=== PATIENT | female | born 2000 | race Caucasian/White ===

== ENCOUNTER 2023-04-16 12:19 | Outpatient (REF) | payer BC, SELFPAY ==
[2023-04-16 14:36] LABS: MANUAL DIFF FLAG NO
[2023-04-16 14:51] LABS: Basophils Percent Auto 0.4 % (0-2); Eosinophils Absolute Auto 0.1 X10*3/uL (0.0-0.4); Eosinophils Percent Auto 0.7 % (0-4); Hematocrit 42.9 % (37.0-47.0); Hemoglobin 14.5 g/dl (12.0-16.0); Imm Gran Abs Auto 0.03 X10*3/uL (0.00-0.03); Imm Gran Pct Auto 0.4 % (0.0-0.4); Lymphocytes Absolute Auto 1.9 X10*3/uL (1.2-4.9); Lymphocytes Percent Auto 25.8 % (20-40); Mean Corpuscular HGB Conc 33.8 g/dl (31.0-35.0); Mean Corpuscular Hemoglobin 29.7 pg (27.0-33.0); Mean Corpuscular Volume 87.7 fL (80.0-98.0); Mean Platelet Volume 9.6 fL (9.4-12.3); Monocytes Absolute Auto 0.6 X10*3/uL (0.1-1.2); Neutrophils Absolute Auto 4.8 x10*3/uL (2.0-8.3); Neutrophils Percent Auto 64.7 % (45-73); Platelet Count 345 X10*3/uL (160-400); Red Blood Count 4.89 X10*6/uL (4.20-5.50); Red Cell Distribution Width 11.8 % (11.0-16.0); White Blood Count 7.4 X10*3/uL (4.8-10.8)
[2023-04-16 15:30] LABS: Appearance Urine Clear; Color Urine Yellow; Glucose Urine UA Negative (Negative); Leukocyte Esterase Urine Negative (Negative); Nitrite Urine Negative (Negative); PH 7.5 (5.0-9.0); Specific Gravity - Urine 1.025 (1.005-1.025); Urine Blood Negative (Negative); Urine Ketones Negative (Negative); Urine Protein Negative (Neg-Trace)
[2023-04-16 15:34] LABS: Alanine Aminotransferase 20 U/L (0-31); Albumin Level 4.5 g/dL (3.5-5.0); Alkaline Phosphatase 106 U/L (39-117); Anion Gap 12 (12-20); Aspartate Amino Transferase 19 U/L (5-31); Bilirubin Total 0.6 mg/dL (0.0-1.0); Blood Urea Nitrogen 14 mg/dL (9-16); Carbon Dioxide 26 mmol/L (22-29); Chloride 106 mmol/L (96-108); Cholesterol 239 mg/dL; Estimated Glomerular Filt Rate > 60; Glucose Fasting 97 mg/dL (60-99); HDL Cholesterol 33 mg/dL; LDL Cholesterol Calculated 167 mg/dl; Potassium 3.9 mmol/L (3.3-5.1); Sodium 140 mmol/L (135-145); TSH reflex Free T4 0.56 uIU/mL (0.32-4.0); Triglycerides 198 mg/dL
== END 2023-04-16 12:20 | disposition home or self-care (01) ==
LOC: HO.WFDLDS 12:19
PROVIDERS: Visit Provider Nurse Practitioner Family
DX: Z00.00 Encounter for general adult medical examination without abnormal findings (principal)
CPT/HCPCS: 36415; 80053; 80061; 81003; 84443; 85025

== ENCOUNTER 2023-04-27 09:59 | Outpatient (AMB) | payer BC, OTHER, SELFPAY ==
--- NOTE | 2023-04-27 10:32 | A.OFFPC_ITS ---
Vital Signs 04/27/23 10:36 Height 5 ft 6 in Weight 219 lb BMI 35.3 BP 122/74 Blood Pressure Location Lt brachial Position Sitting Pulse 95 Pulse Source Pulse Oximeter Pulse Oximetry (%) 98 Intake Visit Reasons: anxiety, depression Intake Note: pt is here for anxiety and depression Pulper Operator Required: No Accompanied by: Self / Same As Patient Allergies Seasonal Allergies Allergy (Mild, Verified 04/27/23 10:54) Sneezing Medication List - Last Reconciled 04/27/23 by Raudel Tanner CNP duloxetine 120 mg (2 x 60 mg) PO DAILY 30 days lamotrigine 100 mg PO BID levonorgestrel (Mirena) intrauterine Tobacco use date assessed: 03/31/23 Dental Screening Dental Screen Date: 04/27/23 Did you have a dental visit in the last 12 months?: No Did you have a dental problem in the last 6 months where you did not have access to dental care?: No Was dental information given to patient?: Yes HPI HPI Comments History of Present Illness Details 22-year-old female presents for anxiety and depression follow-up. She is on duloxetine and lamotrigine. She notes she has been taking her medications as prescribed and with good effects. She states that her anxiety and depression symptoms are improving. She notes she is in contact with the community navigator to find a therapist. [facility] Medical History Anxiety Bipolar 1 disorder delivery delivered Depression Fatty tumor Ovarian cyst depression Surgical History History of placement of ear tubes [place] teeth removed Family History Maternal Grandmother Colon cancer Social History Housing: House Patient Tobacco Use Status: Former Tobacco user Tobacco use type: Cigarette Cigarettes Per Day: 0.5 e-Cigarette/Vaping Use: Currently Using (Occasional) service: No Cognitive needs: No Hearing needs: No Vision needs: Yes Questionnaire PHQ-9 Over the last 2 weeks, how often have you been bothered by any of the following problems? 1. Little interest or pleasure in doing things: several days 2. Feeling down, depressed, or hopeless: more than half the days 3. Trouble falling or staying asleep, or sleeping too much: nearly every day 4. Feeling tired or having little energy: nearly every day 5. Poor appetite or overeating: nearly every day 6. Feeling bad about yourself - or that you are a failure or have let yourself or your family down: more than half the days 7. Trouble concentrating on things, such as reading the newspaper or watching television: not at all 8. Moving or speaking so slowly that other people could have noticed. Or the opposite - being so fidgety or restless that you have been moving around a lot more than usual: not at all 9. Thoughts that you would be better off or of hurting yourself in some way: not at all Total score: 14 Depression Screening Interpretation: Positive Depression Screening Follow-up: Existing condition and In treatment 72485 - PHQ-9 Billing: Yes Source: Developed by Drs. Scott Silver, aMrily Delvalle, Marty Lamas and colleagues, with an educational rima from [employer]. Thrive Questionnaire Date Thrive assessed: 03/31/23 MELISSA-7 AMB Questionnaire MELISSA-7 Date MELISSA - 7 assessed: 04/27/23 Feeling nervous, anxious, or on edge: 1 = Several days Not being able to stop or control worryin = Several days Worrying too much about different things: 1 = Several days Trouble relaxin = Several days Being so restless that it is hard to sit still: 1 = Several days Becoming easily annoyed or irritable: 3 = Nearly every day Feeling afraid as if something awful might happen: 1 = Several days Total MELISSA-7 score (0-4 normal; 5-9 mild; 10-14 moderate; 15-21 severe): 9 Source: Developed by Drs. Scott Silver, Marty Mercedes and colleagues, with an educational rima from [employer]. MELISSA-7 Assessment Billing MELISSA-7 Assessment Tool: MELISSA-7 Assessment 08045 Review of Systems Const Details: Const Denies chills, Denies fatigue, Denies fever(s), Denies headache(s) and Denies weakness ENT Denies dizziness and Denies headache(s) Card Denies chest pain, Denies lightheadedness, Denies dyspnea and Denies other (Palpitations) Resp Denies cough, Denies dyspnea, Denies wheezing and Denies other ( shortness of breath) GI Denies abdominal pain, Denies melena, Denies hematochezia, Denies change in bowel habits, Denies dyspepsia and Denies nausea Denies hematuria and Denies dysuria Musc Denies abnormal gait, Denies myalgias, Denies arthralgias, Denies numbness and Denies tingling Skin/Breast Denies rash, Denies unusual bruising and Denies wounds Neuro Denies abnormal gait, Denies dizziness, Denies headache(s), Denies memory loss, Denies numbness, Denies Sensory deficit (Neuro), Denies tingling and Denies weakness Psych Reports anxiety and Denies depression, Denies memory loss Endo Denies fatigue Aller/Immun Denies wheezing Physical exam (Primary Care) Vital Signs: Last Vital Signs Pulse 95 04/27/23 10:36 BP 122/74 04/27/23 10:36 Pulse Ox 98 04/27/23 10:36 BMI result Body Mass Index 35.3 Tobacco/Smoking Status: Tobacco use Status Tobacco use date assessed 03/31/23 04/27/23 10:38 Patient Tobacco Use Status Former Tobacco user 04/27/23 10:38 Tobacco use type Cigarette 04/27/23 10:38 e-Cigarette/Vaping Use Currently Using (Occasional) 04/27/23 10:38 PHQ-9: PHQ-9 Score PHQ-9: Total score 14 04/27/23 10:58 Depression Screening Interpretation: Positive Depression Screening Follow-up: Existing condition and In treatment Thrive Assessment: Date of Thrive Assessment Date Thrive assessed 03/31/23 04/27/23 10:38 Const Other: General: no acute distress and well developed Nutritional Appearance: well nourished Orientation/consciousness: patient oriented x3 HENMT Head: Yes normocephalic and Yes atraumatic Eyes General: appearance normal, both eyes and all related structures Pupils: Equal, round and reactive pupils present EOM: EOMs intact bilaterally Resp Effort & Inspection: normal respiratory effort Auscultation: clear to auscultation bilaterally Cardio Rate: regular rate Rhythm: regular rhythm Heart sounds: S1 normal heart sound present, S2 normal heart sound present, no gallops, no murmurs and no rubs GI Palpation (GI): No Abdominal aortic bruit present, Soft to palpation, nontender, No hepatosplenomegaly present and No Rebound tenderness present Auscultation: normal bowel sounds General: Yes no CVA tenderness Back/Spine/Pelvis Back: no CVA tenderness Cervical Spine: cervical ROM normal and No Cervical spine tenderness Thoracic/Lumbar Spine: thoraco-lumbar ROM normal, No pain with thoraco-lumbar ROM, No thoracic spinal tenderness and No lumbar spinal tenderness Extrem General: Yes normal to inspection, No edema and No calf tenderness Skin General: warm and dry. Normal skin color. Normal skin turgor Lesions: no lesions Rashes: no rashes Trauma: no lacerations or abrasions Wounds: no wounds Nails: normal Neuro General: patient oriented x3, gait normal and no focal neuro deficit Cranial nerves: Yes Equal, round and reactive pupils present Cognition (Neuro): normal cognition Gait exam (Neuro): Normal gait present Sensory Exam: No Sensory deficit (Neuro) Psych Appearance: grossly normal Affect: normal affect Attitude: cooperative Thought process: Normal thought process present Assessment and Plan Assessment & Plan (1) Depression: Code(s): F32.A - Depression, unspecified Plan: PHQ-9 and MELISSA-7 scores revealed moderate depression and mild anxiety respectively Continue to take duloxetine and lamotrigine as prescribed Routine exercise encouraged Recent lab results reviewed with the patient Follow-up in 1 month for a complete physical exam Return sooner with worsening or new symptoms Verbalized understanding and agreed with treatment plan (2) Anxiety: Code(s): F41.9 - Anxiety disorder, unspecified Plan: As above (3) Hyperlipidemia: Code(s): E78.5 - Hyperlipidemia, unspecified Plan: Recent blood work reviewed with the patient Triglyceride, cholesterol, and LDL were elevated, HDL was low Advised to limit foods high in saturated fat and avoid foods high trans fat Routine exercise encouraged Will continue to monitor Coding Level of Care Code Est Pt Level 3 (24196) Diagnoses Depression F32.A Anxiety F41.9 Hyperlipidemia E78.5 Additional Codes MELISSA-7 Assessment Billing - MELISSA-7 Assessment Tool: MELISSA-7 Assessment 62564 ([id number]) Time Spent (min) 25
[2023-04-27 10:36] VITALS: BP 122/74; PULSE 95; O2SAT 98; BMI 35.3
== END 2023-04-27 11:12 | disposition home or self-care (01) ==
PROVIDERS: PCP Nurse Practitioner Family; Visit Provider Nurse Practitioner Family
DX: F32.A Depression, unspecified (principal); F41.9 Anxiety disorder, unspecified; E78.5 Hyperlipidemia, unspecified
CPT/HCPCS: 96127; 99213

== ENCOUNTER 2023-06-02 10:46 | Outpatient (AMB) | payer BC, OTHER, SELFPAY ==
[2023-06-02 10:54] VITALS: BP 124/70; PULSE 112; RESP 12; TEMP 36.5; O2SAT 99; BMI 35.0
--- NOTE | 2023-06-02 10:54 | MHC.PC.OV ---
Vital Signs 06/02/23 10:54 Height 5 ft 6 in Weight 217 lb BMI 35.0 BP 124/70 Blood Pressure Location Rt brachial Position Sitting Respiration 12 Pulse 112 H Pulse Source Pulse Oximeter Temp 97.7 F Temp Source Temporal Artery Scan Pulse Oximetry (%) 99 Oxygen Delivery Method Room Air Intake Visit Reasons: CPE Intake Note: Patient states that she has the Mirena IUD in and she seen that one of the symptoms while can start embedding in the uterus and she wants to know how often this should be checked and if she is at risk right now. Patient wants to know if provider will be able to do a pap smear. Patient is also interested in flu shot and Covid booster if available and states that the vaccinations don't have to be done today. Manager Of Exhibitions And Collections Required: No Accompanied by: Self / Same As Patient Allergies Seasonal Allergies Allergy (Mild, Verified 06/02/23 11:15) Sneezing Medication List - Last Reconciled 06/02/23 by Raudel Tanner CNP duloxetine 120 mg (2 x 60 mg) PO DAILY 30 days lamotrigine 100 mg PO BID levonorgestrel (Mirena) intrauterine Tobacco use date assessed: 03/31/23 Dental Screening Dental Screen Date: 06/02/23 Did you have a dental visit in the last 12 months?: No Did you have a dental problem in the last 6 months where you did not have access to dental care?: No Was dental information given to patient?: Yes HPI HPI Comments History of Present Illness Details 22-year-old female presents for complete physical exam. She has history of anxiety, depression, and hyperlipidemia. She is on duloxetine, lamotrigine, and Mirena IUD. She notes she takes her medications as prescribed with controlled symptoms. She is concerned about how often she should check her Mirena a IUD. She notes she read on the Internet that breast feeding may dislodge the IUD device and attach it to the uterine wall. She notes that her last pap smear text was in June 2021: normal . She has not established with an RESIDENT ENGINEER since she relocated from [place] to [facility]. [facility], [facility] Medical History Anxiety Bipolar 1 disorder delivery delivered Depression Fatty tumor Ovarian cyst depression Surgical History History of placement of ear tubes [place] teeth removed Family History Maternal Grandmother Colon cancer Social History Housing: House Patient Tobacco Use Status: Former Tobacco user Tobacco use type: Cigarette Cigarettes Per Day: 0.5 e-Cigarette/Vaping Use: Currently Using (Occasional) service: No Current occupational status: unemployed Cognitive needs: No Hearing needs: No Vision needs: Yes Questionnaire PHQ-9 Over the last 2 weeks, how often have you been bothered by any of the following problems? 1. Little interest or pleasure in doing things: several days 2. Feeling down, depressed, or hopeless: several days 3. Trouble falling or staying asleep, or sleeping too much: nearly every day 4. Feeling tired or having little energy: several days 5. Poor appetite or overeating: several days 6. Feeling bad about yourself - or that you are a failure or have let yourself or your family down: several days 7. Trouble concentrating on things, such as reading the newspaper or watching television: not at all 8. Moving or speaking so slowly that other people could have noticed. Or the opposite - being so fidgety or restless that you have been moving around a lot more than usual: not at all 9. Thoughts that you would be better off or of hurting yourself in some way: not at all Total score: 8 Depression Screening Interpretation: Positive Depression Screening Follow-up: Existing condition and In treatment Source: Developed by Drs. Scott Silver, Marily Delvalle, aMrty Lamas and colleagues, with an educational rima from [employer]. Thrive Questionnaire Date Thrive assessed: 03/31/23 AUDIT C Alcohol Use Questionnaire (AUDIT-C) 1. How often do you have a drink containing alcohol?: Monthly or less 2. How many drinks containing alcohol do you have on a typical day when you are drinking?: 1 or 2 3. How often do you have six or more drinks on one occasion?: Never Total Score: 1 MELISSA-7 AMB Questionnaire MELISSA-7 Date MELISSA - 7 assessed: 04/27/23 Feeling nervous, anxious, or on edge: 1 = Several days Not being able to stop or control worryin = Not at all Worrying too much about different things: 1 = Several days Trouble relaxin = Several days Being so restless that it is hard to sit still: 1 = Several days Becoming easily annoyed or irritable: 3 = Nearly every day Feeling afraid as if something awful might happen: 0 = Not at all Total MELISSA-7 score (0-4 normal; 5-9 mild; 10-14 moderate; 15-21 severe): 7 Source: Developed by Drs. Scott Silver, Marily Delvalle, Marty Lamas and colleagues, with an educational rima from [employer]. Review of Systems Const Details: Denies chills, Denies fatigue, Denies fever(s), Denies headache(s) and Denies weakness HEENT Denies change in vision, Denies dizziness, Denies headache(s), Denies hearing loss, Denies nasal congestion, Denies sinus pain, Denies sinus pressure and Denies sore throat Card Denies chest pain, Denies lightheadedness, Denies dyspnea and Denies other (palpitations) Resp Denies cough, Denies dyspnea and Denies wheezing GI Denies abdominal pain, Denies melena, Denies hematochezia, Denies change in bowel habits, Denies dyspepsia and Denies nausea Denies hematuria and Denies dysuria Musc Denies abnormal gait, Denies myalgias, Denies arthralgias, Denies numbness and Denies tingling Skin/Breast Denies rash, Denies unusual bruising and Denies wounds Neuro Denies abnormal gait, Denies dizziness, Denies headache(s), Denies memory loss, Denies numbness, Denies Sensory deficit (Neuro), Denies tingling and Denies weakness Psych Denies anxiety, Denies depression and Denies memory loss Endo Denies cold intolerance, Denies fatigue, Denies heat intolerance, Denies polydipsia and Denies polyuria Conrad/Lymph Denies easy bleeding and Denies easy bruising Aller/Immun Denies wheezing Physical exam (Primary Care) Vital Signs: Last Vital Signs Temp 97.7 F 06/02/23 10:54 Pulse 112 H 06/02/23 10:54 Resp 12 06/02/23 10:54 BP 124/70 06/02/23 10:54 Pulse Ox 99 06/02/23 10:54 Oxygen Delivery Method Room Air 06/02/23 10:54 BMI result Body Mass Index 35.0 Tobacco/Smoking Status: Tobacco use Status Tobacco use date assessed 03/31/23 06/02/23 11:03 Patient Tobacco Use Status Former Tobacco user 06/02/23 11:03 Tobacco use type Cigarette 06/02/23 11:03 e-Cigarette/Vaping Use Currently Using (Occasional) 06/02/23 11:03 PHQ-9: PHQ-9 Score PHQ-9: Total score 8 06/02/23 11:10 Depression Screening Interpretation: Positive Depression Screening Follow-up: Existing condition and In treatment Thrive Assessment: Date of Thrive Assessment Date Thrive assessed 03/31/23 06/02/23 11:03 Const Other: General: no acute distress, well developed, alert and awake Nutritional Appearance: well nourished Orientation/consciousness: patient oriented x3 HENMT Head: Yes normocephalic and Yes atraumatic Ears: hearing grossly normal bilaterally and TM's normal bilaterally General nose exam: Normal external nose present and Normal nares present Mouth: Normal oral and palatal mucosa present and moist mucous membranes Teeth and gingiva: dentition normal Throat: Yes oropharynx normal Eyes Pupils: Equal, round and reactive pupils present and Pupil accommodation reflex normal EOM: EOMs intact bilaterally Neck Neck: Yes normal visual inspection, Yes no lymphadenopathy and Yes trachea midline Thyroid: Thyroid normal Carotids: no bruits Lymphatic: no lymphadenopathy noted Chest Chest palpation & inspection: normal inspection of the chest Resp Effort & Inspection: normal respiratory effort Auscultation: clear to auscultation bilaterally Cardio Rate: regular rate Rhythm: regular rhythm Heart sounds: S1 normal heart sound present, S2 normal heart sound present, no gallops, no murmurs and no rubs Bruits: no abdominal aortic bruits and no carotid bruits GI Palpation (GI): No Abdominal aortic bruit present, Soft to palpation, nontender, No hepatosplenomegaly present and No Rebound tenderness present Auscultation: normal bowel sounds General: Yes no CVA tenderness Back/Spine/Pelvis Back: no CVA tenderness Cervical Spine: cervical ROM normal and No Cervical spine tenderness Thoracic/Lumbar Spine: thoraco-lumbar ROM normal, No pain with thoraco-lumbar ROM, No thoracic spinal tenderness and No lumbar spinal tenderness Skin General: warm and dry. Normal skin color. Normal skin turgor Lesions: no lesions Rashes: no rashes Trauma: no lacerations or abrasions Wounds: no wounds Nails: normal Neuro General: patient oriented x3, gait normal and CN's II-XI intact bilaterally Cranial nerves: Yes Equal, round and reactive pupils present Cognition (Neuro): normal cognition Gait exam (Neuro): Normal gait present Motor exam (neuro): 5/5 motor strength present throughout Sensory Exam: No Sensory deficit (Neuro) Deep tendon reflexes (DTR's): Right patellar reflex intensity grade: 2+ and Left patellar reflex intensity grade: 2+ Extrem General: Yes normal to inspection, No edema and No calf tenderness Psych Appearance: grossly normal Affect: normal affect Attitude: cooperative Thought process: Normal thought process present Assessment and Plan Assessment & Plan (1) Anxiety: Code(s): F41.9 - Anxiety disorder, unspecified Plan: PHQ-9 and MELISSA-7 scores revealed mild depression and anxiety respectively Continue to take duloxetine and lamotrigine as prescribed Routine exercise encouraged Follow-up in 3 months Return sooner with worsening or new symptoms Verbalized understanding and agreed with treatment plan. She is informed she may have the flu a and COVID vaccine from the pharmacy. (2) Depression: Code(s): F32.A - Depression, unspecified Plan: As above (3) IUD (intrauterine device) in place: Code(s): Z97.5 - Presence of (intrauterine) contraceptive device Plan: She is concerned about how often she should check her Mirena a IUD. She notes she read on the Internet that breast feeding may dislodge the IUD device and attach it to the uterine wall. She is advised to check her IUD device monthly at the end of her menstrual cycle. She can ensure correct placement by inserting a finger in her vagina to feel the strings of the IUD device from her cervix. Referred to [facility] [place] compliance director Follow-up with concerns or symptoms Verbalized understanding and agreed with treatment plan. (4) Pap smear for cervical cancer screening: Code(s): Z12.4 - Encounter for screening for malignant neoplasm of cervix Plan: She notes that her last pap smear text was in June 2021: normal. She has not established with an RESIDENT ENGINEER since she relocated from [place] to [facility]. [place] [facility] [place]. Coding Level of Care Code Est Pt Prev Care 18-39y(61817) Diagnoses Anxiety F41.9 Depression F32.A IUD (intrauterine device) in place Z97.5 Pap smear for cervical cancer screening Z12.4
== END 2023-06-02 11:30 | disposition home or self-care (01) ==
PROVIDERS: PCP Nurse Practitioner Family; Visit Provider Nurse Practitioner Family
DX: Z00.00 Encounter for general adult medical examination without abnormal findings (principal); F41.9 Anxiety disorder, unspecified; F32.A Depression, unspecified; Z97.5 Presence of (intrauterine) contraceptive device
CPT/HCPCS: 99395

== ENCOUNTER 2023-11-24 14:12 | Outpatient (AMB) | payer BC, OTHER, SELFPAY ==
[2023-11-24 14:28] VITALS: BP 128/80; PULSE 87; TEMP 36.6; O2SAT 98; BMI 38.2
--- NOTE | 2023-11-24 14:28 | AM.OFFWIN_ITS ---
Intake Vital Signs 11/24/23 14:28 Height 5 ft 6 in Weight 236 lb 8 oz BMI 38.2 BP 128/80 Blood Pressure Location Lt brachial Position Sitting Pulse 87 Pulse Source Pulse Oximeter Temp 97.8 F Temp Source Oral Pulse Oximetry (%) 98 Intake Visit Reasons: EST/uti (lobby) Intake Note: pt is here for c.o possible uti Patient Tobacco Use Status: Former Tobacco user Allergies Seasonal Allergies Allergy (Mild, Verified 11/24/23 14:30) Sneezing Do you need a note to return to daycare/school/sports/work: Yes HPI HPI Comments History of Present Illness Details 23 y/o female patient who presents to [facility] in clinic with c/o Urinary symptoms. Pt also reports Vaginal discharge with foul smell. Pt sexually active with 1 male partner - has IUD. Denies any h/o STIs. [facility] Medical History Anxiety Bipolar 1 disorder delivery delivered Depression Fatty tumor Ovarian cyst depression Surgical History History of placement of ear tubes [place] teeth removed Family History Maternal Grandmother Colon cancer Social History Housing: House Patient Tobacco Use Status: Former Tobacco user Tobacco use type: Cigarette Cigarettes Per Day: 0.5 e-Cigarette/Vaping Use: Currently Using (Occasional) service: No Current occupational status: unemployed Cognitive needs: No Hearing needs: No Vision needs: Yes Review of Systems Const All systems reviewed & are unremarkable except as noted in HPI and below Physical Exam Vital Signs: Last Vital Signs Temp 97.8 F 11/24/23 14:28 Pulse 87 11/24/23 14:28 BP 128/80 11/24/23 14:28 Pulse Ox 98 11/24/23 14:28 BMI result Body Mass Index 38.2 GI Palpation (GI): Soft to palpation Auscultation: normal bowel sounds General: Yes no CVA tenderness External Female Exam: normal external appearance Speculum Exam - Vagina: abnormal vaginal discharge white Speculum Exam - Cervix: normal appearance of the cervix, normal palpation and Cervical os open Bimanual exam- vagina & uterus: normal palpation OB/external & speculum: Cervical os open Back/Spine/Pelvis Back: no CVA tenderness Results AMB Urinalysis, Automated UA Leukoctes 0 Lynda/uL Last Edit by Jason Morrell CMA on 11/24/23 14:40 UA Nitrite Negative Last Edit by Jason Morrell CMA on 11/24/23 14:40 UA Urobilinogen 0.2 mg/dL Last Edit by Jason Morrell CMA on 11/24/23 14 :40 UA Protein 15 mg/dL Last Edit by Jason Morrell CMA on 11/24/23 14:40 UA pH 6.5 Last Edit by Jason Morrell CMA on 11/24/23 14:40 UA Blood 0 Gilbert/uL Last Edit by Jason Morrell CMA on 11/24/23 14:40 UA Specific [place] 1.020 Last Edit by Jason Morrell CMA on 11/24/23 14:40 UA Ketone Negative Last Edit by Jason Morrell CMA on 11/24/23 14:40 UA Bilirubin 0 mg/dL Last Edit by Jason Morrell CMA on 11/24/23 14:40 UA Glucose 0 mg/dL Last Edit by Jason Morrell CMA on 11/24/23 14:40 Results Reviewed Results Reviewed: Laboratory Last Values Urine pH (Auto) 6.5 11/24/23 14:34 Specific [place] (Auto) 1.020 11/24/23 14:34 Urine Protein (Auto) 15 mg/dL 11/24/23 14:34 Glucose (UA)(Auto) 0 mg/dL 11/24/23 14:34 Urine Ketones (Auto) Negative 11/24/23 14:34 Urine Blood (Auto) 0 Gilbert/uL 11/24/23 14:34 Urine Nitrite (Auto) Negative 11/24/23 14:34 Urine Bilirubin (Auto) 0 mg/dL 11/24/23 14:34 Urine Urobilinogen (Auto) 0.2 mg/dL 11/24/23 14:34 Leukocyte Esterase (Auto) 0 Lynda/uL 11/24/23 14:34 Assessment & Plan Assessment & Plan (1) Vaginitis and vulvovaginitis: Code(s): N76.0 - Acute vaginitis Plan: - Take medication as prescribed - Void after intercourse Orders: Orders AMB Urinalysis Automated Today Z13.9 - Encounter for screening, unspecified SureSwab BV CT/NG TMA Today N76.0 - Acute vaginitis Medications: New metronidazole 0.75%(37.5mg/5gram) 1 appful vaginal DAILY 3 days 70 grams 0RF N76.0 - Acute vaginitis Coding Level of Care Code Est Pt Level 3 (21260) Diagnoses Vaginitis and vulvovaginitis N76.0 Time Spent (min) 15
== END 2023-11-24 17:06 | disposition home or self-care (01) ==
PROVIDERS: PCP Nurse Practitioner Family; Visit Provider Nurse Practitioner Family
DX: N76.0 Acute vaginitis (principal)
CPT/HCPCS: 81003; 99213

== ENCOUNTER 2023-11-24 14:54 | Outpatient (REF) | payer BC, OTHER, SELFPAY ==
[2023-11-25 15:42] LABS: BV Int Neg Control Negative (Negative); BV Int Pos Control Positive (Positive)
== END 2023-11-24 14:55 | disposition home or self-care (01) ==
LOC: HO.LAB 14:54
PROVIDERS: Visit Provider Nurse Practitioner Family
DX: N76.0 Acute vaginitis (principal)
CPT/HCPCS: 87480; 87510; 87660

== ENCOUNTER 2023-12-30 11:51 | Outpatient (AMB) | payer BC, OTHER, SELFPAY ==
[2023-12-30 12:00] VITALS: BP 130/80; PULSE 114; TEMP 36.4; O2SAT 97; BMI 39.1
--- NOTE | 2023-12-30 12:00 | MHC.OFFWIV ---
Intake Vital Signs 12/30/23 12:00 Height 5 ft 6 in Weight 242 lb BMI 39.1 BP 130/80 Blood Pressure Location Lt brachial Position Sitting Pulse 114 H Pulse Source Pulse Oximeter Temp 97.5 F Temp Source Temporal Artery Scan Pulse Oximetry (%) 97 Oxygen Delivery Method Room Air Intake Visit Reasons: EP ongoing headache Intake Note: pt is here today for ongoing headache started 1 month ago Patient Tobacco Use Status: Former Tobacco user Allergies Seasonal Allergies Allergy (Mild, Verified 12/30/23 12:03) Sneezing Do you need a note to return to daycare/school/sports/work: Yes HPI HPI Comments History of Present Illness Details 23 y/o female patient who presents to walk in clinic with c/o Persistent headaches for 1 month. Reports that headaches are located on frontal region, associated with nausea, vomiting, light and sound sensitivity. Prior h/o JACKLYN but did not need CPAP. Pt admit to not getting enough sleep - she has a Toddler at home. She has been taking Acetaminophen with minimal relief. [facility] Medical History Anxiety Bipolar 1 disorder delivery delivered Depression Fatty tumor Ovarian cyst depression Surgical History History of placement of ear tubes [place] teeth removed Family History Maternal Grandmother Colon cancer Social History Housing: House Patient Tobacco Use Status: Former Tobacco user Tobacco use type: Cigarette Cigarettes Per Day: 0.5 e-Cigarette/Vaping Use: Currently Using (Occasional) service: No Current occupational status: unemployed Cognitive needs: No Hearing needs: No Vision needs: Yes Review of Systems Const All systems reviewed & are unremarkable except as noted in HPI and below Physical Exam Vital Signs: Last Vital Signs Temp 97.5 F 12/30/23 12:00 Pulse 114 H 12/30/23 12:00 BP 130/80 12/30/23 12:00 Pulse Ox 97 12/30/23 12:00 Oxygen Delivery Method Room Air 12/30/23 12:00 BMI result Body Mass Index 39.1 Const General: comfortable and no acute distress Nutritional Appearance: overweight Orientation/consciousness: patient oriented x3 HEENT Head: Yes normocephalic General nose exam: Normal nasal mucous membranes and turbinates present Face and sinus: Yes sinuses nontender Mouth: moist mucous membranes Neuro General: patient oriented x3, gait normal and moves all extremities Psych Speech and movement: Normal speech and movement present Assessment & Plan Assessment & Plan (1) Chronic tension headaches: Code(s): G44.229 - Chronic tension-type headache, not intractable Qualifiers: Intractability: not intractable Qualified Code(s): G44.229 - Chronic tension-type headache, not intractable Plan: - Keep a headache dairy - Monitor for Triggers - Get enough sleep - She mighr benefit having another Sleep study - Most likely headaches are triggered by JACKLYN - Acetaminophen Alter with Ibuprofen. Medications: New naproxen sodium 550 mg PO Q12H PRN 60 tabs 0RF pain G44.229 - Chronic tension-type headache, not intractable acetaminophen 1,000 mg (2 x 500 mg) PO Q6H PRN 30 caps 0RF pain (scale score 7-10) R51.9 - Headache, unspecified Coding Level of Care Code Est Pt Level 3 (39234) Diagnoses Chronic tension-type headache, not intractable G44.229 Intractability: not intractable Time Spent (min) 15
== END 2023-12-30 13:09 | disposition home or self-care (01) ==
PROVIDERS: PCP Nurse Practitioner Family; Visit Provider Nurse Practitioner Family
DX: G44.229 Chronic tension-type headache, not intractable (principal)
CPT/HCPCS: 99213

== ENCOUNTER 2024-01-03 16:11 | Outpatient (AMB) | payer BC, OTHER, SELFPAY ==
--- NOTE | 2024-01-03 16:16 | A.OFFPC_ITS ---
Vital Signs 01/03/24 16:19 Height 5 ft 6 in Weight 243 lb 2 oz BMI 39.2 BP 128/80 Blood Pressure Location Lt brachial Position Sitting Pulse 107 H Pulse Source Pulse Oximeter Pulse Oximetry (%) 97 Oxygen Delivery Method Room Air Intake Visit Reasons: Chronic migraines Intake Note: Patient is here to follow up on Chronic Migraines. OTC did not help with headaches. Batch Attendant Required: No Accounts Supervisor: Not Required per policy Accompanied by: Self / Same As Patient Allergies Seasonal Allergies Allergy (Mild, Verified 01/03/24 16:30) Sneezing Medication List - Last Reconciled 01/03/24 by Raudel Tanner CNP acetaminophen 1,000 mg (2 x 500 mg) PO Q6H PRN aripiprazole 5 mg PO DAILY duloxetine 120 mg (2 x 60 mg) PO DAILY 30 days lamotrigine 100 mg PO BID 90 days levonorgestrel (Mirena) intrauterine naproxen sodium 550 mg PO Q12H PRN Tobacco use date assessed: 01/03/24 Dental Screening Dental Screen Date: 01/03/24 Did you have a dental visit in the last 12 months?: No Did you have a dental problem in the last 6 months where you did not have access to dental care?: No Was dental information given to patient?: No HPI HPI Comments History of Present Illness Details 23-year-old female present with complain ts of intermittent headaches which has been ongoing for over a month. She states that the pain is localized to the right side of head and frontal region with associated nausea, vomiting, photophobia, and phonophobia. She reports interrupted sleep she she attributes to having a toddler at home. She states that she has missed work twice because of her current symtpoms. She notes history of JACKLYN in 2019 or 2020 but did not require a CPAP. She states that she snores loudly according to . She states that she was evaluated by an affirmative action specialist last month and was informed there were no abnormal findings No acute symptoms at this time She reports controlled mood symptoms. She states that she is followed by a psychiatrist once a month for management of her psychotropic medications and a therapist every two weeks [facility] Medical History Anxiety Bipolar 1 disorder delivery delivered Depression Fatty tumor Ovarian cyst depression Surgical History History of placement of ear tubes [place] teeth removed Family History (Updated 01/03/24 @ 16:24 by SHOSHANA Huber) Maternal Grandmother Colon cancer Other Substance use disorder Social History Housing: House Patient Tobacco Use Status: Former Tobacco user Tobacco use type: Cigarette Cigarettes Per Day: 0.5 e-Cigarette/Vaping Use: Currently Using (Occasional) Second Hand Smoke Exposure: Yes service: No Current occupational status: employed Cognitive needs: No Hearing needs: No Vision needs: Yes Questionnaire PHQ-9 Over the last 2 weeks, how often have you been bothered by any of the following problems? 1. Little interest or pleasure in doing things: several days 2. Feeling down, depressed, or hopeless: several days 3. Trouble falling or staying asleep, or sleeping too much: nearly every day 4. Feeling tired or having little energy: nearly every day 5. Poor appetite or overeating: nearly every day 6. Feeling bad about yourself - or that you are a failure or have let yourself or your family down: several days 7. Trouble concentrating on things, such as reading the newspaper or watching television: more than half the days 8. Moving or speaking so slowly that other people could have noticed. Or the opposite - being so fidgety or restless that you have been moving around a lot more than usual: not at all 9. Thoughts that you would be better off or of hurting yourself in some way: not at all Total score: 14 Depression Screening Interpretation: Positive Depression Screening Follow-up: Existing condition and In treatment Depression Screening Done: Yes Source: Developed by Drs. Scott Silver, Marily Delvalle, Marty Lamas and colleagues, with an educational rima from [employer]. Thrive Questionnaire Date Thrive assessed: 01/03/24 I am a: Patient What is your living situation today?: I have a steady place to live Within the past 12 months, did the food you bought not last and you didn't have the money to get more?: Never true Within the past 12 months, did you worry whether your food would run out before you got money to buy more?: Never true Do you have trouble paying for medicines?: No Do you have trouble getting transportation to medical appointments?: No Do you have trouble paying your heating and electricity bill?: No Do you have trouble taking care of your child, family member or friend?: No Do you have trouble with day-to-day activities such as bathing, preparing meals, shopping, managing finances, etc.?: No Are you currently unemployed and looking for a job?: No Are you interested in more education?: No Currently or been in a relationship where the following occur: no concerns reported THRIVE Score: 0 AUDIT C Alcohol Use Questionnaire (AUDIT-C) 1. How often do you have a drink containing alcohol?: Monthly or less 2. How many drinks containing alcohol do you have on a typical day when you are drinking?: 1 or 2 Total Score: 1 MELISSA-7 AMB Questionnaire MELISSA-7 Date MELISSA - 7 assessed: 01/03/24 Feeling nervous, anxious, or on edge: 3 = Nearly every day Not being able to stop or control worryin = Several days Worrying too much about different things: 1 = Several days Trouble relaxin = Several days Being so restless that it is hard to sit still: 1 = Several days Becoming easily annoyed or irritable: 3 = Nearly every day Feeling afraid as if something awful might happen: 3 = Nearly every day Total MELISSA-7 score (0-4 normal; 5-9 mild; 10-14 moderate; 15-21 severe): 13 Source: Developed by Drs. Scott Silver, Marily Delvalle, Marty Lamas and colleagues, with an educational rima from [employer]. Review of Systems Const Details: Const Denies chills, Denies fatigue, Denies fever(s), Denies headache(s) and Denies weakness ENT Reports as per HPI Card Denies chest pain, Denies lightheadedness, Denies dyspnea and Denies other (Palpitations) Resp Denies cough, Denies dyspnea, Denies wheezing and Denies other ( shortness of breath) GI Denies abdominal pain, Denies melena, Denies hematochezia, Denies change in bowel habits, Denies dyspepsia and Denies nausea Denies hematuria and Denies dysuria Musc Denies abnormal gait, Denies myalgias, Denies arthralgias, Denies numbness and Denies tingling Skin/Breast Denies rash, Denies unusual bruising and Denies wounds Neuro Denies abnormal gait, Denies dizziness, Denies headache(s), Denies memory loss, Denies numbness, Denies Sensory deficit (Neuro), Denies tingling and Denies weakness Psych Denies anxiety, Denies depression, Denies memory loss Endo Denies cold intolerance, Denies fatigue, Denies heat intolerance, Denies polydipsia and Denies polyuria Aller/Immun Denies wheezing Physical exam (Primary Care) BMI result Body Mass Index 39.2 Tobacco/Smoking Status: Tobacco use Status Tobacco use date assessed 03/31/23 06/02/23 11:03 Patient Tobacco Use Status Former Tobacco user 12/30/23 12:05 Tobacco use type Cigarette 06/02/23 11:03 e-Cigarette/Vaping Use Currently Using 06/02/23 11:03 Depression Screening Interpretation: Positive Depression Screening Follow-up: Existing condition and In treatment Thrive Assessment: Date of Thrive Assessment Date Thrive assessed 03/31/23 06/02/23 11:03 Currently or been in a relationship where the following occur: no concerns reported Const Other: General: no acute distress and well developed Nutritional Appearance: well nourished Orientation/consciousness: patient oriented x3 HENMT Head is normocephalic Bilateral ear canal and TM are normal Nasal turbinates and oropharynx are pink and moist Sinuses are nontender with palpation No auricular or cervical lymphadenopathy Eyes General: appearance normal, both eyes and all related structures Pupils: Equal, round and reactive pupils present EOM: EOMs intact bilaterally Resp Effort & Inspection: normal respiratory effort Auscultation: clear to auscultation bilaterally Cardio Rate: regular rate Rhythm: regular rhythm Heart sounds: S1 normal heart sound present, S2 normal heart sound present, no gallops, no murmurs and no rubs GI Palpation (GI): No Abdominal aortic bruit present, Soft to palpation, nontender, No hepatosplenomegaly present and No Rebound tenderness present Auscultation: normal bowel sounds General: Yes no CVA tenderness Back/Spine/Pelvis Back: no CVA tenderness Cervical Spine: cervical ROM normal and No Cervical spine tenderness Thoracic/Lumbar Spine: thoraco-lumbar ROM normal, No pain with thoraco-lumbar ROM, No thoracic spinal tenderness and No lumbar spinal tenderness Extrem General: Yes normal to inspection, No edema and No calf tenderness Skin General: warm and dry. Normal skin color. Normal skin turgor Neuro General: patient oriented x3, gait normal and no focal neuro deficit Cranial nerves: Yes Equal, round and reactive pupils present Cognition (Neuro): normal cognition Gait exam (Neuro): Normal gait present Sensory Exam: No Sensory deficit (Neuro) Psych Appearance: grossly normal Affect: normal affect Attitude: cooperative Thought process: Normal thought process present Assessment and Plan Assessment & Plan (1) Migraines: Code(s): G43.909 - Migraine, unspecified, not intractable, without status migrainosus Plan: Right-sided and frontal region headache for over a month, refractory to Tylenol and naproxen Likely migraines. May be related to JACKLYN or sleep deprivation Tylenol and naproxen discontinued Sumatriptan ordered. Take as prescribed Instructed on sleep hygiene Referred to sleep medicine for another sleep study Follow-up in 1 month or return sooner with worsening or new symptoms Verbalized understanding and agreed with treatment plan (2) JACKLYN (obstructive sleep apnea): Code(s): G47.33 - Obstructive sleep apnea (adult) (pediatric) Plan: Plan as above Orders: Referrals Sleep Medicine Referral G47.33 - Obstructive sleep apnea (adult) (pediatric) Medications: New sumatriptan succinate take 1 tab at onset of headache; if no relief may repeat 1 tab after at least 2 hrs; max = 4 tabs/24 hr PO 20 tabs 0RF Discontinued naproxen sodium Discontinued Reason: Doctor's Order 550 mg PO Q12H PRN 60 tabs 0RF pain G44.229 - Chronic tension-type headache, not intractable acetaminophen Discontinued Reason: Doctor's Order 1,000 mg (2 x 500 mg) PO Q6H PRN 30 caps 0RF pain (scale score 7-10) R51.9 - Headache, unspecified Coding Level of Care Code Est Pt Level 4 (76182) Diagnoses Migraines G43.909 JACKLYN (obstructive sleep apnea) G47.33
[2024-01-03 16:19] VITALS: BP 128/80; PULSE 107; O2SAT 97; BMI 39.2
== END 2024-01-03 16:48 | disposition home or self-care (01) ==
PROVIDERS: PCP Nurse Practitioner Family; Visit Provider Nurse Practitioner Family
DX: G43.909 Migraine, unspecified, not intractable, without status migrainosus (principal); G47.33 Obstructive sleep apnea (adult) (pediatric)
CPT/HCPCS: 99214

== ENCOUNTER 2024-01-11 14:26 | Outpatient (AMB) | payer BC, OTHER, SELFPAY ==
--- NOTE | 2024-01-11 14:29 | MHC.OFFVIS ---
Intake Vital Signs 01/11/24 14:30 Height 5 ft 6 in Weight 242 lb BMI 39.1 BP 118/78 Blood Pressure Location Rt brachial Position Sitting Pulse 102 H Pulse Source Pulse Oximeter Pulse Oximetry (%) 98 Oxygen Delivery Method Room Air Intake Visit Reasons: INP-JACKLYN - LVM w/address Intake Note: Patient presents for JACKLYN. patient had a sleep study done 3 years ago which results were mild not enough to treat.patient getting migraines x Allergies Seasonal Allergies Allergy (Mild, Verified 01/11/24 14:34) Sneezing Medication List - Last Reconciled 01/11/24 by Sheri Malave, LUCY aripiprazole 5 mg PO DAILY duloxetine 120 mg (2 x 60 mg) PO DAILY 30 days lamotrigine 100 mg PO BID 90 days levonorgestrel (Mirena) intrauterine sumatriptan succinate take 1 tab at onset of headache; if no relief may repeat 1 tab after at least 2 hrs; max = 4 tabs/24 hr PO HPI HPI Comments History of Present Illness Details Right-handed 23-yr-old female presents for new pt evaluation of sleep in setting of worsening headache. Pt was referred her today to evaluate her for sleep apnea, as she has been having increased headache frequency and severity in the past 1.5 months, which have caused her to miss multiple days of work. Pt reports she had a HST 3 yrs ago in [place]. Per pt, results showed mild JACKLYN, but was so mild she was not offered any treatment options. She does not recall why she had that initial sleep study. She was diagnosed w/ insomnia around age 18-19 yo. Since, pt endorses a weight a 30-40 lb weight gain. Pt endorses:? Musculoskeletal disorders or injury: had a fall a few yrs ago, shifted her hips, has scoliosis- dx'd post-menarche, so no tx. Mood d/o:Anxiety, Depression, depression, Bilpolar type I d/o- but this is being re-evaluated. ENT- large tonsils, in which food becomes stuck at times Sleep: Endorses: Difficulty initiating and maintaining sleep, nocturia, Snoring even in prone position, Excessive daytime sleepiness, Fatigue, Restlessness when trying to go to sleep w/ urge to stretch/flex her legs But denies Leg Cramps CV disease: h/o gestational HTN Clotting or hematology d/o: Pertinent denials include: Parasomnias, hallucinations, sleep paralysis, drop attacks, usual morning headaches. History of concussion/head injury, Respiratory d/o, Clotting or hematology d/o, Endocrine or metabolic d/o, History of seizure, syncope, or drop attacks, GI d/o, Constipation, Leg Cramps, Family history of migraine or other headache disorder Headache questionnaire:? Age/time of onset: elementary school Preceding causes: none Previous work-up: MRI: none, CT: none. Recent eye exam- normal. Typical headache characteristics: Prodrome symptoms: Ears begin to hurt, like a pressure. Occipital-cervicalgia stiffness/soreness. Aura: no preceding aura. Pain intensity: at worst 8/10 Location, quality, characteristics: Starts as a dull pain in right occipital and moves up into right parietal and into bilateral ears. Associated symptoms? Blurry vision, bilateral peripheral vision haziness, Photophobia, phonophonia, nausea, vomiting- at times, dizziness, activity intolerance, difficulty thinking, fatigue, throbbing like heartbeat in my head . Denies ringing. Postdrome: lingers Triggers: Denies Menstrual triggers: none- ammenorhea d/t IUD placement Positional trigger: denies Valsalva trigger: denies Exertional trigger: denies Sexual activity triggers: denies Time of day: Usually in the early afternoon Duration and Frequency: 3-4 or more hours, but can last into the next day, occurring mild 1-2 x's per week, severe 1-2x's per week. How does headache impact your life? sometimes has to miss work MIDAS disability scale: 22 Current acute medication use/interventions: Sumatriptan 25mg- helped but caused weird feeling, dizzy- this caused BUE tingling. Current preventative medication use: None, although is on duloxetine, aripiprazole, lamotrigine for mood d/o. 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 Family planning: Has an IUD. Has an 18 mo yr old dtr, plans to have more children in the future. [facility] Medical History (Updated 01/11/24 @ 16:31 by LUCY Rodriguez) delivery delivered Ovarian cyst Fatty tumor Depression Anxiety Bipolar 1 disorder depression Surgical History H/O section History of placement of ear tubes [place] teeth removed Family History Maternal Grandmother Colon cancer Other Substance use disorder Social History Housing: House Patient Tobacco Use Status: Former Tobacco user Tobacco use type: Cigarette Cigarettes Per Day: 0.5 e-Cigarette/Vaping Use: Currently Using (Occasional) Second Hand Smoke Exposure: Yes service: No Current occupational status: employed Cognitive needs: No Hearing needs: No Vision needs: Yes Questionnaire [place] Sleepiness Scale Questions Sitting and reading: moderate chance of dozing Watching TV: moderate chance of dozing Sitting inactive in a theater, movie etc.: moderate chance of dozing As a passenger in a car for an hour without break: high chance of dozing Lying down in the afternoon when circumstances permit: moderate chance of dozing Sitting and talking to someone: would never doze Sitting quietly after lunch without alcohol: moderate chance of dozing In a car, while stopped for a few minutes in the traffic: would never doze ESS < 10: normal, ESS > 12: pathologic: 13 Physical Exam Vital Signs: Last Vital Signs Pulse 102 H 01/11/24 14:30 BP 118/78 01/11/24 14:30 Pulse Ox 98 01/11/24 14:30 Oxygen Delivery Method Room Air 01/11/24 14:30 BMI result Body Mass Index 39.1 Const Orientation/consciousness: patient oriented x3 HEENT Other: Mallampati stage III Tonsils at least moderate enlargement Head: Yes normocephalic Resp Effort & Inspection: normal respiratory effort and able to speak in complete sentences Neuro Other: Photophobia General: patient oriented x3 Cranial nerves: Yes CN's II-XII intact bilaterally Cognition (Neuro): normal cognition Gait exam (Neuro): Normal gait present Motor exam (neuro): 5/5 motor strength present throughout Deep tendon reflexes (DTR's): Right triceps reflex intensity grade: 2+, Left triceps reflex intensity grade: 2+, Rt Biceps (C5, C6): 2+, Left biceps reflex intensity grade: 2+, Right brachioradialis reflex intensity grade: 2+, Left brachioradialis reflex intensity grade: 2+, Right patellar reflex intensity grade: 3+ and Left patellar reflex intensity grade: 3+ Coordination: [id number] test normal Pupils: Normal pupillary reactivity/response: bilateral Psych Appearance: grossly normal Mental Status: mental status grossly normal Speech and movement: Normal speech and movement present Affect: normal affect Attitude: cooperative Thought process: Normal thought process present Assessment & Plan Assessment & Plan (1) Migraines: Code(s): G43.909 - Migraine, unspecified, not intractable, without status migrainosus (2) JACKLYN (obstructive sleep apnea): Code(s): G47.33 - Obstructive sleep apnea (adult) (pediatric) (3) Snoring: Code(s): R06.83 - Snoring (4) Excessive daytime sleepiness: Code(s): G47.19 - Other hypersomnia (5) Sleep difficulties: Code(s): G47.9 - Sleep disorder, unspecified Plan Pt advised to undergo: HST to assess for sleep apnea ENT consult For overall headache management: Optimize good self-care, including but not limited to maintaining a healthy diet, adequate fluid intake, adequate sleep, and engaging in regular physical activity. For headache triggers: Track headaches, especially after any treatment regimen changes. Migraine [employer] is one of many headache tracking apps. Light sensitivity tips: Patient may try blue light filtering glasses, green glasses, green light therapy. For acute headache treatment: Discussed importance of taking acute medications at the first sign of headache, however stressed importance of avoiding acute medication overuse (especially with combined headache medications). Trial of naratriptan 2.5 mg q.4 hours p.r.n.. Max 2 tabs per day Potential adverse effects of triptans, including but not limited to nausea, fatigue, chest tightness/tingling (usually passes within a few minutes), medication overuse headaches. Previous acute migraine medication trials: Sumatriptan 25 mg: Not tolerated, cause paresthesias. Acute migraine medication contraindications: None at this time For headache prevention medication: Preventative medications should be taken routinely as prescribed for best effect, it may take several weeks for full effect to take effect. Start Riboflavin 400mg qam Continue Magnesium with goal of 400-500mg qhs Previous migraine prevention medication trials: None specifically for migraine. Migraine prevention medication contraindications: Would need to be cautious with antidepressant use, due to history of bipolar type 1. Future considerations: Topiramate, Qulipta-both of which may promote weight loss Pt seen in collaboration w/ Dr Eva Sanchez. Pt to follow-up in 2 months or sooner prn. Orders: Orders RT home sleep study Today G47.19 - Other hypersomnia, G47.33 - Obstructive sleep apnea (adult) (pediatric), G47.9 - Sleep disorder, unspecified, R06.83 - Snoring Referrals Ear/Nose/Throat Referral G47.33 - Obstructive sleep apnea (adult) (pediatric), J35.1 - Hypertrophy of tonsils, R06.83 - Snoring Medications: New naratriptan take 1/2 - 1 tab at onset of headache; if no relief may repeat 1 tab after at least 4 hrs; max = 2 tabs/24 hrs orally PRN; 30 days 12 tabs 6RF migraine headache riboflavin (vitamin B2) 400 mg PO DAILY 30 days 30 tabs 6RF Discontinued sumatriptan succinate Discontinued Reason: Doctor's Order take 1 tab at onset of headache; if no relief may repeat 1 tab after at least 2 hrs; max = 4 tabs/24 hr PO 20 tabs 0RF Coding Level of Care Code New Pt Level 4 (09570) Diagnoses Migraines G43.909 JACKLYN (obstructive sleep apnea) G47.33 Snoring R06.83 Excessive daytime sleepiness G47.19 Sleep difficulties G47.9
[2024-01-11 14:30] VITALS: BP 118/78; PULSE 102; O2SAT 98; BMI 39.1
== END 2024-01-11 15:52 | disposition home or self-care (01) ==
PROVIDERS: PCP Nurse Practitioner Family; Visit Provider Nurse Practitioner Family
DX: G43.909 Migraine, unspecified, not intractable, without status migrainosus (principal); G47.33 Obstructive sleep apnea (adult) (pediatric); R06.83 Snoring; G47.19 Other hypersomnia; G47.9 Sleep disorder, unspecified
CPT/HCPCS: 99204

== ENCOUNTER → 2024-01-11 14:26 | Outpatient (BNVA) | payer BC, OTHER, SELFPAY | PROVIDERS: PCP Nurse Practitioner Family; Visit Provider Nurse Practitioner Family ==

== ENCOUNTER 2024-01-19 09:12 | Outpatient (REF) | payer BC, OTHER, SELFPAY ==
[2024-01-19 11:09] LABS: Alanine Aminotransferase 28 U/L (0-31); Albumin Level 4.4 g/dL (3.5-5.0); Alkaline Phosphatase 88 U/L (39-117); Anion Gap 12 (12-20); Aspartate Amino Transferase 20 U/L (5-31); Bilirubin Total 0.4 mg/dL (0.0-1.0); Blood Urea Nitrogen 13 mg/dL (9-16); Calcium 9.7 mg/dL (8.4-10.2); Carbon Dioxide 28 mmol/L (22-29); Chloride 102 mmol/L (96-108); Estimated Glomerular Filt Rate > 60; Glucose Fasting 102 mg/dL (60-99); Potassium 3.8 mmol/L (3.3-5.1); Sodium 138 mmol/L (135-145)
[2024-01-19 11:27] LABS: TSH reflex Free T4 0.59 uIU/mL (0.32-4.0); Vitamin D 25-OH Total 36.7 ng/mL (>30)
[2024-01-19 11:39] LABS: Folate 11.6 ng/mL (> or = 4.0); Vitamin B12 298 pg/mL (200-900)
== END 2024-01-19 09:13 | disposition home or self-care (01) ==
LOC: HO.HMGCLDS 09:12
PROVIDERS: PCP Nurse Practitioner Family; Visit Provider Nurse Practitioner Family
DX: L65.9 Nonscarring hair loss, unspecified (principal); R53.83 Other fatigue
CPT/HCPCS: 36415; 80053; 82306; 82607; 82746; 84443

== ENCOUNTER 2024-01-25 11:43 | Outpatient (AMB) | payer BC, OTHER, SELFPAY ==
--- NOTE | 2024-01-25 11:50 | MHC.PC.OV ---
Vital Signs 01/25/24 11:52 Height 5 ft 6 in Weight 245 lb 8 oz BMI 39.6 BP 130/74 Blood Pressure Location Rt brachial Position Sitting Respiration 16 Pulse 106 H Pulse Source Pulse Oximeter Pulse Oximetry (%) 97 Oxygen Delivery Method Room Air Intake Visit Reasons: F/u labs Intake Note: Follow up lab results, fatigue, hair loss Drug Abuse Program Coordinator Required: No Allergies Seasonal Allergies Allergy (Mild, Verified 01/25/24 12:25) Sneezing Medication List - Last Reconciled 01/25/24 by Raudel Tanner CNP aripiprazole 5 mg PO DAILY duloxetine 120 mg (2 x 60 mg) PO DAILY 30 days lamotrigine 100 mg PO BID 90 days levonorgestrel (Mirena) intrauterine naratriptan take 1/2 - 1 tab at onset of headache; if no relief may repeat 1 tab after at least 4 hrs; max = 2 tabs/24 hrs orally PRN; 30 days riboflavin (vitamin B2) 400 mg PO DAILY 30 days Tobacco use date assessed: 01/03/24 Dental Screening Dental Screen Date: 01/03/24 HPI HPI Comments History of Present Illness Details 23-year-old female presents for migraines, and recent lab results follow-up She had blood work done for he a loss, fatigue, and sleepiness. She was referred by her psychiatrist to determine or rule out organic cause of her symptoms She notes that her migraine symptoms are currently controlled with current treatment regimen. She is on nortriptyline and riboflavin. She is [place] [facility] and have sleep study scheduled for next month She reports continued fatigue, hair loss, and sleepiness Recent fasting glucose is elevated, 102, CMP is otherwise unremarkable. Vitamin B12, folate, vitamin-D, and TSH levels are normal [facility] Medical History (Updated 01/25/24 @ 12:39 by Raudel Tanner CNP) delivery delivered Ovarian cyst Fatty tumor Depression Anxiety Bipolar 1 disorder depression Surgical History H/O section History of placement of ear tubes [place] teeth removed Family History Maternal Grandmother Colon cancer Other Substance use disorder Social History Housing: House Patient Tobacco Use Status: Former Tobacco user Tobacco use type: Cigarette Cigarettes Per Day: 0.5 e-Cigarette/Vaping Use: Currently Using (Occasional) Second Hand Smoke Exposure: Yes service: No Current occupational status: employed Cognitive needs: No Hearing needs: No Vision needs: Yes Questionnaire Thrive Questionnaire Date Thrive assessed: 01/03/24 AUDIT C Alcohol Use Questionnaire (AUDIT-C) 1. How often do you have a drink containing alcohol?: Monthly or less 2. How many drinks containing alcohol do you have on a typical day when you are drinking?: 1 or 2 3. How often do you have six or more drinks on one occasion?: Never Total Score: 1 MELISSA-7 AMB Questionnaire MELISSA-7 Date MELISSA - 7 assessed: 01/03/24 Source: Developed by Drs. Scott Silver, Marily Delvalle, Marty Lamas and colleagues, with an educational rima from [employer]. Review of Systems Const Details: Const Denies chills, Reports fatigue, Denies fever(s), Denies headache(s) and Denies weakness ENT Denies dizziness and Denies headache(s) Card Denies chest pain, Denies lightheadedness, Denies dyspnea and Denies other (Palpitations) Resp Denies cough, Denies dyspnea, Denies wheezing and Denies other ( shortness of breath) GI Denies abdominal pain, Denies melena, Denies hematochezia, Denies change in bowel habits, Denies dyspepsia and Denies nausea Denies hematuria and Denies dysuria Musc Denies abnormal gait, Denies myalgias, Denies arthralgias, Denies numbness and Denies tingling Skin/Breast Denies rash, Denies unusual bruising and Denies wounds Neuro Denies abnormal gait, Denies dizziness, Denies headache(s), Denies memory loss, Denies numbness, Denies Sensory deficit (Neuro), Denies tingling and Denies weakness Psych Denies anxiety, Denies depression, Denies memory loss Endo Denies cold intolerance, Reports fatigue, Denies heat intolerance, Denies polydipsia and Denies polyuria Aller/Immun Denies wheezing Physical exam (Primary Care) Vital Signs: Last Vital Signs Pulse 106 H 01/25/24 11:52 Resp 16 01/25/24 11:52 BP 130/74 01/25/24 11:52 Pulse Ox 97 01/25/24 11:52 Oxygen Delivery Method Room Air 01/25/24 11:52 BMI result Body Mass Index 39.6 Tobacco/Smoking Status: Tobacco use Status Tobacco use date assessed 01/03/24 01/25/24 11:50 Patient Tobacco Use Status Former Tobacco user 01/25/24 11:50 Tobacco use type Cigarette 01/25/24 11:50 e-Cigarette/Vaping Use Currently Using (Occasional) 01/25/24 11:50 Thrive Assessment: Date of Thrive Assessment Date Thrive assessed 01/03/24 01/25/24 11:50 Const Other: General: no acute distress and well developed Nutritional Appearance: well nourished Orientation/consciousness: patient oriented x3 HENMT Head: Yes normocephalic and Yes atraumatic Eyes General: appearance normal, both eyes and all related structures Pupils: Equal, round and reactive pupils present EOM: EOMs intact bilaterally Resp Effort & Inspection: normal respiratory effort Auscultation: clear to auscultation bilaterally Cardio Rate: regular rate Rhythm: regular rhythm Heart sounds: S1 normal heart sound present, S2 normal heart sound present, no gallops, no murmurs and no rubs GI Palpation (GI): No Abdominal aortic bruit present, Soft to palpation, nontender, No hepatosplenomegaly present and No Rebound tenderness present Auscultation: normal bowel sounds General: Yes no CVA tenderness Back/Spine/Pelvis Back: no CVA tenderness Cervical Spine: cervical ROM normal and No Cervical spine tenderness Thoracic/Lumbar Spine: thoraco-lumbar ROM normal, No pain with thoraco-lumbar ROM, No thoracic spinal tenderness and No lumbar spinal tenderness Extrem General: Yes normal to inspection, No edema and No calf tenderness Skin General: warm and dry. Normal skin color. Normal skin turgor Neuro General: patient oriented x3, gait normal and no focal neuro deficit Cranial nerves: Yes Equal, round and reactive pupils present Cognition (Neuro): normal cognition Gait exam (Neuro): Normal gait present Sensory Exam: No Sensory deficit (Neuro) Psych Appearance: grossly normal Affect: normal affect Attitude: cooperative Thought process: Normal thought process present Assessment and Plan Assessment & Plan (1) Migraines: Code(s): G43.909 - Migraine, unspecified, not intractable, without status migrainosus Plan: Controlled Continue to take naratriptan and riboflavin as prescribed Follow-up with Neurology as planned Return with symptoms or concerns Verbalized understanding and agreed with treatment plan (2) Hair loss: Code(s): L65.9 - Nonscarring hair loss, unspecified Plan: Reports ongoing he follows, fatigue, and sleepiness. She was referred by her psychiatrist to determine rule out cause of her symptoms Recent Vitamin B12, folate, vitamin-D, and TSH levels are unremarkable Fasting glucose is slightly elevated, 102 Will check CBCd and magnesium, and recheck fasting glucose Advised to get fasting blood work done at her earliest convenience. Will review results and make changes as needed Follow-up with psychiatrist as planned Encouraged to schedule a next physical for later this year Return with worsening or new symptoms Verbalized understanding and agreed with treatment plan (3) Fatigue: Code(s): R53.83 - Other fatigue Plan: As above (4) Sleepiness: Code(s): R40.0 - Somnolence Plan: As above (5) Elevated fasting glucose: Code(s): R73.01 - Impaired fasting glucose Plan: As above Orders: Orders Complete Blood Count Auto Diff Today L65.9 - Nonscarring hair loss, unspecified, R40.0 - Somnolence, R53.83 - Other fatigue Magnesium Today L65.9 - Nonscarring hair loss, unspecified, R40.0 - Somnolence, R53.83 - Other fatigue Glucose Fasting Today R73.01 - Impaired fasting glucose Coding Level of Care Code Est Pt Level 4 (41129) Complex EM visit Add On G2211 Diagnoses Migraines G43.909 Hair loss L65.9 Fatigue R53.83 Sleepiness R40.0 Elevated fasting glucose R73.01
[2024-01-25 11:52] VITALS: BP 130/74; PULSE 106; RESP 16; O2SAT 97; BMI 39.6
== END 2024-01-25 12:35 | disposition home or self-care (01) ==
PROVIDERS: PCP Nurse Practitioner Family; Visit Provider Nurse Practitioner Family
DX: G43.909 Migraine, unspecified, not intractable, without status migrainosus (principal); L65.9 Nonscarring hair loss, unspecified; R53.83 Other fatigue; R40.0 Somnolence; R73.01 Impaired fasting glucose
CPT/HCPCS: 99214; G2211

== ENCOUNTER 2024-01-25 12:37 | Outpatient (REF) | payer BC, OTHER, SELFPAY ==
[2024-01-25 14:19] LABS: MANUAL DIFF FLAG NO
[2024-01-25 14:23] LABS: Basophils Percent Auto 0.3 % (0-2); Eosinophils Absolute Auto 0.1 X10*3/uL (0.0-0.4); Hematocrit 41.3 % (37.0-47.0); Hemoglobin 14.1 g/dl (12.0-16.0); Imm Gran Abs Auto 0.04 X10*3/uL (0.00-0.03); Imm Gran Pct Auto 0.4 % (0.0-0.4); Lymphocytes Absolute Auto 2.6 X10*3/uL (1.2-4.9); Lymphocytes Percent Auto 28.8 % (20-40); Mean Corpuscular HGB Conc 34.1 g/dl (31.0-35.0); Mean Corpuscular Hemoglobin 29.9 pg (27.0-33.0); Mean Corpuscular Volume 87.7 fL (80.0-98.0); Mean Platelet Volume 9.5 fL (9.4-12.3); Monocytes Absolute Auto 0.5 X10*3/uL (0.1-1.2); Monocytes Percent Auto 5.2 % (2-11); Neutrophils Absolute Auto 5.8 x10*3/uL (2.0-8.3); Neutrophils Percent Auto 64.3 % (45-73); Platelet Count 330 X10*3/uL (160-400); Red Blood Count 4.71 X10*6/uL (4.20-5.50); Red Cell Distribution Width 11.9 % (11.0-16.0)
== END 2024-01-25 12:38 | disposition home or self-care (01) ==
LOC: HO.WFDLDS 12:37
PROVIDERS: Visit Provider Nurse Practitioner Family
DX: L65.9 Nonscarring hair loss, unspecified (principal); R53.83 Other fatigue; R40.0 Somnolence
CPT/HCPCS: 36415; 83735; 85025

== ENCOUNTER 2024-01-27 09:56 | Outpatient (REF) | payer BC, OTHER, SELFPAY ==
[2024-01-27 13:44] LABS: Glucose Fasting 102 mg/dL (60-99)
== END 2024-01-27 09:57 | disposition home or self-care (01) ==
LOC: HO.HMGCLDS 09:56
PROVIDERS: PCP Nurse Practitioner Family; Visit Provider Nurse Practitioner Family
DX: R73.01 Impaired fasting glucose (principal)
CPT/HCPCS: 36415; 82947

== ENCOUNTER 2024-01-31 13:34 | Outpatient (REF) | payer BC, OTHER, SELFPAY ==
[2024-01-31 17:06] LABS: Estimated Average Glucose 111 mg/dL; Hemoglobin A1c % 5.5 % (<6.0)
== END 2024-01-31 13:35 | disposition home or self-care (01) ==
LOC: HO.HMGCLDS 13:34
PROVIDERS: PCP Nurse Practitioner Family; Visit Provider Nurse Practitioner Family
DX: R73.01 Impaired fasting glucose (principal)
CPT/HCPCS: 36415; 83036

== ENCOUNTER 2024-02-20 17:12 | Emergency (ER) | payer BC, OTHER, SELFPAY ==
--- NOTE | 2024-02-20 17:17 | ECG_ITS ---
Test Reason : CHEST PAIN Blood Pressure : / mmHG Vent. Rate : 111 BPM Atrial Rate : 111 BPM P-R Int : 138 ms QRS Dur : 084 ms QT Int : 342 ms P-R-T Axes : 039 065 006 degrees QTc Int : 465 ms Sinus tachycardia Cannot rule out Anterior infarct , age undetermined Abnormal ECG No previous ECGs available Referred By: Faraz Yepez Electronically Signed By:Max Sanchez
[2024-02-20 17:44] LABS: MANUAL DIFF FLAG NO
[2024-02-20 17:46] LABS: Basophils Percent Auto 0.4 % (0-2); Eosinophils Absolute Auto 0.1 X10*3/uL (0.0-0.4); Eosinophils Percent Auto 0.9 % (0-4); Hematocrit 40.9 % (37.0-47.0); Hemoglobin 14.1 g/dl (12.0-16.0); Imm Gran Abs Auto 0.02 X10*3/uL (0.00-0.03); Imm Gran Pct Auto 0.2 % (0.0-0.4); Lymphocytes Absolute Auto 2.6 X10*3/uL (1.2-4.9); Lymphocytes Percent Auto 25.3 % (20-40); Mean Corpuscular HGB Conc 34.5 g/dl (31.0-35.0); Mean Corpuscular Hemoglobin 29.7 pg (27.0-33.0); Mean Corpuscular Volume 86.1 fL (80.0-98.0); Monocytes Absolute Auto 0.7 X10*3/uL (0.1-1.2); Monocytes Percent Auto 6.6 % (2-11); Neutrophils Absolute Auto 6.9 x10*3/uL (2.0-8.3); Neutrophils Percent Auto 66.6 % (45-73); Platelet Count 312 X10*3/uL (160-400); Red Blood Count 4.75 X10*6/uL (4.20-5.50); White Blood Count 10.3 X10*3/uL (4.8-10.8)
[2024-02-20 17:49] VITALS: BP 132/87; PULSE 117; RESP 20; TEMP 36.8; O2SAT 97; BMI 39.4
--- NOTE | 2024-02-20 17:51 | ED.GENADULT ---
HPI - General Adult General Stated complaint: Chest pain, pain when breathing, L arm pain Related Data Home Medications ?Medication ?Instructions ?Recorded ?Confirmed levonorgestrel 21 mcg/24 hours (8 intrauterine 03/31/23 01/25/24 yrs) 52 mg intrauterine device (Mirena) aripiprazole 5 mg tablet 5 mg PO DAILY 11/24/23 01/25/24 Previous Rx's ?Medication ?Instructions ?Recorded lamotrigine 100 mg tablet 100 mg PO BID 90 days #180 tabs 09/30/23 duloxetine 60 mg capsule,delayed 120 mg (2 x 60 mg) PO DAILY 30 11/26/23 release days #60 caps naratriptan 2.5 mg tablet See Rx Instructions PO .COMPLEX 01/11/24 PRN migraine headache 30 days #12 tabs riboflavin (vitamin B2) 400 mg 400 mg PO DAILY 30 days #30 tabs 01/11/24 tablet Allergies Allergy/AdvReac Type Severity Reaction Status Date / Time Seasonal Allergies Allergy Mild Sneezing Verified 01/25/24 12:25 [facility] Past Medical History Medical History (Updated 01/25/24 @ 12:39 by Raudel Tanner CNP) delivery delivered Ovarian cyst Fatty tumor Depression Anxiety Bipolar 1 disorder depression Surgical History H/O section History of placement of ear tubes [place] teeth removed Family History Family History Maternal Grandmother Colon cancer Other Substance use disorder Social History Social History Housing: House Patient Tobacco Use Status: Former Tobacco user Tobacco use type: Cigarette Cigarettes Per Day: 0.5 e-Cigarette/Vaping Use: Currently Using (Occasional) Second Hand Smoke Exposure: Yes service: No Current occupational status: employed Cognitive needs: No Hearing needs: No Vision needs: Yes Course Course Course Narrative: HOLLY- 23-year-old female presents for evaluation of chest pain that radiates to the left arm. Symptoms started at 2:00 a.m. she reports pain with deep breathing. Plan for labs, EKG Medical Decision Making Lab Data 02/20/24 17:37 02/20/24 17:37 Labs: Lab Results 02/20/24 Range/Units 17:37 WBC 10.3 (4.8-10.8) X10*3/uL RBC 4.75 (4.20-5.50) X10*6/uL Hgb 14.1 (12.0-16.0) g/dl Hct 40.9 (37.0-47.0) % MCV 86.1 (80.0-98.0) fL MCH 29.7 (27.0-33.0) pg MCHC 34.5 (31.0-35.0) g/dl RDW 12.0 (11.0-16.0) % Plt Count 312 (160-400) X10*3/uL MPV 9.0 L (9.4-12.3) fL Immature Gran % (Auto) 0.2 (0.0-0.4) % Neut % (Auto) 66.6 (45-73) % Lymph % (Auto) 25.3 (20-40) % [place] % (Auto) 6.6 (2-11) % Eos % (Auto) 0.9 (0-4) % Baso % (Auto) 0.4 (0-2) % Lymph # (Auto) 2.6 (1.2-4.9) X10*3/uL [place] # (Auto) 0.7 (0.1-1.2) X10*3/uL Eos # (Auto) 0.1 (0.0-0.4) X10*3/uL Baso # (Auto) 0.0 (0.0-0.2) X10*3/uL Abs Immat Gran (auto) 0.02 (0.00-0.03) X10*3/uL Absolute Neuts (auto) 6.9 (2.0-8.3) x10*3/uL Absolute Nucleated RBC 0.000 (0.0-0.012) X10*3/uL Nucleated RBC % (auto) 0.0 (0.0-0.2) /100WBC Discharge Plan Discharge Prescriptions: No Action lamotrigine 100 mg tablet 100 mg PO BID 90 Days Qty: 180 1RF duloxetine 60 mg capsule,delayed release(DR/EC) 120 mg PO DAILY 30 Days Qty: 60 0RF Mirena 21 mcg/24 hours (8 yrs) 52 mg intrauterine device intrauterine aripiprazole 5 mg tablet 5 mg PO DAILY naratriptan 2.5 mg tablet See Rx Instructions PO .COMPLEX PRN (Reason: migraine headache) 30 Days Qty: 12 6RF Rx Instructions: take 1/2 - 1 tab at onset of headache; if no relief may repeat 1 tab after at least 4 hrs; max = 2 tabs/24 hrs orally PRN; riboflavin (vitamin B2) 400 mg tablet 400 mg PO DAILY 30 Days Qty: 30 6RF Print Language: [place] Islander
[2024-02-20 17:53] LABS: INTERNATIONAL NORM RATIO 0.9 (0.9-1.1); Prothrombin Time 11.5 SEC (11.1-13.3)
[2024-02-20 18:06] LABS: Alanine Aminotransferase 27 U/L (0-31); Albumin Level 4.5 g/dL (3.5-5.0); Alkaline Phosphatase 89 U/L (39-117); Anion Gap 15 (12-20); Aspartate Amino Transferase 20 U/L (5-31); Bilirubin Total 0.3 mg/dL (0.0-1.0); Blood Urea Nitrogen 13 mg/dL (9-16); Calcium 10.1 mg/dL (8.4-10.2); Carbon Dioxide 26 mmol/L (22-29); Chloride 104 mmol/L (96-108); Creatinine Clr Calc Pharmacy 142.6; Estimated Glomerular Filt Rate > 60; Glucose Random 128 mg/dL (60-115); Lipase 22 U/L (8-78); Potassium 3.6 mmol/L (3.3-5.1); Sodium 141 mmol/L (135-145)
[2024-02-20 18:29] LABS: Troponin-I High Sensitivity < 2.7 ng/L (<3.5-17.0)
--- NOTE | 2024-02-20 19:35 | PC.NURSE ---
Pt no answer when called for reassessment.
== END 2024-02-20 19:36 | disposition left against medical advice (07) ==
PROVIDERS: Physician Assistant; Emergency Provider Emergency Medicine
DX: R07.9 Chest pain, unspecified (principal); M79.602 Pain in left arm; F17.210 Nicotine dependence, cigarettes, uncomplicated; Z53.21 Procedure and treatment not carried out due to patient leaving prior to being seen by health care provider
CPT/HCPCS: 36415; 80053; 83690; 84484; 85025; 85610; 93005; 99283

== ENCOUNTER → 2024-02-20 17:17 | Outpatient (BNV) | payer BC, OTHER, SELFPAY | PROVIDERS: Emergency Provider Emergency Medicine; Visit Provider Internal Medicine Cardiovascular Disease | DX: R07.9 Chest pain, unspecified (principal) | CPT/HCPCS: 93010 ==

== ENCOUNTER 2024-02-22 13:07 | Emergency (ER) | payer BC, OTHER, SELFPAY ==
--- NOTE | 2024-02-22 | ECG_ITS ---
Test Reason : chest pain Blood Pressure : / mmHG Vent. Rate : 114 BPM Atrial Rate : 114 BPM P-R Int : 138 ms QRS Dur : 082 ms QT Int : 346 ms P-R-T Axes : 048 074 009 degrees QTc Int : 476 ms Sinus tachycardia Otherwise normal ECG When compared with ECG of 20-FEB-2024 17:24, No significant change was found Referred By: Generic ED Physician Electronically Signed By:KAWDWO CEDEÑO
--- NOTE | ~2024-02-22 | XR_ITS ---
EXAMINATION: XR CHEST CLINICAL INFORMATION: Chest pain COMPARISON: None available. TECHNIQUE: 2 views of the chest were obtained. FINDINGS: No significant abnormality is noted involving the heart, lungs, mediastinum, bony thorax or soft tissues. XR/XR chest 2V IMPRESSION: Unremarkable examination.
[2024-02-22 13:20] VITALS: BP 119/77; PULSE 112; RESP 18; TEMP 36.3; O2SAT 97; BMI 40.1
--- NOTE | 2024-02-22 13:21 | ED_ITS ---
HPI - General Adult General Chief complaint: Chest Pain Stated complaint: chest pain Source: patient Mode of arrival: ambulatory Limitations: no limitations History of Present Illness ED Provider: Megan Acosta PA-C HPI narrative: Patient is a 23 year old assigned female at with a history of bipolar disorder, depression, anxiety, HLD, and migraines presenting to the emergency department today with chest pain. Patient states that she was seen here on 02/20/2024 for an abnormal EKG and chest pain but left because the wait was too long. Patient states that she continues to have left sided chest pain that is worse with deep breathing. Patient is not a smoker and is not on OCP. Patient denies any dizziness, lightheadedness, abdominal pain, nausea, vomiting, fever, chills, blurry vision, double vision, loss of vision, back pain, night sweats, pain with urination, increased urinary frequency, increased urinary urgency, blood in her urine or stool, syncope or a near syncopal episode, recent trauma or falls, bowel incontinence, bladder incontinence, bowel retention, bladder retention, or any other complaints at this time. Onset (ago): day(s) (2) Location: chest Severity: mild Severity scale (1-10): 4 Relieving factors: none Exacerbating factors: none Associated symptoms: chest pain Treatments prior to arrival: none Related Data Home Medications ?Medication ?Instructions ?Recorded ?Confirmed levonorgestrel 21 mcg/24 hours (8 intrauterine 03/31/23 01/25/24 yrs) 52 mg intrauterine device (Mirena) aripiprazole 5 mg tablet 5 mg PO DAILY 11/24/23 01/25/24 Previous Rx's ?Medication ?Instructions ?Recorded lamotrigine 100 mg tablet 100 mg PO BID 90 days #180 tabs 09/30/23 duloxetine 60 mg capsule,delayed 120 mg (2 x 60 mg) PO DAILY 30 11/26/23 release days #60 caps naratriptan 2.5 mg tablet See Rx Instructions PO .COMPLEX 01/11/24 PRN migraine headache 30 days #12 tabs riboflavin (vitamin B2) 400 mg 400 mg PO DAILY 30 days #30 tabs 01/11/24 tablet Allergies Allergy/AdvReac Type Severity Reaction Status Date / Time Seasonal Allergies Allergy Mild Sneezing Verified 02/22/24 13:21 Review of Systems 2 Constitutional: Constitutional: Reports no additional constitutional complaints, Denies chills, Denies fever(s) and Denies night sweats Eyes: Eyes: Reports no additional eye complaints, Denies blurry vision, Denies change in vision, Denies diplopia, Denies eye discharge, Denies loss of vision and Denies eye pain ENT: Denies dizziness Cardiovascular: Cardiovascular: Reports no additional cardiovascular complaints, Reports chest pain, Denies lightheadedness, Denies Loss of Consciousness and Denies dyspnea Respiratory: Respiratory: Reports no additional respiratory complaints and Denies dyspnea Gastrointestinal: Gastrointestinal: Reports no additional gastrointestinal complaints, Denies abdominal pain, Denies melena, Denies hematochezia, Denies change in bowel habits and Denies change in stool character Genitourinary: Genitourinary: Denies hematuria, Denies urinary frequency, Denies dysuria, Denies urinary incontinence, Denies urinary hesitancy and Denies urinary urgency Musculoskeletal: Musculoskeletal: Reports no additional musculoskeletal complaints, Denies numbness and Denies tingling Neurologic: Denies dizziness, Denies loss of vision, Denies numbness and Denies tingling Psychiatric: Psychiatric: Reports no additional psychiatric complaints Endocrine: Endocrine: Reports no additional endocrine complaints Hematologic/Lymphatic: Hematologic/Lymphatic: Reports no additional hematologic/lymphatic complaints Allergic/Immunologic: Allergic/Immunologic: Reports no additional allergic/immunologic complaints PMFSH Past Medical History Attestation statement: The following information was validated with the patient. Source: old records reviewed and nursing notes reviewed Medical History delivery delivered Ovarian cyst Fatty tumor Depression Anxiety Bipolar 1 disorder depression Surgical History H/O section History of placement of ear tubes [place] teeth removed Family History Family History Maternal Grandmother Colon cancer Other Substance use disorder Social History Social History Housing: House Patient Tobacco Use Status: Former Tobacco user Tobacco use type: Cigarette Cigarettes Per Day: 0.5 e-Cigarette/Vaping Use: Currently Using (Occasional) Second Hand Smoke Exposure: Yes Advance Directives: No Do you have a plan to hurt others: No Plan service: No Current occupational status: employed Cognitive needs: No Hearing needs: No Vision needs: Yes Physical Exam ED Vital Signs: Vital Signs - 24 hr 02/22/24 13:20 Temperature 97.4 F Pulse Rate 112 H Respiratory Rate 18 Blood Pressure 119/77 Pulse Oximetry 97 Oxygen Delivery Method Room Air BMI result Body Mass Index 40.1 Const General: cooperative, no acute distress, alert and awake Nutritional Appearance: well nourished Orientation/consciousness: patient oriented x3 Limitations: no limitations HENMT Head: Yes normal to inspection and Yes atraumatic Ears: hearing grossly normal bilaterally and external ears normal General nose exam: Normal external nose present, no nasal discharge noted and no epistaxis Face and sinus: Yes normal facial exam, No abrasion and No laceration Mouth: Normal oral and palatal mucosa present, no drooling and no muffled voice Eyes General: appearance normal, both eyes and all related structures Periorbital: periorbital findings normal Eyelids: Yes eyelids normal Conjunctivae: conjunctivae normal Pupils: Equal, round and reactive pupils present EOM: EOMs intact bilaterally Neck Neck: Yes normal visual inspection, Yes full ROM and Yes no lymphadenopathy Chest Chest palpation & inspection: normal inspection of the chest Resp Effort & Inspection: normal respiratory effort and able to speak in complete sentences GI Inspection: Yes normal to inspection Neuro General: patient oriented x3 and moves all extremities Cranial nerves: Yes Equal, round and reactive pupils present Cognition (Neuro): normal cognition Motor exam (neuro): 5/5 motor strength present throughout Sensory Exam: Normal double simultaneous stimulation for sensation Coordination: [id number] test normal Extrem General: Yes normal to inspection, Yes full ROM and Yes capillary refill normal Psych Appearance: grossly normal Mental Status: mental status grossly normal Affect: normal affect Attitude: cooperative Thought process: Normal thought process present Thought content: Normal thought content present Insight: Good insight present (Psych) Course Course Course Narrative: RME performed by Megan Acosta PA-C. Patient is a 23 year old assigned female at presenting to the emergency department with chest pain. Patient states she has been having this pain for a few days and was sent here on 02/20/2024 for an abnormal ECG, then left due to the wait. Patient states that she attempted to go to her PCP but was told to come to the ER. Detailed physical exam and review of systems are deferred to the coffin maker. EKG, labs, imaging, and swabs ordered. Patient placed back in the waiting room pending room availability and results. Medical Decision Making Medical Decision Making [facility] Narrative: Patient is a 23 year old assigned female at with a history of bipolar disorder, depression, anxiety, HLD, and migraines presenting to the emergency department today with chest pain. Patient's limited physical exam performed in triage was unremarkable. Patient's blood work was unremarkable. Patient's EKG showed sinus tachycardia but was otherwise unremarkable. Patient left the department without completing treatment. Patient left the department before myself or any of the other emergency department clinicians could explain to or review with the patient; physical exam findings, test results, need or lack there of for additional testing, need or lack there of for a procedure to be performed, need or lack there of for hospital admission / transfer, need or lack there of for prescription medication, treatment options, or a treatment plan. Differential Diagnosis Differential Diagnoses: The differential diagnosis associated with the presentation includes Chest pain Arrythmia NSTEMI STEMI Costochondritis Admission/Observation Consideration of admission/observation: Escalation of care including admission/observation considered Patient would have been admitted to the hospital had she completed her work up and it had any findings where hospital admission was appropriate, her clinical presentation warranted hospital admission, had myself or any other emergency department mgr had the ability to discuss need or lack there of for hospital admission, and the patient hadn't left the department without completing treatment. Lab Data [facility] Lab Attestation statement: I reviewed the patient's lab results. My interpretation of these studies and their corresponding values is that they are grossly normal. 02/22/24 14:18 02/22/24 14:18 Labs: Lab Results 02/22/24 Range/Units 14:18 WBC 9.9 (4.8-10.8) X10*3/uL RBC 4.68 (4.20-5.50) X10*6/uL Hgb 14.0 (12.0-16.0) g/dl Hct 41.0 (37.0-47.0) % MCV 87.6 (80.0-98.0) fL MCH 29.9 (27.0-33.0) pg MCHC 34.1 (31.0-35.0) g/dl RDW 12.2 (11.0-16.0) % Plt Count 331 (160-400) X10*3/uL MPV 9.0 L (9.4-12.3) fL Immature Gran % (Auto) 0.2 (0.0-0.4) % Neut % (Auto) 64.3 (45-73) % Lymph % (Auto) 26.5 (20-40) % Gilmer % (Auto) 7.2 (2-11) % Eos % (Auto) 1.4 (0-4) % Baso % (Auto) 0.4 (0-2) % Lymph # (Auto) 2.6 (1.2-4.9) X10*3/uL Gilmer # (Auto) 0.7 (0.1-1.2) X10*3/uL Eos # (Auto) 0.1 (0.0-0.4) X10*3/uL Baso # (Auto) 0.0 (0.0-0.2) X10*3/uL Abs Immat Gran (auto) 0.02 (0.00-0.03) X10*3/uL Absolute Neuts (auto) 6.4 (2.0-8.3) x10*3/uL Absolute Nucleated RBC 0.000 (0.0-0.012) X10*3/uL Nucleated RBC % (auto) 0.0 (0.0-0.2) /100WBC Sodium 142 (135-145) mmol/L Potassium 4.1 (3.3-5.1) mmol/L Chloride 105 (96-108) mmol/L Carbon Dioxide 29 (22-29) mmol/L Anion Gap 12 (12-20) BUN 14 (9-16) mg/dL Creatinine 0.67 (0.5-1.4) mg/dL Estim Creat Clear Calc 163.3 Estimated GFR > 60 Random Glucose 101 (60-115) mg/dL Calcium 9.7 (8.4-10.2) mg/dL Magnesium 1.8 (1.6-2.6) mg/dL Total Bilirubin 0.3 (0.0-1.0) mg/dL AST 21 (5-31) U/L ALT 25 (0-31) U/L Alkaline Phosphatase 87 (39-117) U/L Troponin I High Sens < 2.7 (<3.5-17.0) ng/L Total Protein 7.7 (6.5-8.0) g/dL Albumin 4.3 (3.5-5.0) g/dL Influenza Type A (PCR) NEGATIVE (Negative) Influenza Type B (PCR) NEGATIVE (Negative) RSV RNA Qual (PCR) NEGATIVE (Negative) SARS-CoV-2 RNA (RT-PCR) NEGATIVE (Negative) Independent Interpretation I performed an independent interpretation of an: EKG and Plain X-Ray Interpretation: My interpretation is in agreement with the radiologist's impression of this imaging study. - EXAMINATION: XR CHEST CLINICAL INFORMATION: Chest pain COMPARISON: None available. TECHNIQUE: 2 views of the chest were obtained. FINDINGS: No significant abnormality is noted involving the heart, lungs, mediastinum, bony thorax or soft tissues. XR/XR chest 2V IMPRESSION: Unremarkable examination. Dictated By: Bucky Rucker MD Signed By: Electronically signed by Bucky Rucker MD 02/22/24 1448 - Vent. Rate: 114 BPM Atrial Rate: 114 BPM P-R Int: 138 ms QRS Dur: 082 ms QT Int: 346 ms P-R-T Axes: 048 074 009 degrees QTc Int: 476 ms Sinus tachycardia Otherwise normal ECG When compared with ECG of 20-FEB-2024 17:24, No significant change was found Electronically Signed By:OLEG CEDEÑO Dictated By: Oleg Cedeño MD Signed By: Electronically signed by Oleg Cedeño MD 02/22/24 1406 Radiology Impression Discussion of test interpretation with radiology: I have reviewed the radiologist's reading. Discharge Plan Discharge Clinical Impression: Chest pain Patient Disposition: Left W/O Completing Treatment Prescriptions: No Action lamotrigine 100 mg tablet 100 mg PO BID 90 Days Qty: 180 1RF duloxetine 60 mg capsule,delayed release(DR/EC) 120 mg PO DAILY 30 Days Qty: 60 0RF Mirena 21 mcg/24 hours (8 yrs) 52 mg intrauterine device intrauterine aripiprazole 5 mg tablet 5 mg PO DAILY naratriptan 2.5 mg tablet See Rx Instructions PO .COMPLEX PRN (Reason: migraine headache) 30 Days Qty: 12 6RF Rx Instructions: take 1/2 - 1 tab at onset of headache; if no relief may repeat 1 tab after at least 4 hrs; max = 2 tabs/24 hrs orally PRN; riboflavin (vitamin B2) 400 mg tablet 400 mg PO DAILY 30 Days Qty: 30 6RF Discharge Date/Time: 02/22/24 19:17
[2024-02-22 14:22] LABS: MANUAL DIFF FLAG NO
[2024-02-22 14:23] LABS: Basophils Percent Auto 0.4 % (0-2); Eosinophils Absolute Auto 0.1 X10*3/uL (0.0-0.4); Eosinophils Percent Auto 1.4 % (0-4); Imm Gran Abs Auto 0.02 X10*3/uL (0.00-0.03); Imm Gran Pct Auto 0.2 % (0.0-0.4); Lymphocytes Absolute Auto 2.6 X10*3/uL (1.2-4.9); Lymphocytes Percent Auto 26.5 % (20-40); Mean Corpuscular HGB Conc 34.1 g/dl (31.0-35.0); Mean Corpuscular Hemoglobin 29.9 pg (27.0-33.0); Mean Corpuscular Volume 87.6 fL (80.0-98.0); Monocytes Absolute Auto 0.7 X10*3/uL (0.1-1.2); Monocytes Percent Auto 7.2 % (2-11); Neutrophils Absolute Auto 6.4 x10*3/uL (2.0-8.3); Neutrophils Percent Auto 64.3 % (45-73); Platelet Count 331 X10*3/uL (160-400); Red Blood Count 4.68 X10*6/uL (4.20-5.50); Red Cell Distribution Width 12.2 % (11.0-16.0); White Blood Count 9.9 X10*3/uL (4.8-10.8)
[2024-02-22 14:36] LABS: Alanine Aminotransferase 25 U/L (0-31); Albumin Level 4.3 g/dL (3.5-5.0); Alkaline Phosphatase 87 U/L (39-117); Anion Gap 12 (12-20); Aspartate Amino Transferase 21 U/L (5-31); Bilirubin Total 0.3 mg/dL (0.0-1.0); Blood Urea Nitrogen 14 mg/dL (9-16); Calcium 9.7 mg/dL (8.4-10.2); Carbon Dioxide 29 mmol/L (22-29); Chloride 105 mmol/L (96-108); Creatinine Clr Calc Pharmacy 163.3; Estimated Glomerular Filt Rate > 60; Glucose Random 101 mg/dL (60-115); Magnesium 1.8 mg/dL (1.6-2.6); Potassium 4.1 mmol/L (3.3-5.1); Sodium 142 mmol/L (135-145); Total Protein 7.7 g/dL (6.5-8.0)
[2024-02-22 14:43] LABS: Troponin-I High Sensitivity < 2.7 ng/L (<3.5-17.0)
[2024-02-22 15:02] LABS: Influenza A PCR NEGATIVE (Negative); Influenza B PCR NEGATIVE (Negative); Resp Syncy Virus RNA Qual PCR NEGATIVE (Negative); SARS COV2 PCR INHOUSE NEGATIVE (Negative)
== END 2024-02-22 19:17 | disposition left against medical advice (07) ==
PROVIDERS: Physician Assistant Medical; Emergency Provider Emergency Medicine; PCP Nurse Practitioner Family
DX: R07.9 Chest pain, unspecified (principal); R94.31 Abnormal electrocardiogram [ECG] [EKG]; E78.5 Hyperlipidemia, unspecified; Z03.818 Encounter for observation for suspected exposure to other biological agents ruled out
CPT/HCPCS: 0241U; 71046; 80053; 83735; 84484; 85025; 93005; 99283

== ENCOUNTER → 2024-02-22 13:11 | Outpatient (BNV) | payer BC, OTHER, SELFPAY | PROVIDERS: PCP Nurse Practitioner Family; Visit Provider Internal Medicine | DX: R00.0 Tachycardia, unspecified (principal) | CPT/HCPCS: 93010 ==

== ENCOUNTER → 2024-02-23 11:32 | Outpatient (REF) | payer BC, OTHER, SELFPAY | LOC: HO.SL 11:32 | PROVIDERS: PCP Nurse Practitioner Family; Visit Provider Nurse Practitioner Family | DX: G47.33 Obstructive sleep apnea (adult) (pediatric) (principal); G47.19 Other hypersomnia; R06.83 Snoring | CPT/HCPCS: 95806 ==

== ENCOUNTER → 2024-02-23 13:10 | Outpatient (BNV) | payer BC, OTHER, SELFPAY | PROVIDERS: PCP Nurse Practitioner Family; Visit Provider Psychiatry & Neurology Neurology | DX: G47.10 Hypersomnia, unspecified (principal) | CPT/HCPCS: 95806 ==

== ENCOUNTER 2024-05-08 17:18 | Outpatient (AMB) | payer BC, OTHER, SELFPAY ==
--- NOTE | 2024-05-08 17:20 | A.OFFPC_ITS ---
Vital Signs 05/08/24 17:25 Height 5 ft 6 in Weight 249 lb BMI 40.2 BP 118/74 Blood Pressure Location Rt brachial Position Sitting Respiration 16 Pulse 100 Pulse Source Pulse Oximeter Temp 97.7 F Temp Source Oral Pulse Oximetry (%) 97 Oxygen Delivery Method Room Air Intake Visit Reasons: Discuss meds to dry milk supply up Intake Note: patient here to discuss meds to dry breast milk supply. Mine Engineering Manager Required: No Is last menstrual period known: No (on IUD) Post menopausal: No Patient : No Allergies Seasonal Allergies Allergy (Mild, Verified 05/08/24 17:54) Sneezing Medication List - Last Reconciled 05/08/24 by Raudel Tanner CNP aripiprazole 5 mg PO DAILY duloxetine 120 mg (2 x 60 mg) PO DAILY 30 days lamotrigine 100 mg PO BID 90 days levonorgestrel (Mirena) intrauterine naratriptan take 1/2 - 1 tab at onset of headache; if no relief may repeat 1 tab after at least 4 hrs; max = 2 tabs/24 hrs orally PRN; 30 days Tobacco use date assessed: 05/08/24 Dental Screening Dental Screen Date: 05/08/24 Did you have a dental visit in the last 12 months?: No Did you have a dental problem in the last 6 months where you did not have access to dental care?: No Was dental information given to patient?: No HPI HPI Comments History of Present Illness Details 23-year-old female presents with request for medication to dry up breast milk. Her daughter will be 2 years old at the beginning of May and still breast-feeding. She wants to stop breast-feeding. She also notes that her psychiatrics wants to prescribe Vyxanse but not until she stops breast-feeding. She also reports a rash, on her her chest, between her breast that is very itchy especially in the summer. The rash has been present on/off for the past 4 years She has an appointment with her bilingual loan processor later this week. [facility] Medical History delivery delivered Ovarian cyst Fatty tumor Depression Anxiety Bipolar 1 disorder depression Surgical History H/O section History of placement of ear tubes [place] teeth removed Family History Maternal Grandmother Colon cancer Other Substance use disorder Social History Housing: House Patient Tobacco Use Status: Former Tobacco user Tobacco use type: Cigarette Cigarettes Per Day: 0.5 e-Cigarette/Vaping Use: Currently Using (Occasional) Second Hand Smoke Exposure: Yes Patient : No service: No Current occupational status: employed Cognitive needs: No Hearing needs: No Vision needs: Yes Questionnaire Thrive Questionnaire Date Thrive assessed: 01/03/24 MELISSA-7 AMB Questionnaire MELISSA-7 Date MELISSA - 7 assessed: 01/03/24 Source: Developed by Drs. Scott Silver, Marily Delvalle, Marty Lamas and colleagues, with an educational rima from [employer]. Review of Systems Const Details: Const Denies chills, Denies fatigue, Denies fever(s), Denies headache(s) and Denies weakness ENT Denies dizziness and Denies headache(s) Card Denies chest pain, Denies lightheadedness, Denies dyspnea and Denies other (Palpitations) Resp Denies cough, Denies dyspnea, Denies wheezing and Denies other ( shortness of b reath) GI Denies abdominal pain, Denies melena, Denies hematochezia, Denies change in bowel habits, Denies dyspepsia and Denies nausea Denies hematuria and Denies dysuria Musc Denies abnormal gait, Denies myalgias, Denies arthralgias, Denies numbness and Denies tingling Skin/Breast Report rash, Denies unusual bruising and Denies wounds Neuro Denies abnormal gait, Denies dizziness, Denies headache(s), Denies memory loss, Denies numbness, Denies Sensory deficit (Neuro), Denies tingling and Denies weakness Psych Denies anxiety, Denies depression, Denies memory loss Endo Denies cold intolerance, Denies fatigue, Denies heat intolerance, Denies polydipsia and Denies polyuria Aller/Immun Denies wheezing Physical exam (Primary Care) Vital Signs: Last Vital Signs Temp 97.7 F 05/08/24 17:25 Pulse 100 05/08/24 17:25 Resp 16 05/08/24 17:25 BP 118/74 05/08/24 17:25 Pulse Ox 97 05/08/24 17:25 Oxygen Delivery Method Room Air 05/08/24 17:25 BMI result Body Mass Index 40.2 Tobacco/Smoking Status: Tobacco use Status Tobacco use date assessed 05/08/24 05/08/24 17:28 Patient Tobacco Use Status Former Tobacco user 05/08/24 17:22 Tobacco use type Cigarette 05/08/24 17:22 e-Cigarette/Vaping Use Currently Using (Occasional) 05/08/24 17:22 Thrive Assessment: Date of Thrive Assessment Date Thrive assessed 01/03/24 05/08/24 17:22 Const Other: General: no acute distress and well developed Nutritional Appearance: well nourished Orientation/consciousness: patient oriented x3 HENMT Head: Yes normocephalic and Yes atraumatic Eyes General: appearance normal, both eyes and all related structures Pupils: Equal, round and reactive pupils present EOM: EOMs intact bilaterally Resp Effort & Inspection: normal respiratory effort Auscultation: clear to auscultation bilaterally Cardio Rate: regular rate Rhythm: regular rhythm Heart sounds: S1 normal heart sound present, S2 normal heart sound present, no gallops, no murmurs and no rubs GI Palpation (GI): No Abdominal aortic bruit present, Soft to palpation, nontender, No hepatosplenomegaly present and No Rebound tenderness present Auscultation: normal bowel sounds General: Yes no CVA tenderness Back/Spine/Pelvis Back: no CVA tenderness Cervical Spine: cervical ROM normal and No Cervical spine tenderness Thoracic/Lumbar Spine: thoraco-lumbar ROM normal, No pain with thoraco-lumbar ROM, No thoracic spinal tenderness and No lumbar spinal tenderness Extrem General: Yes normal to inspection, No edema and No calf tenderness Skin General: warm and dry. Normal skin color. Normal skin turgor Lesions: no lesions Rashes: Discolored patches of the skin to the chest/between the breasts, consistent with tinea versicolor Trauma: no lacerations or abrasions Wounds: no wounds Nails: normal Neuro General: patient oriented x3, gait normal and no focal neuro deficit Cranial nerves: Yes Equal, round and reactive pupils present Cognition (Neuro): normal cognition Gait exam (Neuro): Normal gait present Sensory Exam: No Sensory deficit (Neuro) Psych Appearance: grossly normal Affect: normal affect Attitude: cooperative Thought process: Normal thought process present Assessment and Plan Assessment & Plan (1) Mother currently breast-feeding: Code(s): Z39.1 - Encounter for care and examination of lactating mother Plan: Patient requests medication to stop breast-feeding at almost 24 months. Also, her psychiatrist would not start Vyvanse until she stops Advised to consult her legal paraprofessional She has an appointment with her legal paraprofessional this week and not she will follow-up Advised to follow-up in a month for an extended physical exam Verbalized understanding and agreed with the plan (2) Tinea versicolor: Code(s): B36.0 - Pityriasis versicolor Plan: Itchy rash to the chest/between the breast for the past 4 years Discolored patches of the skin to the chest/between the breasts, consistent with tinea versicolor Terbinafine ordered. Advised to use as prescribed. Instructed on the risks, benefits, and potential adverse reactions of the medication Informed that she may notice improvement in about 2 weeks Follow-up with worsening or new signs and symptoms Verbalized understanding and agreed with the treatment plan Medications: New terbinafine HCl 1% 1 appl topical BID 30 grams 0RF Coding Level of Care Code Est Pt Level 3 (68930) Complex EM visit Add On G2211 Diagnoses Mother currently breast-feeding Z39.1 Tinea versicolor B36.0
[2024-05-08 17:25] VITALS: BP 118/74; PULSE 100; RESP 16; TEMP 36.5; O2SAT 97; BMI 40.2
== END 2024-05-08 18:14 | disposition home or self-care (01) ==
PROVIDERS: PCP Nurse Practitioner Family; Visit Provider Nurse Practitioner Family
DX: B36.0 Pityriasis versicolor (principal)
CPT/HCPCS: 99213

== ENCOUNTER 2024-05-10 13:50 | Outpatient (AMB) | payer BC, OTHER, SELFPAY ==
[2024-05-10 14:01] VITALS: BP 118/70; BMI 40.0
--- NOTE | 2024-05-10 14:01 | A.OFFVIS_ITS ---
Vital Signs 05/10/24 14:01 Height 5 ft 6 in Weight 248 lb BMI 40.0 BP 118/70 Intake Visit Reasons: New patient control / Iud check Armhole Sewer Services: Armhole Sewer Present Information Interpreted: clinical only Aquacultural Worker Supervisor: Aquacultural Worker Supervisor Present Allergies Seasonal Allergies Allergy (Mild, Verified 05/10/24 14:02) Sneezing Medication List - Last Reconciled 05/10/24 by Joleen Cedillo CNM aripiprazole 5 mg PO DAILY duloxetine 120 mg (2 x 60 mg) PO DAILY 30 days lamotrigine 100 mg PO BID 90 days levonorgestrel (Mirena) intrauterine naratriptan take 1/2 - 1 tab at onset of headache; if no relief may repeat 1 tab after at least 4 hrs; max = 2 tabs/24 hrs orally PRN; 30 days terbinafine HCl 1% 1 appl topical BID Is last menstrual period known: No (IUD) HPI HPI New patient control / Iud check: Details: Patient is here is a new patient because she is wanting to get her IUD checked she moved here about a year ago and has not had any industrial service technician concerns she has a Holly na IUD which was her 2nd 1 this was placed after the of her daughter 2 years ago in [place] she also had a IUD a Mirena for 6 years before that she and her doctor thought there was a concern about PCOS so they had it taken out and about 4 months later she was she said that there were some cysts seen on her ovaries and she had some insulin resistance so that was the concern she does not really have facial hair or acne however she had the Mirena placed initially when she was 14 years old both for contraception and also because of heavy periods so she loves Mirena it has served that is purpose. She wants to be sure it is in the right spot and is doing its job. She did notice a little bit of discomfort both randomly and also when she had sex recently in the last couple of weeks so that is another reason to get it checked out. She had a with her daughter she was hung up at 4 cm for 8 hours and then they discovered she had a nuchal cord so it was just as well she was delivered by . She did have gestational hypertension but she says she did not have gestational diabetes. [facility] Medical History delivery delivered Ovarian cyst Fatty tumor Depression Anxiety Bipolar 1 disorder depression Surgical History H/O section History of placement of ear tubes [place] teeth removed Family History Maternal Grandmother Colon cancer Other Substance use disorder Social History Housing: House Patient Tobacco Use Status: Former Tobacco user Tobacco use type: Cigarette Cigarettes Per Day: 0.5 e-Cigarette/Vaping Use: Currently Using Second Hand Smoke Exposure: Yes service: No Current occupational status: employed Cognitive needs: No Hearing needs: No Vision needs: Yes Female Reproductive History Menstrual Age of Menarche: 12 Duration of menses: 3-5 days control method: progestin IUCD Total pregnancies: 2 Full term: 1 Date of last pap smear: 07/29/21 (negative per patient) History of abnormal pap smear: No Physical Exam Vital Signs: Last Vital Signs BP 118/70 05/10/24 14:01 BMI result Body Mass Index 40.0 Other: Speculum exam done normal appearing clearish mucus cervix probed with Q-tip but no Mirena string Brought into view cervix nulliparous pink smooth mobile nontender Uterus small mobile nontender Adnexa nontender not enlarged fair tone with Kegel. Results AMB Test Urine AMB Test Urine Negative Last Edit by Federico Cordova CMA on 05/10/24 14:44 Results Reviewed Results Reviewed: Laboratory Last Values [facility]st Clinic Negative 05/10/24 14:43 Assessment & Plan Assessment & Plan (1) IUD check up: Code(s): Z30.431 - Encounter for routine checking of intrauterine contraceptive device Category: Medical (2) Mother currently breast-feeding: Code(s): Z39.1 - Encounter for care and examination of lactating mother Category: Medical Plan IUD and make sure it is in the right place we will get a pelvic ultrasound and she and I can have a tele visit afterwards to make sure it is in the right spot if it is not and has become dislodged or is low down in her cervical canal then we would want to replace it. She says she is due for her Pap smear in the fall so we will schedule that visit. She said she recently got checked for bacterial vaginosis at the [place] office and she treated that with Metrogel and did notice a difference afterwards so has no need of any STI testing so none done today. Discussed her concern about weaning she has been nursing her daughter for 2 years and only nurses at night but wants very much to wean at this stage but feels she brought it on herself but wants to avoid any problems with mastitis. Suggested weaning very slowly to avoid problems with mastitis but also suggested checking with consultants as her pediatric practice in [place] as well as possibly any of the hospitals [facility], also she is on [facility] and there was a program evaluation consultant available through them so that is an option as well also suggested ida rico. Also reviewed what is available for obstetric care in this area at the above 3 hospitals and that given that she has a history of gestational hypertension, and a previous , she would definitely want to start care where she would want to deliver. Orders: Orders AMB HCG Urine Test Today Z32.02 - Encounter for test, result negative US pelvic and transvaginal Today Z30.431 - Encounter for routine checking of intrauterine contraceptive device, Z39.1 - Encounter for care and examination of lactating mother Coding Level of Care Code New Pt Level 3 (85087) Diagnoses IUD check up Z30.431 Mother currently breast-feeding Z39.1
== END 2024-05-10 15:22 | disposition home or self-care (01) ==
LOC: HO.HWSM 13:50
PROVIDERS: PCP Nurse Practitioner Family; Visit Provider Advanced Practice Midwife
DX: Z30.431 Encounter for routine checking of intrauterine contraceptive device (principal); Z32.02 Encounter for pregnancy test, result negative
CPT/HCPCS: 99203

== ENCOUNTER → 2024-05-10 13:50 | Outpatient (BNVA) | payer BC, OTHER, SELFPAY | PROVIDERS: PCP Nurse Practitioner Family; Visit Provider Advanced Practice Midwife | DX: Z30.431 Encounter for routine checking of intrauterine contraceptive device (principal) | CPT/HCPCS: 81025 ==

== ENCOUNTER 2024-05-11 14:12 | Outpatient (REF) | payer BC, OTHER, SELFPAY ==
--- NOTE | ~2024-05-11 | US_ITS ---
EXAMINATION: US PELVIS CLINICAL INFORMATION: IUD check up encounter for care and examination of lactating, bilateral lower quadrant pain COMPARISON: None available. TECHNIQUE: Ultrasound of the pelvis is performed using both transabdominal and transvaginal transducers along with Doppler. Transvaginal imaging is performed due to inadequate visualization transabdominally. FINDINGS: The uterus is anteverted, retroflexed and measures 8.6 x 3.5 x 3.9 cm. IUD low lying in position, partially into the cervix. Prompt gynecologic consultation recommended to determine further management. Complex nabothian cysts. Right ovary measures 2.3 x 1.5 x 1.3 cm, volume 2.4 mL and is grossly unremarkable, although visualization is limited due to bowel gas. Left ovary measures 2.7 x 1.8 x 1.7 cm, volume 4.3 mL and is grossly unremarkable although only seen on transabdominal ultrasound images. No significant free fluid. US/US pelvic and transvaginal IMPRESSION: 1. IUD low lying in position, partially into the cervix. Prompt gynecologic consultation recommended to determine further management. 2. Complex nabothian cysts. 3. Ovaries grossly unremarkable, although visualization limited due to bowel gas. This study was presented to me on May 30, 2024 for interpretation. PSA staff will provide results to referring provider at this time. Electronically signed by: Geri Bahena MD 05/30/2024 01:56 PM EDT
== END 2024-05-11 14:13 | disposition home or self-care (01) ==
LOC: HO.US 14:12
PROVIDERS: PCP Nurse Practitioner Family; Visit Provider Advanced Practice Midwife
DX: T83.32XA Displacement of intrauterine contraceptive device, initial encounter (principal); N88.8 Other specified noninflammatory disorders of cervix uteri; Z39.1 Encounter for care and examination of lactating mother; Z30.431 Encounter for routine checking of intrauterine contraceptive device; R10.31 Right lower quadrant pain; R10.32 Left lower quadrant pain
CPT/HCPCS: 76830; 76856

== ENCOUNTER 2024-05-24 09:41 | Outpatient (AMB) | payer BC, OTHER, SELFPAY ==
--- NOTE | 2024-05-24 09:41 | A.OFFVIS_ITS ---
Intake Visit Reasons: TV ultrasound follow up/do not move pls Allergies Seasonal Allergies Allergy (Mild, Verified 05/24/24 09:41) Sneezing Medication List - Last Reconciled 05/24/24 by Joleen Cedillo CNM aripiprazole 5 mg PO DAILY duloxetine 120 mg (2 x 60 mg) PO DAILY 30 days lamotrigine 100 mg PO BID 90 days levonorgestrel (Mirena) intrauterine naratriptan take 1/2 - 1 tab at onset of headache; if no relief may repeat 1 tab after at least 4 hrs; max = 2 tabs/24 hrs orally PRN; 30 days terbinafine HCl 1% 1 appl topical BID Is last menstrual period known: No (IUD) HPI HPI TV ultrasound follow up/do not move pls: Details: This is a tele visit to review patient's ultrasound which was ordered to check on the IUDs site. The ultrasound was done on 05/11/2024 but it has not been officially read by Radiology at I called ultrasound to obtain a wet reading and the technologist was able to look at the films and give me some in put on the ultrasound.. [facility] Medical History delivery delivered Ovarian cyst Fatty tumor Depression Anxiety Bipolar 1 disorder depression Surgical History H/O section History of placement of ear tubes [place] teeth removed Family History Maternal Grandmother Colon cancer Other Substance use disorder Social History Housing: House Patient Tobacco Use Status: Former Tobacco user Tobacco use type: Cigarette Cigarettes Per Day: 0.5 e-Cigarette/Vaping Use: Currently Using (Occasional) Second Hand Smoke Exposure: Yes service: No Current occupational status: employed Cognitive needs: No Hearing needs: No Vision needs: Yes Female Reproductive History Menstrual Age of Menarche: 12 Duration of menses: 3-5 days control method: progestin IUCD Total pregnancies: 2 Full term: 1 Date of last pap smear: 07/29/21 (negative) Telehealth Telehealth Telehealth Platform: Telephone Location of provider rendering services: practice address Location of patient: address on file Patient Identification confirmed using: Name, : Yes Telehealth method: voice only Patient verbally consented to treatment: Yes Patient verbally consented to billing insurance company: Yes Patient informed of any privacy concerns related to visit: Yes Minutes spent on Phone/Video with Pt.: 15 (12 cr/15 speaking w pt/8 charting=35) Results Reviewed Results Reviewed: Ultrasound of 05/11/2024 has not yet been officially read by Radiology. Since tele visit is today and there was need to disclose results to the patient I called for a wet reading the unofficial reading is that the Mirena IUDs low lying in the uterus 3.3 cm from the fundus. We will await full official reading however this enough to at least make a plan and informed the patient. Assessment & Plan Assessment & Plan (1) Mother currently breast-feeding: Code(s): Z39.1 - Encounter for care and examination of lactating mother Category: Medical (2) IUD check up: Code(s): Z30.431 - Encounter for routine checking of intrauterine contraceptive device Category: Medical (3) Malpositioned intrauterine device (IUD): Comment: Telephone reading of ultrasound done 05/11/2024 shows Mirena IUD to be 3.3 cm below fundus, awaiting official reading... Code(s): T83.32XA - Displacement of intrauterine contraceptive device, initial encounter Category: Medical Plan I reviewed the unofficial reading of the ultrasound shows that the Mirena IUD is low lying in is 3.3 cm from the fundus. It would still be working for her because of is property of releasing levonorgestrel however it really should be replaced additionally she has had some discomfort with so does need to be placed. May very well need an instrument retrieve is as the strings have re- treated in to the os and were not reachable by me the visit when I saw her therefore her visit should be with machine accountant up with the main office. Discussed replacement of the IUD at the same time she and her are considering having another child perhaps next year but that is still enough time to warrant replacing the Mirena IUD and she does like the IUD as opposed other methods she is very clear she does not want.. I instructed the patient to call the office if she does not hear either later today or tomorrow about the next appointment additionally she will monitor reschedule her annual visit with me as she has other plans for that appointment date. Additionally I discussed how she is doing with meaning her 2-year-old and she says it is not going well and I suggested that she check out what consultants might be available either through her health and wellness director practice which is an [place] it up with [facility] and also she has an appointment with daniela coming up and so she will check would their market research consultant as well. I informed her that usually it is able to be retrieved using an instrument that is not available down in his office. If it is not able to be retrieved she and the doctor will make plan as to retrieve and replace. She is concerned that if she decides to have a child next year in about a year that which she have any difficulty given that the IUDs for a longer period of time that should not prove to be difficulty insurance pedraza or otherwise it is more of an issue when so mebody has 1 put in, takes it out a month later for a reason, and then wants it replaced again a month later. Coding Level of Care Code Tele Est Pt Level 3 (91132) Diagnoses Mother currently breast-feeding Z39.1 IUD check up Z30.431 Malpositioned intrauterine device (IUD) T83.32XA
== END 2024-05-24 10:15 | disposition home or self-care (01) ==
LOC: HO.HWSM 09:41
PROVIDERS: PCP Nurse Practitioner Family; Visit Provider Advanced Practice Midwife
DX: T83.32XA Displacement of intrauterine contraceptive device, initial encounter (principal); Z39.1 Encounter for care and examination of lactating mother; Z30.431 Encounter for routine checking of intrauterine contraceptive device
CPT/HCPCS: 99442

== ENCOUNTER → 2024-05-24 09:41 | Outpatient (BNVA) | payer BC, OTHER, SELFPAY | PROVIDERS: PCP Nurse Practitioner Family; Visit Provider Advanced Practice Midwife ==

== ENCOUNTER 2024-05-25 09:17 | Outpatient (REF) | payer BC, OTHER, SELFPAY ==
[2024-05-26 12:31] LABS: CT PCR NOT DETECTED (Not Detect.); NG PCR NOT DETECTED (Not Detect.)
== END 2024-05-25 09:18 | disposition home or self-care (01) ==
LOC: HO.LNP 09:17
PROVIDERS: PCP Nurse Practitioner Family; Visit Provider Obstetrics & Gynecology
DX: Z30.433 Encounter for removal and reinsertion of intrauterine contraceptive device (principal); T83.32XA Displacement of intrauterine contraceptive device, initial encounter; Z32.02 Encounter for pregnancy test, result negative
CPT/HCPCS: 58300; 58301; 81025; 87491; 87591; J7298

== ENCOUNTER 2024-05-25 09:17 | Outpatient (AMB) | payer BC, OTHER, SELFPAY ==
--- NOTE | 2024-05-25 09:21 | A.OFFVIS_ITS ---
Vital Signs 05/25/24 09:25 Height 5 ft 6 in Weight 246 lb 14.684 oz BMI 39.8 BP 118/72 Intake Visit Reasons: Mirena Replacement/Strings Missing/Per Joleen Plant Safety Leader Required: No Information Interpreted: non-clinical & clinical Labor And Delivery Nurse: Labor And Delivery Nurse Present (Latoya ANNA) Accompanied by: Self / Same As Patient Allergies Seasonal Allergies Allergy (Mild, Verified 05/25/24 09:43) Sneezing Is last menstrual period known: No (mirena) HPI Comments Details: The patient is presenting referred from Yamilex Cedillo CNM regarding missing IUD string on pelvic exam. Pelvic ultrasound ordered, not read yet but unofficial reading showed a low-lying IUD in the lower uterine segment. The patient is interested in IUD removal and Mirena IUD insertion [facility] Medical History delivery delivered Ovarian cyst Fatty tumor Depression Anxiety Bipolar 1 disorder depression Surgical History H/O section History of placement of ear tubes [place] teeth removed Family History Maternal Grandmother Colon cancer Other Substance use disorder Social History Housing: House Patient Tobacco Use Status: Former Tobacco user Tobacco use type: Cigarette Cigarettes Per Day: 0.5 e-Cigarette/Vaping Use: Currently Using (Occasional) Second Hand Smoke Exposure: Yes service: No Current occupational status: employed Cognitive needs: No Hearing needs: No Vision needs: Yes Female Reproductive History Menstrual Age of Menarche: 12 Review of Systems Const All systems reviewed & are unremarkable except as noted in HPI and below Physical Exam Vital Signs: Last Vital Signs BP 118/72 05/25/24 09:25 BMI result Body Mass Index 39.8 General: Yes no CVA tenderness External Female Exam: normal external appearance and normal appearance of the urethra Speculum Exam - Vagina: normal appearance of the vagina, normal palpation, no lesions and no masses Speculum Exam - Cervix: normal appearance of the cervix, normal palpation, no lesions, no masses, nontender and Other cervical findings present (No IUD string seen) Bimanual exam- vagina & uterus: normal bimanual exam, normal palpation, uterine size normal, normal palpation, uterine shape normal, No Cervical tenderness present and non-tender Bimanual Exam- Adnexa, other: normal adnexae Back/Spine/Pelvis Back: no CVA tenderness Office Procedures IUD Insert/Removal Details Details: The patient is presenting for IUD removal and IUD reinsertion. no h/o intercourse last month. Urine test was done in the office and was negative; All the contraindications were excluded. The following possible complications were discussed with the patient: Intrauterine , Ectopic , Sepsis, Pelvic Infection, Irregular Bleeding and Amenorrhea, Perforation, Expulsion, Ovarian Cysts, Breast Cancer. The following adverse effects were discussed with the patient: alteration of menstrual bleeding pattern, including: unscheduled uterine bleeding decreased uterine bleeding increased scheduled uterine bleeding female genital tract bleeding ,amenorrhea , genital discharge , vulvovaginitis , breast pain , benign ovarian cyst and associated complications , dysmenorrhea , Gastrointestinal disorders abdominal/pelvic pain, headache/migraine , back pain , acne , depression Alternative options were discussed with the patient including but not limited: control pills, patch, NuvaRing, Depo-medroxyprogesterone acetate, Nexplanon, copper IUD, sterilization, vasectomy, others The procedure was explained in detail to patient , at the end patient signed the informed consent obtained. Alternative options were discussed with the patient The patient signed the consent and agreed with the plan; all questions answered. Urine test was done in the office and was negative Preop dx: Requesting IUD removal and Reinsertion Op: IUD removal and Mirena insertion Post op dx: same EBL= 10 cc Procedure: The patient was put in the dorsal lithotomy position a speculum was inserted in the vagina the IUD thread identified. Using a Alessandra clamp the thread was grasped and the IUD pulled out with no complications. A no touch technique was used throughout the procedure. A speculum was placed into vagina and cervix was cleaned with betadine). A tenaculum was placed. A plastic sound was advanced through the external and internal os until it reached the fundus of the uterus, the depth was 8 cm. The sound was then withdrawn. The IUD was loaded in a sterile manner and advanced into position. The string was visualized and cut to 3 cm. Tenaculum site hemostatic. All instruments removed from vagina. Patient tolerated the procedure well. NO complications were noted. Patient was instructed to call for fever over 100.4, significant pain unrelieved by Motrin, IUD expulsion, heavy bleeding, or abnormal discharge. In addition, the following clinical considerations were discussed with the patient to call for removal: A stroke or heart attack ,Very severe or migraine headaches ,Unexplained fever ,Yellowing of the skin or whites of the eyes, as these may be signs of serious liver problems , or suspected , Pelvic pain or pain during sex ,HIV positive seroconversion in herself or her partner , Possible exposure to sexually transmitted infections Unusual vaginal discharge or genital sores , severe vaginal bleeding or bleeding that lasts a long time, or if she misses a menstrual period, Inability to feel Mirena's threads Counseled the patient that the IUD does not protect against STI's, recommended use of condoms for the first 7 days post insertion and explained to the patient that condoms are recommended for patients at risk for sexually transmitted infections. Follow up appointment made for 4 weeks following insertion. Date of removal in no more than five years for DUB treatment and 8 years for contraception from today?s date was d/w patient. This note was generated with a voice recognition program. Some errors may have been overlooked during the review of this note. Sometimes these errors may affect the content or meaning of a given sentence. 32689-EGW Insertion 93657-OIP Removal Procedure code (CPT) selection complete Office Meds Mirena 21 mcg/24 hr (up to 8 years) 52 mg intrauterine device Performing Provider: Wilber Garza MD Performing Location: [facility] [place] [facility] Documented (not given) by: Wilber Garza MD on 05/25/24 09:53 Dose Route Admin Location Dispensed Lot Number Expiration Date [facility] Dean Of Instruction 1 device intrauterine ea Results AMB Test Urine AMB Test Urine Negative Last Edit by Latoya Puckett CMA on 09:29 Results Reviewed Results Reviewed: Laboratory Last Values Tst Clinic Negative 05/25/24 09:29 Assessment & Plan Assessment & Plan (1) Malpositioned intrauterine device (IUD): Code(s): T83.32XA - Displacement of intrauterine contraceptive device, initial encounter Category: Medical Plan: Discussed with the patient the position of the IUD, recommended IUD removal and reinsertion. All questions answered, the patient verbalized understanding and agreed with the plan (2) Remove/insert IUD: Code(s): Z30.433 - Encounter for removal and reinsertion of intrauterine contraceptive device Category: Medical Plan: GC/CT done, urine test done in the office was negative. IUD removed and Mirena IUD inserted done, see procedure note Orders: Orders AMB HCG Urine Test Today Z32.02 - Encounter for test, resu lt negative AMB IUD Insertion/Removal - Practice Supplied Today T83.32XA - Displacement of intrauterine contraceptive device, initial encounter, Z30.433 - Encounter for removal and reinsertion of intrauterine contraceptive device Medications: New Mirena (levonorgestrel) 1 device intrauterine ONCE 1 ea 0RF IUD removal and insertion NS T83.32XA - Displacement of intrauterine contraceptive device, initial encounter, Z30.433 - Encounter for removal and reinsertion of intra uterine contraceptive device Coding Level of Care Code Procedure Only Diagnoses Malpositioned intrauterine device (IUD) T83.32XA Remove/insert IUD Z30.433 CPT Codes Details - CPT: 08638-PIA Insertion ([id number]) Details - CPT: 21315-KDN Removal ([id number])
[2024-05-25 09:25] VITALS: BP 118/72; BMI 39.8
== END 2024-05-25 09:53 | disposition home or self-care (01) ==
PROVIDERS: PCP Nurse Practitioner Family; Visit Provider Obstetrics & Gynecology
DX: Z30.433 Encounter for removal and reinsertion of intrauterine contraceptive device (principal); T83.32XA Displacement of intrauterine contraceptive device, initial encounter; Z32.02 Encounter for pregnancy test, result negative
CPT/HCPCS: 58300; 58301

== ENCOUNTER 2024-07-18 08:24 | Outpatient (AMB) | payer BC, OTHER, SELFPAY ==
[2024-07-18 08:27] VITALS: BP 138/92; BMI 39.2
--- NOTE | 2024-07-18 08:27 | MHC.OFFVIS ---
Vital Signs 07/18/24 08:27 Height 5 ft 6 in Weight 243 lb BMI 39.2 BP 138/92 H Blood Pressure Location Rt brachial Position Sitting Intake Visit Reasons: Follow up JACKLYN Intake Note: Patient presents for follow up. Allergies Seasonal Allergies Allergy (Mild, Verified 07/18/24 11:23) Sneezing Medication List - Last Reconciled 07/18/24 by LUCY Rodriguez aripiprazole 5 mg PO DAILY duloxetine 120 mg (2 x 60 mg) PO DAILY 30 days lamotrigine 100 mg PO BID 90 days naratriptan take 1/2 - 1 tab at onset of headache; if no relief may repeat 1 tab after at least 4 hrs; max = 2 tabs/24 hrs orally PRN; 30 days terbinafine HCl 1% 1 appl topical BID topiramate 25 - 50 mg (1 - 2 x 25 mg) PO BEDTIME 30 days HPI Comments Details: Right-handed 23-yr-old female presents for f/u of migraine and sleep. Pt reached out in April, with worsening migraine attacks. She stopped working as she was missing more days than not. At that time, pt was advised to start Topiramate 25-50mg qhs. Pt states that since starting the topiramate- taking 50mg, she has not had a migraine. She has had 1-2 mild headaches responsive to Tylenol. Naratriptan is effective, but has not needed to take it since she started the Topiramate. The topirmaate is causing some tingling in lips and feet- but she does not want to stop it for this. She has also had a 6lb wt loss, which she is happy with. She is prone to bloody noses. Continues to have sleep issues. Her HST showed AHI 3/hr w/ O2 barbara 85%. She has not heard from ENT office yet. Initial HPI from 01/11/24: Pt was referred her today to evaluate her for sleep apnea, as she has been having increased headache frequency and severity in the past 1.5 months, which have caused her to miss multiple days of work. Pt reports she had a HST 3 yrs ago in [place]. Per pt, results showed mild JACKLYN, but was so mild she was not offered any treatment options. She does not recall why she had that initial sleep study. She was diagnosed w/ insomnia around age 18-19 yo. Since, pt endorses a weight a 30-40 lb weight gain. Pt endorses:? Musculoskeletal disorders or injury: had a fall a few yrs ago, shifted her hips, has scoliosis- dx'd post-menarche, so no tx. Mood d/o:Anxiety, Depression, depression, Bilpolar type I d/o- but this is being re-evaluated. ENT- large tonsils, in which food becomes stuck at times Sleep: Endorses: Difficulty initiating and maintaining sleep, nocturia, Snoring even in prone position, Excessive daytime sleepiness, Fatigue, Restlessness when trying to go to sleep w/ urge to stretch/flex her legs But denies Leg Cramps CV disease: h/o gestational HTN Clotting or hematology d/o: Pertinent denials include: Parasomnias, hallucinations, sleep paralysis, drop attacks, usual morning headaches. History of concussion/head injury, Respiratory d/o, Clotting or hematology d/o, Endocrine or metabolic d/o, History of seizure, syncope, or drop attacks, GI d/o, Constipation, Leg Cramps, Family history of migraine or other headache disorder Headache questionnaire:? Age/time of onset: elementary school Preceding causes: none Previous work-up: MRI: none, CT: none. Recent eye exam- normal. Typical headache characteristics: Prodrome symptoms: Ears begin to hurt, like a pressure. Occipital-cervicalgia stiffness/soreness. Aura: no preceding aura. Pain intensity: at worst 8/10 Location, quality, characteristics: Starts as a dull pain in right occipital and moves up into right parietal and into bilateral ears. Associated symptoms? Blurry vision, bilateral peripheral vision haziness, Photophobia, phonophonia, nausea, vomiting- at times, dizziness, activity intolerance, difficulty thinking, fatigue, throbbing like heartbeat in my head . Denies ringing. Postdrome: lingers Triggers: Denies Menstrual triggers: none- ammenorhea d/t IUD placement Positional trigger: denies Valsalva trigger: denies Exertional trigger: denies Sexual activity triggers: denies Time of day: Usually in the early afternoon Duration and Frequency: 3-4 or more hours, but can last into the next day, occurring mild 1-2 x's per week, severe 1-2x's per week. How does headache impact your life? sometimes has to miss work MIDAS disability scale: 22 Current acute medication use/interventions: Sumatriptan 25mg- helped but caused weird feeling, dizzy- this caused BUE tingling. Current preventative medication use: None, although is on duloxetine, aripiprazole, lamotrigine for mood d/o. 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 Family planning: Has an IUD. Has an 18 mo yr old dtr, plans to have more children in the future. [facility] Medical History delivery delivered Ovarian cyst Fatty tumor Depression Anxiety Bipolar 1 disorder depression Surgical History H/O section History of placement of ear tubes [place] teeth removed Family History Maternal Grandmother Colon cancer Other Substance use disorder Social History Housing: House Patient Tobacco Use Status: Former Tobacco user Tobacco use type: Cigarette Cigarettes Per Day: 0.5 e-Cigarette/Vaping Use: Currently Using (Occasional) Second Hand Smoke Exposure: Yes service: No Current occupational status: employed Cognitive needs: No Hearing needs: No Vision needs: Yes Female Reproductive History Menstrual Age of Menarche: 12 Physical Exam Vital Signs: Last Vital Signs BP 138/92 H 07/18/24 08:27 BMI result Body Mass Index 39.2 Const Orientation/consciousness: patient oriented x3 HEENT Other: Mallampati stage III Tonsils at least moderate enlargement Head: Yes normocephalic Resp Effort & Inspection: normal respiratory effort and able to speak in complete sentences Neuro Other: Photophobia General: patient oriented x3 Cranial nerves: Yes CN's II-XII intact bilaterally Cognition (Neuro): normal cognition Gait exam (Neuro): Normal gait present Motor exam (neuro): 5/5 motor strength present throughout Deep tendon reflexes (DTR's): Right triceps reflex intensity grade: 2+, Left triceps reflex intensity grade: 2+, Rt Biceps (C5, C6): 2+, Left biceps reflex intensity grade: 2+, Right brachioradialis reflex intensity grade: 2+, Left brachioradialis reflex intensity grade: 2+, Right patellar reflex intensity grade: 3+ and Left patellar reflex intensity grade: 3+ Coordination: [id number] test normal Pupils: Normal pupillary reactivity/response: bilateral Psych Appearance: grossly normal Mental Status: mental status grossly normal Speech and movement: Normal speech and movement present Affect: normal affect Attitude: cooperative Thought process: Normal thought process present Results AMB Test Urine AMB Test Urine Negative Last Edit by Latoya Puckett CMA on 07/18/24 11:40 Assessment & Plan Assessment & Plan (1) Migraines: Code(s): G43.909 - Migraine, unspecified, not intractable, without status migrainosus Category: Medical (2) Snoring: Code(s): R06.83 - Snoring Category: Medical (3) Excessive daytime sleepiness: Code(s): G47.19 - Other hypersomnia Category: Medical (4) Sleep difficulties: Code(s): G47.9 - Sleep disorder, unspecified Category: Medical (5) Nocturnal hypoxemia: Code(s): G47.34 - Idiopathic sleep related nonobstructive alveolar hypoventilation Category: Medical (6) JACKLYN (obstructive sleep apnea): Code(s): G47.33 - Obstructive sleep apnea (adult) (pediatric) Category: Medical Plan Pt advised to undergo in-lab PSG sleep study to furtehr assess for sleep apnea and extent of nocturnal hypoxemia. Will f/u on referal for ENT consult For overall headache management: Optimize good self-care, including but not limited to maintaining a healthy diet, adequate fluid intake, adequate sleep, and engaging in regular physical activity. For headache triggers: Track headaches, especially after any treatment regimen changes. Migraine [employer] is one of many headache tracking apps. Light sensitivity tips: Patient may try blue light filtering glasses, green glasses, green light therapy. For acute headache treatment: Continue naratriptan 2.5 mg q.4 hours p.r.n.. Max 2 tabs per day Tylenol 650-1000mg q 4-6 hrs prn. Previous acute migraine medication trials: Sumatriptan 25 mg: Not tolerated, cause paresthesias. Acute migraine medication contraindications: None at this time For headache prevention medication: Pt has stopped Riboflavin 400mg qam and Magnesium with goal of 400-500mg qhs. Continue Topiramate 50mg qhs. Previous migraine prevention medication trials: None specifically for migraine. Migraine prevention medication contraindications: Would need to be cautious with antidepressant use d/t history of bipolar type 1. Future considerations: Qulipta-both of which may promote weight loss Will follow-up upon review of above and patient to follow-up in clinic in 6 months or sooner prn. Orders: Orders RT PSG in-lab sleep study 07/18/24 G47.19 - Other hypersomnia, G47.34 - Idiopathic sleep related nonobstructive alveolar hypoventilation, G47.9 - Sleep disorder, unspecified, R06.83 - Snoring Medications: New topiramate 50 mg PO BEDTIME 30 tabs 6RF 30 days Refilled naratriptan take 1/2 - 1 tab at onset of headache; if no relief may repeat 1 tab after at least 4 hrs; max = 2 tabs/24 hrs orally PRN; 12 tabs 6RF migraine headache 30 days Discontinued topiramate Discontinued Reason: Doctor's Order 25 - 50 mg (1 - 2 x 25 mg) PO BEDTIME 30 days 60 tabs 3RF Coding Level of Care Code Est Pt Level 4 (10035) Diagnoses Migraines G43.909 Snoring R06.83 Excessive daytime sleepiness G47.19 Sleep difficulties G47.9 Nocturnal hypoxemia G47.34 JACKLYN (obstructive sleep apnea) G47.33
== END 2024-07-18 09:16 | disposition home or self-care (01) ==
PROVIDERS: PCP Nurse Practitioner Family; Visit Provider Nurse Practitioner Family
DX: G43.909 Migraine, unspecified, not intractable, without status migrainosus (principal); R06.83 Snoring; G47.19 Other hypersomnia; G47.9 Sleep disorder, unspecified; G47.34 Idiopathic sleep related nonobstructive alveolar hypoventilation; G47.33 Obstructive sleep apnea (adult) (pediatric)
CPT/HCPCS: 99214

== ENCOUNTER → 2024-07-18 08:24 | Outpatient (BNVA) | payer BC, OTHER, SELFPAY | PROVIDERS: PCP Nurse Practitioner Family; Visit Provider Nurse Practitioner Family | DX: Z30.431 Encounter for routine checking of intrauterine contraceptive device (principal); G43.909 Migraine, unspecified, not intractable, without status migrainosus; R06.83 Snoring; G47.19 Other hypersomnia; G47.34 Idiopathic sleep related nonobstructive alveolar hypoventilation; G47.33 Obstructive sleep apnea (adult) (pediatric); Z79.899 Other long term (current) drug therapy | CPT/HCPCS: 81025 ==

== ENCOUNTER 2024-07-18 11:11 | Outpatient (AMB) | payer BC, OTHER, SELFPAY ==
[2024-07-18 11:22] VITALS: BMI 39.1
--- NOTE | 2024-07-18 11:22 | A.OFFVIS_ITS ---
Vital Signs 07/18/24 11:22 Height 5 ft 6 in Weight 242 lb 8.136 oz BMI 39.1 Intake Visit Reasons: IUD check Poker Room Manager Required: No Information Interpreted: non-clinical & clinical Network Diagnostic Support Specialist: Network Diagnostic Support Specialist Present (Latoya ANNA) Accompanied by: Self / Same As Patient Allergies Seasonal Allergies Allergy (Mild, Verified 07/18/24 11:23) Sneezing HPI Comments Details: The patient is presenting for IUD check after 1 st period following IUD insertion. The patient has no complaints periods are normal, not painful, and flow is normal. [facility] Medical History delivery delivered Ovarian cyst Fatty tumor Depression Anxiety Bipolar 1 disorder depression Surgical History H/O section History of placement of ear tubes [place] teeth removed Family History Maternal Grandmother Colon cancer Other Substance use disorder Social History Housing: House Patient Tobacco Use Status: Former Tobacco user Tobacco use type: Cigarette Cigarettes Per Day: 0.5 e-Cigarette/Vaping Use: Currently Using (Occasional) Second Hand Smoke Exposure: Yes service: No Current occupational status: employed Cognitive needs: No Hearing needs: No Vision needs: Yes Female Reproductive History Menstrual Age of Menarche: 12 control method: progestin IUCD Review of Systems Const All systems reviewed & are unremarkable except as noted in HPI and below Physical Exam Vital Signs: BMI result Body Mass Index 39.1 General: Yes no CVA tenderness External Female Exam: normal external appearance and normal appearance of the urethra Speculum Exam - Vagina: normal appearance of the vagina, normal palpation, no lesions and no masses Speculum Exam - Cervix: normal appearance of the cervix, normal palpation, no lesions, no masses, nontender and Other cervical findings present (IUD string seen in place) Bimanual exam- vagina & uterus: normal bimanual exam, normal palpation, uterine size normal, normal palpation, uterine shape normal, No Cervical tenderness present and non-tender Bimanual Exam- Adnexa, other: normal adnexae Back/Spine/Pelvis Back: no CVA tenderness Assessment & Plan Assessment & Plan (1) IUD check up: Code(s): Z30.431 - Encounter for routine checking of intrauterine contraceptive device Category: Medical Plan: UPT done in the office was negative. Discussed with the patient the finding on physical exam, IUD string in place, the patient was reassured. Instructions given to patient to call in case of temperature above 100.4, severe cramping/pelvic pain, abnormal discharge or abnormal uterine bleeding or if she misses her menstrual cycle. Otherwise follow-up at her annual exam appointment. All questions answered, the patient verbalized understanding. Coding Level of Care Code Est Pt Level 3 (16389) Diagnoses IUD check up Z30.431
== END 2024-07-18 11:38 | disposition home or self-care (01) ==
PROVIDERS: PCP Nurse Practitioner Family; Visit Provider Obstetrics & Gynecology
DX: Z30.431 Encounter for routine checking of intrauterine contraceptive device (principal); Z32.02 Encounter for pregnancy test, result negative
CPT/HCPCS: 99213

== ENCOUNTER 2024-07-28 10:12 | Outpatient (AMB) | payer BC, OTHER, SELFPAY ==
--- NOTE | 2024-07-28 10:16 | MHC.PC.OV ---
Vital Signs 07/28/24 10:22 Height 5 ft 6 in Weight 240 lb 4 oz BMI 38.8 BP 114/80 Blood Pressure Location Rt brachial Position Sitting Respiration 16 Pulse 119 H Pulse Source Pulse Oximeter Temp 98.1 F Temp Source Oral Pulse Oximetry (%) 97 Oxygen Delivery Method Room Air Intake Visit Reasons: pe Intake Note: patient here for CPE Air Conditioning Unit Tester Required: No Is last menstrual period known: No (has IUD) Post menopausal: No Patient : No Allergies Seasonal Allergies Allergy (Mild, Verified 07/28/24 10:40) Sneezing Medication List - Last Reconciled 07/28/24 by Raudel Tanner CNP aripiprazole 5 mg PO DAILY duloxetine 120 mg (2 x 60 mg) PO DAILY 30 days lamotrigine 100 mg PO BID 90 days levonorgestrel (Mirena) intrauterine naratriptan take 1/2 - 1 tab at onset of headache; if no relief may repeat 1 tab after at least 4 hrs; max = 2 tabs/24 hrs orally PRN; 30 days terbinafine HCl 1% 1 appl topical BID topiramate 50 mg PO BEDTIME 30 days Tobacco use date assessed: 07/28/24 Dental Screening Dental Screen Date: 07/28/24 Did you have a dental visit in the last 12 months?: No Did you have a dental problem in the last 6 months where you did not have access to dental care?: No Was dental information given to patient?: Patient declined HPI HPI Comments History of Present Illness Details 22-year-old female presents for an extended physical exam She has past medical history significant for migraines, anxiety, depression, depression, and bipolar disorder 1 disorder She admits to taking her medications as prescribed without adverse reactions She reports controlled mood and has been sleeping well. She is followed by a psychiatrist at [facility] once monthly and a therapist monthly, via telemedicine. She gets health coverage through her mom and would lose coverage for her psychiatrist and therapist once she turns 24 beginning 09/2024. She will need a new psychiatrist and therapist with her personal [employer] insurance She admits to making healthy lifestyle change, including diet and exercise. She is excited to have lost 10 lb since the end of april She reports right ear pain for the past 1 week Former smoker. Vapes 2-3 times weekly. Drinks 1-2 glass of wine monthly. No recreational drugs Last eye exam was with [facility] in December 2023. She will sign a release for her PCP to obtain records Last Pap smear test was in 2020 in [place]: normal. She has an appointment with [facility] linux systems analyst for a pap smear test later this month Last tetanus vaccine was in 2021 She has not been vaccinated for the flu this season and requests the vaccine She is not up-to-date on her COVID vaccine and does not intend to get the booster She is followed by [facility] neurology who will do a sleep study and refer her to ENT She is sexually active, in a monogamous relationship, and has no concerns for STDs [facility] Medical History delivery delivered Ovarian cyst Fatty tumor Depression Anxiety Bipolar 1 disorder depression Surgical History H/O section History of placement of ear tubes [place] teeth removed Family History Maternal Grandmother Colon cancer Other Substance use disorder Social History Housing: House Patient Tobacco Use Status: Former Tobacco user Tobacco use type: Cigarette Cigarettes Per Day: 0.5 e-Cigarette/Vaping Use: Currently Using (Occasional) Second Hand Smoke Exposure: Yes service: No Current occupational status: employed Cognitive needs: No Hearing needs: No Vision needs: Yes Female Reproductive History Menstrual Age of Menarche: 12 Questionnaire PHQ-9 Over the last 2 weeks, how often have you been bothered by any of the following problems? 1. Little interest or pleasure in doing things: several days 2. Feeling down, depressed, or hopeless: several days 3. Trouble falling or staying asleep, or sleeping too much: more than half the days 4. Feeling tired or having little energy: several days 5. Poor appetite or overeating: several days 6. Feeling bad about yourself - or that you are a failure or have let yourself or your family down: several days 7. Trouble concentrating on things, such as reading the newspaper or watching television: not at all 8. Moving or speaking so slowly that other people could have noticed. Or the opposite - being so fidgety or restless that you have been moving around a lot more than usual: not at all 9. Thoughts that you would be better off or of hurting yourself in some way: not at all Total score: 7 Depression Screening Interpretation: Positive Depression Screening Follow-up: Existing condition and In treatment Depression Screening Done: Yes 05317 - PHQ-9 Billing: Yes Source: Developed by Drs. Scott Silver, Marily Delvalle, Marty Lamas and colleagues, with an educational rima from [employer]. Thrive Questionnaire Date Thrive assessed: 07/28/24 I am a: Patient What is your living situation today?: I have a steady place to live Within the past 12 months, did the food you bought not last and you didn't have the money to get more?: Never true Within the past 12 months, did you worry whether your food would run out before you got money to buy more?: Never true Do you have trouble paying for medicines?: No Do you have trouble getting transportation to medical appointments?: No Do you have trouble paying your heating and electricity bill?: No Do you have trouble taking care of your child, family member or friend?: No Do you have trouble with day-to-day activities such as bathing, preparing meals, shopping, managing finances, etc.?: No Are you currently unemployed and looking for a job?: Yes Are you interested in more education?: No Please select the resources that you would like help with: None Currently or been in a relationship where the following occur: No concerns reported THRIVE Score: 0 AUDIT C Alcohol Use Questionnaire (AUDIT-C) 1. How often do you have a drink containing alcohol?: Monthly or less 2. How many drinks containing alcohol do you have on a typical day when you are drinking?: 1 or 2 3. How often do you have six or more drinks on one occasion?: Never Total Score: 1 Score Reviewed/Action Taken: Yes MELISSA-7 AMB Questionnaire MELISSA-7 Date MELISSA - 7 assessed: 07/28/24 Feeling nervous, anxious, or on edge: 1 = Several days Not being able to stop or control worryin = Several days Worrying too much about different things: 1 = Several days Trouble relaxin = Several days Being so restless that it is hard to sit still: 0 = Not at all Becoming easily annoyed or irritable: 1 = Several days Feeling afraid as if something awful might happen: 0 = Not at all Total MELISSA-7 score (0-4 normal; 5-9 mild; 10-14 moderate; 15-21 severe): 5 Source: Developed by Drs. Scott Silver, Marily Delvalle, Marty Lamas and colleagues, with an educational rima from [employer]. MELISSA-7 Assessment Billing MELISSA-7 Assessment Tool: MELISSA-7 Assessment 39655 Review of Systems Const Details: Denies chills, Denies fatigue, Denies fever(s), Denies headache(s) and Denies weakness HEENT Denies change in vision, Denies dizziness, Denies headache(s), Denies hearing loss, Denies nasal congestion, Denies sinus pain, Denies sinus pressure and Denies sore throat Card Denies chest pain, Denies lightheadedness, Denies dyspnea and Denies other (palpitations) Resp Denies cough, Denies dyspnea and Denies wheezing GI Denies abdominal pain, Denies melena, Denies hematochezia, Denies change in bowel habits, Denies dyspepsia and Denies nausea Denies hematuria and Denies dysuria Musc Denies abnormal gait, Denies myalgias, Denies arthralgias, Denies numbness and Denies tingling Skin/Breast Denies rash, Denies unusual bruising and Denies wounds Neuro Denies abnormal gait, Denies dizziness, Denies headache(s), Denies memory loss, Denies numbness, Denies Sensory deficit (Neuro), Denies tingling and Denies weakness Psych Denies anxiety, Denies depression and Denies memory loss Endo Denies cold intolerance, Denies fatigue, Denies heat intolerance, Denies polydipsia and Denies polyuria Conrad/Lymph Denies easy bleeding and Denies easy bruising Aller/Immun Denies wheezing Physical exam (Primary Care) Vital Signs: Last Vital Signs Temp 98.1 F 07/28/24 10:22 Pulse 119 H 07/28/24 10:22 Resp 16 07/28/24 10:22 BP 114/80 07/28/24 10:22 Pulse Ox 97 07/28/24 10:22 Oxygen Delivery Method Room Air 07/28/24 10:22 BMI result Body Mass Index 38.8 Tobacco/Smoking Status: Tobacco use Status Tobacco use date assessed 07/28/24 07/28/24 10:24 Patient Tobacco Use Status Former Tobacco user 07/28/24 10:17 Tobacco use type Cigarette 07/28/24 10:17 e-Cigarette/Vaping Use Currently Using (Occasional) 07/28/24 10:17 PHQ-9: PHQ-9 Score PHQ-9: Total score 7 07/28/24 11:12 Depression Screening Interpretation: Positive Depression Screening Follow-up: Existing condition and In treatment Thrive Assessment: Date of Thrive Assessment Date Thrive assessed 07/28/24 07/28/24 10:17 Currently or been in a relationship where the following occur: No concerns reported Const Other: General: no acute distress, well developed, alert and awake Nutritional Appearance: well nourished Orientation/consciousness: patient oriented x3 HENMT Head: Yes normocephalic and Yes atraumatic Ears: hearing grossly normal bilaterally and left TM's normal. Right TM with slight erythema, no bulging or effusion General nose exam: Normal external nose present and Normal nares present Mouth: Normal oral and palatal mucosa present and moist mucous membranes Teeth and gingiva: dentition normal Throat: Yes oropharynx normal Eyes Pupils: Equal, round and reactive pupils present and Pupil accommodation reflex normal EOM: EOMs intact bilaterally Neck Neck: Yes normal visual inspection, Yes no lymphadenopathy and Yes trachea midline Thyroid: Thyroid normal Carotids: no bruits Lymphatic: no lymphadenopathy noted Chest Chest palpation & inspection: normal inspection of the chest Resp Effort & Inspection: normal respiratory effort Auscultation: clear to auscultation bilaterally Cardio Rate: regular rate Rhythm: regular rhythm Heart sounds: S1 normal heart sound present, S2 normal heart sound present, no gallops, no murmurs and no rubs Bruits: no abdominal aortic bruits and no carotid bruits GI Palpation (GI): No Abdominal aortic bruit present, Soft to palpation, nontender, No hepatosplenomegaly present and No Rebound tenderness present Auscultation: normal bowel sounds General: Yes no CVA tenderness Back/Spine/Pelvis Back: no CVA tenderness Cervical Spine: cervical ROM normal and No Cervical spine tenderness Thoracic/Lumbar Spine: thoraco-lumbar ROM normal, No pain with thoraco-lumbar ROM, No thoracic spinal tenderness and No lumbar spinal tenderness Skin General: warm and dry. Normal skin color. Normal skin turgor Lesions: no lesions Rashes: no rashes Trauma: no lacerations or abrasions Wounds: no wounds Nails: normal Neuro General: patient oriented x3, gait normal and CN's II-XI intact bilaterally Cranial nerves: Yes Equal, round and reactive pupils present Cognition (Neuro): normal cognition Gait exam (Neuro): Normal gait present Motor exam (neuro): 5/5 motor strength present throughout Sensory Exam: No Sensory deficit (Neuro) Deep tendon reflexes (DTR's): Right patellar reflex intensity grade: 2+ and Left patellar reflex intensity grade: 2+ Extrem General: Yes normal to inspection, No edema and No calf tenderness Psych Appearance: grossly normal Affect: normal affect Attitude: cooperative Thought process: Normal thought process present Office Procedures Flu Questionnaire Does the patient have a severe egg allergy?: No Does the patient have severe life threatening allergies?: No Does the patient have a fever or illness today?: No Has the patient ever had Guillain-Champion Syndrome?: No Has the patient ever had any past reaction to a flu shot?: No Immunizations Fluarix Triv [id number] (PF) 45 mcg (15 mcg x 3)/0.5 mL IM syringe Performing Provider: Raudel Tanner CNP Performing Location: [facility] Administered by: Joleen Kumar RN on 07/28/24 11:12 Dose Route Admin Location Dispensed Lot Number Expiration Date LAC Radiator Fitter 0.5 mL IM Left Deltoid 0.5 mL [id number] 03/26/25 [id number] [employer] VIS Given Date VIS Provided VIS Publication Date 07/28/24 Single Vaccine 21 Eligibility Eligibility Date Funding Source Not [place] Eligible 07/28/24 Private Coding Level of Care Code Est Pt Level 4 (05139) Est Pt Prev Care 18-39y(11815) Diagnoses Normal physical examination, routine Z00.00 Anxiety F41.9 Bipolar 1 disorder F31.9 Engages in vaping Z72.89 Flu vaccine need Z23 Right ear pain H92.01 Obesity (BMI 30-39.9) E66.9 Additional Codes MELISSA-7 Assessment Billing - MELISAS-7 Assessment Tool: MELISSA-7 Assessment 32068 ([id number]) Assessment & Plan Assessment & Plan (1) Normal physical examination, routine: Code(s): Z00.00 - Encounter for general adult medical examination without abnormal findings Category: Medical Plan: No significant physical limitations noted Continue current treatment regimen Healthy diet and routine exercise encouraged Follow-up in 3 months for bipolar 1 disorder and anxiety or sooner with symptoms or concerns Verbalized understanding and agreed with the treatment plan (2) Anxiety: Code(s): F41.9 - Anxiety disorder, unspecified Category: Medical Plan: Mood is controlled. She has been sleeping well PHQ-9 and MELISSA-7 scores revealed mild depression and anxiety Continue current treatment regimen Her health coverage will discontinue in 2 months and she will need to find a new therapist and psychiatrist. She met with our CHW who will refer her to a therapist and psychiatrist Routine exercise encouraged Follow-up in 3 months or sooner with worsening or new symptoms Verbalized understanding and agreed with the treatment plan (3) Bipolar 1 disorder: Code(s): F31.9 - Bipolar disorder, unspecified Category: Medical Plan: Plan as above (4) Engages in vaping: Code(s): Z72.89 - Other problems related to lifestyle Category: Medical Plan: She vapes 2-3 times a week Instructed on the health risks and complications of vaping and encouraged to stop. She a follow-up with the PCP as needed. She verbalized understanding and agreed with treatment plan (5) Flu vaccine need: Code(s): Z23 - Encounter for immunization Category: Medical Plan: She has not been vaccinated for flu season Flu vaccine administered today by our nurse (6) Right ear pain: Code(s): H92.01 - Otalgia, right ear Category: Medical Plan: She has had right ear pain for the past 1 week Right TM with slight erythema, no bulging or effusion Z-Nic ordered. Advised to take as prescribed. Instructed on the risks, benefits, and potential adverse reactions of the medications May take Tylenol or ibuprofen as needed Follow-up with worsening or new symptoms Verbalized understanding and agreed with the plan (7) Obesity (BMI 30-39.9): Code(s): E66.9 - Obesity, unspecified Category: Medical Plan: She currently weighs 240 lb, BMI is 38.8. She he has been exercising and eating healthy and has lost 10 lb in the past 2 months Healthy diet and routine exercise encouraged Follow-up as needed Verbalized understanding and agreed with the plan Orders: Orders Influenza [id number] Immunization Today Z23 - Encounter for immunization Medications: New azithromycin (Zithromax TRI-NIC) 500 mg PO DAILY 6 tabs 0RF 6 days
[2024-07-28 10:22] VITALS: BP 114/80; PULSE 119; RESP 16; TEMP 36.7; O2SAT 97; BMI 38.8
== END 2024-07-28 11:39 | disposition home or self-care (01) ==
LOC: HO.HMCFM 10:12
PROVIDERS: PCP Nurse Practitioner Family; Visit Provider Nurse Practitioner Family
DX: Z00.00 Encounter for general adult medical examination without abnormal findings (principal); F41.9 Anxiety disorder, unspecified; F31.9 Bipolar disorder, unspecified; E66.9 Obesity, unspecified; Z68.38 Body mass index [BMI] 38.0-38.9, adult; Z72.89 Other problems related to lifestyle; H92.01 Otalgia, right ear

== ENCOUNTER → 2024-07-28 10:12 | Outpatient (BNVA) | payer BC, OTHER, SELFPAY | PROVIDERS: PCP Nurse Practitioner Family; Visit Provider Nurse Practitioner Family | DX: Z00.01 Encounter for general adult medical examination with abnormal findings (principal); H92.01 Otalgia, right ear; F41.9 Anxiety disorder, unspecified; F31.9 Bipolar disorder, unspecified; E66.9 Obesity, unspecified; Z68.38 Body mass index [BMI] 38.0-38.9, adult; Z72.89 Other problems related to lifestyle; Z23 Encounter for immunization | CPT/HCPCS: 90471; 90656; 96127 ==

== ENCOUNTER 2024-09-07 10:24 | Outpatient (AMB) | payer BC, OTHER, SELFPAY ==
--- OUTSIDE RECORDS SUMMARY | 2024-09-07 10:27 | XMS_ITS | Continuity of Care Document ---
Author Organization [facility] Address [address] [place] [address] Phone Care Team Providers Care Scientific Writer Name Role Phone Jg Jackson OD Unavailable Unavailab le Allergies, Adverse Reactions, Alerts Substance Reaction Status Criticality No Known Allergies Active No Inform ation Medications Medication Instructions Dosage Effective Dates (start - stop) Status Comments BUCCAL - Active CYMBALTA (unknown strength) take 1 capsule by oral route 2 times every day Not Available - Active LAMOTRIGINE (unknown strength) take 2 tablet by oral route 2 times every day Not Available - Active Procedures Procedure Date REFRACTION EYE EXAM, NEW PATIENT Advance Directives Directive Yes / No Effective Date File Name No Information Encounters Encounter Description Practice Location Reason(s) For Visit Diagnoses Date Provider Providers Copied on Encounter [facility], [address] [place] [address], [id number], [place] tel: [phone] [facility] No Information Renetta carrillo [address] [place], [place], [id number] , [place]. tel: [phone] Referring Provider: Jg Rebolledo [address] [place], [address]. tel:[phone] [facility], [address] [place], [address], [place] tel: [phone] [facility] New Patient (chief complaint) Myopia BilateralEncounter for exam of eye w/o abnormal finding 3 Renetta carrillo [address], [id number] , . tel: [phone] Referring Provider: Jg Rebolledo [address], [address]. tel:[phone] Family History Family Member Type Diagnosis Age At Onset Maternal grandmother Problem Diabetes mellitus Problem No family history of Macular degeneration Problem No family history of Glaucom a Problem No family history of Catarac ts Payers Payer name Insurance type Covered alliance party ID Authoriza tion(s) No Information Social History Type Description Quantity Date Captured Comments Sex Female Smoking Status No Information Chief Complaint And Reason For Visit No Information Reason For Referral Reason For Referral No Information History Of Present Illness Encounter Date Complaint History Of Prese nt Illness New Patient The 22 year old patient presents for evaluation of New Patient. Pt states that her last eye exam was October 2020. Pt states that Va is blurry in the distance even with her glasses on OU. Pt states that she see's glare from lights at nighttime OU. Pt states that she has occasional itching, feels like it is due to her eyelashes OU. Pt denies seeing flashes and floaters OU. Pt denies using gtts at this time OU. Functional Status Date Functional Assessmen t No Information Instructions Date Instruction Additional Infor jaleesa 1 yr CE Related to Myopi a Bilateral Impression/Plan Related to Myopi a Bilateral Impression/Plan Related to Encou nter for exam of eye w/o abnormal finding Assessments Type Assessment Date No Information Patient Care Teams Name Effective Dates (start - stop) Status Members No Information
[2024-09-07 10:36] VITALS: BP 100/60; BMI 38.9
--- NOTE | 2024-09-07 10:36 | A.OFFVIS_ITS ---
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 Present Information Interpreted: clinical only Allergies Seasonal Allergies Allergy (Mild, Verified 09/07/24 10:36) Sneezing Medication List - Last Reconciled 09/07/24 by Joleen Cedillo CNM aripiprazole 5 mg PO DAILY duloxetine 120 mg (2 x 60 mg) PO DAILY 30 days lamotrigine 100 mg PO BID 90 days levonorgestrel (Mirena) intrauterine naratriptan take 1/2 - 1 tab at onset of headache; if no relief may repeat 1 tab after at least 4 hrs; max = 2 tabs/24 hrs orally PRN; 30 days terbinafine HCl 1% 1 appl topical BID topiramate 50 mg PO BEDTIME 30 days Is last menstrual period known: No (IUD) HPI HPI annual: Details: 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 She is still working on weaning her BV and she is thinking about maybe next year but is undecided and she starts a new job on Wednesday. [facility] Medical History delivery delivered Ovarian cyst Fatty tumor Depression Anxiety Bipolar 1 disorder depression Surgical History H/O section History of placement of ear tubes [place] teeth removed Family History Maternal Grandmother Colon cancer Other Substance use disorder Social History Housing: House Patient Tobacco Use Status: Former Tobacco user Tobacco use type: Cigarette Cigarettes Per Day: 0.5 e-Cigarette/Vaping Use: Currently Using (Occasional) Second Hand Smoke Exposure: Yes service: No Current occupational status: employed Cognitive needs: No Hearing needs: No Vision needs: Yes Female Reproductive History Menstrual Age of Menarche: 12 Duration of menses: <3 days control method: progesterone injection Total pregnancies: 1 Full term: 1 Date of last pap smear: 07/29/21 (neg. per pt.) Physical Exam Vital Signs: Last Vital Signs BP 100/60 09/07/24 10:36 BMI result Body Mass Index 38.9 Const Other: Breasts are soft in excellent condition no sign of mastitis or any masses or swelling Pelvic exam is within normal limits normal clear slightly pinkish whitish discharge cervix nulliparous pink smooth clear with Mirena string easily visible. Cervix long close thick mobile nontender uterus midposition mobile nontender good tone with Kegel General: healthy appearing, comfortable, no acute distress, well developed and alert Nutritional Appearance: average body habitus Orientation/consciousness: patient oriented x3 Limitations: no limitations HEENT Head: Yes normocephalic Neck Neck: Yes normal visual inspection Chest Chest palpation & inspection: normal inspection of the chest Breast/axilla inspection: normal inspection of the breasts and normal inspection of the axillae Breast/axilla palpation: normal palpation of the breasts and normal palpation of the axillae Resp Effort & Inspection: normal respiratory effort GI Inspection: Yes normal to inspection, No Abdominal wall edema and No distended Palpation (GI): Soft to palpation and nontender General: Yes bladder normal to palpation External Female Exam: normal external appearance and normal appearance of the urethra Speculum Exam - Vagina: normal appearance of the vagina, normal palpation and normal vaginal discharge Speculum Exam - Cervix: normal appearance of the cervix, normal palpation and nontender Bimanual exam- vagina & uterus: normal bimanual exam, normal palpation, uterine size normal, bladder normal to palpation, consistency normal, normal palpation, uterine mobility normal, uterine shape normal, No Cervical tenderness present, non-tender and no cervical motion tenderness Bimanual Exam- Adnexa, other: normal adnexae, no masses, normal and No adnexal tenderness Neuro General: patient oriented x3 Assessment & Plan Assessment & Plan (1) IUD (intrauterine device) in place: Code(s): Z97.5 - Presence of (intrauterine) contraceptive device Category: Medical (2) Pap smear for cervical cancer screening: Code(s): Z12.4 - Encounter for screening for malignant neoplasm of cervix Category: Medical (3) Mother currently breast-feeding: Code(s): Z39.1 - Encounter for care and examination of lactating mother Category: Medical (4) IUD check up: Code(s): Z30.431 - Encounter for routine checking of intrauterine contraceptive device Category: Medical (5) Well woman exam with routine gynecological exam: Code(s): Z01.419 - Encounter for gynecological examination (general) (routine) without abnormal findings Category: Medical (6) Family planning counseling: Code(s): Z30.09 - Encounter for other general counseling and advice on contraception Category: Medical Plan -----Discussed in this visit the following: healthy balanced diet, regular and consistent exercise, getting recommended health screens, doing the best she can for her particular health concerns, kegel exercises, pap smear screening and followup recommendations, mammography screening and SBE, normal changes in cycles in her life stage--- . Challenges with weaning and all she has been doing she is really working on that. She is ready to wean daughter but her daughter still likes to nurse at bedtime. She recently had a success in that she brought her to pre school and her daughter really liked it so she thinks that is going to go well. She is thinking about having a baby next year. And is wondering about timing conception and everything she is also going to be going on a cruise without her 2-year-old but with her in February does not want to have her period Then. Discussed that that is very difficult to predict in that now she has the Mirena and she may not even be getting periods. Discussed the variable nature of return to fertility once she does elect to remove the Mirena. She acknowledges that so much can change between now and what her ideal schedule would be that it is very difficult to plan ahead anyway. I recommend starting a multivitamin with folic acid if she is not already on it before conception.. Additionally she is on various psych meds and she is going to review with the providers about those things before she remove the Mirena tries to conceive. Orders: Orders CT NG by PCR Today N89.8 - Other specified noninflammatory disorders of vagina Bacterial Vaginosis Panel Today N89.8 - Other specified noninflammatory disorders of vagina Pap Smear Today Z01.419 - Encounter for gynecological examination (general) (routine) without abnormal findings Coding Level of Care Code Est Pt Prev Care [id number]) Diagnoses IUD (intrauterine device) in place Z97.5 Pap smear for cervical cancer screening Z12.4 Mother currently breast-feeding Z39.1 IUD check up Z30.431 Well woman exam with routine gynecological exam Z01.419 Family planning counseling Z30.09
== END 2024-09-07 11:29 | disposition home or self-care (01) ==
PROVIDERS: PCP Nurse Practitioner Family; Visit Provider Advanced Practice Midwife
DX: Z01.419 Encounter for gynecological examination (general) (routine) without abnormal findings (principal); Z30.09 Encounter for other general counseling and advice on contraception
CPT/HCPCS: 99395; 99459

== ENCOUNTER 2024-09-07 10:24 | Outpatient (REF) | payer BC, OTHER, SELFPAY ==
--- OUTSIDE RECORDS SUMMARY | 2024-09-07 11:50 | XMS_ITS | Continuity of Care Document ---
Author Organization [facility] Address [address] [place] [address] Phone Care Team Providers Care Income Tax Advisor Name Role Phone Jg Jackson OD Unavailable [...] Diagnoses Date Provider Providers Copied on Encounter [facility], [address] [place] [address], [address], [place] tel: [phone] [facility] No Information Renetta carrillo [address] [place], [place], [id number] , [place]. tel: [phone] Referring Provider: Jg Rebolledo [address] [place], [address]. tel:[phone] [facility], [address] [place], [address], [place] tel: [phone] [facility] New Patient (chief complaint) Myopia BilateralEncounter for exam of eye w/o abnormal finding 3 Renetta carrillo [address], [id number] , . tel: [phone] Referring Provider: Jg Rebolledo [address], [address]. tel:[phone] Family History Family Member Type Diagnosis Age At Onset Maternal grandmother Problem Diabetes mellitus Problem No family history of Macular degeneration Problem No family history of Glaucom a Problem No family history of Catarac ts Payers Payer name Insurance type Covered green party ID Authoriza tion(s) No Information Social [...]
== END 2024-09-07 10:25 | disposition home or self-care (01) ==
LOC: HO.LAB 10:24
PROVIDERS: PCP Nurse Practitioner Family; Visit Provider Advanced Practice Midwife
DX: Z13.89 Encounter for screening for other disorder (principal)

== ENCOUNTER 2024-09-07 11:40 | Outpatient (REF) | payer BC, OTHER, SELFPAY ==
[2024-09-08 11:38] LABS: HPV 16,18/45 See PAP report
[2024-09-08 15:07] LABS: CT PCR NOT DETECTED (Not Detect.); NG PCR NOT DETECTED (Not Detect.)
[2024-09-08 16:12] LABS: Bacterial Vaginosis PCR NEGATIVE (Negative); Candida Group PCR NOT DETECTED (Not Detect); Candida glab krusei PCR DETECTED (Not Detect); Trichomonas vaginalis PCR NOT DETECTED (Not Detect)
== END 2024-09-07 11:41 | disposition home or self-care (01) ==
LOC: HO.LNP 11:40
PROVIDERS: Visit Provider Advanced Practice Midwife
DX: Z01.419 Encounter for gynecological examination (general) (routine) without abnormal findings (principal); N89.8 Other specified noninflammatory disorders of vagina; Z11.51 Encounter for screening for human papillomavirus (HPV)
CPT/HCPCS: 0352U; 87491; 87591; 87624; 88175

== ENCOUNTER 2024-09-29 08:24 | Outpatient (AMB) | payer BC, OTHER, SELFPAY ==
--- NOTE | 2024-09-29 08:27 | A.OFFPC_ITS ---
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 Required: No Is last menstrual period known: No (patient has IUD) Post menopausal: No Patient : No Allergies Seasonal Allergies Allergy (Mild, Verified 09/29/24 08:44) Sneezing Medication List - Last Reconciled 09/29/24 by Raudel Tanner CNP aripiprazole 5 mg PO DAILY duloxetine 120 mg (2 x 60 mg) PO DAILY 30 days lamotrigine 100 mg PO BID 90 days levonorgestrel (Mirena) intrauterine naratriptan take 1/2 - 1 tab at onset of headache; if no relief may repeat 1 tab after at least 4 hrs; max = 2 tabs/24 hrs orally PRN; 30 days topiramate 50 mg PO BEDTIME 30 days Tobacco use date assessed: 09/29/24 Dental Screening Dental Screen Date: 09/29/24 Did you have a dental visit in the last 12 months?: No Did you have a dental problem in the last 6 months where you did not have access to dental care?: No Was dental information given to patient?: No HPI HPI Comments History of Present Illness Details 24-year-old female presents for bipolar 1 disorder and anxiety follow- up. She admits to taking her medications as prescribed without adverse reactions. She is mentally exhausted due to working full-time and taking care for her 2- year old babe. Her grandfather who lives out of state is terminally ill and currently in hospice. She experiences anxiety on and off. She lost her [employer] [facility] [employer] health plan and consequently lost her previous therapist and psychiatrist. She has a new insurance, [employer], and is trying to schedule an appointment with [facility] to establish with a new therapist and psychiatrist. She does not exercise. She reports urinary frequency, urgency, dysuria, an intermittent right flank pain for the past 1 month. Denies flank pain at this time. No discharge with urination. No fever, chills, body aches, fatigue, weakness. [facility] Medical History delivery delivered Ovarian cyst Fatty tumor Depression Anxiety Bipolar 1 disorder depression Surgical History H/O section History of placement of ear tubes [place] teeth removed Family History Maternal Grandmother Colon cancer Other Substance use disorder Social History Housing: House Patient Tobacco Use Status: Former Tobacco user Tobacco use type: Cigarette Cigarettes Per Day: 0.5 e-Cigarette/Vaping Use: Currently Using (Occasional) Second Hand Smoke Exposure: Yes service: No Current occupational status: employed Cognitive needs: No Hearing needs: No Vision needs: Yes Female Reproductive History Menstrual Age of Menarche: 12 Questionnaire PHQ-9 Over the last 2 weeks, how often have you been bothered by any of the following problems? 1. Little interest or pleasure in doing things: several days 2. Feeling down, depressed, or hopeless: several days 3. Trouble falling or staying asleep, or sleeping too much: more than half the days 4. Feeling tired or having little energy: more than half the days 5. Poor appetite or overeating: more than half the days 6. Feeling bad about yourself - or that you are a failure or have let yourself or your family down: several days 7. Trouble concentrating on things, such as reading the newspaper or watching television: several days 8. Moving or speaking so slowly that other people could have noticed. Or the opposite - being so fidgety or restless that you have been moving around a lot more than usual: not at all 9. Thoughts that you would be better off or of hurting yourself in some way: not at all Total score: 10 Depression Screening Interpretation: Positive Depression Screening Follow-up: Existing condition and In treatment Depression Screening Done: Yes 23316 - PHQ-9 Billing: Yes Source: Developed by Drs. Scott Silver, Marily Delvalle, Marty Lamas and colleagues, with an educational rima from [employer]. Thrive Questionnaire Date Thrive assessed: 09/29/24 I am a: Patient What is your living situation today?: I have a steady place to live Within the past 12 months, did the food you bought not last and you didn't have the money to get more?: Never true Within the past 12 months, did you worry whether your food would run out before you got money to buy more?: Never true Do you have trouble paying for medicines?: No Do you have trouble getting transportation to medical appointments?: No Do you have trouble paying your heating and electricity bill?: No Do you have trouble taking care of your child, family member or friend?: No Do you have trouble with day-to-day activities such as bathing, preparing meals, shopping, managing finances, etc.?: No Are you currently unemployed and looking for a job?: No Are you interested in more education?: No Please select the resources that you would like help with: None Currently or been in a relationship where the following occur: No concerns reported THRIVE Score: 0 AUDIT C Alcohol Use Questionnaire (AUDIT-C) 1. How often do you have a drink containing alcohol?: Monthly or less 2. How many drinks containing alcohol do you have on a typical day when you are drinking?: 1 or 2 3. How often do you have six or more drinks on one occasion?: Less than monthly Total Score: 2 Score Reviewed/Action Taken: Yes MELISSA-7 AMB Questionnaire MELISSA-7 Date MELISSA - 7 assessed: 09/29/24 Feeling nervous, anxious, or on edge: 2 = More than half the days Not being able to stop or control worryin = Several days Worrying too much about different things: 2 = More than half the days Trouble relaxin = Several days Being so restless that it is hard to sit still: 1 = Several days Becoming easily annoyed or irritable: 2 = More than half the days Feeling afraid as if something awful might happen: 1 = Several days Total MELISSA-7 score (0-4 normal; 5-9 mild; 10-14 moderate; 15-21 severe): 10 Source: Developed by Drs. Scott Silver, Marily Delvalle, Marty Lamas and colleagues, with an educational rima from [employer]. MELISSA-7 Assessment Billing MELISSA-7 Assessment Tool: MELISSA-7 Assessment 47860 Review of Systems Const Details: Const Denies chills, Denies fatigue, Denies fever(s), Denies headache(s) and Denies weakness ENT Denies dizziness and Denies headache(s) Card Denies chest pain, Denies lightheadedness, Denies dyspnea and Denies other (Palpitations) Resp Denies cough, Denies dyspnea, Denies wheezing and Denies other ( shortness of breath) GI Denies abdominal pain, Denies melena, Denies hematochezia, Denies change in bowel habits, Denies dyspepsia and Denies nausea Reports as per HPI Musc Denies abnormal gait, Denies myalgias, Denies arthralgias, Denies numbness and Denies tingling Skin/Breast Denies rash, Denies unusual bruising and Denies wounds Neuro Denies abnormal gait, Denies dizziness, Denies headache(s), Denies memory loss, Denies numbness, Denies Sensory deficit (Neuro), Denies tingling and Denies weakness Psych Denies anxiety, Denies depression, Denies memory loss Endo Denies cold intolerance, Denies fatigue, Denies heat intolerance, Denies polydipsia and Denies polyuria Aller/Immun Denies wheezing Physical exam (Primary Care) Vital Signs: Last Vital Signs Temp 98.3 F 09/29/24 08:37 Pulse 108 H 09/29/24 08:37 Resp 16 09/29/24 08:37 BP 130/82 09/29/24 08:37 Pulse Ox 96 09/29/24 08:37 Oxygen Delivery Method Room Air 09/29/24 08:37 BMI result Body Mass Index 39.1 Tobacco/Smoking Status: Tobacco use Status Tobacco use date assessed 09/29/24 09/29/24 08:35 Patient Tobacco Use Status Former Tobacco user 09/29/24 08:31 Tobacco use type Cigarette 09/29/24 08:31 e-Cigarette/Vaping Use Currently Using (Occasional) 09/29/24 08:31 PHQ-9: PHQ-9 Score PHQ-9: Total score 10 09/29/24 08:31 Depression Screening Interpretation: Positive Depression Screening Follow-up: Existing condition and In treatment Thrive Assessment: Date of Thrive Assessment Date Thrive assessed 01/03/25 01/03/25 08:31 Currently or been in a relationship where the following occur: No concerns reported Const Other: General: no acute distress and well developed Nutritional Appearance: well nourished Orientation/consciousness: patient oriented x3 HENMT Head: Yes normocephalic and Yes atraumatic Eyes General: appearance normal, both eyes and all related structures Pupils: Equal, round and reactive pupils present EOM: EOMs intact bilaterally Resp Effort & Inspection: normal respiratory effort Auscultation: clear to auscultation bilaterally Cardio Rate: regular rate Rhythm: regular rhythm Heart sounds: S1 normal heart sound present, S2 normal heart sound present, no gallops, no murmurs and no rubs GI Palpation (GI): No Abdominal aortic bruit present, Soft to palpation, nontender, No hepatosplenomegaly present and No Rebound tenderness present Auscultation: normal bowel sounds General: Yes no CVA tenderness Back/Spine/Pelvis Back: no CVA tenderness Cervical Spine: cervical ROM normal and No Cervical spine tenderness Thoracic/Lumbar Spine: thoraco-lumbar ROM normal, No pain with thoraco-lumbar ROM, No thoracic spinal tenderness and No lumbar spinal tenderness Extrem General: Yes normal to inspection, No edema and No calf tenderness Skin General: warm and dry. Normal skin color. Normal skin turgor Neuro General: patient oriented x3, gait normal and no focal neuro deficit Cranial nerves: Yes Equal, round and reactive pupils present Cognition (Neuro): normal cognition Gait exam (Neuro): Normal gait present Sensory Exam: No Sensory deficit (Neuro) Psych Appearance: grossly normal Affect: normal affect Attitude: cooperative Thought process: Normal thought process present Coding Level of Care Code Est Pt Level 4 (52712) Complex EM visit Add On G2211 Diagnoses Bipolar 1 disorder F31.9 Anxiety F41.9 Lower urinary tract symptoms (LUTS) R39.9 Additional Codes MELISSA-7 Assessment Billing - MELISSA-7 Assessment Tool: MELISSA-7 Assessment 83837 ([id number]) PHQ-9 - 68723 - PHQ-9 Billing: Yes ([id number]) Assessment & Plan Assessment & Plan (1) Bipolar 1 disorder: Code(s): F31.9 - Bipolar disorder, unspecified Category: Medical Plan: She has been experiencing intermittent anxiety. MELISSA-7 and PHQ-9 score revealed moderate anxiety and depression. She experiences sadness for her grandfather who is terminally ill. She lost her old health plan and consequently lost for former psychiatrist and therapist. She has a new health plan and plans to establish with a new psychiatrist and therapist. Advised to continue current treatment regimen. Routine exercise encouraged. Establish with new therapist and psychiatrist as planned. Medications refilled as requested. Follow-up in 3 months or return sooner with worsening or new symptoms. Verbalized understanding and agreed with treatment plan. (2) Anxiety: Code(s): F41.9 - Anxiety disorder, unspecified Category: Medical Plan: Plan as above. (3) Lower urinary tract symptoms (LUTS): Code(s): R39.9 - Unspecified symptoms and signs involving the genitourinary system Category: Medical Plan: She has been experiencing urinary frequency, urgency, dysuria, an intermittent right flank pain for the past 1 month. Denies other symptoms. No CVA tenderness. Urinalysis and culture/sensitivity ordered. Will review results and make changes as needed. Verbalized understanding and agreed with treatment plan. Orders: Orders UA CC w/rflx Micro + Cult Today R39.9 - Unspecified symptoms and signs in volving the genitourinary system Medications: Changed From aripiprazole 5 mg PO DAILY To aripiprazole 5 mg PO DAILY 30 days 30 tabs 3RF Refilled duloxetine 120 mg (2 x 60 mg) PO DAILY 30 days 60 caps 3RF
[2024-09-29 08:37] VITALS: BP 130/82; PULSE 108; RESP 16; TEMP 36.8; O2SAT 96; BMI 39.1
== END 2024-09-29 09:09 | disposition home or self-care (01) ==
PROVIDERS: PCP Nurse Practitioner Family; Visit Provider Nurse Practitioner Family
DX: F31.9 Bipolar disorder, unspecified (principal); F41.9 Anxiety disorder, unspecified; R39.9 Unspecified symptoms and signs involving the genitourinary system

== ENCOUNTER → 2024-09-29 08:24 | Outpatient (BNVA) | payer BC, OTHER, SELFPAY | PROVIDERS: PCP Nurse Practitioner Family; Visit Provider Nurse Practitioner Family ==

== ENCOUNTER 2024-09-29 09:01 | Outpatient (REF) | payer OTHER, SELFPAY ==
[2024-09-29 14:09] LABS: Appearance Urine Clear; Color Urine Yellow; Glucose Urine UA Negative (Negative); Leukocyte Esterase Urine Negative (Negative); Nitrite Urine Negative (Negative); PH 6.5 (5.0-9.0); Urine Blood Negative (Negative); Urine Ketones Negative (Negative); Urine Protein Negative (Neg-Trace)
== END 2024-09-29 09:02 | disposition home or self-care (01) ==
LOC: HO.WFDLDS 09:01
PROVIDERS: Visit Provider Nurse Practitioner Family
DX: R39.9 Unspecified symptoms and signs involving the genitourinary system (principal); F31.9 Bipolar disorder, unspecified; F41.9 Anxiety disorder, unspecified
CPT/HCPCS: 81003; 96127

== ENCOUNTER 2025-01-17 07:53 | Outpatient (AMB) | payer OTHER, SELFPAY ==
--- OUTSIDE RECORDS SUMMARY | 2025-01-17 07:57 | XMS_ITS | Patient Health Record ---
Author Organization [employer] [facility] Address [address] [address] Care Team Providers Care Wire Coater Name Role Phone Maritza Dale Unavailable [phone] Reason For Referral No Information Encounters Encounter Location Date Provider Diagnosis [facility] [employer] [address] [address] 2024 Maritza Dale Plan Of Treatment No Information Insurance Providers Payer Name Payer Address Payer Phone Subscriber Number Group Number Insured Name Patient Relationship to Insured Coverage Start Date Coverage End Date /[employer] [address] [place] [id number] BRANDYN CHENEY Self - patient is the insured
--- OUTSIDE RECORDS SUMMARY | 2025-01-17 07:57 | XMS_ITS | Continuity of Care Document ---
Author Organization [facility] Address [address] [place] [address] Phone Care Team Providers Care Multilith Operator Name Role Phone Unavailable Unavailable Unavailable Allergies, Adverse Reactions, Alerts Substance Reaction Status [...] Diagnoses Date Provider Providers Copied on Encounter [facility], [address] [place] [address], tel: [phone] [facility] No Information No Information [facility], [address] [place] [address], tel: [phone] [facility] New Patient (chief complaint) Myopia BilateralEncounter for exam of eye w/o abnormal finding 3 No Information Family History Family Member Type Diagnosis Age At Onset Maternal grandmother Problem Diabetes mellitus Problem No family history of Macular degeneration Problem No family history of Glaucom a Problem No family history of Catarac ts Payers Payer name Insurance type Covered democrat ID Authoriza tion(s) No Information Social History [...]
--- OUTSIDE RECORDS SUMMARY | 2025-01-17 07:57 | XMS_ITS ---
Author Organization [facility] [employer] [facility] Address [address] [address] Care Team Providers Care Medication Coordinator Name Role Phone Maritza Dale Unavailable [phone] REASON FOR VISIT ? MISSING IUD Encounters Encounter Location Date Provider Diagnosis [facility] [address] [address] 2024 Maritza Dale Plan Of Treatment No Information Progress Notes * SHRAVANBRANDYN GRAVESDOB: 9 (24 yo F)Acc No.[id number] Progress Note Patient:?BRANDYN CHENEY Appointment Provider:?Maritza gardiner M.D. :2000???Age:24 Y???Sex:Female D ate:2024 Address:[address] [place], [place] [id number] Subjective: * Chief Complaints: * ???1. ? MISSING IUD. * Medical History:? Objective: * Vitals:? Assessment: Plan: * Treatment: * Images: Billing Information: * Visit Code:? * Procedure Codes:? * Electronic signature of Nicci Dale MD on 01/17/2025 at 07:57 AM EDT Sign off status: Pending * Appointment Provider:?Maritza Dale M.D. Date:?2024 Generated for Jada ramey/Chris/Rosiesmitting on:?01/17/2025 07:57 AM EDT
[2025-01-17 08:08] VITALS: BP 120/74; PULSE 96; O2SAT 97; BMI 38.4
--- NOTE | 2025-01-17 08:08 | A.OFFVIS_ITS ---
Vital Signs 01/17/25 08:08 Height 5 ft 6 in Weight 238 lb BMI 38.4 BP 120/74 Blood Pressure Location Lt brachial Pulse 96 Pulse Source Pulse Oximeter Pulse Oximetry (%) 97 Oxygen Delivery Method Room Air Intake Visit Reasons: Follow up Intake Note: Patient presents follow up for Migraine and JACKLYN Eval. Pt requested to up dose on Topiramate. Emergency Physician Required: No Accompanied by: Self / Same As Patient Allergies Seasonal Allergies Allergy (Mild, Verified 01/17/25 08:08) Sneezing Medication List - Last Reconciled 01/17/25 by LUCY Rodriguez aripiprazole 5 mg PO DAILY 30 days duloxetine 120 mg (2 x 60 mg) PO DAILY 30 days ibuprofen 600 mg PO Q6H PRN 30 days lamotrigine 100 mg PO BID 90 days levonorgestrel (Mirena) intrauterine naratriptan take 1/2 - 1 tab at onset of headache; if no relief may repeat 1 tab after at least 4 hrs; max = 2 tabs/24 hrs orally PRN; 30 days topiramate 100 mg (2 x 50 mg) PO BEDTIME 30 days HPI Comments Details: Right-handed 24-yr-old female presents for f/u of migraine and sleep. She has been noticing a slight uptick in her migarine frequency- not as severe as before. Now 2-3 attacks per month- which are milder. Most were milder, one was more intense, and lasted a few days. Tolerating topiramate well- has had some weight loss, and notes some mild not bothersome hand tingling. Using the naratriptan as needed. 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 Her initial ENT consult was rescheduled by the office. She has not had edvin f/u in-lab sleep study yet due to starting a new job. She continues to have snoring, daytime tiredness. 07/18/24 HPI: Pt reached out in April, with worsening migraine attacks. She stopped working as she was missing more days than not. At that time, pt was advised to start Topiramate 25-50mg qhs. Pt states that since starting the topiramate- taking 50mg, she has not had a migraine. She has had 1-2 mild headaches responsive to Tylenol. Naratriptan is effective, but has not needed to take it since she started the Topiramate. The topirmaate is causing some tingling in lips and feet- but she does not want to stop it for this. She has also had a 6lb wt loss, which she is happy with. She is prone to bloody noses. Continues to have sleep issues. Her HST showed AHI 3/hr w/ O2 barbara 85%. She has not heard from ENT office yet. Initial HPI from 01/11/24: Pt was referred her today to evaluate her for sleep apnea, as she has been having increased headache frequency and severity in the past 1.5 months, which have caused her to miss multiple days of work. Pt reports she had a HST 3 yrs ago in [place]. Per pt, results showed mild JACKLYN, but was so mild she was not offered any treatment options. She does not recall why she had that initial sleep study. She was diagnosed w/ insomnia around age 18-19 yo. Since, pt endorses a weight a 30-40 lb weight gain. Pt endorses:? Musculoskeletal disorders or injury: had a fall a few yrs ago, shifted her hips, has scoliosis- dx'd post-menarche, so no tx. Mood d/o:Anxiety, Depression, depression, Bilpolar type I d/o- but this is being re-evaluated. ENT- large tonsils, in which food becomes stuck at times Sleep: Endorses: Difficulty initiating and maintaining sleep, nocturia, Snoring even in prone position, Excessive daytime sleepiness, Fatigue, Restlessness when trying to go to sleep w/ urge to stretch/flex her legs But denies Leg Cramps CV disease: h/o gestational HTN Clotting or hematology d/o: Pertinent denials include: Parasomnias, hallucinations, sleep paralysis, drop attacks, usual morning headaches. History of concussion/head injury, Respiratory d/o, Clotting or hematology d/o, Endocrine or metabolic d/o, History of seizure, syncope, or drop attacks, GI d/o, Constipation, Leg Cramps, Family history of migraine or other headache disorder Headache questionnaire:? Age/time of onset: elementary school Preceding causes: none Previous work-up: MRI: none, CT: none. Recent eye exam- normal. Typical headache characteristics: Prodrome symptoms: Ears begin to hurt, like a pressure. Occipital-cervicalgia stiffness/soreness. Aura: no preceding aura. Pain intensity: at worst 8/10 Location, quality, characteristics: Starts as a dull pain in right occipital and moves up into right parietal and into bilateral ears. Associated symptoms? Blurry vision, bilateral peripheral vision arteaga ziness/squiggly lines, Photophobia, phonophonia, nausea, vomiting- at times, dizziness, activity intolerance, difficulty thinking, fatigue, throbbing like heartbeat in my head . Denies ringing. Postdrome: lingers Triggers: Denies Menstrual triggers: none- ammenorhea d/t IUD placement Positional trigger: denies Valsalva trigger: denies Exertional trigger: denies Sexual activity triggers: denies Time of day: Usually in the early afternoon Duration and Frequency: 3-4 or more hours, but can last into the next day, occurring mild 1-2 x's per week, severe 1-2x's per week. How does headache impact your life? sometimes has to miss work MIDAS disability scale: 22 Current acute medication use/interventions: Sumatriptan 25mg- helped but caused weird feeling, dizzy- this caused BUE tingling. Current preventative medication use: None, although is on duloxetine, aripiprazole, lamotrigine for mood d/o. 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 Family planning: Has an IUD. Has an 18 mo yr old dtr, plans to have more children in the future. [facility] Medical History delivery delivered Ovarian cyst Fatty tumor Depression Anxiety Bipolar 1 disorder depression Surgical History H/O section History of placement of ear tubes [place] teeth removed Family History Maternal Grandmother Colon cancer Other Substance use disorder Social History Housing: House Patient Tobacco Use Status: Former Tobacco user Tobacco use type: Cigarette Cigarettes Per Day: 0.5 e-Cigarette/Vaping Use: Currently Using (Occasional) Second Hand Smoke Exposure: Yes service: No Current occupational status: employed Cognitive needs: No Hearing needs: No Vision needs: Yes Female Reproductive History Menstrual Age of Menarche: 12 Physical Exam Vital Signs: Last Vital Signs Pulse 96 01/17/25 08:08 BP 120/74 01/17/25 08:08 Pulse Ox 97 01/17/25 08:08 Oxygen Delivery Method Room Air 01/17/25 08:08 BMI result Body Mass Index 38.4 Const Orientation/consciousness: patient oriented x3 HEENT Other: Mallampati stage III Tonsils at least moderate enlargement Head: Yes normocephalic Resp Effort & Inspection: normal respiratory effort and able to speak in complete sentences Neuro Other: Photophobia General: patient oriented x3 Cranial nerves: Yes CN's II-XII intact bilaterally Cognition (Neuro): normal cognition Gait exam (Neuro): Normal gait present Motor exam (neuro): 5/5 motor strength present throughout Psych Appearance: grossly normal Mental Status: mental status grossly normal Speech and movement: Normal speech and movement present Affect: normal affect Attitude: cooperative Thought process: Normal thought process present Assessment & Plan Assessment & Plan (1) Migraine with aura: Code(s): G43.109 - Migraine with aura, not intractable, without status migrainosus Category: Medical (2) Snoring: Code(s): R06.83 - Snoring Category: Medical (3) Excessive daytime sleepiness: Code(s): G47.19 - Other hypersomnia Category: Medical (4) Sleep difficulties: Code(s): G47.9 - Sleep disorder, unspecified Category: Medical (5) Nocturnal hypoxemia: Code(s): G47.34 - Idiopathic sleep related nonobstructive alveolar hypoventilation Category: Medical (6) JACKLYN (obstructive sleep apnea): Code(s): G47.33 - Obstructive sleep apnea (adult) (pediatric) Category: Medical Plan For sleep: Pt again advised to undergo in-lab PSG sleep study to furtehr assess for sleep apnea and extent of nocturnal hypoxemia. Pt to call and reschedule ENT consult For overall headache management: Optimize good self-care, including but not limited to maintaining a healthy diet, adequate fluid intake, adequate sleep, and engaging in regular physical activity. For headache triggers: Track headaches, especially after any treatment regimen changes. Migraine [employer] is one of many headache tracking apps. Light sensitivity tips: Patient may try blue light filtering glasses, green glasses, green light therapy. For acute headache treatment: Continue naratriptan 2.5 mg q.4 hours p.r.n. Max 2 tabs per day May adjunct w/ Ibuprofen 600mg every 6 hours as needed. Previous acute migraine medication trials: Sumatriptan 25 mg: Not tolerated, cause paresthesias. Acute migraine medication contraindications: None at this time For headache prevention medication: Pt has stopped Riboflavin 400mg qam and Magnesium with goal of 400-500mg qhs. Increase Topiramate from 50mg qhs to 75-100mg qhs. Monitor tingling. Previous migraine prevention medication trials: None specifically for migraine. Migraine prevention medication contraindications: Would need to be cautious with antidepressant use d/t history of bipolar type 1. Future considerations: Qulipta-both of which may promote weight loss Will follow-up upon review of above and patient to follow-up in clinic in 6 months or sooner prn. Orders: Orders RT PSG in-lab sleep study Today G47.19 - Other hypersomnia, G47.34 - Idiopathic sleep related nonobstructive alveolar hypoventilation, G47.9 - Sleep disorder, unspecified, R06.83 - Snoring Medications: New ibuprofen take w/ naratriptan 600 mg PO Q6H 30 days PRN 30 tabs 6RF migraine headache Changed From topiramate 50 mg PO BEDTIME 30 days 30 tabs 6RF To topiramate 100 mg (2 x 50 mg) PO BEDTIME 30 days 60 tabs 6RF Refilled naratriptan take 1/2 - 1 tab at onset of headache; if no relief may repeat 1 tab after at least 4 hrs; max = 2 tabs/24 hrs orally PRN; 30 days 12 tabs 6RF migraine headache Coding Level of Care Code Est Pt Level 4 (34229) Diagnoses Migraine with aura G43.109 Snoring R06.83 Excessive daytime sleepiness G47.19 Sleep difficulties G47.9 Nocturnal hypoxemia G47.34 JACKLYN (obstructive sleep apnea) G47.33
== END 2025-01-17 08:46 | disposition home or self-care (01) ==
LOC: HO.HSMS 07:54
PROVIDERS: PCP Nurse Practitioner Family; Visit Provider Nurse Practitioner Family
DX: G43.109 Migraine with aura, not intractable, without status migrainosus (principal); R06.83 Snoring; G47.19 Other hypersomnia; G47.9 Sleep disorder, unspecified; G47.34 Idiopathic sleep related nonobstructive alveolar hypoventilation; G47.33 Obstructive sleep apnea (adult) (pediatric)
CPT/HCPCS: 99214

== ENCOUNTER → 2025-01-17 07:53 | Outpatient (BNVA) | payer OTHER, SELFPAY | PROVIDERS: PCP Nurse Practitioner Family; Visit Provider Nurse Practitioner Family | DX: G43.109 Migraine with aura, not intractable, without status migrainosus (principal); R06.83 Snoring; G47.34 Idiopathic sleep related nonobstructive alveolar hypoventilation; G47.33 Obstructive sleep apnea (adult) (pediatric); G47.19 Other hypersomnia | CPT/HCPCS: 99212 ==

== ENCOUNTER 2025-06-15 09:16 | Outpatient (AMB) | payer OTHER, SELFPAY ==
--- NOTE | 2025-06-15 09:34 | A.OFFPC_ITS ---
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 Is last menstrual period known: Yes Last menstrual period: 05/23/25 Post menopausal: No Patient : No Allergies Seasonal Allergies Allergy (Mild, Verified 06/15/25 10:10) Sneezing Medication List - Last Reconciled 06/15/25 by Raudel Tanner CNP aripiprazole 5 mg PO DAILY 30 days duloxetine 120 mg (2 x 60 mg) PO DAILY 30 days ibuprofen 600 mg PO Q6H PRN 30 days lamotrigine 100 mg PO BID 90 days levonorgestrel (Mirena) intrauterine naratriptan take 1/2 - 1 tab at onset of headache; if no relief may repeat 1 tab after at least 4 hrs; max = 2 tabs/24 hrs orally PRN; 30 days topiramate 100 mg (2 x 50 mg) PO BEDTIME 30 days Tobacco use date assessed: 06/15/25 Dental Screening Dental Screen Date: 06/15/25 Did you have a dental visit in the last 12 months?: No Did you have a dental problem in the last 6 months where you did not have access to dental care?: No Was dental information given to patient?: No HPI HPI Comments History of Present Illness Details 24-year-old female, accompanied by her 3 -year-old daughter, presents for an ED follow-up visit. She was evaluated at [facility] ED on 05/28/2025 for 1 month history of left-sided flank pain with associated nausea without vomiting/dysuria and a reported foul- smelling urine. CT revealed 4 mm proximal left ureter stone and mild hydronephrosis. Lab work revealed normal renal function, normal WBC, urinalysis without evidence of infection. Urine test negative. Advised to follow-up with urology. She notes that she passed a stone on 06/05/25 and has been has had significant relief since passing the stone. She has been experiencing intermittent, mild discomfort to her left flank. She will bring the stone to her urology appointment. She has an appointment scheduled with [facility] this afternoon; she e request a referral to them. She admits to taking her medications as prescribed without adverse reactions. She notes that she is currently being followed by a therapist weekly/biweekly. Her mood is generally controlled. However, she experiences intermittent passive SI. She currently denies SI/HI. [facility] Medical History delivery delivered Ovarian cyst Fatty tumor Depression Anxiety Bipolar 1 disorder depression Surgical History H/O section History of placement of ear tubes [place] teeth removed Family History Maternal Grandmother Colon cancer Other Substance use disorder Social History Housing: House Patient Tobacco Use Status: Former Tobacco user Tobacco use type: Cigarette Cigarettes Per Day: 0.5 e-Cigarette/Vaping Use: Currently Using (Occasional) Second Hand Smoke Exposure: Yes service: No Current occupational status: employed Cognitive needs: No Hearing needs: No Vision needs: Yes Female Reproductive History Menstrual Age of Menarche: 12 Date of last menstrual period: 05/23/25 Questionnaire Thrive Questionnaire Date Thrive assessed: 09/29/24 I am a: Patient What is your living situation today?: I have a steady place to live Within the past 12 months, did the food you bought not last and you didn't have the money to get more?: Never true Within the past 12 months, did you worry whether your food would run out before you got money to buy more?: Never true Do you have trouble paying for medicines?: No Do you have trouble getting transportation to medical appointments?: No Do you have trouble paying your heating and electricity bill?: No Do you have trouble taking care of your child, family member or friend?: No Do you have trouble with day-to-day activities such as bathing, preparing meals, shopping, managing finances, etc.?: No Are you currently unemployed and looking for a job?: No Are you interested in more education?: No Please select the resources that you would like help with: None Currently or been in a relationship where the following occur: No concerns reported THRIVE Score: 0 MELISSA-7 AMB Questionnaire MELISSA-7 Date MELISSA - 7 assessed: 09/29/24 Source: Developed by Drs. Scott Silver, Marily Delvalle, Marty Lamas and colleagues, with an educational rima from [employer]. Review of Systems Const Details: Const Denies chills, Denies fatigue, Denies fever(s), Denies headache(s) and Denies weakness ENT Denies dizziness and Denies headache(s) Card Denies chest pain, Denies lightheadedness, Denies dyspnea and Denies other (Palpitations) Resp Denies cough, Denies dyspnea, Denies wheezing and Denies other ( shortness of breath) GI Denies abdominal pain, Denies melena, Denies hematochezia, Denies change in bowel habits, Denies dyspepsia and Denies nausea Reports mild left flank discomfort Musc Denies abnormal gait, Denies myalgias, Denies arthralgias, Denies numbness and Denies tingling Skin/Breast Denies rash, Denies unusual bruising and Denies wounds Neuro Denies abnormal gait, Denies dizziness, Denies headache(s), Denies memory loss, Denies numbness, Denies Sensory deficit (Neuro), Denies tingling and Denies weakness Psych Denies anxiety, Denies depression, Denies memory loss Endo Denies cold intolerance, Denies fatigue, Denies heat intolerance, Denies polydipsia and Denies polyuria Aller/Immun Denies wheezing Physical exam (Primary Care) Vital Signs: Last Vital Signs Temp 98.3 F 06/15/25 09:42 Pulse 97 06/15/25 09:42 Resp 16 06/15/25 09:42 BP 122/79 06/15/25 09:42 Pulse Ox 97 06/15/25 09:42 Oxygen Delivery Method Room Air 06/15/25 09:42 BMI result Body Mass Index 37.3 Tobacco/Smoking Status: Tobacco use Status Tobacco use date assessed 06/15/25 06/15/25 09:46 Patient Tobacco Use Status Former Tobacco user 06/15/25 09:38 Tobacco use type Cigarette 06/15/25 09:38 e-Cigarette/Vaping Use Currently Using (Occasional) 06/15/25 09:38 Thrive Assessment: Date of Thrive Assessment Date Thrive assessed 09/29/24 06/15/25 09:38 Currently or been in a relationship where the following occur: No concerns reported Const Other: General: no acute distress and well developed Nutritional Appearance: well nourished Orientation/consciousness: patient oriented x3 HENMT Head: Yes normocephalic and Yes atraumatic Eyes General: appearance normal, both eyes and all related structures Pupils: Equal, round and reactive pupils present EOM: EOMs intact bilaterally Resp Effort & Inspection: normal respiratory effort Auscultation: clear to auscultation bilaterally Cardio Rate: regular rate Rhythm: regular rhythm Heart sounds: S1 normal heart sound present, S2 normal heart sound present, no gallops, no murmurs and no rubs GI Palpation (GI): No Abdominal aortic bruit present, Soft to palpation, nontender, No hepatosplenomegaly present and No Rebound tenderness present Auscultation: normal bowel sounds General: Yes no CVA tenderness Back/Spine/Pelvis Back: no CVA tenderness Cervical Spine: cervical ROM normal and No Cervical spine tenderness Thoracic/Lumbar Spine: thoraco-lumbar ROM normal, No pain with thoraco-lumbar ROM, No thoracic spinal tenderness and No lumbar spinal tenderness Extrem General: Yes normal to inspection, No edema and No calf tenderness Skin General: warm and dry. Normal skin color. Normal skin turgor Neuro General: patient oriented x3, gait normal and no focal neuro deficit Cranial nerves: Yes Equal, round and reactive pupils present Cognition (Neuro): normal cognition Gait exam (Neuro): Normal gait present Sensory Exam: No Sensory deficit (Neuro) Psych Appearance: grossly normal Affect: normal affect Attitude: cooperative Thought process: Normal thought process present Coding Level of Care Code Est Pt Level 4 (47211) Diagnoses Left flank pain R10.9 Bipolar 1 disorder F31.9 Anxiety F41.9 Assessment & Plan Assessment & Plan (1) Left flank pain: Code(s): R10.9 - Unspecified abdominal pain Category: Medical Plan: No CVA tenderness. Follow-up with urology as planned. Return for an extended physical exam in 2 months or sooner with symptoms or concerns. Verbalized understanding and agreed with the plan. (2) Bipolar 1 disorder: Code(s): F31.9 - Bipolar disorder, unspecified Category: Medical Plan: She admits to taking her medications as prescribed without adverse reactions. She notes that she is currently being followed by a therapist weekly/biweekly. Her mood is generally controlled. However, she experiences intermittent passive SI. She currently denies SI/HI. Continue current treatment regimen. Encouraged to schedule follow-up appointment for her mood. Return sooner with symptoms or concerns. Verbalized understanding and agreed with the plan. (3) Anxiety: Code(s): F41.9 - Anxiety disorder, unspecified Category: Medical Plan: Plan as above. Orders: Referrals Urology Referral R10.9 - Unspecified abdominal pain
[2025-06-15 09:42] VITALS: BP 122/79; PULSE 97; RESP 16; TEMP 36.8; O2SAT 97; BMI 37.3
== END 2025-06-15 10:26 | disposition home or self-care (01) ==
LOC: HO.HMCFM 09:17
PROVIDERS: PCP Nurse Practitioner Family; Visit Provider Nurse Practitioner Family
DX: R10.9 Unspecified abdominal pain (principal); F31.9 Bipolar disorder, unspecified; F41.9 Anxiety disorder, unspecified

== ENCOUNTER → 2025-06-15 09:16 | Outpatient (BNVA) | payer OTHER, SELFPAY | PROVIDERS: PCP Nurse Practitioner Family; Visit Provider Nurse Practitioner Family | DX: F41.9 Anxiety disorder, unspecified (principal); R10.9 Unspecified abdominal pain; F31.9 Bipolar disorder, unspecified | CPT/HCPCS: 99212 ==

== ENCOUNTER → 2025-07-23 15:27 | Outpatient (AMB) | payer OTHER, SELFPAY ==
--- OUTSIDE RECORDS SUMMARY | 2024-09-28 06:20 | XMS_ITS ---
Author Organization [facility] Address [address] [address] Care Team Providers Care Senior Data Modeler Name Role Phone Maritza Dale Unavailable [phone] REASON FOR VISIT ? MISSING IUD Encounters Encounter Location Date Provider Diagnosis [facility] [address] [address] 2024 Maritza Dale Plan Of Treatment No Information Progress Notes * BRANDYN CHENEYDOB: [birth year] (24 yo F)Acc No.[id number]:2024 Progress Note Patient: BRANDYN BAILEY Appointment Provider: Elizabet Dale M.D. :2000 A ge:24 Y S ex:Female Date:2024 Address:[address] [place], [place] [id number] Subjective: * Chief Complaints: * 1 . ? MISSING IUD. * Medical History: Objective: * Vitals: Assessment: Plan: * Treatment: * Images: Billing Information: * Visit Code: * Procedure Codes: * Electronic signature of Nicci Dale MD on 07/23/2025 at 06:38 PM EDT Sign off status: Pending * Appointment Provider: Elizabet Dale M.D. Date: 0 2024 Generated for Jada ramey/Chris/Yue on: 06:38 PM EDT
[2025-07-23 15:38] VITALS: BP 120/76; PULSE 99; O2SAT 98; BMI 37.3
--- NOTE | 2025-07-23 15:38 | A.OFFVIS_ITS ---
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 Required: No Accompanied by: Self / Same As Patient Allergies Seasonal Allergies Allergy (Mild, Verified 07/23/25 15:39) Sneezing Medication List - Last Reconciled 07/23/25 by LUCY Rodriguez aripiprazole 5 mg PO DAILY 30 days duloxetine 120 mg (2 x 60 mg) PO DAILY 30 days ibuprofen 600 mg PO Q6H PRN 30 days lamotrigine 100 mg PO BID 90 days levonorgestrel (Mirena) intrauterine naratriptan take 1/2 - 1 tab at onset of headache; if no relief may repeat 1 tab after at least 4 hrs; max = 2 tabs/24 hrs orally PRN; 30 days topiramate 100 mg (2 x 50 mg) PO BEDTIME 30 days HPI Comments Details: Right-handed 24-yr-old female presents for f/u of migraine and sleep. Patient reports she has been officially diagnosed with bipolar disorder, but she is not sure which subtype. She states she is currently experiencing a hypomaniac phase. She has had a recurrence of kidney stones- once since the last visit here. She is f/b [facility], Obdulio Caceres. She has been having increased migraine attacks. She has been having an on again and off again migraine x's the last 3 weeks. The longest each migraine lasts is 2 days. Overall, she is having 14-16 migraine days per month. Sometimes, she wakes up with a very dull headache at a severity of 1-2/10, and as the day progresses, the migraine becomes more severe. She states urology does not think that she has to stop/change her topiramate. She tried Naratriptan, but it is not effective. Typically waits until headache is at a 3-4/10 intensity. She has not had the in-lab sleep study yet, as her started to work night shifts. No current plans for in the near future. control: Mirena. 01/17/2025, [facility] [place]: She has been noticing a slight uptick in her migraine frequency- not as severe as before. Now 2-3 attacks per month- which are milder. Most were milder, one was more intense, and lasted a few days. Tolerating topiramate well- has had some weight loss, and notes some mild not bothersome hand tingling. Using the naratriptan as needed. 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 Her initial ENT consult was rescheduled by the office. She has not had edvin f/u in-lab sleep study yet due to starting a new job. She continues to have snoring, daytime tiredness. 07/18/24 HPI: Pt reached out in April, with worsening migraine attacks. She stopped working as she was missing more days than not. At that time, pt was advised to start Topiramate 25-50mg qhs. Pt states that since starting the topiramate- taking 50mg, she has not had a migraine. She has had 1-2 mild headaches responsive to Tylenol. Naratriptan is effective, but has not needed to take it since she started the To piramate. The topirmaate is causing some tingling in lips and feet- but she does not want to stop it for this. She has also had a 6lb wt loss, which she is happy with. She is prone to bloody noses. Continues to have sleep issues. Her HST showed AHI 3/hr w/ O2 barbara 85%. She has not heard from ENT office yet. Initial HPI from 01/11/24: Pt was referred her today to evaluate her for sleep apnea, as she has been having increased headache frequency and severity in the past 1.5 months, which have caused her to miss multiple days of work. Pt reports she had a HST 3 yrs ago in [place]. Per pt, results showed mild JACKLYN, but was so mild she was not offered any treatment options. She does not recall why she had that initial sleep study. She was diagnosed w/ insomnia around age 18-19 yo. Since, pt endorses a weight a 30-40 lb weight gain. Pt endorses:? Musculoskeletal disorders or injury: had a fall a few yrs ago, shifted her hips, has scoliosis- dx'd post-menarche, so no tx. Mood d/o:Anxiety, Depression, depression, Bilpolar type I d/o- but this is being re-evaluated. ENT- large tonsils, in which food becomes stuck at times Sleep: Endorses: Difficulty initiating and maintaining sleep, nocturia, Snoring even in prone position, Excessive daytime sleepiness, Fatigue, Restlessness when trying to go to sleep w/ urge to stretch/flex her legs But denies Leg Cramps CV disease: h/o gestational HTN Clotting or hematology d/o: Pertinent denials include: Parasomnias, hallucinations, sleep paralysis, drop attacks, usual morning headaches. History of concussion/head injury, Respiratory d/o, Clotting or hematology d/o, Endocrine or metabolic d/o, History of seizure, syncope, or drop attacks, GI d/o, Constipation, Leg Cramps, Family history of migraine or other headache disorder Headache questionnaire:? Age/time of onset: elementary school Preceding causes: none Previous work-up: MRI: none, CT: none. Recent eye exam- normal. Typical headache characteristics: Prodrome symptoms: Ears begin to hurt, like a pressure. Occipital-cervicalgia stiffness/soreness. Aura: no preceding aura. Pain intensity: at worst 8/10 Location, quality, characteristics: Starts as a dull pain in right occipital and moves up into right parietal and into bilateral ears. Associated symptoms? Blurry vision, bilateral peripheral vision haziness/squiggly lines, Photophobia, phonophonia, nausea, vomiting- at times, dizziness, activity intolerance, difficulty thinking, fatigue, throbbing like heartbeat in my head . Denies ringing. Postdrome: lingers Triggers: Denies Menstrual triggers: none- ammenorhea d/t IUD placement Positional trigger: denies Valsalva trigger: denies Exertional trigger: denies Sexual activity triggers: denies Time of day: Usually in the early afternoon Duration and Frequency: 3-4 or more hours, but can last into the next day, occurring mild 1-2 x's per week, severe 1-2x's per week. How does headache impact your life? sometimes has to miss work MIDAS disability scale: 22 Current acute medication use/interventions: Sumatriptan 25mg- helped but caused weird feeling, dizzy- this caused BUE tingling. Current preventative medication use: None, although is on duloxetine, aripiprazole, lamotrigine for mood d/o. 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 Family planning: Has an IUD. Has an 18 mo yr old dtr, plans to have more children in the future. [facility] Medical History delivery delivered Ovarian cyst Fatty tumor Depression Anxiety Bipolar 1 disorder depression Surgical History H/O section History of placement of ear tubes [place] teeth removed Family History Maternal Grandmother Colon cancer Other Substance use disorder Social History Housing: House Patient Tobacco Use Status: Former Tobacco user Tobacco use type: Cigarette Cigarettes Per Day: 0.5 e-Cigarette/Vaping Use: Currently Using (Occasional) Second Hand Smoke Exposure: Yes service: No Current occupational status: employed Cognitive needs: No Hearing needs: No Vision needs: Yes Female Reproductive History Menstrual Age of Menarche: 12 Physical Exam Vital Signs: Last Vital Signs Pulse 99 07/23/25 15:38 BP 120/76 07/23/25 15:38 Pulse Ox 98 07/23/25 15:38 Oxygen Delivery Method Room Air 07/23/25 15:38 BMI result Body Mass Index 37.3 Const General: tired appearing Orientation/consciousness: patient oriented x3 HEENT Other: Mallampati stage III Tonsils at least moderate enlargement Head: Yes normocephalic Resp Effort & Inspection: normal respiratory effort and able to speak in complete sentences Neuro Other: Photophobia General: patient oriented x3 Cranial nerves: Yes CN's II-XII intact bilaterally Cognition (Neuro): normal cognition Gait exam (Neuro): Normal gait present Motor exam (neuro): 5/5 motor strength present throughout Psych Appearance: grossly normal Mental Status: mental status grossly normal Speech and movement: Normal speech and movement present Affect: normal affect Attitude: cooperative Thought process: Normal thought process present Assessment & Plan Assessment & Plan (1) Migraine with aura: Code(s): G43.109 - Migraine with aura, not intractable, without status migrainosus Category: Medical Qualifiers: Status migrainosus presence: without status migrainosus Intractability: not intractable Qualified Code(s): G43.109 - Migraine with aura, not intractable, without status migrainosus (2) Snoring: Code(s): R06.83 - Snoring Category: Medical (3) Excessive daytime sleepiness: Code(s): G47.19 - Other hypersomnia Category: Medical (4) Sleep difficulties: Code(s): G47.9 - Sleep disorder, unspecified Category: Medical (5) Nocturnal hypoxemia: Code(s): G47.34 - Idiopathic sleep related nonobstructive alveolar hypoventilation Category: Medical (6) JACKLYN (obstructive sleep apnea): Code(s): G47.33 - Obstructive sleep apnea (adult) (pediatric) Category: Medical Plan For sleep: Pt again advised to undergo in-lab PSG sleep study to furtehr assess for sleep apnea and extent of nocturnal hypoxemia. ENT consult when able For overall headache management: Optimize good self-care, including but not limited to maintaining a healthy diet, adequate fluid intake, adequate sleep, and engaging in regular physical activity. For headache triggers: * Track headaches, especially after any treatment regimen changes. * Migraine Buddidatango is one of many headache tracking apps. Light sensitivity tips: * Patient may try blue light filtering glasses, green glasses, green light therapy. Patient may benefit from having workplace accommodations: Information shared with patient to consider which accommodations might benefit her best, and once reviewed, patient will follow-up with us. For acute headache treatment: Continue naratriptan 2.5 mg q.4 hours p.r.n. for now. Max 2 tabs per day Trial Ubrogepant (Ubrelvy) 100mg tab: * Take Ubrogepant 1/2 - 1 tab (50-100mg) at onset of headache. * You may repeat the dose in 2 hours. Max of 2 tabs (200mg) per 24 hours. * You may take Ubrogepant with OTC Tylenol 650mg q 4 hours, Ibuprofen (liquid gel) 600mg q 6 hours, or Naproxen (liquid gel) 440mg q 12 hrs as needed. * Do not take Ubrogepant with or within 5 days of taking Butalbital (Fioricet or Fiorinal). * Possible adverse effects of Ubrogepant include, but are not limited to, fatigue, nausea, dry mouth, constipation. * This medication likely will require an insurance prior authorization before you will be able to receive this from your pharmacy. ? * We will initiate the prior authorization process per your specific health insurance's requirements. ? * However, please note, that your health insurance belongs to you, and you may also need to communicate with your insurance company in order for the prior authorization request to be processed. ?it is possible that you will also need to speak to your insurance regarding requesting the prior authorization May adjunct w/ Ibuprofen 600mg every 6 hours as needed. Previous acute migraine medication trials: Sumatriptan 25 mg: Not tolerated, cause paresthesias. Naratriptan: Not well tolerated and not very effective. Acute migraine medication contraindications: None at this time For headache prevention medication: Continue Topiramate 100 mg daily at bedtime. Not increase further due to recent kidney stone Start Aimovig 140mg/ml autoinjector, 1ml (140mg) subcutaneous injection once a month. * Potential adverse effects of Aimovig include but are not limited to injection site reactions, cramps, constipation, increase in blood pressure. Previous migraine prevention medication trials: Labetolol- caused significant hypersomnia. Migraine prevention medication contraindications: Would need to be cautious with antidepressant use d/t history of bipolar type 1. Future considerations: Qulipta-both of which may promote weight loss Will follow-up upon review of above and patient to follow-up in clinic in 6 months or sooner prn. Orders: Orders RT PSG in-lab sleep study 07/23/25 G47.19 - Other hypersomnia, G47.33 - Obstructive sleep apnea (adult) (pediatric), G47.34 - Idiopathic sleep related nonobstructive alveolar hypoventilation, G47.9 - Sleep disorder, unspecified, R06.83 - Snoring Medications: New erenumab-aooe (Aimovig Autoinjector) 140 mg subcut ONCE 1 mL 6RF 30 days ubrogepant (Ubrelvy) take at onset of migraine, may repeat in 2hrs (may take w/ Ibuprofen) 50 - 100 mg (0.5 - 1 x 100 mg) PO ONCE PRN 16 tabs 3RF migraine headache 30 days Coding Level of Care Code Est Pt Level 4 (42057) Diagnoses Migraine with aura and without status migrainosus, not intractable G43.109 Status migrainosus presence: without status migrainosus Intractability: not intractable Snoring R06.83 Excessive daytime sleepiness G47.19 Sleep difficulties G47.9 Nocturnal hypoxemia G47.34 JACKLYN (obstructive sleep apnea) G47.33
--- OUTSIDE RECORDS SUMMARY | 2025-07-23 18:38 | XMS_ITS | Encounter Summary ---
Author Organization [facility] Address [address] [place] [address] Care Team Providers Care Efficiency Miner Blasting Name Role Phone Raudel Tanner INSTANT POWDER SUPERVISOR Primary Care Provider [phone] Encounter Details Date Type Department Care Team (Late st Contact Info) Description 06/18/[address] [facility] - Main Lab [address] [place] [phone] Obdulio Caceres MD [address] [place] [phone] Calculus of kidney Social History Tobacco Use Types Packs/Day Years Used Date Smoking Tobacco: Never Assessed Comments Unknown Sex and Gender Information Value Date Recorded Sex Assigned at Not on file Legal Sex Female 4:24 PM EST Gender Identity Not on file Sexual Orientation Not on file documented as of this encounter Plan of Treatment Not on file documented as of this encounter Procedures Procedure Name Priority Date/Time Associated Diagnosis Comments STONE ANALYSIS Routine 06/18/2025 12:00 AM EDT Calculus of kidney documented in this encounter Results * Stone analysis (06/18/2025 12:00 AM EDT) Component(s) See below 06/21/2025 2:41 PM EDT [facility] Comment: 97% Calcium oxalate monohydrate (Whewellite) 3% Uric acid anhydrous Stone Weight 0.0148 g 06/21/2025 2:41 PM EDT [facility] Comment: This test was developed and its performance characteristics determined by [facility] in a manner consistent with CLIA requirements. This test has not been cleared or approved by the U.S. Food and Drug Administration. Test performed at [facility], [address], [place] [address] Alice Hernandez MD, PhD - Brass Chaser Calculus 06/18/2025 06/18/2025 12: 10 PM EDT us Obdulio Caceres MD LAB BODY FLUIDS AND STOOLS ORDER FLORINDA Final Result [facility] [address] [place], [place] [id number] documented in this encounter Visit Diagnoses Diagnosis Calculus of kidney documented in this encounter Care Teams Efficiency Miner Blasting Relationship Specialty Start Date End Date Raudel Tanner FNP [address] [place] [phone] PCP - General Family Medicine 09/21/24 documented as of this encounter
--- OUTSIDE RECORDS SUMMARY | 2025-07-23 18:38 | XMS_ITS | Patient Health Record ---
Author Organization [facility] Address [address] [address] Care Team Providers Care Flower Machine Operator Name Role Phone Maritza Dale Unavailable [phone] Reason For Referral No Information Encounters Encounter Location Date Provider Diagnosis [facility] [address] [address] 2024 Maritza Dale Plan Of Treatment No Information Insurance Providers Payer Name Payer Address Payer Phone Subscriber Number Group Number Insured Name Patient Relationship to Insured Coverage Start Date Coverage End Date /[employer] [id number] [place] [id number] BRANDYN CHENEY Self - patient is the insured
--- OUTSIDE RECORDS SUMMARY | 2025-07-23 18:38 | XMS_ITS | Clinical Summary ---
Author Organization [facility] [address] [facility] Address [address] [place] [address] Phone Care Team Providers Care Recruitment Advertising Manager Name Role Phone Raudel Tanner SERVICE REPRESENTATIVE Primary Care Provider [phone] Encounters Date Type Department Care Team Description 06/18/2025 Lab Requisition [facility] - Main Lab [address] [facility] [place] [address] Obdulio Caceres MD Calculus of kidney from Last 3 Months Social History Tobacco Use Types Packs/Day Years Used Date Smoking Tobacco: Never Assessed Comments Unknown Sex and Gender Information Value Date Recorded Sex Assigned at Not on file Legal Sex Female 4:24 PM EST Gender Identity Not on file Sexual Orientation Not on file Plan of Treatment Health Maintenance Due Date Last Done Comments HPV Vaccines (1 - 3-dose series) 2013 DTaP,Tdap,and Td Vaccines (1 - Tdap) 2017 Hepatitis B Vaccines (1 of 3 - 19+ 3-dose series) 2017 Cervical Cancer Screening: P ap Smear 2019 HIV Screening 09/21/2024 Hepatitis C Screening 09/21/2024 Social Influencers of Health Screening 09/21/2024 Depression Screening 09/27/2024 COVID-19 Vaccine ( - 2023-2 5 season) 2025 Influenza Vaccine (#1) 2025 RSV Immunization Adult Patie nts (1 - 1-dose 75+ series) 2073 HIB Vaccines Aged Out No longer eligi ble based on patient's age to complete this topic Hepatitis A Vaccines Aged Out No long er eligible based on patient's age to complete this topic IPV Vaccines Aged Out No longer eligi ble based on patient's age to complete this topic MMR Vaccines Aged Out No longer eligi ble based on patient's age to complete this topic Meningococcal ACWY Vaccine Aged Out N o longer eligible based on patient's age to complete this topic Meningococcal B Vaccine Aged Out No l onger eligible based on patient's age to complete this topic Pneumococcal Vaccine: Pediat rics (0 to 5 Years) and At-Risk Patients (6 to 49 Years) Aged Out No longer eligible b ased on patient's age to complete this topic RSV Immunization Patients Un schuyler 20 months Aged Out No longer eligible b ased on patient's age to complete this topic Varicella Vaccines Aged Out No longer eligible based on patient's age to complete this topic Procedures Procedure Name Priority Date/Time Associated Diagnosis Comments STONE ANALYSIS Routine 06/18/2025 12:00 AM EDT Calculus of kidney from Last 3 Months Results * Stone analysis (06/18/2025 12:00 AM EDT) Component(s) See below 06/21/2025 2:41 PM EDT [facility] Comment: 97% Calcium oxalate monohydrate (Whewellite) 3% Uric acid anhydrous Stone Weight 0.0148 g 06/21/2025 2:41 PM EDT [facility] Comment: This test was developed and its performance characteristics determined by [facility] in a manner consistent with CLIA requirements. This test has not been cleared or approved by the U.S. Food and Drug Administration. Test performed at [facility], [address], [place], [place] [id number] Alice Hernandez MD, PhD - Film Archivist Calculus 06/18/2025 06/18/2025 12: 10 PM EDT us Obdulio Caceres MD LAB BODY FLUIDS AND STOOLS ORDER FLORINDA Final Result [facility] [address] [place] [address] from Last 3 Months Insurance [facility] Care Teams Recruitment Advertising Manager Relationship Specialty Start Date End Date Raudel Tanner FNP [address] [place] [address] PCP - General Family Medicine 09/21/24
== END ==
LOC: HO.HSMS 15:28
PROVIDERS: PCP Nurse Practitioner Family; Visit Provider Nurse Practitioner Family
DX: G43.109 Migraine with aura, not intractable, without status migrainosus (principal); R06.83 Snoring; G47.19 Other hypersomnia; G47.9 Sleep disorder, unspecified; G47.34 Idiopathic sleep related nonobstructive alveolar hypoventilation; G47.33 Obstructive sleep apnea (adult) (pediatric)
CPT/HCPCS: 99214

== ENCOUNTER → 2025-07-23 15:27 | Outpatient (BNVA) | payer OTHER, SELFPAY | PROVIDERS: PCP Nurse Practitioner Family; Visit Provider Nurse Practitioner Family | DX: G43.109 Migraine with aura, not intractable, without status migrainosus (principal); G47.34 Idiopathic sleep related nonobstructive alveolar hypoventilation; G47.9 Sleep disorder, unspecified; G47.19 Other hypersomnia; R06.83 Snoring; Z87.891 Personal history of nicotine dependence | CPT/HCPCS: 99212 ==

== ENCOUNTER → 2025-08-25 15:03 | Outpatient (BNV) | payer OTHER, SELFPAY | PROVIDERS: PCP Nurse Practitioner Family; Visit Provider Radiology Diagnostic Radiology | DX: H53.9 Unspecified visual disturbance (principal) | CPT/HCPCS: 70553 ==

== ENCOUNTER 2025-08-25 15:08 | Outpatient (REF) | payer OTHER, SELFPAY ==
--- OUTSIDE RECORDS SUMMARY | 2024-09-28 05:20 | XMS_ITS ---
Author Organization [facility] [employer] [facility] Address [address] [address] Care Team Providers Care Assistant Corporation Counsel Name Role Phone Maritza Dale Unavailable [phone] REASON FOR VISIT ? MISSING IUD Encounters Encounter Location Date Provider Diagnosis [facility] [employer] [address] [address] 2024 Maritza Dale Plan Of Treatment No Information Progress Notes * BRANDYN CHENEYDOB: [birth year] (24 yo F)Acc No.[id number]:[id number] Progress Note Patient: BRANDYN BAILEY Appointment Provider: Elizabet Dale M.D. :2000 A ge:24 Y S ex:Female Date:2024 Address:[address] [place], [place] [id number] Subjective: * Chief Complaints: * 1 . ? MISSING IUD. * Medical History: Objective: * Vitals: Assessment: Plan: * Treatment: * Images: Billing Information: * Visit Code: * Procedure Codes: * Electronic signature of Nicci Dale MD on 08/25/2025 at 03:15 PM EST Sign off status: Pending * Appointment Provider: Elizabet Dale M.D. Date: 0 2024 Generated for Jada ramey/Chris/Isabelaitting on: 10/25/2024 03:15 PM EST
--- OUTSIDE RECORDS SUMMARY | 2025-08-21 10:22 | XMS_ITS | Encounter Summary ---
Author Organization [facility] Address [address] [place] [address] Care Team Providers Care Fisheries Specialist Name Role Phone Dm Lakhani MD Primary Care Provider [phone] Reason for Visit * Reason Comments Headache Encounter Details Date Type Department Care Team (Late st Contact Info) Description 08/21/2025 10:22 AM EST - 08/21/2025 2:16 PM EST [facility] [address] [place] [address] Acute nonintractable headache, unspecified headache type (Primary Dx) Discharge Disposition: Home or Self Care Social History Tobacco Use Types Packs/Day Years Used Date Smoking Tobacco: Never Assessed Interpersonal Safety Answer Date Record ed Physical Abuse Unrecognized value 08/22/2025 Verbal Abuse Unrecognized value 08/22/2025 Comments Unknown Sex and Gender Information Value Date Recorded Sex Assigned at Not on file Legal Sex Female 4:24 PM EST Gender Identity Not on file Sexual Orientation Not on file documented as of this encounter Last Filed Vital Signs Vital Sign Reading Time Taken Comments Blood Pressure 111/72 08/21/2025 12:12 PM EST Pulse 88 08/21/2025 12:12 PM EST Temperature 36.6 C (97.9 F) 08/21/2025 12:12 PM EST Respiratory Rate 18 08/21/2025 12:12 PM EST Oxygen Saturation 100% 08/21/2025 12:12 PM EST Inhaled Oxygen Concentration - - Weight 102 kg (225 lb) 08/21/2025 10:08 AM EST Height 167.6 cm (5' 6 ) 08/21/2025 10:08 AM EST Body Mass Index 36.32 08/21/2025 10:08 AM EST documented in this encounter Functional Status * Calculated C-SSRS Risk Score (Lifetime/Recent) Answer Date of Assessment Author No Risk Indicated 08/21/2025 10:08 AM Pretty Hicks RN * [place] Suicide Severity Rating Scale (Screener/Recent Self-Report) Question Answer Date of Assessment Author 1. Wish to be (Past 1 Month) No 025 10:08 AM Pretty Hicks RN 2. Non-Specific Active Suici en Thoughts (Past 1 Month) No 08/21/2025 10:08 AM Hair Hicks RN 6. Suicidal Behavior (Lifetime) No 10:08 AM Pretty Hicks RN documented as of this encounter Discharge Instructions * Discharge Instructions* ANAYELI Looney - 08/21/2025 1:30 PM EST Follow-up with your neurologist as planned. Go to your MRI appointment on Wednesday. Today the CTA of your head and neck looked okay. * Attachments The following attachments cannot be sent through Care Everywhere. * Headache (Belarusian) documented in this encounter Medications at Time of Discharge ARIPiprazole (ABILIFY) 10 mg tablet Take 1 tablet (10 mg total) by mouth 1 (one) time each day. 08/08/2025 DULoxetine (CYMBALTA) [address] capsule Take 2 capsules (120 mg total) by mouth 1 (one) time each day. 08/12/2025 Emgality Pen 120 mg/mL injection pen Inject 1 mL (120 mg total) under the skin 1 (one) time. 08/02/2025 lamoTRIgine (LaMICtal) 200 mg tablet Take 1 tablet (200 mg total) by mouth 1 (one) time each day. 08/08/2025 lamoTRIgine (LaMICtal) 25 mg tablet Take 2 tablets (50 mg total) by mouth 1 (one) time each day in the morning. 60 each 08/22/2025 5 naproxen (EC-Naprosyn) 500 mg EC tablet Take 1 tablet (500 mg total) by mouth 1 (one) time each day with breakfast for 20 days. Do not crush, chew, or split. Take Naproxen while waiting for [employer] approval 20 tablet 08/22/2025 5 topiramate (TOPAMAX) 25 mg tablet Take 2 tablets (50 mg total) by mouth at bedtime for 2 days, THEN 1 tablet (25 mg total) at bedtime for 5 days. at bedtime. 9 each 08/22/2025 5 ubrogepant (UBRELVY) 100 mg tabletIndications :Migraine with aura and without status migrainosus, not intractable Take 1 tablet (100 mg total) by mouth 1 (one) time each day if needed for migraine (max 6 tab a month). 6 tablet 08/22/2025 butalbital-acetam inophen-caffeine (FIORICET, ESGIC) 50-325-40 mg per tablet Take 1 tablet by mouth every 6 (six) hours if needed for headaches for up to 30 doses. Max Daily Amount: 4 tablets 20 tablet 08/15/2025 5 topiramate (TOPAMAX) 50 mg tablet Take 2 tablets (100 mg total) by mouth at bedtime. at bedtime 08/08/2025 5 documented as of this encounter Discharge Disposition Disposition Code Departure Means Destination Comment s Home or Self Care documented in this encounter Progress Notes * Pretty Dixon RN - 08/21/2025 10:10 AM EST Pt comes in with c/o migrane R sided x this am. Pt says she had a migrane on Wednesday and it lasted about 4 days. Since then she has been extremely dizzy, nauseous,forgetful, double vision. Denies SOB, CP, LOC. Pt has outpatient MRI/CT scan scheduled for next week. * Randy Cedillo MD - 08/21/2025 10:06 AM EST Emergency Medicine Note Patient Name: Kymberly London Initial Evaluation: 08/21/2025 : 2000 Patient's PCP: Dm Lakhani MD Emergency Physician: ANAYELI Vyas History of Present Illness Chief Complaint: Chief Complaint Patient presents with Headache HPI: 24-year-old female presents today with complaints of headache. Patient states that headache isright-sided and behind her right eye. Patient does have a history of chronic migraines and they areusually on the right, states that headache today was more sudden onset with associated upper body weakness. Patient is also complaining of intermittent dizziness for 1 week, states that she has been stumbling feeling as if she is drunk. Patient states that she has also had intermittent double vision for 1 week. Patient was seen here last week and states that she was given a migraine cocktail, wassleepy afterwards and went home but her symptoms never fully resolved. Patient states that when shewas seen here last week she was having some paresthesias to the right side of her face as well as some right sided neck pain and paresthesia in her right shoulder area. Patient does have a neurologist that she sees regularly for chronic migraines and states that her neurologist was aware of what happened and they ordered an outpatient MRI for this Wednesday and a CT scan for next week. Patient states due to the worsening of symptoms today she decided to return here to the ER. Patient denies any fever, neck stiffness, recent infection or trauma or cancer history. ROS: I have performed a ROS with the pertinent positives and negatives documented in the history ofpresent illness. Previous History Medical History[1] Surgical History[2] Social History[3] Family History[4] has no known allergies. Medications Ordered Prior to Encounter[5] Physical Exam ED Triage Vitals [08/21/25 1008] Temp Heart Rate Resp BP 36.4 ??C (97.5 ??F) 101 16 112/72 SpO2 Temp Source Heart Rate Source Patient Position 100 % Oral Right;Radial Sitting BP Location FiO2 (%) Left arm -- General: awake, calm, cooperative, No apparent distress Skin: warm, dry, No diaphoresis Eyes: PERRLA, EOMI ENT: mucosa moist, throat is clear Neck: soft/supple, full range of motion Respiratory: clear to auscultation Cardiovascular: regular rate and rhythm Gastrointestinal: soft nontender, normal active bowel sounds, no hepatomegaly Musculoskeletal: no calf tenderness, no pedal edema Neurological: alert and oriented X3, no focal deficit, DTR intact, cranial nerves III through XII intact, strength 5/5 bilateral hands and feet, no dysmetria with [id number]-[id number] bilaterally Psychiatric: stable mood and affect Results Labs Reviewed MAGNESIUM - Abnormal Result Value Magnesium 1.5 (*) COMPREHENSIVE METABOLIC PANEL - Normal Sodium 138 Potassium 3.8 Chloride 104 CO2 27 Anion Gap 7 Glucose 73 BUN 13 Creatinine 0.69 eGFR 123 BUN/Creatinine Ratio 18.8 Calcium 8.6 AST (SGOT) 26 ALT (SGPT) 26 Alkaline Phosphatase 89 Total Protein 7.1 Albumin 4.0 Total Bilirubin 0.3 POC , URINE DIAGNOSTIC - Normal HCG, Ur POC Negative CBC AND DIFFERENTIAL Narrative: The following orders were created for panel order CBC and differential. Procedure Abnormality Status --------- ------ CBC auto differential[[id number]] Final result Please view results for these tests on the individual orders. CBC WITH AUTO DIFFERENTIAL WBC 9.9 RBC 4.30 Hemoglobin 13.0 Hematocrit 37.5 MCV 87.4 MCH 30.3 MCHC 34.7 RDW 12.2 Platelets 311 MPV 9.2 NRBC 0.0 NRBC Absolute 0.00 Neutrophils Relative 65.1 Lymphocytes Relative 25.3 Monocytes Relative 8.0 Eosinophils Relative 1.0 Basophils Relative 0.3 Immature Granulocytes Relative 0.3 Neutrophils Absolute 6.47 Lymphocytes Absolute 2.51 Monocytes Absolute 0.79 Eosinophils Absolute 0.10 Basophils Absolute 0.03 Immature Granulocytes Absolute 0.03 HCG, QUANTITATIVE hCG Quant <3 Narrative: Quantitative HCG Reference Ranges Time after Conception MIU/ML 0.2-1 Week 5-50 1-2 Weeks 50-500 2-3 Weeks 100-5,000 3-4 Weeks 500-10,000 4-5 Weeks 1,000-50,000 5-6 Weeks 10,000-100,000 6-8 Weeks 15,000-200,000 2-3 Months 10,000-100,000 2nd Trimester 1,000-94,000 3rd Trimester 2,500-90,000 Non- Females 1-3 Abnormal Labs Reviewed MAGNESIUM - Abnormal; Notable for the following components: Result Value Magnesium 1.5 (*) All other components within normal limits CT Angio Head/Neck wo and/or w Contrast Final Result 1. No acute intracranial findings. 2. Normal CT angiogram of the neck and [place]. -------- FINAL REPORT -------- Dictated By: Anson Mcmahan Dictated Date: 08/21/2025 12:55 ET Assigned Physician: Anson Mcmahan Reviewed and Electronically Signed By: Anson Mcmahan Signed Date: 08/21/2025 13:02 ET Workstation ID: [id number] Transcribed By: Self Edit Transcribed Date: 08/21/2025 12:55 ET I have discussed the incidental/abnormal imaging and/or lab abnormalities with the patient and haveinstructed them the need for further evaluation and workup with their primary care doctor. I have provided the patient with a paper copy of the abnormality. The laboratory results, imaging results and other diagnostic exam results were reviewed in the EMR. Medical Decision Making Differential includes migraine with aura,demylinating disease (MS), Trigeminal neuropathy/neuralgia, IIH, cavernous sinus mass lesion, cavernous sinus mass, SAH The patient presents today with right sided headache which she did have last week but worsening in intensity this morning. Reportedly she has also had double vision, dizziness, neck pain ongoing for 1 week. Given the fact her symptoms have been ongoing for more than 1 week a stroke protocol was notordered, however she still needs the imaging. Given the dizziness and the diplopia I will rule out for posterior stroke but a demyelinating disease such as MS is higher on the differential with the symptoms. Patient's imaging without acute findings, she requested that we send a copy of the imaging to her neurologist which I had the salesperson neckties print and send to [facility] on [address]. Medications sodium chloride 0.9 % flush 10 mL (10 mL intravenous Given 08/21/25 1231) iopamidoL (ISOVUE-370) 370 mg iodine /mL (76 %) injection 90 mL (90 mL intravenous Given 08/21/25 1231) sodium chloride 0.9 % bolus 1,000 mL (0 mL intravenous Stopped 08/21/25 1403) methylPREDNISolone sodium succ (SOLU-Medrol) injection 125 mg (125 mg intravenous Given 08/21/25 1251) Clinical Impressions as of 08/21/25 190 Acute nonintractable headache, unspecified headache type Procedures Procedures Diagnosis 1. Acute nonintractable headache, unspecified headache type Disposition Discharge ED Prescriptions None Physician Attestation I was sent this note by ANAYELI Robertson. On review of the chart the patient had concerning symptoms of diplopia, headache and weakness. I called and spoke with patient Kymberly London, at 859pm on 08.21.25. Pt states she is still having symptoms. I advised pt to return to the ED immediately for a reevaluation as she may require additional testing and/or imaging including MRI tonight. All questions and concerns were answered. Pt verbalized understanding and plans to return to the ED this evening. ANAYELI Looney 08/21/25 1136 ANAYELI Looney 08/21/25 190 [1] Past Medical History: Diagnosis Date Acute migraine Bipolar 1 disorder ([facility] V24, [facility] V28) Depression [2] History reviewed. No pertinent surgical history. [3] [4] No family history on file. [5] No current facility-administered medications on file prior to encounter. Current Outpatient Medications on File Prior to Encounter Medication Sig Dispense Refill irkqehjfwj-kmslmllkxpbdw-divgkqgf (FIORICET, ESGIC) 50-325-40 mg per tablet Take 1 tablet by mouth every 6 (six) hours if needed for headaches for up to 30 doses. Max Daily Amount: 4 tablets 20 tablet 0 [DISCONTINUED] aeoduxgpzq-kntyzdthknxzj-rqegezpl (FIORICET, ESGIC) 50-325-40 mg per tablet Take 1 tablet by mouth every 6 (six) hours if needed for headaches for up to 30 doses. Max Daily Amount: 4 tablets 20 tablet 0 [DISCONTINUED] gxocjgwqby-rwdycjwoxxfsd-jjcfkbbw (FIORICET, ESGIC) 50-325-40 mg per tablet Take 1 tablet by mouth every 6 (six) hours if needed for headaches for up to 30 doses. Max Daily Amount: 4 tablets 20 tablet 0 Randy Cedillo MD 08/21/252200 documented in this encounter Plan of Treatment Not on file documented as of this encounter Procedures Procedure Name Priority Date/Time Associated Diagnosis Comments ECG ANNOTATED 08/22/2025 CT ANGIO HEAD/NECK WO AND/OR W CONTRAST STAT 08/21/2025 12:35 PM EST CBC WITH AUTO DIFFERENTIAL STAT 08/21/2025 11:14 AM EST CBC AND DIFFERENTIAL STAT 08/21/2025 11:14 AM EST HCG, QUANTITATIVE STAT Add-on 08/21/2025 11: 14 AM EST MAGNESIUM STAT 08/21/2025 11:14 AM EST COMPREHENSIVE METABOLIC PANEL STAT 08/21/2025 11:14 AM EST ECG 12-LEAD STAT 08/21/2025 11:04 AM EST POC , URINE DIAGNOSTIC STAT 08/21/2025 10:55 AM EST documented in this encounter Results * ECG-Annotated (08/22/2025) us Provider Onbase ECG ORDERABLES Final Result * CT Angio Head/Neck wo and/or w Contrast (08/21/2025 12:35 PM EST) Anatomical Region Laterality Modality Head and Neck Computed Tomogra phy 08/21/2025 12:5 5 PM EST Impressions 08/21/2025 1:02 PM EST 1. No acute intracranial findings. 2. Normal CT angiogram of the neck and [place]. -------- FINAL REPORT -------- Dictated By: Anson Mcmahan Dictated Date: 08/21/2025 12:55 ET Assigned Physician: Anson Mcmahan Reviewed and Electronically Signed By: Anson Mcmahan Signed Date: 08/21/2025 13:02 ET Workstation ID: [id number] Transcribed By: Self Edit Transcribed Date: 08/21/2025 12:55 ET Narrative 08/21/2025 1:02 PM EST PROCEDURE: CT angiogram of the neck and [place] and delayed postcontrast CT of the brain. HISTORY: dizziness double vision/neck pain (ongoing x 1 week so stroke protocol not ordered). COMPARISON: None. TECHNIQUE: CT angiogram of the neck and [place] with multiplanar reformats. 3-D reconstructions were performed on an independent workstation. Delayed postcontrast images of the brain were also obtained. IV contrast dose: 90 mL ISOVUE-370. Dose length product: 3435 mGy-cm. FINDINGS: BRAIN: No hemorrhage, edema, mass, or extra-axial fluid collection. No CT evidence of an acute large vessel infarct. Ventricles and sulci are age commensurate. CTA: Bovine aortic arch configuration. The common and internal carotid arteries are widely patent. The left subclavian artery is partially obscured by streak artifact. There is no visible subclavian stenosis. Codominant vertebral arteries. No vertebral stenosis, dissection, or occlusion. The basilar artery and siderographer are widely patent. Bilateral posterior communicating arteries, larger on the left than the right. The anterior and middle cerebral arteries are widely patent. No aneurysm. No findings to suggest a vascular malformation. The dural venous sinuses are patent ORBITS: Normal. SINUSES/MASTOIDS: Frontal sinuses are not pneumatized. Small mucous retention cyst in the inferior left maxillary antrum. CALVARIUM: Normal. OTHER: The skull base soft tissues are normal. Procedure Note Anson Mcmahan MD - 08/21/2025 PROCEDURE: CT angiogram of the neck and [place] and delayedpostcontrast CT of the brain. HISTORY: dizziness double vision/neck pain (ongoing x 1 week so stroke protocol notordered). COMPARISON: None. TECHNIQUE: CT angiogram of the neck and [place] with multiplanarreformats. 3-D reconstructions were performed on an independentworkstation. Delayed postcontrast images of the brain were also obtained. IV contrast dose: 90 mL ISOVUE-370. Dose length product: 3435 mGy-cm. FINDINGS: BRAIN: No hemorrhage, edema, mass, or extra-axial fluid collection. No CTevidence of an acute large vessel infarct. Ventricles and sulci are agecommensurate. CTA: Bovine aortic arch configuration. The common and internal carotidarteries are widely patent. The left subclavian artery is partiallyobscured by streak artifact. There is no visible subclavian stenosis.Codominant vertebral arteries. No vertebral stenosis, dissection, orocclusion. The basilar artery and siderographer are widely patent. Bilateral posteriorcommunicating arteries, larger on the left than the right. The anteriorand middle cerebral arteries are widely patent. No aneurysm. No findings to suggest a vascular malformation. The dural venous sinuses are patent ORBITS: Normal. SINUSES/MASTOIDS: Frontal sinuses are not pneumatized. Small mucousretention cyst in the inferior left maxillary antrum. CALVARIUM: Normal. OTHER: The skull base soft tissues are normal. IMPRESSION: 1. No acute intracranial findings. 2. Normal CT angiogram of the neck and [place]. -------- FINAL REPORT -------- Dictated By: Anson Mcmahan Dictated Date: 08/21/2025 12:55 ET Assigned Physician: Anson Mcmahan Reviewed and Electronically Signed By: Anson Mcmahan Signed Date: 08/21/2025 13:02 ET Workstation ID: [id number] Transcribed By: Self Edit Transcribed Date: 08/21/2025 12:55 ET Brit [facility] IM CT PROCEDURES Final Result * HCG, quantitative (08/21/2025 11:14 AM EST) hCG Quant <3 mIU/mL 08/21/2025 12:43 PM EST [facility] Blood Venous blood specimen / Unknown Venipuncture / Unknown 08/21/2025 11:14 AM EST 08/21/2025 11:37 AM EST [facility] - 08/21/2025 12:43 PM EST Quantitative HCG Reference Ranges Time after Conception MIU/ML 0.2-1 Week 5-50 1-2 Weeks 50-500 2-3 Weeks 100-5,000 3-4 Weeks 500-10,000 4-5 Weeks 1,000-50,000 5-6 Weeks 10,000-100,000 6-8 Weeks 15,000-200,000 2-3 Months 10,000-100,000 2nd Trimester 1,000-94,000 3rd Trimester 2,500-90,000 Non- Females 1-3 Brit [facility] BLOOD ORDERABLES Fin al Result [facility] [address] [place] [address], * CBC auto differential (08/21/2025 11:14 AM EST) WBC 9.9 4.8 - 10.8 K/mcL LAB HEMETOLOGY METHOD 08/21/2025 11:44 AM [facility] RBC 4.30 3.80 - 4.80 M/[facility] HEMETOLOGY METHOD 08/21/2025 11:44 AM [facility] Hemoglobin 13.0 11.5 - 16.0 g/dL LAB HEMETOLOGY METHOD 08/21/2025 11:44 AM [facility] Hematocrit 37.5 35.0 - 47.0 % LAB HEMETOLOGY METHOD 08/21/2025 11:44 AM [facility] MCV 87.4 79.0 - 98.0 FL LAB HEMETOLOGY METHOD 08/21/2025 11:44 AM [facility] MCH 30.3 27.0 - 32.0 pcg LAB HEMETOLOGY METHOD 08/21/2025 11:44 AM [facility] MCHC 34.7 32.0 - 37.0 g/dL LAB HEMETOLOGY METHOD 08/21/2025 11:44 AM [facility] RDW 12.2 11.0 - 15.0 % LAB HEMETOLOGY METHOD 08/21/2025 11:44 AM [facility] Platelets 311 130 - 400 K/mcL LAB HEMETOLOGY METHOD 08/21/2025 11:44 AM [facility] MPV 9.2 7.0 - 11.0 FL LAB HEMETOLOGY METHOD 08/21/2025 11:44 AM [facility] NRBC 0.0 <1.0 % LAB HEMETOLOGY METHOD 08/21/2025 11:44 AM [facility] NRBC Absolute 0.00 <0.10 K/mcL LAB HEMETOLOGY METHOD 08/21/2025 11:44 AM [facility] Neutrophils Relative 65.1 % LAB HEMETOLOGY METHOD 08/21/2025 11:44 AM [facility] Lymphocytes Relative 25.3 % LAB HEMETOLOGY METHOD 08/21/2025 11:44 AM [facility] Monocytes Relative 8.0 % LAB HEMETOLOGY METHOD 08/21/2025 11:44 AM [facility] Eosinophils Relative 1.0 % LAB HEMETOLOGY METHOD 08/21/2025 11:44 AM [facility] Basophils Relative 0.3 % LAB HEMETOLOGY METHOD 08/21/2025 11:44 AM [facility] Immature Granulocytes Relative 0.3 % LAB HEMETOLOGY METHOD 08/21/2025 11:44 AM [facility] Neutrophils Absolute 6.47 1.50 - 7.00 K/mcL LAB HEMETOLOGY METHOD 08/21/2025 11:44 AM [facility] Lymphocytes Absolute 2.51 1.00 - 5.00 K/mcL LAB HEMETOLOGY METHOD 08/21/2025 11:44 AM EST [facility] Monocytes Absolute 0.79 0.20 - 1.00 K/[facility] HEMETOLOGY METHOD 08/21/2025 11:44 AM EST [facility] Eosinophils Absolute 0.10 0.00 - 0.50 K/[facility] HEMETOLOGY METHOD 08/21/2025 11:44 AM EST [facility] Basophils Absolute 0.03 0.00 - 0.20 K/[facility] HEMETOLOGY METHOD 08/21/2025 11:44 AM EST [facility] Immature Granulocytes Absolute 0.03 0.00 - 0.03 K/[facility] HEMETOLOGY METHOD 08/21/2025 11:44 AM EST [facility] Blood Venous blood specimen / Unknown Venipuncture / Unknown 08/21/2025 11:14 AM EST 08/21/2025 11:37 AM EST us Brit [facility] LAB BLOOD ORDERABLES Fin al Result Performing Organization Address City/[facility]/ZIP Co de Phone Number [facility] [address] [place] [address], * (ABNORMAL) Magnesium (08/21/2025 11:14 AM EST) Magnesium 1.5(L) 1.9 - 2.6 mg/dL 08/21/2025 12:08 PM EST [facility] Blood Venous blood specimen / Unknown Venipuncture / Unknown 08/21/2025 11:14 AM EST 08/21/2025 11:37 AM EST us Brit [facility] BLOOD ORDERABLES Fin al Result [facility] [address] [place] [address], [place] [phone] * Comprehensive metabolic panel (08/21/2025 11:14 AM EST) Sodium 138 133 - 145 mmol/L 08/21/2025 12:08 PM [facility] Potassium 3.8 3.5 - 5.5 mmol/L 08/21/2025 12:08 PM [facility] Chloride 104 96 - 110 mmol/L 08/21/2025 12:08 PM [facility] CO2 27 21 - 32 mmol/L 08/21/2025 12:08 PM [facility] Anion Gap 7 3 - 11 08/21/2025 12:08 PM [facility] Glucose 73 70 - 100 mg/dL 08/21/2025 12:08 PM [facility] BUN 13 5 - 25 mg/dL 08/21/2025 12:08 PM [facility] Creatinine 0.69 0.50 - 1.10 mg/dL 08/21/2025 12:08 PM [facility] eGFR 123 >=60 mL/min/1. 73m2 08/21/2025 12:08 PM [facility] Comment:Calculation based on the Chronic Kidney Disease Epidemiology Collaboration (CKD-EPI) equation refit without adjustment for race. BUN/Creatinine Ratio 18.8 08/21/2025 12:08 PM [facility] Calcium 8.6 8.5 - 10.5 mg/dL 08/21/2025 12:08 PM [facility] AST (SGOT) 26 10 - 42 unit/L 08/21/2025 12:08 PM [facility] ALT (SGPT) 26 10 - 60 unit/L 08/21/2025 12:08 PM [facility] Alkaline Phosphatase 89 42 - 121 unit/L 08/21/2025 12:08 PM EST [facility] Total Protein 7.1 6.0 - 8.0 g/dL 08/21/2025 12:08 PM EST [facility] Albumin 4.0 3.2 - 5.0 g/dL 08/21/2025 12:08 PM [facility] Total Bilirubin 0.3 0.0 - 1.4 mg/dL 08/21/2025 12:08 PM [facility] Blood Venous blood specimen / Unknown Venipuncture / Unknown 08/21/2025 11:14 AM EST 08/21/2025 11:37 AM EST Brit [facility] BLOOD ORDERABLES Fin al Result Performing Organization Address [facility] Co de Phone Number [facility] [address] [place] [address], * ECG 12 lead (08/21/2025 11:04 AM EST) Ventricular Rate ECG 87 BPM GEMUSE Atrial Rate 87 BPM GEMUSE P-R Interval 146 ms GEMUSE QRS Duration 88 ms GEMUSE Q-T Interval 378 ms GEMUSE QTc 454 ms GEMUSE P Wave [place] 42 degrees GEMUSE R [place] 58 degrees GEMUSE T [place] 21 degrees GEMUSE ECG Interpretation Normal sinus rhythm Normal ECG No previous ECGs available Confirmed by Stephanie CORTES JOHN ([id number]) on 08/21/2025 5:21:24 PM GEMUSE 08/21/2025 11:0 4 AM EST 08/21/2025 5:21 PM EST Brit GUADALUPE ECG ORDERABLES Final Re sult Performing Organization Address City/[facility]/ZIP Co de Phone Number GEMUSE * POC , urine manually resulted (08/21/2025 10:55 AM EST) HCG, Ur POC Negative Negative Urine Urine specimen obtained by clean catch procedure / Unknown 08/21/2025 10:55 AM EST Brit GUADALUPE POINT OF CARE TEST ENTER /EDIT ORDERABLES Final Result documented in this encounter Visit Diagnoses Diagnosis Acute nonintractable headache, unspecified headache type- Primary documented in this encounter Administered Medications Inactive Administered Medications - up to 3 most recent administrations Medication Order MAR Action Action Date Dose Rate Site iopamidoL (ISOVUE-370) 370 mg iodine /mL (76 %) injection 90 mL 90 mL, intravenous, Once in imaging, Starting on e 08/21/25 at 1228, For 1 dose Given 08/21/2025 12:31 PM EST 90 mL methylPREDNISolone sodium succ (SOLU-Medrol) injection 125 mg 125 mg, intravenous, Once, On e 08/21/25 at 1248, For 1 dose, Reconstitute each 125 mg vial with 2 mL sterile water for injection to a concentration of 62.5 mg/mL. Given 08/21/2025 12:51 PM EST 125 mg sodium chloride 0.9 % bolus 1,000 mL 1,000 mL, intravenous, at 2,000 mL/hr, Administer over 30 Minutes, Once, On 08/21/25 at 1248, For 1 dose New Bag 08/21/2025 12:51 PM EST 1,000 mL 2000 mL/hr sodium chloride 0.9 % flush 10 mL 10 mL, intravenous, Once, On e 08/21/25 at 1229, For 1 dose Given 08/21/2025 12:31 PM EST 10 mL documented in this encounter Active and Recently Administered Medications Times are shown in EST. Scheduled Medication Order 08/19/2025 08/20/2025 08/21/2025 iopamidoL (ISOVUE-370) 370 mg iodine /mL (76 %) injection 90 mL (COMPLETED) 90 mL, intravenous, Once in imaging, Starting on e 08/21/25 at 1228, For 1 dose 1231 (Given - Provid er: Pamela Juares) methylPREDNISolone sodium succ (SOLU-Medrol) injection 125 mg (COMPLETED) 125 mg, intravenous, Once, On e 08/21/25 at 1248, For 1 dose, Reconstitute each 125 mg vial with 2 mL sterile water for injection to a concentration of 62.5 mg/mL. 1251 (Given - Provid er: Lillie Powell RN) sodium chloride 0.9 % bolus 1,000 mL (COMPLETED) 1,000 mL, intravenous, at 2,000 mL/hr, Administer over 30 Minutes, Once, On Wed08/21/25 at 1248, For 1 dose 1251 (New Bag - Prov ider: Lillie Powell RN)1403 (Stopped - Provider: Lillie Powell RN) sodium chloride 0.9 % flush 10 mL (COMPLETED) 10 mL, intravenous, Once, On Wed08/21/25 at 1229, For 1 dose 1231 (Given - Provid er: Pamela Juares) documented in this encounter Orders Medications Ordered That Luther ht Not Have Been Administered Count Last Ordered Date First Ordered Date ketorolac (TORADOL) injection 15 mg 1 08/21 IV Count Last Ordered Date First Orde red Date INSERT PERIPHERAL IV 2 08/21/2025 documented in this encounter Care Teams Fisheries Specialist Relationship Specialty Start Date End Date Dm Lakhani MD [address] [place] [address] PCP - General Family Medicine 08/15/25 documented as of this encounter
--- OUTSIDE RECORDS SUMMARY | 2025-08-22 01:50 | XMS_ITS | Encounter Summary ---
Author Organization [facility] Address [address] [place] [address] Care Team Providers Care Railroad Dispatcher Name Role Phone Dm Lakhani MD Primary Care Provider Reason for Visit * Reason Comments Headache * Auth/Cert (Routine) Specialty Diagnoses / Procedures Referred By Contac t Referred To Contact Diagnoses Migraines Nonintractable headache, unspecified chronicity pattern, unspecified headache type Procedures . Leland Sahu MD [address] [place] [address] Phone: tel: fax: [facility] [address] [place] [phone] Phone: tel: Referral ID Status Reason Start Date Expiration Date Visits Re quested Visits Authorized [id number] 1 1 Encounter Details Date Type Department Care Team (Latest Contact Info) Description 08/22/2025 1:50 AM EST - 08/22/2025 5:07 PM [facility] Hospital Encounter [facility] [address] [place] [phone] Leland Sahu MD [address] [place] [address] Edmundo Dugan MD [address] [place] [address] Nonintractable headache, unspecified chronicity pattern, unspecified headache type (Primary Dx); Migraine with aura and without status migrainosus, not intractable Discharge Disposition: Home or Self Care Social History Tobacco Use Types Packs/Day Years Used Date Smoking Tobacco: Unknown Tobacco Cessation:Counseling Given: Not Answered Interpersonal Safety Answer Date Record ed Physical [...] Sign Reading Time Taken Comments Blood Pressure 105/54 08/22/2025 7:28 AM EST Pulse 71 08/22/2025 7:28 AM EST Temperature 36.2 C (97.2 F) 08/22/2025 7:28 AM EST Respiratory Rate 14 08/22/2025 7:28 AM EST Oxygen Saturation 93% 08/22/2025 7:28 AM EST Inhaled Oxygen Concentration - - Weight 102 kg (225 lb) 08/22/2025 3:21 AM EST Height 167.6 cm (5' 5.98 ) 08/22/2025 3:21 AM ES T Body Mass Index 36.33 08/22/2025 3:21 AM EST documented in this encounter Functional Status * Calculated C-SSRS Risk Score (Lifetime/Recent) Answer Date of Assessment Author No Risk Indicated 08/21/2025 9:46 PM EST Cydney Phillips RN * [place] Suicide Severity Rating Scale (Screener/Recent Self-Report) Question Answer Date of Assessment Author 1. Wish to be (Past 1 Month) No 9:46 PM EST Cydney Phillips RN 2. Non-Specific Active Suici en Thoughts (Past 1 Month) No 08/21/2025 9:46 PM EST Cydney Phillips RN 6. Suicidal Behavior (Lifetime) No 9:46 PM EST Cydney Phillips RN documented as of this encounter Discharge Summaries * Edmundo Dugan MD - 08/22/2025 4:16 PM EST Images from the original note were not included. ALPHA DISCHARGE SUMMARY Patient Information Kymberly London : 2000 [24 y.o.] Admitting Provider Leland Sahu MD Discharge Provider ANAYELI Garcia, Edmundo Dugan MD Primary Care Physician Dm Lakhani MD Admission Date 08/22/2025 Discharge Date 08/22/2025 Discharge Destination: Home Code Status at Discharge: Full Code - Default Hospital Course Summary Migraine with aura 24 year-old female with past medical history significant for bipolar disorder, depression, anxiety,migraines following with [facility] (Sheri Malave) who returned to the ED for recurrence of right-sided headaches, diplopia, blurred vision, right-sided head and neck numbness/tingling, right upper extremity numbness and tingling. She reported having 3 times migraine attack a month. Denied any fever, night sweats, chills. On presentation and during observation, her vital signs remained stable. Initial CBC was negative. CT head without contrast, CT head/neck angio was negative for acute finding. Patient received Toradol, Compazine. Her symptoms subsided. She was evaluated by neurologist who recommended tapering off topiramate due to concern for cognitive and paresthesia side effects, adding lamotrigine 50 mg in the morning and continuing lamotrigine 200 mg at night, as needed Ubrelvy, continuing with Emgality injections. Patient to follow-up with neurologist in 2 to 4 weeks. Hypomagnesemia Magnesium was low and replaced. Leukocytosis At discharge, her white count was 12.1 from 9.9. Suspecting reactionary. Patient did not have any signs of infection including fever, night sweats, chills, cough, difficulty breathing, burning with urination or increased urinary frequency. Bipolar disorder Depression Anxiety On Aripiprazole, Duloxetine, Lamotrigine Obesity Bmi 36 Weight loss advised Procedures done: No orders to display Condition upon discharge Visit Vitals BP 105/54 (BP Location: Left arm, Patient Position: Lying) Pulse 71 Temp 36.2 ??C (97.2 ??F) (Temporal) Resp 14 Temp (24hrs), Av.4 ??C (97.6 ??F), Min:36.2 ??C (97.2 ??F), Max:36.7 ??C (98.1 ??F) Body mass index is 36.33 kg/m??. No results found for: PTWT , PTHT GEN: Alert, oriented. No distress. HEENT: Atraumatic, symmetric, PERRLA. Neck: Supple, nontender, no range of motion limitation. Lungs: Clear, no accessory muscle use. Heart: Regular, no murmur. Abdomen: Not distended, soft, nontender. Bowel sounds present. Neuro: Alert, oriented. Cranial nerves II to XII grossly intact. No facial droop. No motor deficit,no sensory deficit. Psych: Cooperative, calm. Follow-Up Instructions and Recommendations No follow-up provider specified. No discharge procedures on file. There are no outpatient Patient Instructions on file for this admission. Discharge Medications Your medication list START taking these medications Instructions Last Dose Given Next Dose Due naproxen 500 mg EC tablet Commonly known as: EC-Naprosyn Take 1 tablet (500 mg total) by mouth 1 (one) time each day with breakfast for 20 days. Do not crush, chew, or split. Take Naproxen while waiting for Ubrevly approval ubrogepant 100 mg tablet Commonly known as: UBRELVY Take 1 tablet (100 mg total) by mouth 1 (one) time each day if needed for migraine (max 6 tab a month). CHANGE how you take these medications Instructions Last Dose Given Next Dose Due lamoTRIgine 200 mg tablet Commonly known as: LaMICtal What changed: Another medication with the same name was added. Make sure you understand how and when to take each. Take 1 tablet (200 mg total) by mouth 1 (one) time each day. lamoTRIgine 25 mg tablet Commonly known as: LaMICtal What changed: You were already taking a medication with the same name, and this prescription was added. Make sure you understand how and when to take each. Take 2 tablets (50 mg total) by mouth 1 (one) time each day in the morning. topiramate 25 mg tablet Commonly known as: TOPAMAX Start taking on: August 22, 2025 What changed: medication strength See the new instructions. Take 2 tablets (50 mg total) by mouth at bedtime for 2 days, THEN 1 tablet (25 mg total) at bedtimefor 5 days. at bedtime. CONTINUE taking these medications Instructions Last Dose Given Next Dose Due ARIPiprazole 10 mg tablet Commonly known as: ABILIFY Take 1 tablet (10 mg total) by mouth 1 (one) time each day. DULoxetine [address] capsule Commonly known as: CYMBALTA Take 2 capsules (120 mg total) by mouth 1 (one) time each day. Emgality Pen 120 mg/mL injection pen Generic drug: galcanezumab-gnlm Inject 1 mL (120 mg total) under the skin 1 (one) time. STOP taking these medications vvkkuvkxpc-qftrecqgjfkdl-pvlqqbbq 50-325-40 mg per tablet Commonly known as: FIORICET, ESGIC Where to Get Your Medications These medications were sent to [id number] - [place], [place] - [address] [place] [address], [facility] [id number] lamoTRIgine 25 mg tablet naproxen 500 mg EC tablet topiramate 25 mg tablet ubrogepant 100 mg tablet Case discussed with Dr Dugan Time spent: 30 min Addendum: by Edmundo Dugan MD Patient seen and examined in 522-1 Chart reviewed Events noted Case discussed in details with ANAYELI Francis Assessment and plan as above and I am responsible for medical decision making This is a 24 year old woman with Migrane admitted with Migraine and Transient facial R sided numbness (resolved) after patient received Toradol, Compazine Vital signs remained stable., neuroglial exam is non focal Initial CBC was negative. CT head without contrast, CT head/neck angio was negative for acute finding. . She was evaluated by Dr Coleman (neurology) who recommended tapering off topiramate due to concern for cognitive and paresthesia side effects, adding lamotrigine 50 mg in the morning and continuing lamotrigine 200 mg at night, as needed Ubrelvy, continuing with Emgality injections.t I asked pt to keep a log book to chart her Migraine symptoms onset, duration and frequency Advised her to lose weight Advised her to avoid excessive lights and noise during onset of episodes Patient to follow-up with neurologist in 2 to 4 week I spent over 38 mins in above enconuter documented in this encounter Discharge Instructions * Discharge Instructions* ANAYELI Garcia - 08/22/2025 4:15 PM EST Follow up with Neurology in 2-4 weeks * Attachments The following attachments cannot be sent through Care Everywhere. * Migraine Headache: Prophylaxis: Deciding About (Maori) * Migraine Headache (Maori) documented in this encounter Medications at Time [...] 6 tab a month). 6 tablet 08/22/2025 documented as of this encounter Ordered Prescriptions Prescription Sig Dispense Quantity Refills Last Filled Start Date End Date naproxen (EC-Naprosyn) 500 mg EC tablet Take 1 tablet (500 mg total) by mouth 1 (one) time each day with breakfast for 20 days. Do not crush, chew, or split. Take Naproxen while waiting for Ubrevly approval 20 tablet 08/22/2025 5 ubrogepant (UBRELVY) 100 mg tabletIndications: Migraine with aura and without status migrainosus, not intractable Take 1 tablet (100 mg total) by mouth 1 (one) time each day if needed for migraine (max 6 tab a month). 6 tablet 08/22/2025 topiramate (TOPAMAX) 25 mg tablet Take 2 tablets (50 mg total) by mouth at bedtime for 2 days, THEN 1 tablet (25 mg total) at bedtime for 5 days. at bedtime. 9 each 08/22/2025 5 lamoTRIgine (LaMICtal) 25 mg tablet Take 2 tablets (50 mg total) by mouth 1 (one) time each day in the morning. 60 each 08/22/2025 5 documented in this encounter Discharge Disposition Disposition Code Departure Means Destination Comment s Home or Self Care documented in this encounter Progress Notes * Kimber Edge RN - 08/22/2025 11:47 AM EST 08/22/25 1147 Medication Coverage Has Med Coverage Under Insurance Plan Yes Medication Affordability No concerns related to payment for meds Anticipated Discharge Needs Discipline following for SNF placement Maintenance Tech Informed Choice Informed Choice Given? Yes Transportation Transportation at discharge Family What day is the transport expected? 08/22/25 Final Discharge Disposition Home or Self Long Term no services * Kimber Edge RN - 08/22/2025 9:07 AM EST 08/22/25 0907 Initial Transition Plan Initial Transition Plan Home Discharge Planning Living Arrangements Spouse/significant other;Children Type of Residence Private residence Assistive Devices None Support Systems Spouse/significant other;Children;Extended family;Friends;Neighbors Medication Coverage Has Med Coverage Under Insurance Plan Yes Medication Affordability No concerns related to payment for meds Anticipated Discharge Needs Discipline following for SNF placement Maintenance Tech Informed Choice Informed Choice Given? Yes Patient is independent in the community, she drives, does not use DME or O2, she is not a . Upon d/c her plan is home no services * Tiffanie Agudelo RN - 08/22/2025 3:11 AM EST ED RN HANDOFF (All [place] Below Must Be Completed) Reason/Diagnosis for Admission: migraine Type of Admission: [x] Medsurg, [] Telemetry Already in a Hospital Bed: [] Yes / [x] No Room Considerations/Precautions (ex: fever, diarrhea, or any infectious concerns): [] Yes / [x] No Steel Post Installer: [] Yes / [x] No If YES, Cardiac Rhythm: [] NSR, [] SB, [] ST, [] A-FIB, [] A-Flutter, [] Pacemaker, [] 1st Degree HB, [] 2nd Degree HB, [] 3rd Degree HB Reason for Steel Post Installer: O2 []Yes /[x]No If YES, how many Liters: VS: Visit Vitals BP 129/73 (BP Location: Left arm, Patient Position: Sitting) Pulse 108 Temp 36.7 ??C (98.1 ??F) (Oral) Resp 15 Wt 102 kg (225 lb) SpO2 97% BMI 36.32 kg/m?? BSA 2.1 m?? Current Mental Status: A/O x [x]4, []3, []2, []1 IV Access: [x] Yes / [] No Field IV present: [] Yes / [x] No Hx of Violence: [] Yes / [x] No / [] Unknown Current Ambulation Status: independent Fall Risk:[] Yes / [x] No Yellow Bracelet Applied [] Yes / [x] No Yellow Socks Applied [] Yes / [x] No Patient Belongings inventoried and BL completed: [] Yes / [] No Patient belongings stored in the security closet: [] Yes (If Yes please supply Security bag #): [x] No Patient Medications stored in Pharmacy: [] Yes (If Yes please supply Medication Security bag #): [x] No ED Summary of Care: Pt comes in with c/o migraine. Hx of chronic migraine. Was seen for here and received migraine cocktail with resolution of symptoms. Started new migraine infusion recently. See's neurologist outpatient and due to pts symptoms neurologist scheduled MRI for Wednesday. Was seen hereyesterday morning, work up negative and discharged. Came back last night for same symptoms. Tiffanie Agudelo RN 08/22/25 0316 * Cydney Phillips RN - 08/21/2025 9:45 PM EST Pt here with c/o headache. Was seen and d/c'd this morning. Dr told me to come back for MRI documented in this encounter H&P Notes * ANAYELI Donis - 08/22/2025 3:48 AM EST Images from the original note were not included. NAVEEN HISTORY AND PHYSICAL Please contact author [ANAYELI Donis] via IMT/Trustlook. Patient: Kymberly London Admission Date/Time: 08/22/2025 1:50 AM : 2000 [24 y.o.] Patient's PCP: Dm Lakhani MD Attending Provider: Leland Sahu MD CHIEF COMPLAINT Headache HISTORY OF PRESENT ILLNESS 24 year-old female with past medical history significant for bipolar disorder, depression, anxiety,migraines following with [facility] (Sheri Malave), and further history below originally presented to [facility] ED on 08/21 in the morning for headache, double vision, and weakness. She received 1 L normal saline bolus, 25 mg IV Solu-Medrol. CT brain and CTA head/neck was obtained revealing no acute intracranial findings therefore she was discharged for outpatient follow up. A few hours later, the ED provider called the pt who stated that she is still having symptoms and advised her to return to the ED immediately for additional imaging. Pt provided more details stating that she has chronic migraines, but last Wednesday she began to feelpain behind her right eye and tingling with numbness across the right side of her face into her neck. She felt as if her left eye was twitching and drooping. She was experiencing double blurry vision, stumbling, had an unsteady gait, and upper body weakness. Pt mentions she also noticed a cognitivedecline, she has been ore forgetful and is unable to recall words when speaking although she knows what she wants to say. All of these symptoms would wax and wane in severity. She came to [facility] ED the next day on 08/15/25 and received a migraine cocktail, which relieved her symptoms for a short time,but then they came back. Today, the migraine was more sudden in onset and severe therefore the pt came to the ED. Pt endorses nausea. Otherwise, pt denies chest pain, shortness of breath, fevers, chills, vomiting, diarrhea, constipation, abdominal pain, dysuria, hematuria, hematochezia, melena. Upon H&P, pt is afebrile, HR 84, RR 15, BP 112/77, spO2 97% RA. Labs: magnesium 1.5 EKG: normal sinus rhythm, 87 bpm, no acute ischemic changes CT brain and CTA head/neck: No acute intracranial findings. Normal CT angiogram of the neck and kiana of [place]. Please see EMR for full report. Review of Systems A 12 point review of system was completed and the pertinent positive/negatives are included in the HPI. MEDICAL HISTORY Past Medical History Medical History[1] Past Surgical History Surgical History[2] Social History Pt vapes, rarely drinks alcohol, denies drug use Family History Denies any significant family history Allergies is allergic to vraylar [cariprazine]. Home Medications Medications Ordered Prior to Encounter[3] OBJECTIVE Vitals Visit Vitals BP 129/73 (BP Location: Left arm, Patient Position: Sitting) Pulse 108 Temp 36.7 ??C (98.1 ??F) (Oral) Resp 15 Temp (24hrs), Av.6 ??C (97.8 ??F), Min:36.4 ??C (97.5 ??F), Max:36.7 ??C (98.1 ??F) Body mass index is 36.33 kg/m??. No results found for: PTWT , PTHT Physical Examination General: Age appropriate, pleasant. No acute distress. Laying comfortably on exam stretcher. Skin: Warm, dry, intact, no diaphoresis. HEENT: Atraumatic, normocephalic head, Patient is handling secretions without trismus or drooling. Speaking in full sentences. Neck: No pain with neck movement. Soft/supple, full range of motion. No cervical spine tenderness noted. Cardiology: Regular rate and rhythm, no rubs or gallops, S1 and S2 auscultated. Respiratory: Clear to auscultation bilaterally, no wheezes, rales or rhonchi. No accessory muscle use, retractions or tripoding; speaking in full sentences without difficulties. Abdominal/GI: Abdomen is not distended, Normal bowel sounds, abdomen soft and non-tender. No CVA tenderness. Peripheral Vascular: No edema on lower legs. Radial pulse 2 + and Dorsalis Pedis 1+ bilaterally. Neurological: Alert and oriented. No pronator drift. No one sided weakness. No facial droop. No slurred speech. NIHSS 0. No focal deficit. CN II-XII grossly intact. Curriculum Development Specialist strength equal 5/5 bilateral upper extremities. Upper and lower extremities with strength 5/5 and equal bilaterally. Musculoskeletal: No calf tenderness or asymmetry. Moving all extremities at the major joint spaces without difficulty. Psychiatric: Cooperative, appropriate mood & affect. ECG: Was ECG Performed? Yes . Sinus Rhythm? Yes. Signs of acute ischemia? No Further Interpretation: normal sinus rhythm, 87 bpm, no acute ischemic changes LAB RESULTS (most recent) HEMATOLOGY Lab Results Component Value Date WBC 9.9 08/21/2025 HGB 13.0 08/21/2025 HCT 37.5 08/21/2025 MCV 87.4 08/21/2025 PLT 311 08/21/2025 CHEMISTRY Lab Results Component Value Date GLUCOSE 73 08/21/2025 NA 138 08/21/2025 K 3.8 08/21/2025 CO2 27 08/21/2025 CL 104 08/21/2025 BUN 13 08/21/2025 CREATININE 0.69 08/21/2025 EGFR 123 08/21/2025 CALCIUM 8.6 08/21/2025 MG 1.5 (L) 08/21/2025 ANIONGAP 7 08/21/2025 Radiology MR Brain wo Contrast (Results Pending) ASSESSMENT & PLAN Neurological symptoms Migraine - Headache, dizziness, double vision, upper body weakness, cognitive decline - DDX stroke, demyelinating disease, MS, worsening migraines, cluster headache - Admit to medicine - Consult placed with neurology; input appreciated - MRI brain with and without contrast in am - Fall precautions - Pt requested migraine cocktail- will give Toradol and Compazine at this time. Will hold off on Benadryl as pt did not want to be sedated - Pt is on Topiramate at bedtime as a preventative. Has recently started on Emgality injections - Morning labs; CBCd, BMP, Mg Hypomagnesemia - Replete and trend Bipolar disorder Depression Anxiety - Continue Aripiprazole, Duloxetine, Lamotrigine Case discussed with Dr.Talha Sahu Admission checklist [x] Code status: Full Code - Default [x] VTE Prophylaxis: SCDs [x] Diet order on admission: Dietary Orders (From admission, onward) Start Ordered 08/22/25 034 Adult diet [facility]; General; Regular Diet effective now Question Answer Comment Location [facility] Diet Type (req) General General Diet Regular 08/22/25 034 [x] Medication reconciliation; per pt. Health Care proxy with Phone number: , Alvarez; [phone] [1] Past Medical History: Diagnosis Date Acute migraine Anxiety Bipolar 1 disorder ([facility] V24, [facility] V28) Depression Gestational hypertension Kidney stone [2] Past Surgical History: Procedure Laterality Date SECTION WISDOM TOOTH EXTRACTION [3] Current Facility-Administered Medications on File Prior to Encounter Medication Dose Route Frequency Provider Last Rate Last Admin [COMPLETED] iopamidoL (ISOVUE-370) 370 mg iodine /mL (76 %) injection 90 mL 90 mL intravenous Once in imaging ANAYELI Looney 90 mL at 08/21/25 1231 [COMPLETED] methylPREDNISolone sodium succ (SOLU-Medrol) injection 125 mg 125 mg intravenous Once ANAYELI Looney 125 mg at 08/21/25 1251 [COMPLETED] sodium chloride 0.9 % bolus 1,000 mL 1,000 mL intravenous Once Brit Robertson PAStopped at 08/21/25 1403 [COMPLETED] sodium chloride 0.9 % flush 10 mL 10 mL intravenous Once ANAYELI Looney 10 mLat 08/21/25 1231 [DISCONTINUED] ketorolac (TORADOL) injection 15 mg 15 mg intravenous Once ANAYELI Looney Current Outpatient Medications on File Prior to Encounter Medication Sig Dispense Refill ARIPiprazole (ABILIFY) 10 mg tablet Take 1 tablet (10 mg total) by mouth 1 (one) time each day. ephazqpskc-dbwjdklhikkjp-zlnftmiw (FIORICET, ESGIC) 50-325-40 mg per tablet Take 1 tablet by mouth every 6 (six) hours if needed for headaches for up to 30 doses. Max Daily Amount: 4 tablets (Patientnot taking: Reported on 08/22/2025) 20 tablet 0 DULoxetine (CYMBALTA) [address] capsule Take 2 capsules (120 mg total) by mouth 1 (one) time each day. Emgality Pen 120 mg/mL injection pen Inject 1 mL (120 mg total) under the skin 1 (one) time. lamoTRIgine (LaMICtal) 200 mg tablet Take 1 tablet (200 mg total) by mouth 1 (one) time each day. topiramate (TOPAMAX) 50 mg tablet Take 2 tablets (100 mg total) by mouth at bedtime. at bedtime Cosigned by Leland Sahu MD at 08/23/2025 6:13 AM EST documented in this encounter Consult Notes * Negro Coleman MD - 08/22/2025 2:59 PM ESTAssociated Order(s): IP CONSULT TO NEUROLOGY TeleNeurology Consult Reason for consult: SINCLAIR History obtained from: Patient and EMR/Housestaff Referring physician: Edmundo Dugan MD History of Present Illness: Kymberly London is a 24 y.o. female with past medical history significant for bipolar disorder, depression, anxiety, migraines following presented to [facility] ED on 08/21 in the morning for headache, double vision, and weakness. She received 1 L normal saline bolus, 25 mg IV Solu-Medrol. CT brain and CTAhead/neck was obtained revealing no acute intracranial findings therefore she was discharged for outpatient follow up. A few hours later, the ED provider called the pt who stated that she is still having symptoms and advised her to return to the ED immediately for additional imaging. Pt provided more details stating that she has chronic migraines, but last Wednesday she began to feelpain behind her right eye and tingling with numbness across the right side of her face into her neck. She felt as if her left eye was twitching and drooping. She was experiencing double blurry vision, stumbling, had an unsteady gait, and upper body weakness. Pt mentions she also noticed a cognitivedecline, she has been ore forgetful and is unable to recall words when speaking although she knows what she wants to say. Case D/W Dr. Cedillo on 08/21/25 Today the patient reports that she feels much better Last week, she had severe migraine, she is showing me the right fronto-temporal, N/T in her right face and neck, she had dizziness and vision loss on and off, it was different than her typical migraine She was not able to drive Yesterday, while she was driving, she had right frontal SINCLAIR, she was dizzy and her balance was off, she also reports cognitive decline memory loss She was dx with migraines in 2023, frequency: 2-3 per month, in December, Topamax increased in Juneto 100mg qhs She reports episodes of vision loss in both eyes during the migraine, can lass few seconds, she hadmany episodes in the past year and more than 5 in one day. It will not happen prior to the SINCLAIR. Topamax started last fall She reports memory loss that progressed since June No aura per report She take Lamictal for Bipolar Emgality- last injection on Aug 02 No family at bedside. H/o Kidney stones, before than again in April 2025 SINCLAIR: rated 0/10, yesterday it was 6/10 Prior neurological history: negative for epilepsy, stroke Neurologic Review of Systems - Denied numbness, tingling, headache, dizziness, weakness, diplopia History of head/neck surgery? no Ambulation: Independent Substance use: denies Bowel/ bladder control : Full control Smoking: vapes 5 times per day Alcohol: 1-2 per month ROS: All 14 systems were reviewed and were negative except what is mentioned above in the HPI. Past medical, surgical, social and family histories were reviewed and noted in EMR Current medications were reviewed and noted in EMR PAST MEDICAL HISTORY Medical History[1] HOME MEDICATIONS Prescriptions Prior to Admission[2] MEDICATIONS Scheduled Meds:MEDSSCHEDULED[3] Continuous Infusions:MEDSCONTINUOUS[4] PRN Meds:MEDSPRN[5] ALLERGIES Allergies[6] FAMILY HISTORY Family History[7] SOCIAL HISTORY Social History Socioeconomic History Marital status: Spouse name: Not on file Number of children: Not on file Years of education: Not on file Highest education level: Not on file Occupational History Not on file Tobacco Use Smoking status: Unknown Smokeless tobacco: Not on file Vaping Use Vaping status: Not on file Substance and Sexual Activity Alcohol use: Not on file Drug use: Yes Comment: Rare Sexual activity: Not Currently Other Topics Concern Not on file Social History Narrative Not on file NEUROLOGICAL EXAMINATION Vital Sign: Visit Vitals BP 105/54 (BP Location: Left arm, Patient Position: Lying) Pulse 71 Temp 36.2 ??C (97.2 ??F) (Temporal) Resp 14 Ht 1.676 m (65.98 ) Wt 102 kg (225 lb) SpO2 93% BMI 36.33 kg/m?? Smoking Status Unknown BSA 2.1 m?? NIH Stroke Scale TIME: 1a Level of consciousness: 0 1b. LOC questions: 0 1c. LOC commands: 0 2. Best Gaze: 0 3. Visual: 0 4. Facial Palsy: 0 5a. Motor left arm: 0 5b. Motor right arm: 0 6a. motor left le 6b Motor right le 7. Limb Ataxia: 0 8. Sensory: 0 9. Best Language: 0 10. Dysarthria: 0 11. Extinction and Inattention: 0 Total: 0 The exam was done with the assistance of the DUANE MANLEY, for Tele communication purpose. General exam: Well developed, well dressed and in no acute distress. Symmetric chest rise, normal respiratory effort and rhythm. No audible wheezing heard. Mental status: Alert and oriented to person, place and time. Patient is speaking in full sentences.Affect/mood appropriate. She can name presidents 3/3 Cranial Nerves: Visual Acuity: Good BL Extraocular movements intact. Face is symmetric at rest. Sensation is equal to LT on face. Tongue is midline with normal tongue protrusion and lateral movements. 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 Reflexes: (R/L): Patellar (2/2) Negative babinski sign. Coordination and Gait: Finger to nose testing intact bilaterally with no dysmetria. Deferred gait LABS: [facility] (last 7 days): ABG Anemia Results from last 7 days Lab Units 08/22/25 0319 WBC AUTO K/mcL 12.1* HEMOGLOBIN g/dL 12.4 HEMATOCRIT % 36.4 PLATELETS K/mcL 357 Hematology Results from last 7 days Lab Units 08/22/25 0319 WBC AUTO K/mcL 12.1* HEMOGLOBIN g/dL 12.4 HEMATOCRIT % 36.4 PLATELETS K/mcL 357 LYMPHS PCT AUTO % 9.7 MONO PCT AUTO % 4.8 EOS PCT AUTO % 0.0 Chemistry Results from last 7 days Lab Units 08/22/25 0319 SODIUM mmol/L 142 POTASSIUM mmol/L 4.1 CHLORIDE mmol/L 107 CO2 mmol/L 23 BUN mg/dL 15 CREATININE mg/dL 0.72 GLUCOSE mg/dL 159* CALCIUM mg/dL 9.4 Results from last 7 days Lab Units 08/21/25 1114 ALK PHOS unit/L 89 BILIRUBIN TOTAL mg/dL 0.3 TOTAL PROTEIN g/dL 7.1 ALT unit/L 26 AST unit/L 26 Cardiac No results found for: TROPONINT , TROPONINI , HSTROPI Coagulation No results found for: PTT Thyroid Function / HGBA1C No results found for: HGBA1C Urine No results found for: COLORUA , CLARITYUA , SPECGRAVUA , PHUA , PROTUA , GLUCOSEUA , KETONESUA , BILIRUBINUA , BLOODUA , UROBILINOGUA , NITRITEUA Micro No results found for: BLOODCX , CLOSTD , GRAMSTAIN , URINECX Assessment: I independently reviewed results of CT/ CTA FROM 08/21/25 CT head reported as no acute process. CTA head and neck reported as no evidence of major vessel stenosis or occlusion. EKG reported as NSR Complicated migraine without aura Right frontal headache Intermittent transient binocular vision loss Transient paresthesia Cognitive decline Episodic migraine without aura Hypomagnesemia Plan: The following are the recommendations: Start Lamictal 50mg qam and continue 200mg qpm Taper Topamax to off due to concerns of cognitive and paresthesia side effects and it is also C/I for her due to recent Kidney stones Decrease Topamax to 50mg qhs for 2 days then 25mg qhs for 5 days then stop PRN Ubrelvy 100mg PRN for acute migraine, max 6 tabs per month PRN Naproxen 500mg while pending Ubrevly approval Discontinue Fioricet Continue Emgality injections If recurrent symptoms, schedule MRI head without contrast Follow up with Neurology in 2-4 weeks Recommendations were discussed with current provider: Edmundo Dugan MD, ANAYELI Wei Thank you for allowing us to participate in the care of this pleasant patient and please do not hesitate to contact us should questions or concerns arise. Sincerely, Dr. Coleman Neurology attending Department of Neurology The patient and/or family consented to consult based on capacity assessment specifically for use inpatients with acute stroke symptoms. The hosting facility is responsible to follow standard procedure to explained to the patient and/or family the remote visit will be submitted to their insurance and that they are responsible for any copay or deductible charges. Risk and benefits were explained to the patient and/or family by requesting provider and indicated his/her understanding of the details and a willingness to undergo treatment, receiving assessment, diagnosis, management, and/or remote consultative support while exhibiting signs and symptoms consistent with acute strokesyndrome, using HIPAA compliant telemedicine communication technologies. Video visit [facility] Total time: 70min Other individuals taking part in remote visit: VINEET This chart was generated by the InfoVista system and Kato speech recognition software and may contain inherent errors or omissions not intended by the user. Grammatical errors, random word insertions, deletions, pronoun errors and incomplete sentences are occasional consequences of this technologydue to software limitations. Not all errors are caught or corrected. If there are questions or concerns about the content of this note or information contained within the body of this dictation they should be addressed directly with the author for clarification. [1] Past Medical History: Diagnosis Date Acute migraine Anxiety Bipolar 1 disorder ([facility] V24, [facility] V28) Depression Gestational hypertension Kidney stone [2] Medications Prior to Admission Medication Sig Dispense Refill Last Dose/Taking ARIPiprazole (ABILIFY) 10 mg tablet Take 1 tablet (10 mg total) by mouth 1 (one) time each day. Unknown kexmwcknoa-qvqhgjjrkgqwf-zuxezolx (FIORICET, ESGIC) 50-325-40 mg per tablet Take 1 tablet by mouth every 6 (six) hours if needed for headaches for up to 30 doses. Max Daily Amount: 4 tablets (Patientnot taking: Reported on 08/22/2025) 20 tablet 0 Not Taking DULoxetine (CYMBALTA) [address] capsule Take 2 capsules (120 mg total) by mouth 1 (one) time each day. Unknown Emgality Pen 120 mg/mL injection pen Inject 1 mL (120 mg total) under the skin 1 (one) time. Unknown lamoTRIgine (LaMICtal) 200 mg tablet Take 1 tablet (200 mg total) by mouth 1 (one) time each day. Unknown topiramate (TOPAMAX) 50 mg tablet Take 2 tablets (100 mg total) by mouth at bedtime. at bedtime Unknown [3] [START ON 08/23/2025] ARIPiprazole, 10 mg, oral, Nightly DULoxetine, 120 mg, oral, Daily [START ON 08/23/2025] lamoTRIgine, 200 mg, oral, Nightly [4] [5] PRN medications: acetaminophen, ondansetron (ZOFRAN-ODT) disintegrating tablet OR ondansetron [6] Allergies Allergen Reactions Vraylar [Cariprazine] [7] No family history on file. documented in this encounter Plan of Treatment Not on file documented as of this encounter Procedures Procedure Name Priority Date/Time Associated Diagnosis Comments CBC WITH AUTO DIFFERENTIAL STAT 08/22/2025 3:19 AM EST CBC AND DIFFERENTIAL STAT 08/22/2025 3:19 AM EST HCG, SERUM, QUALITATIVE STAT 08/22/2025 3:19 AM EST BASIC METABOLIC PANEL STAT 08/22/2025 3:19 AM EST documented in this encounter Results * (ABNORMAL) CBC auto differential (08/22/2025 3:19 AM EST) WBC 12.1(H) 4.8 - 10.8 K/mcL LAB HEMETOLOGY METHOD 08/22/2025 3:59 AM [facility] RBC 4.20 3.80 - 4.80 M/mcL LAB HEMETOLOGY METHOD 08/22/2025 3:59 AM [facility] Hemoglobin 12.4 11.5 - 16.0 g/dL LAB HEMETOLOGY METHOD 08/22/2025 3:59 AM [facility] Hematocrit 36.4 35.0 - 47.0 % LAB HEMETOLOGY METHOD 08/22/2025 3:59 AM [facility] MCV 87.7 79.0 - 98.0 FL LAB HEMETOLOGY METHOD 08/22/2025 3:59 AM [facility] MCH 29.9 27.0 - 32.0 pcg LAB HEMETOLOGY METHOD 08/22/2025 3:59 AM [facility] MCHC 34.1 32.0 - 37.0 g/dL LAB HEMETOLOGY METHOD 08/22/2025 3:59 AM [facility] RDW 12.2 11.0 - 15.0 % LAB HEMETOLOGY METHOD 08/22/2025 3:59 AM [facility] Platelets 357 130 - 400 K/mcL LAB HEMETOLOGY METHOD 08/22/2025 3:59 AM [facility] MPV 9.7 7.0 - 11.0 FL LAB HEMETOLOGY METHOD 08/22/2025 3:59 AM [facility] NRBC 0.0 <1.0 % LAB HEMETOLOGY METHOD 08/22/2025 3:59 AM [facility] NRBC Absolute 0.00 <0.10 K/mcL LAB HEMETOLOGY METHOD 08/22/2025 3:59 AM [facility] Neutrophils Relative 84.9 % LAB HEMETOLOGY METHOD 08/22/2025 3:59 AM [facility] Lymphocytes Relative 9.7 % LAB HEMETOLOGY METHOD 08/22/2025 3:59 AM [facility] Monocytes Relative 4.8 % LAB HEMETOLOGY METHOD 08/22/2025 3:59 AM [facility] Eosinophils Relative 0.0 % LAB HEMETOLOGY METHOD 08/22/2025 3:59 AM [facility] Basophils Relative 0.2 % LAB HEMETOLOGY METHOD 08/22/2025 3:59 AM [facility] Immature Granulocytes Relative 0.4 % LAB HEMETOLOGY METHOD 08/22/2025 3:59 AM [facility] Neutrophils Absolute 10.30(H) 1.50 - 7.00 K/mcL LAB HEMETOLOGY METHOD 08/22/2025 3:59 AM [facility] Lymphocytes Absolute 1.18 1.00 - 5.00 K/mcL LAB HEMETOLOGY METHOD 08/22/2025 3:59 AM [facility] Monocytes Absolute 0.58 0.20 - 1.00 K/mcL LAB HEMETOLOGY METHOD 08/22/2025 3:59 AM [facility] Eosinophils Absolute 0.00 0.00 - 0.50 K/mcL LAB HEMETOLOGY METHOD 08/22/2025 3:59 AM [facility] Basophils Absolute 0.02 0.00 - 0.20 K/mcL LAB HEMETOLOGY METHOD 08/22/2025 3:59 AM EST [facility] Immature Granulocytes Absolute 0.05(H) 0.00 - 0.03 K/mcL LAB HEMETOLOGY METHOD 08/22/2025 3:59 AM EST [facility] Blood Venous blood specimen / Unknown Venipuncture / Unknown 08/22/2025 3:19 AM EST 08/22/2025 3:54 AM EST [facility] BLOOD ORDERABLES Final Result [facility] [address] [place] [address], [place] [phone] * hCG Qualitative (08/22/2025 3:19 AM EST) hCG Qual Negative Negative 08/22/2025 5:12 AM EST [facility] Blood Venous blood specimen / Unknown Venipuncture / Unknown 08/22/2025 3:19 AM EST 08/22/2025 3:54 AM EST [facility] BLOOD ORDERABLES Final Result Performing Organization Address City/[facility]/ZIP Co de Phone Number [facility] [address] [place] [address], [place] [phone] * (ABNORMAL) Basic Metabolic Panel (BMP) (08/22/2025 3:19 AM EST) Sodium 142 133 - 145 mmol/L 08/22/2025 4:29 AM EST [facility] Potassium 4.1 3.5 - 5.5 mmol/L 08/22/2025 4:29 AM EST [facility] Chloride 107 96 - 110 mmol/L 08/22/2025 4:29 AM EST [facility] CO2 23 21 - 32 mmol/L 08/22/2025 4:29 AM [facility] Anion Gap 12(H) 3 - 11 08/22/2025 4:29 AM [facility] Glucose 159(H) 70 - 100 mg/dL 08/22/2025 4:29 AM [facility] BUN 15 5 - 25 mg/dL 08/22/2025 4:29 AM [facility] Creatinine 0.72 0.50 - 1.10 mg/dL 08/22/2025 4:29 AM [facility] eGFR 118 >=60 mL/min/1. 73m2 08/22/2025 4:29 AM [facility] Comment:Calculation based on the Chronic Kidney Disease Epidemiology Collaboration (CKD-EPI) equation refit without adjustment for race. BUN/Creatinine Ratio 20.8 08/22/2025 4:29 AM [facility] Calcium 9.4 8.5 - 10.5 mg/dL 08/22/2025 4:29 AM [facility] Blood Venous blood specimen / Unknown Venipuncture / Unknown 08/22/2025 3:19 AM EST 08/22/2025 3:54 AM EST us [facility] BLOOD ORDERABLES Final Result [facility] [address] [place] [address], documented in this encounter Visit Diagnoses Diagnosis Migraines- Primary Migraine, unspecified, without mention of intractable migraine without mention of status migrainosus Nonintractable headache, unspecified chronicity pattern, unspecified headache type Migraine with aura and without status migrainosus, not intractable documented in this encounter Admitting Diagnoses Diagnosis Migraines Migraine, unspecified, without mention of intractable migraine without mention of status migrainosus documented in this encounter Administered Medications Inactive Administered Medications - up to 3 most recent administrations Medication Order MAR Action Action Date Dose Rate Site acetaminophen (TYLENOL) tablet 650 mg 650 mg, oral, Every 4 hours PRN, mild pain, headaches, fever - temperature GREATER than 38 C (100.4 F), Starting on Wed08/22/25 at 0340 ARIPiprazole (ABILIFY) tablet 10 mg 10 mg, oral, Nightly, First dose (after last modification) on Mell 08/23/25 at 2100 DULoxetine (CYMBALTA) DR capsule 120 mg 120 mg, oral, Daily, First dose on Wed08/22/25 at 0430, Do not crush or chew. Given 08/22/2025 5:03 AM EST 120 mg ketorolac (TORADOL) injection 15 mg 15 mg, intravenous, Once, On Wed08/22/25 at 0340, For 1 dose Given 08/22/2025 4:12 AM EST 15 mg lamoTRIgine (LaMICtal) tablet 200 mg 200 mg, oral, Nightly, First dose (after last modification) on Mell 08/23/25 at 2100 magnesium sulfate 2 gram/50 mL (4 %) IVPB 2 g 2 g, intravenous, at 25 mL/hr, Administer over 2 Hours, Once, On Wed08/22/25 at 0343, For 1 dose New Bag 08/22/2025 4:10 AM EST 2 g 25 mL/hr ondansetron (PF) (ZOFRAN) injection 4 mg 4 mg, intravenous, Every 8 hours PRN, vomiting, nausea, Starting on Wed08/22/25 at 0341, -ONLY give IV if patient is unable to take orally. -If inadequate response within 30 minutes, proceed to next-line agent or contact provider if no further options ordered. ondansetron ODT (ZOFRAN-ODT) disintegrating tablet 4 mg 4 mg, oral, Every 8 hours PRN, vomiting, nausea, Starting on Wed08/22/25 at 0341, -Give IV if patient is unable to take orally. -If inadequate response within 30 minutes, proceed to next-line agent or contact provider if no further options ordered. For ODT tablets: -Do not remove from blister pack until just before administering. -Patient should allow tablet to dissolve on tongue. prochlorperazine (COMPAZINE) injection 10 mg 10 mg, intravenous, Once, On Wed08/22/25 at 0340, For 1 dose Given 08/22/2025 4:13 AM EST 10 mg documented in this encounter Discontinued Medications Medication Sig Discontinue Reason Start Date End Da te topiramate (TOPAMAX) 50 mg tablet Take 2 tablets (100 mg total) by mouth at bedtime. at bedtime 08/08/2025 08/22/2025 butalbital-acetaminop hen-caffeine (FIORICET, ESGIC) 50-325-40 mg per tablet Take 1 tablet by mouth every 6 (six) hours if needed for headaches for up to 30 doses. Max Daily Amount: 4 tablets Stop Taking at Discharge 08/15/2025 08/22/2025 documented as of this encounter Historical Medications * This list may reflect changes made after this encounter. lamoTRIgine (LaMICtal) 200 mg tablet Take 1 tablet (200 mg total) by mouth 1 (one) time each day. 08/08/2025 Emgality Pen 120 mg/mL injection pen Inject 1 mL (120 mg total) under the skin 1 (one) time. 08/02/2025 DULoxetine (CYMBALTA) [address] capsule Take 2 capsules (120 mg total) by mouth 1 (one) time each day. 08/12/2025 ARIPiprazole (ABILIFY) 10 mg tablet Take 1 tablet (10 mg total) by mouth 1 (one) time each day. 08/08/2025 topiramate (TOPAMAX) 50 mg tablet Take 2 tablets (100 mg total) by mouth at bedtime. at bedtime 08/08/2025 08/22/2025 added in this encounter Active and Recently Administered Medications Times are shown in EST. Scheduled Medication Order 08/20/2025 08/21/2025 08/22/2025 ARIPiprazole (ABILIFY) tablet 10 mg 10 mg, oral, Nightly, First dose (after last modification) on Mell 08/23/25 at 2100 DULoxetine (CYMBALTA) DR capsule 120 mg 120 mg, oral, Daily, First dose on Wed08/22/25 at 0430, Do not crush or chew. 0503 (Given - Provid er: Heather Mullen RN) ketorolac (TORADOL) injection 15 mg (COMPLETED) 15 mg, intravenous, Once, On Wed08/22/25 at 0340, For 1 dose 041 (Given - Provid er: Heather Mullen RN) lamoTRIgine (LaMICtal) tablet 200 mg 200 mg, oral, Nightly, First dose (after last modification) on Mell 08/23/25 at 2100 magnesium sulfate 2 gram/50 mL (4 %) IVPB 2 g (COMPLETED) 2 g, intravenous, at 25 mL/hr, Administer over 2 Hours, Once, On Wed08/22/25 at 0343, For 1 dose 041 (New Bag - Prov ider: Heather Mullen RN)0828 (Stopped - Provider: Yahaira Flores RN) prochlorperazine (COMPAZINE) injection 10 mg (COMPLETED) 10 mg, intravenous, Once, On Wed08/22/25 at 0340, For 1 dose 041 (Given - Provid er: Heather Mullen RN) PRN Medication Order 08/20/2025 08/21/2025 08/22/2025 acetaminophen (TYLENOL) tablet 650 mg 650 mg, oral, Every 4 hours PRN, mild pain, headaches, fever - temperature GREATER than 38 C (100.4 F), Starting on Wed08/22/25 at 0340 ondansetron (PF) (ZOFRAN) injection 4 mg(Linked Group 1) 4 mg, intravenous, Every 8 hours PRN, vomiting, nausea, Starting on Wed08/22/25 at 0341, -ONLY give IV if patient is unable to take orally. -If inadequate response within 30 minutes, proceed to next-line agent or contact provider if no further options ordered. ondansetron ODT (ZOFRAN-ODT) disintegrating tablet 4 mg(Linked Group 1) 4 mg, oral, Every 8 hours PRN, vomiting, nausea, Starting on Wed08/22/25 at 0341, -Give IV if patient is unable to take orally. -If inadequate response within 30 minutes, proceed to next-line agent or contact provider if no further options ordered. For ODT tablets: -Do not remove from blister pack until just before administering. -Patient should allow tablet to dissolve on tongue. Linked Groups Order Group 1: ondansetron ODT (ZOFRAN-ODT) disintegrating tablet 4 mgJump to med 4 mg, oral, Every 8 hours PRN, vomiting, nausea, Starting on Wed08/22/25 at 0341, -Give IV if patient is unable to take orally. -If inadequate response within 30 minutes, proceed to next-line agent or contact provider if no further options ordered. For ODT tablets: -Do not remove from blister pack until just before administering. -Patient should allow tablet to dissolve on tongue. Or ondansetron (PF) (ZOFRAN) injection 4 mgJump to med 4 mg, intravenous, Every 8 hours PRN, vomiting, nausea, Starting on Wed08/22/25 at 0341, -ONLY give IV if patient is unable to take orally. -If inadequate response within 30 minutes, proceed to next-line agent or contact provider if no further options ordered. documented in this encounter Orders Medications Ordered That Luther ht Not Have Been Administered Count Last Ordered Date First Ordered Date acetaminophen (TYLENOL) tablet 650 mg 1 ARIPiprazole (ABILIFY) tablet 10 mg 2 08/22 diphenhydrAMINE (BENADRYL) injection 25 mg 1 08/22/2025 lamoTRIgine (LaMICtal) tablet 200 mg 2 07/29 ondansetron (PF) (ZOFRAN) injection 4 mg 1 08/22/2025 ondansetron ODT (ZOFRAN-ODT) disintegrating tablet 4 mg 2 08/22/2025 08/21/2025 Consult Count Last Ordered Date First Orde red Date IP CONSULT TO NEUROLOGY 1 08/22/2025 Admission Count Last Ordered Date First Orde red Date INITIATE OBSERVATION STATUS 1 08/22/2025 Transfer Count Last Ordered Date First Orde red Date ED TO FLOOR BED REQUEST 1 08/22/2025 Discharge Count Last Ordered Date First Orde red Date DISCHARGE PATIENT 1 08/22/2025 documented in this encounter Care Teams Railroad Dispatcher Relationship Specialty Start Date End Date Dm Lakhani MD [address] [place] [id number] PCP - General Family Medicine 08/15/25 documented as of this encounter
--- NOTE | ~2025-08-25 | MR_ITS ---
CLINICAL HISTORY: H53.9 - Unspecified visual disturbance --- Additional Notes or Special Instructions: new onset bilateral visual aura loss, left-eye twitching, and right-sided Exam: MRI of the brain, including gadolinium-enhanced imaging. Comparison: None. Findings: There is no cerebral edema or mass effect. White matter reveals punctate foci of T2 hyperintensity common nonspecific although likely sequela of minimal chronic microangiopathic disease. Diffusion weighted imaging reveals no restricted diffusion or evidence of acute ischemia. Susceptibility weighted imaging reveals no susceptibility artifact or evidence of intracranial hemorrhage. Ventricular size and configuration are within normal limits. Cerebral cisterns are preserved. Gadolinium enhanced imaging reveals no enhancing lesions. Paranasal sinuses and mastoid air cells reveal no focal signal abnormality. Impression: 1. No acute intracranial abnormalities. This document has been electronically signed by: Bruce Beltrán MD on 08/25/2025 16:33:03
--- OUTSIDE RECORDS SUMMARY | 2025-08-25 15:14 | XMS_ITS | Patient Health Record ---
Author Organization [email or web address] Address [address] [address] Care Team Providers Care Ordnance Artificer Helper Name Role Phone Maritza Dale Unavailable [phone] Reason For Referral No Information Encounters Encounter Location Date Provider Diagnosis [facility] [email or web address] [address] [address] 2024 Maritza Dale Plan Of Treatment No Information Insurance Providers Payer Name Payer Address Payer Phone Subscriber Number Group Number Insured Name Patient Relationship to Insured Coverage Start Date Coverage End Date /[employer] [address] [place] [id number] [phone] BRANDYN CHENEY Self - patient is the insured
--- OUTSIDE RECORDS SUMMARY | 2025-08-25 15:15 | XMS_ITS | Clinical Summary ---
Author Organization [facility] [address] [facility] Address [address] [place] [address] Phone Care Team Providers Care Fashion Supervisor Name Role Phone Dm Lakhani MD Primary Care Provider [phone] Allergies Active Allergy Reactions Criticality Noted Date Comments Cariprazine 08/22/2025 Medications ARIPiprazole (ABILIFY) 10 mg tablet Take 1 tablet (10 mg total) by mouth 1 (one) time each day. 08/08/20 25 Active DULoxetine (CYMBALTA) [address] capsule Take 2 capsules (120 mg total) by mouth 1 (one) time each day. 08/12/20 25 Active Emgality Pen 120 mg/mL injection pen Inject 1 mL (120 mg total) under the skin 1 (one) time. 08/02/20 25 Active lamoTRIgine (LaMICtal) 200 mg tablet Take 1 tablet (200 mg total) by mouth 1 (one) time each day. 08/08/20 25 Active lamoTRIgine (LaMICtal) 25 mg tablet Take 2 tablets (50 mg total) by mouth 1 (one) time each day in the morning. 60 each 08/22/20 25 025 Active topiramate (TOPAMAX) 25 mg tablet Take 2 tablets (50 mg total) by mouth at bedtime for 2 days, THEN 1 tablet (25 mg total) at bedtime for 5 days. at bedtime. 9 each 08/22/20 25 025 Active ubrogepant (UBRELVY) 100 mg tabletIndicatio ns:Migraine with aura and without status migrainosus, not intractable Take 1 tablet (100 mg total) by mouth 1 (one) time each day if needed for migraine (max 6 tab a month). 6 tablet 08/22/20 Active naproxen (EC-Naprosyn) 500 mg EC tablet Take 1 tablet (500 mg total) by mouth 1 (one) time each day with breakfast for 20 days. Do not crush, chew, or split. Take Naproxen while waiting for Ubrevly approval 20 tablet 08/22/20 Active butalbital-acet aminophen-caffe ine (FIORICET, ESGIC) 50-325-40 mg per tablet Take 1 tablet by mouth every 6 (six) hours if needed for headaches for up to 30 doses. Max Daily Amount: 4 tablets 20 tablet 08/15/20 25 025 Discontinued butalbital-acet aminophen-caffe ine (FIORICET, ESGIC) 50-325-40 mg per tablet Take 1 tablet by mouth every 6 (six) hours if needed for headaches for up to 30 doses. Max Daily Amount: 4 tablets 20 tablet 08/15/20 25 025 Discontinued butalbital-acet aminophen-caffe ine (FIORICET, ESGIC) 50-325-40 mg per tablet Take 1 tablet by mouth every 6 (six) hours if needed for headaches for up to 30 doses. Max Daily Amount: 4 tablets 20 tablet 08/15/20 025 Discontinued(St op Taking at Discharge) topiramate (TOPAMAX) 50 mg tablet Take 2 tablets (100 mg total) by mouth at bedtime. at bedtime 08/08/20 025 Discontinued Active Problems Problem Noted Date Diagnosed Date Migraines 08/22/2025 Encounters Date Type Department Care Team Description 08/22/2025 1:50 AM EST - 08/22/2025 5:07 PM EST Hospital Encounter [facility] [address] [place] [id number] Leland Sahu MD Nasser, Nada S, MD Nonintractable headache, unspecified chronicity pattern, unspecified headache type (Primary Dx); Migraine with aura and without status migrainosus, not intractable Discharge Disposition: Home or Self Care 08/21/2025 10:22 AM EST - 08/21/2025 2:16 PM EST Emergency [facility] Emergency [address] [place] [address] Acute nonintractable headache, unspecified headache type (Primary Dx) Discharge Disposition: Home or Self Care 08/15/2025 9:26 AM EST - 08/15/2025 1:36 PM EST Emergency [facility] Emergency [address] [place] [phone] Saul Ruiz MD Other migraine without status migrainosus, not intractable (Primary Dx); Acute nonintractable headache, unspecified headache type Discharge Disposition: Home or Self Care 06/18/[address] [facility] - Main Lab [address] [facility] [place] [phone] Obdulio Caceres MD Calculus of kidney from Last 3 Months Surgical History Surgery Date Site/Laterality Comments SECTION WISDOM TOOTH EXTRACTION Medical History Medical History Date Comments Acute migraine Bipolar 1 disorder ([facility] V24, [facility] V28) Depression Anxiety Kidney stone Gestational hypertension Social History Tobacco Use Types Packs/Day Years [...] on file Sexual Orientation Not on file Obstetrics History Last Filed Vital Signs Vital Sign Reading [...] Mass Index 36.33 08/22/2025 3:21 AM EST Plan of Treatment Health Maintenance Due Date Last Done Comments HPV Vaccines (1 - 3-dose series) 2013 DTaP,Tdap,and Td Vaccines (1 - Tdap) 2017 Hepatitis B Vaccines (1 of 3 - 19+ 3-dose series) 2017 Cervical Cancer Screening: P ap Smear 2019 HIV Screening 09/21/2024 Hepatitis C Screening 09/21/2024 Social Influencers of Health Screening 09/21/2024 Depression Screening 09/27/2024 COVID-19 Vaccine (1 - 2024-2 6 season) 2025 Influenza Vaccine (#1) 2025 4, 07/27/2023 RSV Immunization Adult Patients (1 - 1-dose 75+ series) 2073 HIB [...] age to complete this topic Pneumococcal Vaccine: Pediatrics (0 to 5 Years) and At-Risk Patients (6 to 49 Years) Aged Out No longer eligible b ased on patient's age to complete this topic RSV Immunization Patients Under 20 months Aged Out No longer eligible [...] METABOLIC PANEL STAT 08/22/2025 3:19 AM EST ECG ANNOTATED 08/22/2025 CT ANGIO HEAD/NECK WO AND/OR W CONTRAST STAT 08/21/2025 12:35 PM EST HCG, QUANTITATIVE STAT Add-on 08/21/2025 11: 14 AM EST CBC WITH AUTO DIFFERENTIAL STAT 08/21/2025 11:14 AM EST MAGNESIUM STAT 08/21/2025 11:14 AM EST COMPREHENSIVE METABOLIC PANEL STAT 08/21/2025 11:14 AM EST CBC AND DIFFERENTIAL STAT 08/21/2025 11:14 AM EST ECG 12-LEAD STAT 08/21/2025 11:04 AM EST POC , URINE DIAGNOSTIC STAT 08/21/2025 10:55 AM EST STONE ANALYSIS Routine 06/18/2025 12:00 AM EDT Calculus of kidney from Last 3 Months Results * (ABNORMAL) CBC auto differential (08/22/2025 3:19 AM EST) Only the most recent of2 resultswithin the time period is included. WBC 12.1(H) 4.8 - 10.8 K/mcL LAB HEMETOLOGY METHOD 08/22/2025 3:59 AM [facility] RBC 4.20 3.80 - 4.80 M/mcL LAB HEMETOLOGY METHOD 08/22/2025 3:59 AM [facility] Hemoglobin 12.4 11.5 - 16.0 g/dL LAB HEMETOLOGY METHOD 08/22/2025 3:59 AM [facility] Hematocrit 36.4 35.0 - 47.0 % LAB HEMETOLOGY METHOD 08/22/2025 3:59 AM [facility] MCV 87.7 79.0 - 98.0 FL LAB HEMETOLOGY METHOD 08/22/2025 3:59 AM [facility] MCH 29.9 27.0 - 32.0 pcg LAB HEMETOLOGY METHOD 08/22/2025 3:59 AM [facility] MCHC 34.1 32.0 - 37.0 g/dL LAB HEMETOLOGY METHOD 08/22/2025 3:59 AM [facility] RDW 12.2 11.0 - 15.0 % LAB HEMETOLOGY METHOD 08/22/2025 3:59 AM [facility] Platelets 357 130 - 400 K/mcL LAB HEMETOLOGY METHOD 08/22/2025 3:59 AM [facility] MPV 9.7 7.0 - 11.0 FL LAB HEMETOLOGY METHOD 08/22/2025 3:59 AM [facility] NRBC 0.0 <1.0 % LAB HEMETOLOGY METHOD 08/22/2025 3:59 AM [facility] NRBC Absolute 0.00 <0.10 K/mcL LAB HEMETOLOGY METHOD 08/22/2025 3:59 AM [facility] Neutrophils Relative 84.9 % LAB HEMETOLOGY METHOD 08/22/2025 3:59 AM [facility] Lymphocytes Relative 9.7 % LAB HEMETOLOGY METHOD 08/22/2025 3:59 AM [facility] Monocytes Relative 4.8 % LAB HEMETOLOGY METHOD 08/22/2025 3:59 AM [facility] Eosinophils Relative 0.0 % LAB HEMETOLOGY METHOD 08/22/2025 3:59 AM [facility] Basophils Relative 0.2 % LAB HEMETOLOGY METHOD 08/22/2025 3:59 AM [facility] Immature Granulocytes Relative 0.4 % LAB HEMETOLOGY METHOD 08/22/2025 3:59 AM EST [facility] Neutrophils Absolute 10.30(H) 1.50 - 7.00 K/mcL LAB HEMETOLOGY METHOD 08/22/2025 3:59 AM EST [facility] Lymphocytes Absolute 1.18 1.00 - 5.00 K/mcL LAB HEMETOLOGY METHOD 08/22/2025 3:59 AM EST [facility] Monocytes Absolute 0.58 0.20 - 1.00 K/mcL LAB HEMETOLOGY METHOD 08/22/2025 3:59 AM EST [facility] Eosinophils Absolute 0.00 0.00 - 0.50 K/mcL LAB HEMETOLOGY METHOD 08/22/2025 3:59 AM EST [facility] Basophils Absolute 0.02 0.00 - 0.20 K/mcL LAB HEMETOLOGY METHOD 08/22/2025 3:59 AM EST [facility] Immature Granulocytes Absolute 0.05(H) 0.00 - 0.03 K/mcL LAB HEMETOLOGY METHOD 08/22/2025 3:59 AM EST [facility] Blood Venous blood specimen / Unknown Venipuncture / Unknown 08/22/2025 3:19 AM EST 08/22/2025 3:54 AM EST Dionisio GUADALUPE LAB BLOOD ORDERABLES Final Result [facility] [address] [place] [address], * hCG Qualitative (08/22/2025 3:19 AM EST) hCG Qual Negative Negative 08/22/2025 5:12 AM EST [facility] Blood Venous blood specimen / Unknown Venipuncture / Unknown 08/22/2025 3:19 AM EST 08/22/2025 3:54 AM EST us Dionisio GUADALUPE LAB BLOOD ORDERABLES Final Result [facility] [address] [place] [address], * (ABNORMAL) Basic Metabolic Panel (BMP) (08/22/2025 3:19 AM EST) Sodium 142 133 - 145 mmol/L 08/22/2025 4:29 AM [facility] Potassium 4.1 3.5 - 5.5 mmol/L 08/22/2025 4:29 AM [facility] Chloride 107 96 - 110 mmol/L 08/22/2025 4:29 AM [facility] CO2 23 21 - 32 mmol/L 08/22/2025 4:29 AM [facility] Anion Gap 12(H) 3 - 11 08/22/2025 4:29 AM [facility] Glucose 159(H) 70 - 100 mg/dL 08/22/2025 4:29 AM [facility] BUN 15 5 - 25 mg/dL 08/22/2025 4:29 AM [facility] Creatinine 0.72 0.50 - 1.10 mg/dL 08/22/2025 4:29 AM [facility] eGFR 118 >=60 mL/min/1. 73m2 08/22/2025 4:29 AM [facility] Comment:Calculation based on the Chronic Kidney Disease Epidemiology Collaboration (CKD-EPI) equation refit without adjustment for race. BUN/Creatinine Ratio 20.8 08/22/2025 4:29 AM [facility] Calcium 9.4 8.5 - 10.5 mg/dL 08/22/2025 4:29 AM [facility] Blood Venous blood specimen / Unknown Venipuncture / Unknown 08/22/2025 3:19 AM EST 08/22/2025 3:54 AM EST Dionisio GUADALUPE LAB BLOOD ORDERABLES Final Result [facility] ([facility]) [facility] [address] [place] [address], * ECG-Annotated (08/22/2025) Provider Onbase ECG ORDERABLES Final Result * CT Angio Head/Neck wo and/or w Contrast (08/21/2025 12:35 PM EST) Anatomical Region Laterality Modality Head and Neck Computed Tomogra phy 08/21/2025 12:5 5 PM EST Impressions 08/21/2025 1:02 PM EST 1. No acute intracranial findings. 2. Normal CT angiogram of the neck and eyak of [place]. -------- FINAL REPORT -------- Dictated By: Anson Mcmahan Dictated Date: 08/21/2025 12:55 ET Assigned Physician: Anson Mcmahan Reviewed and Electronically Signed By: Anson Mcmahan Signed Date: 08/21/2025 13:02 ET Workstation ID: [id number] Transcribed By: Self Edit Transcribed Date: 08/21/2025 12:55 ET Narrative 08/21/2025 1:02 PM EST PROCEDURE: CT angiogram of the neck and eyak of [place] and delayed postcontrast CT of the brain. HISTORY: dizziness double vision/neck pain (ongoing x 1 week so stroke protocol not ordered). COMPARISON: None. TECHNIQUE: CT angiogram of the neck and eyak of [place] with multiplanar reformats. 3-D reconstructions [...] dissection, or occlusion. The basilar artery and trade union secretary are widely patent. Bilateral posterior communicating arteries, [...] PROCEDURE: CT angiogram of the neck and eyak of [place] and delayedpostcontrast CT of the brain. HISTORY: dizziness double vision/neck pain (ongoing x 1 week so stroke protocol notordered). COMPARISON: None. TECHNIQUE: CT angiogram of the neck and eyak of [place] with multiplanarreformats. 3-D reconstructions were [...] stenosis, dissection, orocclusion. The basilar artery and trade union secretary are widely patent. Bilateral posteriorcommunicating arteries, larger [...] Normal CT angiogram of the neck and eyak of [place]. -------- FINAL REPORT -------- Dictated By: Anson Mcmahan Dictated Date: 08/21/2025 12:55 ET Assigned Physician: Anson Mcmahan Reviewed and Electronically Signed By: Anson Mcmahan Signed Date: 08/21/2025 13:02 ET Workstation ID: [id number] Transcribed By: Self Edit Transcribed Date: 08/21/2025 12:55 ET Brit GUADALUPE IMG CT PROCEDURES Final Result * HCG, quantitative (08/21/2025 11:14 AM EST) hCG Quant <3 mIU/mL 08/21/2025 12:43 PM EST [facility] Blood Venous blood specimen / Unknown Venipuncture / Unknown 08/21/2025 11:14 AM EST 08/21/2025 11:37 AM EST Narrative [facility] - 08/21/2025 12:43 PM EST Quantitative HCG Reference Ranges Time after Conception MIU/ML 0.2-1 Week 5-50 1-2 Weeks 50-500 2-3 Weeks 100-5,000 3-4 Weeks 500-10,000 4-5 Weeks 1,000-50,000 5-6 Weeks 10,000-100,000 6-8 Weeks 15,000-200,000 2-3 Months 10,000-100,000 2nd Trimester 1,000-94,000 3rd Trimester 2,500-90,000 Non- Females 1-3 Brit GUADALUPE LAB BLOOD ORDERABLES Fin al Result [facility] [address] [place] [address], [place] [phone] * (ABNORMAL) Magnesium (08/21/2025 11:14 AM EST) Pathologist [facility] Magnesium 1.5(L) 1.9 - 2.6 mg/dL 08/21/2025 12:08 PM [facility] Blood Venous blood specimen / Unknown Venipuncture / Unknown 08/21/2025 11:14 AM EST 08/21/2025 11:37 AM EST Brit GUADALUPE LAB BLOOD ORDERABLES Fin al Result [facility] [address] [place] [address], [place] [phone] * Comprehensive metabolic panel (08/21/2025 11:14 AM EST) [facility] Sodium 138 133 - 145 mmol/L 08/21/2025 12:08 PM [facility] Potassium 3.8 3.5 - 5.5 mmol/L 08/21/2025 12:08 PM [facility] Chloride 104 96 - 110 mmol/L 08/21/2025 12:08 PM [facility] CO2 27 21 - 32 mmol/L 08/21/2025 12:08 PM [facility] Anion Gap 7 3 - 11 08/21/2025 12:08 PM [facility] Glucose 73 70 - 100 mg/dL 08/21/2025 12:08 PM [facility] BUN 13 5 - 25 mg/dL 08/21/2025 12:08 PM [facility] Creatinine 0.69 0.50 - 1.10 mg/dL 08/21/2025 12:08 PM [facility] eGFR 123 >=60 mL/min/1. 73m2 08/21/2025 12:08 PM [facility] Comment:Calculation based on the Chronic Kidney Disease Epidemiology Collaboration (CKD-EPI) equation refit without adjustment for race. BUN/Creatinine Ratio 18.8 08/21/2025 12:08 PM [facility] Calcium 8.6 8.5 - 10.5 mg/dL 08/21/2025 12:08 PM [facility] AST (SGOT) 26 10 - 42 unit/L 08/21/2025 12:08 PM [facility] ALT (SGPT) 26 10 - 60 unit/L 08/21/2025 12:08 PM [facility] Alkaline Phosphatase 89 42 - 121 unit/L 08/21/2025 12:08 PM [facility] Total Protein 7.1 6.0 - 8.0 g/dL 08/21/2025 12:08 PM [facility] Albumin 4.0 3.2 - 5.0 g/dL 08/21/2025 12:08 PM [facility] Total Bilirubin 0.3 0.0 - 1.4 mg/dL 08/21/2025 12:08 PM [facility] Blood Venous blood specimen / Unknown Venipuncture / Unknown 08/21/2025 11:14 AM EST 08/21/2025 11:37 AM EST us Brit GUADALUPE LAB BLOOD ORDERABLES Fin al Result [facility] [address] [place] [address], * ECG 12 lead (08/21/2025 11:04 AM EST) Ventricular Rate ECG 87 BPM GEMUSE Atrial Rate 87 BPM GEMUSE P-R Interval 146 ms GEMUSE QRS Duration 88 ms GEMUSE Q-T Interval 378 ms GEMUSE QTc 454 ms GEMUSE P Wave [place] 42 degrees GEMUSE R [place] 58 degrees GEMUSE T [place] 21 degrees GEMUSE ECG Interpretation Normal sinus rhythm Normal ECG No previous ECGs available Confirmed by Stephanie CORTES JOHN ([id number]) on 08/21/2025 5:21:24 PM GEMUSE 08/21/2025 11:0 4 AM EST 08/21/2025 5:21 PM EST Brit GUADALUPE ECG ORDERABLES Final Re sult GEMUSE * POC , urine manually resulted (08/21/2025 10:55 AM EST) HCG, Ur POC Negative Negative Urine Urine specimen obtained by clean catch procedure / Unknown 08/21/2025 10:55 AM EST Brit GUADALUPE POINT OF CARE TEST ENTER /EDIT ORDERABLES Final Result * Stone analysis (06/18/2025 12:00 AM EDT) Component(s) See below 06/21/2025 2:41 PM EDT [facility] Comment: 97% Calcium oxalate monohydrate ([place]) 3% Uric acid anhydrous Stone Weight 0.0148 g 06/21/2025 2:41 PM EDT [facility] Comment: This test was developed and its performance characteristics determined by [facility] in a manner consistent with CLIA requirements. This test has not been cleared or approved by the U.S. Food and Drug Administration. Test performed at [facility], [address] , [place], [place] [id number] Alice Hernandez MD, PhD - Vine Fruit Farming Supervisor Calculus 06/18/2025 06/18/2025 12: 10 PM EDT Obdulio Caceres MD LAB BODY FLUIDS AND STOOLS ORDER FLORINDA Final Result [place] [address] from Last 3 Months Insurance [facility] Advance Directives * Full Code - Default (Latest Code Status on File) Date Activated Date Inactivated Comments 08/22/2025 3:41 AM 08/22/2025 7:17 PM This is or schuyler is used when code status has not been discussed with the patient, or code status is otherwise unknown/unconfirmed To update the patient's code status, place a code status order. Do not modify or discontinue any currently active code status orders. Care Teams Fashion Supervisor Relationship Specialty Start Date End Date Dm Lakhani MD [address] [place] [id number] PCP - General Family Medicine 08/15/25
--- OUTSIDE RECORDS SUMMARY | 2025-08-25 15:15 | XMS_ITS | Encounter Summary ---
Author Organization [facility] Address [address] [place] [address] Care Team Providers Care Metal Ceiling Builder Name Role Phone Dm Lakhani MD Primary Care Provider [phone] Encounter Details Date Type Department Care Team (Late st Contact Info) Description 06/18/2025 Lab Requisition [facility] - Main Lab [address] [place] [address] Obdulio Caceres MD [address] [facility] [address] [place] [phone] Calculus of kidney Social History Tobacco Use [...] Food and Drug Administration. Test performed at [facility], [address], [place] [address] Alice Hernandez MD, PhD - Linen Aide Calculus 06/18/2025 06/18/2025 12: 10 PM EDT us Obdulio Caceres MD LAB BODY FLUIDS AND STOOLS ORDER FOLRINDA Final Result [facility] [address] [place] [address] documented in this encounter Visit Diagnoses Diagnosis Calculus of kidney documented in this encounter Care Teams Metal Ceiling Builder Relationship Specialty Start Date End Date Dm Lakhani MD [address] [place] [id number] PCP - General Family Medicine 08/15/25 documented as of this encounter
== END 2025-08-25 15:09 | disposition home or self-care (01) ==
LOC: HO.MRI 15:08
PROVIDERS: PCP Nurse Practitioner Family; Visit Provider Nurse Practitioner Family
DX: G51.4 Facial myokymia (principal); H53.9 Unspecified visual disturbance; H54.3 Unqualified visual loss, both eyes; R51.9 Headache, unspecified
CPT/HCPCS: 70553; A9585

== ENCOUNTER 2025-08-28 08:50 | Outpatient (AMB) | payer OTHER, SELFPAY ==
--- OUTSIDE RECORDS SUMMARY | 2024-09-28 05:20 | XMS_ITS ---
Author Organization [facility] Address [address] [address] Care Team Providers Care Tufter Name Role Phone Maritza Dale Unavailable [phone] REASON FOR VISIT ? MISSING IUD Encounters Encounter Location Date Provider Diagnosis [facility] [employer] [address] [address] 2024 Maritza Dale Plan Of Treatment No Information Progress Notes * BRANDYN CHENEYDOB: [birth year] (24 yo F)Acc No.[id number]:2024 Progress Note Patient: BRANDYN BAILEY Appointment Provider: Elizabet Dale M.D. :2000 A ge:24 Y S ex:Female Date:2024 Address:[address] [place], [place] [id number] Subjective: * Chief Complaints: * 1 . ? MISSING IUD. * Medical History: Objective: * Vitals: Assessment: Plan: * Treatment: * Images: Billing Information: * Visit Code: * Procedure Codes: * Electronic signature of Nicci Dale MD on 08/28/2025 at 09:03 AM EST Sign off status: Pending * Appointment Provider: Elizabet Dale M.D. Date: 0 2024 Generated for Jada ramey/Chris/Isabelaitting on: 10/29/2024 09:03 AM EST
--- OUTSIDE RECORDS SUMMARY | 2025-08-28 09:03 | XMS_ITS | Patient Health Record ---
Author Organization [facility] Address [address] [address] Care Team Providers Care Ship Fastener Name Role Phone Maritza Dale Unavailable [phone] Reason For Referral No Information Encounters Encounter Location Date Provider Diagnosis [facility] [address] [address] 2024 Maritza Dale Plan Of Treatment No Information Insurance Providers Payer Name Payer Address Payer Phone Subscriber Number Group Number Insured Name Patient Relationship to Insured Coverage Start Date Coverage End Date /[employer] [address] [place] [id number] [phone] BRANDYN CHENEY Self - patient is the insured
--- OUTSIDE RECORDS SUMMARY | 2025-08-28 09:03 | XMS_ITS | Clinical Summary ---
Author Organization [facility] [address] [facility] Address [address] [place] [address] Phone Care Team Providers Care Financial Officer Name Role Phone Dm Lakhani MD Primary Care Provider [phone] Allergies Active Allergy Reactions Criticality Noted Date [...] - 08/22/2025 5:07 PM EST Hospital Encounter [facility] [address] [place] [phone] Leland Sahu MD Nasser, Nada S, MD Nonintractable headache, unspecified chronicity pattern, unspecified headache type (Primary Dx); Migraine with aura and without status migrainosus, not intractable Discharge Disposition: Home or Self Care 08/21/2025 10:22 AM EST - 08/21/2025 2:[address] [facility] Emergency [address] [place] [address] Acute nonintractable headache, unspecified headache type (Primary Dx) Discharge Disposition: Home or Self Care 08/15/2025 9:26 AM EST - 08/15/2025 1:[address] [facility] [address] [place] [phone] Saul Ruiz MD Other migraine without status migrainosus, not intractable (Primary Dx); Acute nonintractable headache, unspecified headache type Discharge Disposition: Home or Self Care 06/18/2025 Lab Requisition [facility] - Main Lab [address] [facility] [place] [phone] Obdulio Caceres MD Calculus of kidney from Last 3 Months Surgical History Surgery Date Site/Laterality Comments SECTION WISDOM TOOTH EXTRACTION Medical History Medical History Date Comments Acute migraine Bipolar 1 disorder ([facility] V24, [facility] V28) Depression Anxiety Kidney stone Gestational hypertension [...] K/mcL LAB HEMETOLOGY METHOD 08/22/2025 3:59 AM [facility] RBC 4.20 3.80 - 4.80 M/mcL LAB HEMETOLOGY METHOD 08/22/2025 3:59 AM [facility] Hemoglobin 12.4 11.5 - 16.0 g/dL LAB HEMETOLOGY METHOD 08/22/2025 3:59 AM [facility] Hematocrit 36.4 35.0 - 47.0 % LAB HEMETOLOGY METHOD 08/22/2025 3:59 AM [facility] MCV 87.7 79.0 - 98.0 FL LAB HEMETOLOGY METHOD 08/22/2025 3:59 AM [facility] MCH 29.9 27.0 - 32.0 pcg LAB HEMETOLOGY METHOD 08/22/2025 3:59 AM [facility] MCHC 34.1 32.0 - 37.0 g/dL LAB HEMETOLOGY METHOD 08/22/2025 3:59 AM [facility] RDW 12.2 11.0 - 15.0 % LAB HEMETOLOGY METHOD 08/22/2025 3:59 AM [facility] Platelets 357 130 - 400 K/mcL LAB HEMETOLOGY METHOD 08/22/2025 3:59 AM [facility] MPV 9.7 7.0 - 11.0 FL LAB HEMETOLOGY METHOD 08/22/2025 3:59 AM [facility] NRBC 0.0 <1.0 % LAB HEMETOLOGY METHOD 08/22/2025 3:59 AM [facility] NRBC Absolute 0.00 <0.10 K/mcL LAB HEMETOLOGY METHOD 08/22/2025 3:59 AM [facility] Neutrophils Relative 84.9 % LAB HEMETOLOGY METHOD 08/22/2025 3:59 AM [facility] Lymphocytes Relative 9.7 % LAB HEMETOLOGY METHOD 08/22/2025 3:59 AM [facility] Monocytes Relative 4.8 % LAB HEMETOLOGY METHOD 08/22/2025 3:59 AM [facility] Eosinophils Relative 0.0 % LAB HEMETOLOGY METHOD 08/22/2025 3:59 AM [facility] Basophils Relative 0.2 % LAB HEMETOLOGY METHOD 08/22/2025 3:59 AM [facility] Immature Granulocytes Relative 0.4 % LAB HEMETOLOGY METHOD 08/22/2025 3:59 AM EST [facility] Neutrophils Absolute 10.30(H) 1.50 - 7.00 K/mcL LAB HEMETOLOGY METHOD 08/22/2025 3:59 AM EST [facility] Lymphocytes Absolute 1.18 1.00 - 5.00 K/mcL LAB HEMETOLOGY METHOD 08/22/2025 3:59 AM EST [facility] Monocytes Absolute 0.58 0.20 - 1.00 K/mcL LAB HEMETOLOGY METHOD 08/22/2025 3:59 AM EST [facility] Eosinophils Absolute 0.00 0.00 - 0.50 K/mcL LAB HEMETOLOGY METHOD 08/22/2025 3:59 AM EST [facility] Basophils Absolute 0.02 0.00 - 0.20 K/mcL LAB HEMETOLOGY METHOD 08/22/2025 3:59 AM EST [facility] Immature Granulocytes Absolute 0.05(H) 0.00 - 0.03 K/mcL LAB HEMETOLOGY METHOD 08/22/2025 3:59 AM EST [facility] Blood Venous blood specimen / Unknown Venipuncture / Unknown 08/22/2025 3:19 AM EST 08/22/2025 3:54 AM EST Dionisio GUADALUPE LAB BLOOD ORDERABLES Final Result [facility] [address] [place] [address], * hCG Qualitative (08/22/2025 3:19 AM EST) hCG Qual Negative Negative 08/22/2025 5:12 AM EST [facility] Blood Venous blood specimen / Unknown Venipuncture / Unknown 08/22/2025 3:19 AM EST 08/22/2025 3:54 AM EST us Dionisio GUADALUPE LAB BLOOD ORDERABLES Final Result [facility] [address] [place] [address], * (ABNORMAL) Basic Metabolic Panel (BMP) (08/22/2025 3:19 AM EST) Sodium 142 133 - 145 mmol/L 08/22/2025 4:29 AM [facility] Potassium 4.1 3.5 - 5.5 mmol/L 08/22/2025 4:29 AM [facility] Chloride 107 96 - 110 mmol/L 08/22/2025 4:29 AM [facility] CO2 23 21 - 32 mmol/L 08/22/2025 4:29 AM [facility] Anion Gap 12(H) 3 - 11 08/22/2025 4:29 AM [facility] Glucose 159(H) 70 - 100 mg/dL 08/22/2025 4:29 AM [facility] BUN 15 5 - 25 mg/dL 08/22/2025 4:29 AM [facility] Creatinine 0.72 0.50 - 1.10 mg/dL 08/22/2025 4:29 AM [facility] eGFR 118 >=60 mL/min/1. 73m2 08/22/2025 4:29 AM [facility] Comment:Calculation based on the Chronic Kidney Disease Epidemiology Collaboration (CKD-EPI) equation refit without adjustment for race. BUN/Creatinine Ratio 20.8 08/22/2025 4:29 AM [facility] Calcium 9.4 8.5 - 10.5 mg/dL 08/22/2025 4:29 AM [facility] Blood Venous blood specimen / Unknown Venipuncture / Unknown 08/22/2025 3:19 AM EST 08/22/2025 3:54 AM EST Dionisio GUADALUPE LAB BLOOD ORDERABLES Final Result [facility] [place] ([facility]) [facility] [address] [place] [address], * ECG-Annotated (08/22/2025) Provider Onbase ECG ORDERABLES Final Result * CT Angio Head/Neck wo and/or w Contrast (08/21/2025 12:35 PM EST) Anatomical Region Laterality Modality Head and Neck Computed Tomogra phy 08/21/2025 12:5 5 PM EST Impressions 08/21/2025 1:02 PM EST 1. No acute intracranial findings. 2. Normal CT angiogram of the neck and [place] of [place]. -------- FINAL REPORT -------- Dictated By: Anson Mcmahan Dictated Date: 08/21/2025 12:55 ET Assigned Physician: Anson Mcmahan Reviewed and Electronically Signed By: Anson Mcmahan Signed Date: 08/21/2025 13:02 ET Workstation ID: [id number] Transcribed By: Self Edit Transcribed Date: 08/21/2025 12:55 ET Narrative 08/21/2025 1:02 PM EST PROCEDURE: CT angiogram of the neck and [place] and delayed postcontrast CT of the brain. HISTORY: dizziness double vision/neck pain (ongoing x 1 week so stroke protocol not ordered). COMPARISON: None. TECHNIQUE: CT angiogram of the neck and [place] with multiplanar reformats. 3-D reconstructions [...] dissection, or occlusion. The basilar artery and lead teller are widely patent. Bilateral posterior communicating arteries, [...] PROCEDURE: CT angiogram of the neck and [place] and delayedpostcontrast CT of the brain. HISTORY: dizziness double vision/neck pain (ongoing x 1 week so stroke protocol notordered). COMPARISON: None. TECHNIQUE: CT angiogram of the neck and [place] with multiplanarreformats. 3-D reconstructions were [...] stenosis, dissection, orocclusion. The basilar artery and lead teller are widely patent. Bilateral posteriorcommunicating arteries, larger [...] Normal CT angiogram of the neck and [place] of [place]. -------- FINAL REPORT -------- Dictated By: Anson Mcmahan Dictated Date: 08/21/2025 12:55 ET Assigned Physician: Anson Mcmahan Reviewed and Electronically Signed By: Anson Mcmahan Signed Date: 08/21/2025 13:02 ET Workstation ID: [id number] Transcribed By: Self Edit Transcribed Date: 08/21/2025 12:55 ET Brit GUADALUPE IMG CT PROCEDURES Final Result * HCG, quantitative (08/21/2025 11:14 AM EST) hCG Quant <3 mIU/mL 08/21/2025 12:43 PM EST [facility] Blood Venous blood specimen / Unknown Venipuncture / Unknown 08/21/2025 11:14 AM EST 08/21/2025 11:37 AM EST Narrative [facility] - 08/21/2025 12:43 PM EST Quantitative HCG Reference Ranges Time after Conception MIU/ML 0.2-1 Week 5-50 1-2 Weeks 50-500 2-3 Weeks 100-5,000 3-4 Weeks 500-10,000 4-5 Weeks 1,000-50,000 5-6 Weeks 10,000-100,000 6-8 Weeks 15,000-200,000 2-3 Months 10,000-100,000 2nd Trimester 1,000-94,000 3rd Trimester 2,500-90,000 Non- Females 1-3 Brit GUADALUPE LAB BLOOD ORDERABLES Fin al Result [facility] [address] [place] [address], [place] [phone] * (ABNORMAL) Magnesium (08/21/2025 11:14 AM EST) Pathologist [facility] Magnesium 1.5(L) 1.9 - 2.6 mg/dL 08/21/2025 12:08 PM [facility] Blood Venous blood specimen / Unknown Venipuncture / Unknown 08/21/2025 11:14 AM EST 08/21/2025 11:37 AM EST Brit GUADALUPE LAB BLOOD ORDERABLES Fin al Result [facility] [address] [place] [address], [place] [phone] * Comprehensive metabolic panel (08/21/2025 11:14 AM EST) [facility] Sodium 138 133 - 145 mmol/L 08/21/2025 12:08 PM [facility] Potassium 3.8 3.5 - 5.5 mmol/L 08/21/2025 12:08 PM [facility] Chloride 104 96 - 110 mmol/L 08/21/2025 12:08 PM [facility] CO2 27 21 - 32 mmol/L 08/21/2025 12:08 PM [facility] Anion Gap 7 3 - 11 08/21/2025 12:08 PM [facility] Glucose 73 70 - 100 mg/dL 08/21/2025 12:08 PM [facility] BUN 13 5 - 25 mg/dL 08/21/2025 12:08 PM [facility] Creatinine 0.69 0.50 - 1.10 mg/dL 08/21/2025 12:08 PM [facility] eGFR 123 >=60 mL/min/1. 73m2 08/21/2025 12:08 PM [facility] Comment:Calculation based on the Chronic Kidney Disease Epidemiology Collaboration (CKD-EPI) equation refit without adjustment for race. BUN/Creatinine Ratio 18.8 08/21/2025 12:08 PM [facility] Calcium 8.6 8.5 - 10.5 mg/dL 08/21/2025 12:08 PM [facility] AST (SGOT) 26 10 - 42 unit/L 08/21/2025 12:08 PM [facility] ALT (SGPT) 26 10 - 60 unit/L 08/21/2025 12:08 PM [facility] Alkaline Phosphatase 89 42 - 121 unit/L 08/21/2025 12:08 PM [facility] Total Protein 7.1 6.0 - 8.0 g/dL 08/21/2025 12:08 PM [facility] Albumin 4.0 3.2 - 5.0 g/dL 08/21/2025 12:08 PM [facility] Total Bilirubin 0.3 0.0 - 1.4 mg/dL 08/21/2025 12:08 PM [facility] Blood Venous blood specimen / Unknown Venipuncture / Unknown 08/21/2025 11:14 AM EST 08/21/2025 11:37 AM EST us Brit GUADALUPE LAB BLOOD ORDERABLES Fin al Result [facility] [address] [place] [address], * ECG 12 lead (08/21/2025 11:04 AM EST) Ventricular Rate ECG 87 BPM GEMUSE Atrial Rate 87 BPM GEMUSE P-R Interval 146 ms GEMUSE QRS Duration 88 ms GEMUSE Q-T Interval 378 ms GEMUSE QTc 454 ms GEMUSE P Wave [place] 42 degrees GEMUSE R [place] 58 degrees GEMUSE T [place] 21 degrees GEMUSE ECG Interpretation Normal sinus [...] Component(s) See below 06/21/2025 2:41 PM EDT [facility] Comment: 97% Calcium oxalate monohydrate (Whewellite) 3% Uric acid anhydrous Stone Weight 0.0148 g 06/21/2025 2:41 PM EDT [facility] Comment: This test was developed and its performance characteristics determined by [facility] in a manner consistent with CLIA requirements. This test has not been cleared or approved by the U.S. Food and Drug Administration. Test performed at [facility], [address] , [place], [place] [id number] Alice Hernandez MD, PhD - Farm Appraiser Calculus 06/18/2025 06/18/2025 12: 10 PM EDT Obdulio Caceres MD LAB BODY FLUIDS AND STOOLS ORDER FLORINDA Final Result [place] [place] [address] from Last 3 Months Insurance [facility] Advance Directives * Full Code - Default [...] currently active code status orders. Care Teams Financial Officer Relationship Specialty Start Date End Date Dm Lakhani MD [address] [place] [phone] PCP - General Family Medicine 08/15/25
--- OUTSIDE RECORDS SUMMARY | 2025-08-28 09:04 | XMS_ITS | Encounter Summary ---
Author Organization [facility] Address [address] [place] [address] Care Team Providers Care Collection Coordinator Name Role Phone Dm Lakhani MD Primary Care Provider [phone] Encounter Details Date Type Department Care Team (Late st Contact Info) Description 06/18/2025 Lab Requisition [facility] - Main Lab [address] [place] [address] Obdulio Caceres MD [address] [facility] [address] [place] [phone] Calculus of kidney Social History Tobacco Use [...] Food and Drug Administration. Test performed at [facility], [address], [place] [address] Alice Hernandez MD, PhD - Logistics Solution Manager Calculus 06/18/2025 06/18/2025 12: 10 PM EDT us Obdulio Caceres MD LAB BODY FLUIDS AND STOOLS ORDER FLORINDA Final Result [facility] [address] [place] [address] documented in this encounter Visit Diagnoses Diagnosis Calculus of kidney documented in this encounter Care Teams Collection Coordinator Relationship Specialty Start Date End Date Dm Lakhani MD [address] [place] [phone] PCP - General Family Medicine 08/15/25 documented as of this encounter
--- NOTE | 2025-08-28 09:12 | A.OFFVIS_ITS ---
Vital Signs 08/28/25 09:18 Height 5 ft 6 in Weight 227 lb BMI 36.6 BP 120/90 H Blood Pressure Location Rt brachial Position Sitting Pulse 111 H Pulse Source Pulse Oximeter Pulse Oximetry (%) 97 Oxygen Delivery Method Room Air Intake Visit Reasons: f/u for symptoms of migraine [employer] Required: No Accompanied by: Self / Same As Patient Allergies Seasonal Allergies Allergy (Mild, Verified 08/28/25 09:22) Sneezing Medication List - Last Reconciled 08/28/25 by LUCY Rodriguez aripiprazole 5 mg PO DAILY 30 days aripiprazole 10 mg PO DAILY diclofenac potassium 50 mg PO Q12H PRN 30 days duloxetine 120 mg (2 x 60 mg) PO DAILY 30 days galcanezumab-gnlm (Emgality Pen) 240 mg (2 mL) subcut ONCE 30 days ibuprofen 600 mg PO Q6H PRN 30 days lamotrigine 100 mg PO BID 90 days levonorgestrel (Mirena) intrauterine topiramate 100 mg (2 x 50 mg) PO BEDTIME 30 days Ubrelvy (ubrogepant) 50 - 100 mg (0.5 - 1 x 100 mg) PO ONCE PRN 90 days NS HPI Comments Details: Right-handed 24-yr-old female presents for urgent f/u for worsening headache in setting of known h/o migraine and sleep difficulties. 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 She reports she recently had a telehealth optometry eval, and was advised to have a formal ophthalmology eval- appt She had not had a migraine since the last visit until 2 weeks ago, when someone sprayed a strong scent in the office, and since she has been having a daily headache, and increased visual and cognitive symptoms. She has had [facility] ER evals- for migraine with new visual symptoms that she had not had before. They suggested stopping topiramate. Since she has had: * bilateral vision blurriness, floaters, and right eye flashes of light, which is different from her usual migraine vision symptoms. * new episodes of cognitive difficulties, where she just cannot figure out how to speak or how to walk up the stairs. These episodes last 5-10 minutes, up to an hour. * often feeling brain fog and dazed. She has had to ask for a medical leave from work d/t all of her current symptoms, and especially the cognitive difficulties. She started the Emgality loading dose on 08/02/25. She has not rec'd Ubrelvy. 08/15/25, Addendum: The patient reached out to the office, reporting she had had atypical new symptoms: new onset bilateral visual aura/loss, left-eye twitching, and right- sided eye droop, facial tingling,, difficulties, difficulty speaking, dizziness, and headache. She stated the visual loss gradually over several minutes, but was profound vision loss. She has never had a migraine with any aura symptoms before. She has never had any these symptoms before, besides the headache. She denies preceding injury, fever, infection. She went to [facility] ER earlier today, he is to migraine cocktail, which was effective, though she still has right-sided headache. They did send her home with as needed Fioricet. No workup was conducted ER visit. Patient is advised: She may use the as-needed Fioricet for now, we will we are working on her Ubrelvy prior authorization-ordered at her last follow-up visit with us. Trial diclofenac 50 mg every 12 hours as needed for migraine headache. Hold ibuprofen while trialing diclofenac. She is advised to undergo urgent brain MRI with and without contrast, and head a nd neck CTA to assess for secondary underlying intracranial structural and/or intracranial/extracranial vascular etiologies new onset vision loss, unilateral facial weakness, tingling, eye droop, dizziness, and cognitive and speech difficulties. If symptoms recur, return to ER 07/28/2025, Addendum: The Prior authorization request for Aimovig was denied by the patient's in [employer]. Therefore, we will discontinue the Aimovig order and request Emgality instead. 07/23/2025, HPI: Patient reports she has been officially diagnosed with bipolar disorder, but she is not sure which subtype. She states she is currently experiencing a hypomaniac phase. She has had a recurrence of kidney stones- once since the last visit here. She is f/b [facility], [facility]dul[facility] Caceres. She has been having increased migraine attacks. She has been having an on again and off again migraine x's the last 3 weeks. The longest each migraine lasts is 2 days. Overall, she is having 14-16 migraine days per month. Sometimes, she wakes up with a very dull headache at a severity of 1-2/10, and as the day progresses, the migraine becomes more severe. She states urology does not think that she has to stop/change her topiramate. She tried Naratriptan, but it is not effective. Typically waits until headache is at a 3-4/10 intensity. She has not had the in-lab sleep study yet, as her started to work night shifts. No current plans for in the near future. control: Mirena. 01/17/2025, [facility] [place]: She has been noticing a slight uptick in her migraine frequency- not as severe as before. Now 2-3 attacks per month- which are milder. Most were milder, one was more intense, and lasted a few days. Tolerating topiramate well- has had some weight loss, and notes some mild not bothersome hand tingling. Using the naratriptan as needed. 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 Her initial ENT consult was rescheduled by the office. She has not had edvin f/u in-lab sleep study yet due to starting a new job. She continues to have snoring, daytime tiredness. 07/18/24 HPI: Pt reached out in April, with worsening migraine attacks. She stopped working as she was missing more days than not. At that time, pt was advised to start Topiramate 25-50mg qhs. Pt states that since starting the topiramate- taking 50mg, she has not had a migraine. She has had 1-2 mild headaches responsive to Tylenol. Naratriptan is effective, but has not needed to take it since she started the Topiramate. The topirmaate is causing some tingling in lips and feet- but she does not want to stop it for this. She has also had a 6lb wt loss, which she is happy with. She is prone to bloody noses. Continues to have sleep issues. Her HST showed AHI 3/hr w/ O2 barbara 85%. She has not heard from ENT office yet. Initial HPI from 01/11/24: Pt was referred her today to evaluate her for sleep apnea, as she has been having increased headache frequency and severity in the past 1.5 months, which have caused her to miss multiple days of work. Pt reports she had a HST 3 yrs ago in [place]. Per pt, results showed mild JACKLYN, but was so mild she was not offered any treatment options. She does not recall why she had that initial sleep study. She was diagnosed w/ insomnia around age 18-19 yo. Since, pt endorses a weight a 30-40 lb weight gain. Pt endorses:? Musculoskeletal disorders or injury: had a fall a few yrs ago, shifted her hips, has scoliosis- dx'd post-menarche, so no tx. Mood d/o:Anxiety, Depression, depression, Bilpolar type I d/o- but this is being re-evaluated. ENT- large tonsils, in which food becomes stuck at times Sleep: Endorses: Difficulty initiating and maintaining sleep, nocturia, Snoring even in prone position, Excessive daytime sleepiness, Fatigue, Restlessness when trying to go to sleep w/ urge to stretch/flex her legs But denies Leg Cramps CV disease: h/o gestational HTN Clotting or hematology d/o: Pertinent denials include: Parasomnias, hallucinations, sleep paralysis, drop attacks, usual morning headaches. History of concussion/head injury, Respiratory d/o, Clotting or hematology d/o, Endocrine or metabolic d/o, History of seizure, syncope, or drop attacks, GI d/o, Constipation, Leg Cramps, Family history of migraine or other headache disorder Headache questionnaire:? Age/time of onset: elementary school Preceding causes: none Previous work-up: MRI: none, CT: none. Recent eye exam- normal. Typical headache characteristics: Prodrome symptoms: Ears begin to hurt, like a pressure. Occipital-cervicalgia stiffness/soreness. Aura: no preceding aura. Pain intensity: at worst 8/10 Location, quality, characteristics: Starts as a dull pain in right occipital and moves up into right parietal and into bilateral ears. Associated symptoms? Blurry vision, bilateral peripheral vision haziness/squiggly lines, Photophobia, phonophonia, nausea, vomiting- at times, dizziness, activity intolerance, difficulty thinking, fatigue, throbbing like heartbeat in my head . Denies ringing. Postdrome: lingers Triggers: Denies Menstrual triggers: none- ammenorhea d/t IUD placement Positional trigger: denies Valsalva trigger: denies Exertional trigger: denies Sexual activity triggers: denies Time of day: Usually in the early afternoon Duration and Frequency: 3-4 or more hours, but can last into the next day, occurring mild 1-2 x's per week, severe 1-2x's per week. How does headache impact your life? sometimes has to miss work MIDAS disability scale: 22 Current acute medication use/interventions: Sumatriptan 25mg- helped but caused weird feeling, dizzy- this caused BUE tingling. Current preventative medication use: None, although is on duloxetine, aripiprazole, lamotrigine for mood d/o. 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 Family planning: Has an IUD. Has an 18 mo yr old dtr, plans to have more children in the future. [facility] Medical History delivery delivered Ovarian cyst Fatty tumor Depression Anxiety Bipolar 1 disorder depression Surgical History H/O section History of placement of ear tubes [place] teeth removed Family History Maternal Grandmother Colon cancer Other Substance use disorder Social History Housing: House Patient Tobacco Use Status: Former Tobacco user Tobacco use type: Cigarette Cigarettes Per Day: 0.5 e-Cigarette/Vaping Use: Currently Using (Occasional) Second Hand Smoke Exposure: Yes service: No Current occupational status: employed Cognitive needs: No Hearing needs: No Vision needs: Yes Female Reproductive History Menstrual Age of Menarche: 12 Physical Exam Vital Signs: Last Vital Signs Pulse 111 H 08/28/25 09:18 BP 120/90 H 08/28/25 09:18 Pulse Ox 97 08/28/25 09:18 Oxygen Delivery Method Room Air 08/28/25 09:18 BMI result Body Mass Index 36.6 Const General: tired appearing Orientation/consciousness: patient oriented x3 HEENT Other: Mallampati stage III Tonsils at least moderate enlargement Head: Yes normocephalic Resp Effort & Inspection: normal respiratory effort and able to speak in complete sentences Neuro Other: Photophobia General: patient oriented x3 Cranial nerves: Yes CN's II-XII intact bilaterally Cognition (Neuro): normal cognition Gait exam (Neuro): Normal gait present Motor exam (neuro): 5/5 motor strength present throughout Psych Appearance: grossly normal Mental Status: mental status grossly normal Speech and movement: Normal speech and movement present Affect: normal affect Attitude: cooperative Thought process: Normal thought process present Assessment & Plan Assessment & Plan (1) Migraine with aura: Code(s): G43.109 - Migraine with aura, not intractable, without status migrainosus Category: Medical Qualifiers: Intractability: not intractable Status migrainosus presence: without status migrainosus Qualified Code(s): G43.109 - Migraine with aura, not intractable, without status migrainosus (2) Snoring: Code(s): R06.83 - Snoring Category: Medical (3) Excessive daytime sleepiness: Code(s): G47.19 - Other hypersomnia Category: Medical (4) Sleep difficulties: Code(s): G47.9 - Sleep disorder, unspecified Category: Medical (5) Nocturnal hypoxemia: Code(s): G47.34 - Idiopathic sleep related nonobstructive alveolar hypoventilation Category: Medical (6) JACKLYN (obstructive sleep apnea): Code(s): G47.33 - Obstructive sleep apnea (adult) (pediatric) Category: Medical (7) Visual aura: Code(s): H53.9 - Unspecified visual disturbance Category: Medical (8) Altered mental state: Code(s): R41.82 - Altered mental status, unspecified Category: Medical Plan For sleep: Pt again advised to undergo in-lab PSG sleep study to further assess for sleep apnea and extent of nocturnal hypoxemia. * scheduled for 09/24/2025 ENT consult when able For overall headache management: Optimize good self-care, including but not limited to maintaining a healthy diet, adequate fluid intake, adequate sleep, and engaging in regular physical activity. For headache triggers: * Track headaches, especially after any treatment regimen changes. * Migraine Budd[employer] is one of many headache tracking apps. Light sensitivity tips: * Patient may try blue light filtering glasses, green glasses, green light therapy. Patient may benefit from having workplace accommodations: Information shared with patient to consider which accommodations might benefit her best, and once reviewed, patient will follow-up with us. Reviewed interval: * brain MRI w/wo report and images with pt- as per HPI- no findings to account for her new visual aura s/s. * head/neck CTA- normal. You are advised to undergo: * Baseline EEG- to assess for any evidence of epileptic activity * Comprehensive eye exam as recommended by [facility] For acute headache treatment: Continue naratriptan 2.5 mg q.4 hours p.r.n. for now. Max 2 tabs per day Again- trial Ubrogepant (Ubrelvy) 100mg tab: * Take Ubrogepant 1/2 - 1 tab (50-100mg) at onset of headache. * You may repeat the dose in 2 hours. Max of 2 tabs (200mg) per 24 hours. * You may take Ubrogepant with OTC Tylenol 650mg q 4 hours, Ibuprofen (liquid gel) 600mg q 6 hours, or Naproxen (liquid gel) 440mg q 12 hrs as needed. * Do not take Ubrogepant with or within 5 days of taking Butalbital (Fioricet or Fiorinal). * Possible adverse effects of Ubrogepant include, but are not limited to, fatigue, nausea, dry mouth, constipation. * This medication likely will require an insurance prior authorization before you will be able to receive this from your pharmacy. ? * We will initiate the prior authorization process per your specific health insurance's requirements. ? * However, please note, that your health insurance belongs to you, and you may also need to communicate with your insurance company in order for the prior authorization request to be processed. ?it is possible that you will also need to speak to your insurance regarding requesting the prior authorization * May adjunct w/ Ibuprofen 600mg every 6 hours as needed. Trial acetazolamide 125mg cap- 1-2 caps up to 3 times per day for 2-3 days, starting 1-2 days before air travel. Previous acute migraine medication trials: Sumatriptan 25 mg: Not tolerated, cause paresthesias. Naratriptan: Not well tolerated and not very effective. Acute migraine medication contraindications: None at this time For headache prevention medication: Continue Topiramate 100 mg daily at bedtime. * Patient is hesitant to wean off this at this point, thus will consider decreasing after review of above and effectiveness of updated plan is known- Continue Emgality at maintenance dose: 120mg (120mg/ml autoinjector) subcutaneous injection every month. Previous migraine prevention medication trials: Labetolol- caused significant hypersomnia. Migraine prevention medication contraindications: Would need to be cautious with antidepressant use d/t history of bipolar type 1. Future considerations: Qulipta-both of which may promote weight loss Patient is advised to abstain from work in any capacity through follow-up here due to exacerbation of migraine disorder with new and worsening symptoms (including visual disturbances and cognitive difficulties), to allow for medication adjustments and additional testing. Will follow-up upon review of above and patient to follow-up in clinic in 1-2 months or sooner prn. Orders: Orders EEG Routine 08/28/25 H53.9 - Unspecified visual disturbance, R41.82 - Altered mental status, unspecified Referrals Ophthalmology Referral H53.129 - Transient visual loss, unspecified eye, H53.9 - Unspecified visual disturbance Medications: New propranolol ER 60 mg PO BEDTIME 30 caps 3RF 30 days G43.909 - Migraine, unspecified, not intractable, without status migrainosus acetazolamide 250 mg (2 x 125 mg) PO TID PRN 42 tabs 0RF air travel 7 days Coding Level of Care Code Est Pt Level 4 (32617) Diagnoses Migraine with aura and without status migrainosus, not intractable G43.109 Intractability: not intractable Status migrainosus presence: without status migrainosus Snoring R06.83 Excessive daytime sleepiness G47.19 Sleep difficulties G47.9 Nocturnal hypoxemia G47.34 JACKLYN (obstructive sleep apnea) G47.33 Visual aura H53.9 Altered mental state R41.82
[2025-08-28 09:18] VITALS: BP 120/90; PULSE 111; O2SAT 97; BMI 36.6
== END 2025-08-28 10:11 | disposition home or self-care (01) ==
LOC: HO.HSMS 08:51
PROVIDERS: PCP Nurse Practitioner Family; Visit Provider Nurse Practitioner Family
DX: G43.109 Migraine with aura, not intractable, without status migrainosus (principal); R06.83 Snoring; G47.19 Other hypersomnia; G47.9 Sleep disorder, unspecified; G47.34 Idiopathic sleep related nonobstructive alveolar hypoventilation; G47.33 Obstructive sleep apnea (adult) (pediatric); H53.9 Unspecified visual disturbance; R41.82 Altered mental status, unspecified
CPT/HCPCS: 99214

== ENCOUNTER → 2025-08-28 08:50 | Outpatient (BNVA) | payer OTHER, SELFPAY | PROVIDERS: PCP Nurse Practitioner Family; Visit Provider Nurse Practitioner Family | DX: G43.109 Migraine with aura, not intractable, without status migrainosus (principal); H53.9 Unspecified visual disturbance; R06.83 Snoring; G47.19 Other hypersomnia; G47.9 Sleep disorder, unspecified; G47.34 Idiopathic sleep related nonobstructive alveolar hypoventilation; F31.9 Bipolar disorder, unspecified; Z87.891 Personal history of nicotine dependence | CPT/HCPCS: 99212 ==

== ENCOUNTER 2025-09-21 10:44 | Outpatient (AMB) | payer OTHER, SELFPAY ==
--- OUTSIDE RECORDS SUMMARY | 2024-09-28 05:20 | XMS_ITS ---
Author Organization [facility] [facility] Address [address] [address] Care Team Providers Care Quality Assurance Monitor Name Role Phone Maritza Dale Unavailable [phone] REASON FOR VISIT ? MISSING IUD Encounters Encounter Location Date Provider Diagnosis [facility] [address] [address] 2024 Maritza Dale Plan Of Treatment No Information Progress Notes * BRANDYN CHENEYDOB: [birth year] (24 yo F)Acc No.[id number] Progress Note Patient: BRANDYN BAILEY Appointment Provider: Elizabet Dale M.D. :2000 A ge:24 Y S ex:Female Date:2024 Address:[address] [place], [place] [id number] Subjective: * Chief Complaints: * 1 . ? MISSING IUD. * Medical History: Objective: * Vitals: Assessment: Plan: * Treatment: * Images: Billing Information: * Visit Code: * Procedure Codes: * Electronic signature of Nicci Dale MD on 09/21/2025 at 10:48 AM EST Sign off status: Pending * Appointment Provider: Elizabet Dale M.D. Date: 0 2024 Generated for Jada ramey/Chris/Isabelaitting on: 11/22/2024 10:48 AM EST
--- NOTE | 2025-09-21 10:45 | A.OFFPC_ITS ---
Vital Signs 09/21/25 10:59 Height 5 ft 6 in Weight 232 lb 2 oz BMI 37.5 BP 100/61 Blood Pressure Location Rt brachial Position Sitting Respiration 18 Pulse 83 Pulse Source Pulse Oximeter Temp 98.4 F Temp Source Oral Pulse Oximetry (%) 97 Oxygen Delivery Method Room Air Intake Visit Reasons: Weight management - change in weight (pedi) Intake Note: Patient present to establish care. Lump on left breast. Stiff Leg Operator Required: No Accompanied by: Self / Same As Patient Allergies Seasonal Allergies Allergy (Mild, Verified 09/21/25 10:52) Sneezing Medication List - Last Reconciled 09/21/25 by mD Lakhani MD acetazolamide 250 mg (2 x 125 mg) PO TID PRN 7 days aripiprazole 10 mg PO DAILY diclofenac potassium 50 mg PO Q12H PRN 30 days duloxetine 120 mg (2 x 60 mg) PO DAILY 30 days galcanezumab-gnlm (Emgality Pen) 240 mg (2 mL) subcut ONCE 30 days ibuprofen 600 mg PO Q6H PRN 30 days lamotrigine 100 mg PO BID 90 days levonorgestrel (Mirena) intrauterine propranolol ER 60 mg PO BEDTIME 30 days quetiapine (Seroquel) 25 mg PO BEDTIME topiramate 100 mg (2 x 50 mg) PO BEDTIME 30 days Ubrelvy (ubrogepant) 50 - 100 mg (0.5 - 1 x 100 mg) PO ONCE PRN 90 days NS Tobacco use date assessed: 09/21/25 Dental Screening Dental Screen Date: 09/21/25 Did you have a dental visit in the last 12 months?: No Did you have a dental problem in the last 6 months where you did not have access to dental care?: No Was dental information given to patient?: No HPI HPI Comments History of Present Illness Details History of Present Illness The patient is a 24 year old female presenting for evaluation of a newly found left breast lump and to establish primary care. Left Breast Mass and Galactorrhea: The patient reports finding a hard, non-mobile lump in her left breast during a self-exam this week. She describes the lump as being eeffn-et-enhr sized and located at the 1 o'clock position. She also notes yellowish, clear drainage from the same breast. The patient breastfed for two and a half years and stopped in February of this year. She previously had a breast ultrasound which revealed fibrocystic changes and has a history of a lipoma. She has a Mirena IUD in place and denies any breast tenderness. Chronic Medical Conditions: The patient has a history of complicated migraines with associated memory loss and brain fog, for which she is out of work. She is managed by a neurologist, Lucia Malave, and has an EEG scheduled for the end of September and a sleep study next week. She carries diagnoses of bipolar disorder, anxiety, and depression, and her psychiatric medications are managed by her psychiatrist, Juanita Ramirez. She also has a history of depression, kidney stones, and IBS symptoms. She was hospitalized once recently before for a migraine. Overweight: The patient expressed a desire to lose weight. She has previously seen a weight management provider and had some success, losing weight from over 240 pounds down to 221, but subsequently regained it. She has independently started making dietary changes and increasing her physical activity by taking the stairs at work, and she has a treadmill at home. She is not interested in pursuing surgical options for weight loss. Surgical History: - section (x1) Medications: - Acetazolamide 250 mg (two 125 mg pills ) three times a day for air travel - Aripiprazole 10 mg (dose recently incr eased from 5 mg) for bipolar disorder - Diclofenac potassium, as needed - Duloxetine 120 mg for depression/anxie ty - Emgality for migraines - Ibuprofen 600 mg, as needed - Lamotrigine for bipolar disorder - Mirena IUD, in place for contraception - Propranolol 60 mg for migraine prevent ion - Topiramate for migraine prevention - Ubrelvy for acute migraine treatment ( pending prior authorization) - Seroquel (quetiapine) 25 mg for sleep Social History: - Employment: 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 - Family Status: She is and has one daughter who is three years old. - Connection: Her has b een in the [employer] for ten years. - Exercise: She reports taking the stair s at her workplace and has a treadmill at home. - Nutrition: She has started watching wh at she eats in an effort to lose weight. Family History: - She denies a family history of breast cancer. - Reports a strong history of cancer in general in the family. - Father: History of skin cancer. - Other relatives (not first-degree): Co nidhi cancer and prostate cancer. Diagnostic Results: - Previous breast ultrasound: Showed fib rocystic changes. Past Medical History - Psychiatric: Bipolar disorder, anxiety , depression, and a history of depression. - Neurological: Complicated migraines wi th memory loss. - Gynecological: History of fibrocystic breast changes. - Genitourinary: History of kidney stone s. - Gastrointestinal: Irritable bowel synd ruddy symptoms. - Dermatologic: History of a lipoma. - Hospitalizations: One recent hospitali zation right before Thanksgiving for a migraine. Health Maintenance - Performs monthly self-breast exams. - Pap smears are up to date. - Patient has a sleep study scheduled fo next week and an EEG scheduled for the end of September for evaluation of her migraines. - Discussed weight management, with a pl an to review labs before making recommendations. [facility] Medical History delivery delivered Ovarian cyst Fatty tumor Depression Anxiety Bipolar 1 disorder depression Surgical History H/O section History of placement of ear tubes [place] teeth removed Family History Maternal Grandmother Colon cancer Other Substance use disorder Social History (Updated 09/21/25 @ 10:57 by Toby Plascencia CMA) Housing: House Alcohol intake: current Comment: Socially Patient Tobacco Use Status: Former Tobacco user Tobacco use type: Cigarette Cigarettes Per Day: 0.5 e-Cigarette/Vaping Use: Currently Using (Occasional) Second Hand Smoke Exposure: Yes service: No Current occupational status: employed Cognitive needs: No Hearing needs: No Vision needs: Yes Female Reproductive History Menstrual Age of Menarche: 12 Questionnaire PHQ-9 Over the last 2 weeks, how often have you been bothered by any of the following problems? 1. Little interest or pleasure in doing things: several days 2. Feeling down, depressed, or hopeless: several days 3. Trouble falling or staying asleep, or sleeping too much: more than half the days 4. Feeling tired or having little energy: more than half the days 5. Poor appetite or overeating: more than half the days 6. Feeling bad about yourself - or that you are a failure or have let yourself or your family down: several days 7. Trouble concentrating on things, such as reading the newspaper or watching television: several days 8. Moving or speaking so slowly that other people could have noticed. Or the opposite - being so fidgety or restless that you have been moving around a lot more than usual: not at all 9. Thoughts that you would be better off or of hurting yourself in some way: not at all Total score: 10 Depression Screening Interpretation: Positive Depression Screening Follow-up: Existing condition and In treatment Depression Screening Done: Yes 16551 - PHQ-9 Billing: Yes Source: Developed by Drs. Scott Silver, Marily Delvalle, Marty Lamas and colleagues, with an educational rima from [employer]. Thrive Questionnaire Date Thrive assessed: 09/21/25 I am a: Patient What is your living situation today?: I have a steady place to live Within the past 12 months, did the food you bought not last and you didn't have the money to get more?: Never true Within the past 12 months, did you worry whether your food would run out before you got money to buy more?: Never true Do you have trouble paying for medicines?: No Do you have trouble getting transportation to medical appointments?: No Do you have trouble paying your heating and electricity bill?: No Do you have trouble taking care of your child, family member or friend?: No Do you have trouble with day-to-day activities such as bathing, preparing meals, shopping, managing finances, etc.?: No Are you currently unemployed and looking for a job?: No Are you interested in more education?: No Please select the resources that you would like help with: None Currently or been in a relationship where the following occur: No concerns reported THRIVE Score: 0 AUDIT C Alcohol Use Questionnaire (AUDIT-C) 1. How often do you have a drink containing alcohol?: Monthly or less 2. How many drinks containing alcohol do you have on a typical day when you are drinking?: 1 or 2 3. How often do you have six or more drinks on one occasion?: Less than monthly Total Score: 2 Score Reviewed/Action Taken: Yes MELISSA-7 AMB Questionnaire MELISSA-7 Date MELISSA - 7 assessed: 09/29/24 Feeling nervous, anxious, or on edge: 2 = More than half the days Not being able to stop or control worryin = More than half the days Worrying too much about different things: 2 = More than half the days Trouble relaxin = More than half the days Being so restless that it is hard to sit still: 2 = More than half the days Becoming easily annoyed or irritable: 2 = More than half the days Feeling afraid as if something awful might happen: 2 = More than half the days Total MELISSA-7 score (0-4 normal; 5-9 mild; 10-14 moderate; 15-21 severe): 14 Source: Developed by Drs. Scott Silver, Marily Delvalle, Marty Lamas and colleagues, with an educational rima from [employer]. MELISSA-7 Assessment Billing MELISSA-7 Assessment Tool: MELISSA-7 Assessment 43048 Review of Systems Narrative Review of Systems - Breast: Reports a new hard, non-mobile, nwzwb-ae-atfg sized lump in the left breast at the 1 o'clock position. - Reports yellowish, clear nipple discharge from the left breast. - Denies breast tenderness. - Neurological: Reports complicated migraines with associated memory loss and cognitive fog. - Psychiatric: Endorses history of anxiety, depression, and bipolar disorder. - Constitutional: Reports desire for weight loss. - Respiratory: Reports snoring. - Gastrointestinal: Reports symptoms consistent with IBS. - Denies constipation. - Extremities: Denies swelling of the lower legs. 10-point ROS reviewed and negative except as noted in HPI Physical exam (Primary Care) Vital Signs: Last Vital Signs Temp 98.4 F 09/21/25 10:59 Pulse 83 09/21/25 10:59 Resp 18 09/21/25 10:59 BP 100/61 09/21/25 10:59 Pulse Ox 97 09/21/25 10:59 Oxygen Delivery Method Room Air 09/21/25 10:59 BMI result Body Mass Index 37.5 Tobacco/Smoking Status: Tobacco use Status Tobacco use date assessed 09/21/25 09/21/25 11:02 Patient Tobacco Use Status Former Tobacco user 09/21/25 10:57 Tobacco use type Cigarette 12/26/25 10:57 e-Cigarette/Vaping Use Currently Using (Occasional) 09/21/25 10:57 PHQ-9: PHQ-9 Score PHQ-9: Total score 10 09/21/25 11:38 Depression Screening Interpretation: Positive Depression Screening Follow-up: Existing condition and In treatment Thrive Assessment: Date of Thrive Assessment Date Thrive assessed 09/21/25 09/21/25 11:02 Currently or been in a relationship where the following occur: No concerns reported Narrative Physical Exam General: Well-appearing, in no acute distress. Vital signs: Within normal limits. HEENT: Normocephalic, atraumatic. PERRLA, EOMI. Conjunctiva clear, sclera anicteric. Oropharynx clear, mucous membranes moist. TMs intact bilaterally. Neck: Supple, no lymphadenopathy, no thyromegaly, no JVD or carotid bruits. Cardiovascular: RRR, normal S1/S2, no murmurs, rubs, or gallops. Peripheral pulses 2+ and symmetric. No edema. breast exam deferred Respiratory: Lungs clear to auscultation bilaterally, no wheezes, rales, or rhonchi. Normal effort. Abdomen: Soft, non-tender, non-distended. Normoactive bowel sounds. No hepatosplenomegaly, no masses. MSK: Full range of motion, no joint swelling or deformity. Normal gait. Skin: Warm, dry, intact. No rashes, lesions, or pallor. Neuro: Alert and oriented x3. Cranial nerves II-XII intact. Strength 5/5 throughout. Sensation intact. Reflexes 2+ symmetric. Normal coordination and gait. Psych: Appropriate mood and affect. Normal judgment and insight. Coding Level of Care Code New Pt Level 4 (81034) Add On Problem Visit Only Diagnoses Left breast mass N63.20 Galactorrhea N64.3 Migraines G43.909 Memory loss due to medical condition R41.3 Brain fog R41.89 Bipolar 1 disorder F31.9 Anxiety F41.9 Depression F32.A Class 2 obesity E66.812 Additional Codes MELISSA-7 Assessment Billing - MELISSA-7 Assessment Tool: MELISSA-7 Assessment 70991 ([id number]) PHQ-9 - 86851 - PHQ-9 Billing: Yes ([id number]) Assessment & Plan Assessment & Plan (1) Left breast mass: Code(s): N63.20 - Unspecified lump in the left breast, unspecified quadrant Category: Medical (2) Galactorrhea: Code(s): N64.3 - Galactorrhea not associated with childbirth Category: Medical (3) Migraines: Code(s): G43.909 - Migraine, unspecified, not intractable, without status migrainosus Category: Medical (4) Memory loss due to medical condition: Code(s): R41.3 - Other amnesia Category: Medical (5) Brain fog: Code(s): R41.89 - Other symptoms and signs involving cognitive functions and awareness Category: Medical (6) Bipolar 1 disorder: Code(s): F31.9 - Bipolar disorder, unspecified Category: Medical (7) Anxiety: Code(s): F41.9 - Anxiety disorder, unspecified Category: Medical (8) Depression: Code(s): F32.A - Depression, unspecified Category: Medical (9) Class 2 obesity: Code(s): E66.812 - Obesity, class 2 Category: Medical Plan Consent Patient was informed and verbally consented to the use of an ambient scribe for clinic note documentation during this visit. Plan 1. Left Breast Mass And Galactorrhea - An ultrasound of the left breast will be ordered to evaluate the palpable mass. - Comprehensive bloodwork will be drawn, including a prolactin level to investigate the persistent nipple discharge, which is occurring several months after cessation of . 2. Health Maintenance And Establishment Of Care - Baseline labs will be ordered to establish care, including a CBC, CMP, magnesium, thyroid panel, B12, folate, vitamin D, and screening for HIV, hepatitis B, hepatitis C, and syphilis. - A follow-up appointment is scheduled in two weeks to review all results and formulate a further plan. 3. Overweight - Advised to await the results of the comprehensive lab work, specifically A1c, lipids, vitamin B12, and vitamin D, before formulating a specific weight management plan. - The option of a referral to a weight management clinic was mentioned if needed. - The patient's preference to avoid surgical options for weight loss was noted. 4. Complicated Migraines And Bipolar Disorder - The patient will continue her current medications and maintain follow-up with her neurologist and psychiatrist for ongoing management. - She will proceed with the sleep study and EEG as scheduled by her neurologist. Discussion Notes I discussed with the patient the plan to investigate her new left breast lump and nipple discharge. I explained that we would order an ultrasound of the left breast to visualize the lump she feels and order blood work, including a prolactin level, because the nipple discharge is unusual so long after she stopped . As she is establishing care with me as her new primary care physician, I also informed her that I would be ordering a comprehensive panel of baseline labs. We discussed her desire to lose weight, and I advised that we would first review her lab results to check for any underlying contributing factors before creating a plan. We agreed to have her follow up in two weeks to discuss all results and formulate next steps. Patient Instructions - Please go for the bloodwork that has been ordered for you. - You will need to get an ultrasound of your left breast. - Continue taking all your current medications as prescribed by your other doctors. - Please schedule a follow-up appointment here in two weeks to go over your test results. - Keep your upcoming appointments for your sleep study and EEG. - Continue with your efforts to eat healthier and be more active to help with your weight loss goals. Medical Decision Making The patient is a 24-year-old female presenting to establish care and for evaluation of a new breast lump. Her primary concern is a hard, non-mobile, vqakm-ze-danb sized lump in the 1 o'clock position of the left breast, associated with yellowish, clear nipple discharge. Given the fixed nature of the mass, imaging is warranted to rule out malignancy, although her age and history of fibrocystic breast changes make a benign process more likely. An ultrasound is the most appropriate initial imaging modality. The galactorrhea, persisting many months after cessation of , is also of note and prompts an evaluation for hyperprolactinemia, hence the order for a prolactin level. The patient also has multiple chronic conditions including complicated migraines and bipolar disorder, managed by specialists, and wishes to address weight management. A comprehensive baseline laboratory evaluation is prudent for a new patient to assess for underlying metabolic or nutritional deficiencies that may be contributing to her symptoms or impacting her weight. The plan is to gather this diagnostic data and follow up in two weeks to discuss the findings and create a comprehensive management plan for her active issues. Total Time Statement 45 min Total time spent caring for the patient today includes pre-visit chart review, documentation, review of laboratory and diagnostic imaging results, medication reconciliation, medically necessary evaluation, counseling on diagnoses, care coordination, ordering appropriate tests and medications, review of tests performed by other providers, reporting test results to the patient, and communication with other healthcare providers. Orders: Orders US breast LT complete 09/21/25 N63.0 - Unspecified lump in unspecified breast, Z13.9 - Encounter for screening, unspecified Hepatitis B Surface Antigen 09/21/25 Z13.9 - Encounter for screening, unspecified Hepatitis C Antibody 09/21/25 Z13.9 - Encounter for screening, unspecified TSH reflex Free T4 09/21/25 Z13.9 - Encounter for screening, unspecified Lipid Panel 09/21/25 Z13.9 - Encounter for screening, unspecified Prolactin 09/21/25 Z13.9 - Encounter for screening, unspecified Complete Blood Count Auto Diff 09/21/25 Z13.9 - Encounter for screening, unspecified Syphilis Screen 09/21/25 Z13.9 - Encounter for screening, unspecified Comprehensive Met. Panel 09/21/25 Z13.9 - Encounter for screening, unspecified HIV Ab/Ag 09/21/25 Z13.9 - Encounter for screening, unspecified UA CC w/rflx Micro + Cult 09/21/25 Z13.9 - Encounter for screening, unspecified Vitamin B12 and Folate 09/21/25 Z13.9 - Encounter for screening, unspecified Hemoglobin A1c 09/21/25 Z13.9 - Encounter for screening, unspecified Magnesium 09/21/25 Z13.9 - Encounter for screening, unspecified Hepatitis B Surface Antibody 09/21/25 Z13.9 - Encounter for screening, unspecified Vitamin D 25-OH (D2 and D3) 09/21/25 Z13.9 - Encounter for screening, unspecified Medications: Discontinued aripiprazole Discontinued Reason: Doctor's Order 5 mg PO DAILY 30 days 30 tabs 3RF
--- OUTSIDE RECORDS SUMMARY | 2025-09-21 10:48 | XMS_ITS | Clinical Summary ---
Author Organization [facility] [address] Address [address] [place] [address] Phone Care Team Providers Care Oxidation Engineer Name Role Phone Dm Lakhani MD Primary Care Provider [phone] Allergies Active Allergy Reactions Criticality Noted Date Comments Cariprazine 08/22/2025 Medications ARIPiprazole (ABILIFY) 10 mg tablet Take 1 tablet (10 mg total) by mouth 1 (one) time each day. 5 Active DULoxetine (CYMBALTA) [address] capsule Take 2 capsules (120 mg total) by mouth 1 (one) time each day. 5 Active Emgality Pen 120 mg/mL injection pen Inject 1 mL (120 mg total) under the skin 1 (one) time. 5 Active lamoTRIgine (LaMICtal) 200 mg tablet Take 1 tablet (200 mg total) by mouth 1 (one) time each day. 5 Active lamoTRIgine (LaMICtal) 25 mg tablet Take 2 tablets (50 mg total) by mouth 1 (one) time each day in the morning. 60 each 5 Active topiramate (TOPAMAX) 25 mg tablet Take 2 tablets (50 mg total) by mouth at bedtime for 2 days, THEN 1 tablet (25 mg total) at bedtime for 5 days. at bedtime. 9 each 5 Active ubrogepant (UBRELVY) 100 mg tabletIndication s:Migraine with aura and without status migrainosus, not intractable Take 1 tablet (100 mg total) by mouth 1 (one) time each day if needed for migraine (max 6 tab a month). 6 tablet 5 Active naproxen (EC-Naprosyn) 500 mg EC tablet Take 1 tablet (500 mg total) by mouth 1 (one) time each day with breakfast for 20 days. Do not crush, chew, or split. Take Naproxen while waiting for Ubrevly approval 20 tablet 09/11/20 25 Active Problems Problem Noted Date Diagnosed Date Migraines 08/22/2025 Encounters Date Type Department Care Team Description 08/22/2025 1:50 AM EST - 08/22/2025 5:07 PM [facility] Hospital Encounter [facility] Surgical Unit [address] [place] [address] Leland Sahu MD Nasser, Nada S, MD Nonintractable headache, unspecified chronicity pattern, unspecified headache type (Primary Dx); Migraine with aura and without status migrainosus, not intractable Discharge Disposition: Home or Self Care 08/21/2025 10:22 AM EST - 08/21/2025 2:16 PM [facility] Emergency [facility] Emergency [address] [place] [address] Acute nonintractable headache, unspecified headache type (Primary Dx) Discharge Disposition: Home or Self Care 08/15/2025 9:26 AM EST - 08/15/2025 1:36 PM [facility] Emergency [facility] Emergency [address] [place] [address] Saul Ruiz MD Other migraine without status migrainosus, not intractable (Primary Dx); Acute nonintractable headache, unspecified headache type Discharge Disposition: Home or Self Care from Last 3 Months Surgical History Surgery Date Site/Laterality Comments SECTION WISDOM TOOTH EXTRACTION Medical History Medical History Date Comments Acute migraine Bipolar 1 disorder (CMS/[facility] V24, CMS/[facility] V28) Depression Anxiety Kidney stone Gestational hypertension [...] on file Sexual Orientation Not on file Last Filed Vital Signs Vital Sign Reading [...] Depression Screening 09/27/2024 COVID-19 Vaccine ( - 2024-2 6 season) 2025 Influenza Vaccine [...] URINE DIAGNOSTIC STAT 08/21/2025 10:55 AM EST from Last 3 Months Results * (ABNORMAL) CBC auto differential (08/22/2025 3:19 AM EST) Only the most recent of2 resultswithin the time period is included. WBC 12.1(H) 4.8 - 10.8 K/[facility] LAB HEMETOLOGY METHOD 08/22/2025 3:59 AM [facility] RBC 4.20 3.80 - 4.80 M/mcL LAB HEMETOLOGY METHOD 08/22/2025 3:59 AM [facility] Hemoglobin 12.4 11.5 - 16.0 g/dL LAB HEMETOLOGY METHOD 08/22/2025 3:59 AM [facility] Hematocrit 36.4 35.0 - 47.0 % LAB HEMETOLOGY METHOD 08/22/2025 3:59 AM [facility] MCV 87.7 79.0 - 98.0 FL LAB HEMETOLOGY METHOD 08/22/2025 3:59 AM [facility] MCH 29.9 27.0 - 32.0 pcg LAB HEMETOLOGY METHOD 08/22/2025 3:59 AM [facility] MCHC 34.1 32.0 - 37.0 g/dL LAB HEMETOLOGY METHOD 08/22/2025 3:59 AM [facility] RDW 12.2 11.0 - 15.0 % LAB HEMETOLOGY METHOD 08/22/2025 3:59 AM [facility] Platelets 357 130 - 400 K/mcL LAB HEMETOLOGY METHOD 08/22/2025 3:59 AM [facility] MPV 9.7 7.0 - 11.0 FL LAB HEMETOLOGY METHOD 08/22/2025 3:59 AM [facility] NRBC 0.0 <1.0 % LAB HEMETOLOGY METHOD 08/22/2025 3:59 AM [facility] NRBC Absolute 0.00 <0.10 K/mcL LAB HEMETOLOGY METHOD 08/22/2025 3:59 AM [facility] Neutrophils Relative 84.9 % LAB HEMETOLOGY METHOD 08/22/2025 3:59 AM [facility] Lymphocytes Relative 9.7 % LAB HEMETOLOGY METHOD 08/22/2025 3:59 AM [facility] Monocytes Relative 4.8 % LAB HEMETOLOGY METHOD 08/22/2025 3:59 AM [facility] Eosinophils Relative 0.0 % LAB HEMETOLOGY METHOD 08/22/2025 3:59 AM [facility] Basophils Relative 0.2 % LAB HEMETOLOGY METHOD 08/22/2025 3:59 AM [facility] Immature Granulocytes Relative 0.4 % LAB HEMETOLOGY METHOD 08/22/2025 3:59 AM [facility] Neutrophils Absolute 10.30(H) 1.50 - 7.00 K/mcL LAB HEMETOLOGY METHOD 08/22/2025 3:59 AM [facility] Lymphocytes Absolute 1.18 1.00 - 5.00 K/mcL LAB HEMETOLOGY METHOD 08/22/2025 3:59 AM [facility] Monocytes Absolute 0.58 0.20 - 1.00 K/mcL LAB HEMETOLOGY METHOD 08/22/2025 3:59 AM [facility] Eosinophils Absolute 0.00 0.00 - 0.50 K/mcL LAB HEMETOLOGY METHOD 08/22/2025 3:59 AM [facility] Basophils Absolute 0.02 0.00 - 0.20 K/mcL LAB HEMETOLOGY METHOD 08/22/2025 3:59 AM [facility] Immature Granulocytes Absolute 0.05(H) 0.00 - 0.03 K/mcL LAB HEMETOLOGY METHOD 08/22/2025 3:59 AM [facility] Blood Venous blood specimen / Unknown Venipuncture / Unknown 08/22/2025 3:19 AM EST 08/22/2025 3:54 AM EST us Dionisio GUADALUPE LAB BLOOD ORDERABLES Final Result Performing Organization Address City/[facility]/ZIP Co de Phone Number [facility] [address] [place] [address], * hCG Qualitative (08/22/2025 3:19 AM EST) [facility] hCG Qual Negative Negative 08/22/2025 5:12 AM [facility] Blood Venous blood specimen / Unknown Venipuncture / Unknown 08/22/2025 3:19 AM EST 08/22/2025 3:54 AM EST Dionisio GUADALUPE LAB BLOOD ORDERABLES Final Result Performing Organization Address [facility]/ZIP Co de Phone Number [facility] [address] [place] [address], [place] [phone] * (ABNORMAL) Basic Metabolic Panel (BMP) (08/22/2025 3:19 AM EST) [facility] Sodium 142 133 - 145 mmol/L 08/22/2025 4:29 AM [facility] Potassium 4.1 3.5 - 5.5 mmol/L 08/22/2025 4:29 AM [facility] Chloride 107 96 - 110 mmol/L 08/22/2025 4:29 AM [facility] CO2 23 21 - 32 mmol/L 08/22/2025 4:29 AM [facility] Anion Gap 12(H) 3 - 11 08/22/2025 4:29 AM [facility] Glucose 159(H) 70 - 100 mg/dL 08/22/2025 4:29 AM [facility] BUN 15 5 - 25 mg/dL 08/22/2025 4:29 AM [facility] Creatinine 0.72 0.50 - 1.10 mg/dL 08/22/2025 4:29 AM EST [facility] eGFR 118 >=60 mL/min/1. 73m2 08/22/2025 4:29 AM EST [facility] Comment:Calculation based on the Chronic Kidney Disease Epidemiology Collaboration (CKD-EPI) equation refit without adjustment for race. BUN/Creatinine Ratio 20.8 08/22/2025 4:29 AM EST [facility] Calcium 9.4 8.5 - 10.5 mg/dL 08/22/2025 4:29 AM EST [facility] Blood Venous blood specimen / Unknown Venipuncture / Unknown 08/22/2025 3:19 AM EST 08/22/2025 3:54 AM EST Dionisio GUADALUPE LAB BLOOD ORDERABLES Final Result [facility] [address] [place] [address], * ECG-Annotated (08/22/2025) us Provider Onbase MD ECG ORDERABLES Final Result * CT Angio Head/Neck wo and/or w Contrast (08/21/2025 12:35 PM EST) Anatomical Region Laterality Modality Head and Neck Computed Tomogra phy 08/21/2025 12:5 5 PM EST Impressions 08/21/2025 1:02 PM EST 1. No acute intracranial findings. 2. Normal CT angiogram of the neck and [place]. -------- FINAL REPORT -------- Dictated By: Anson Mcmahan Dictated Date: 08/21/2025 12:55 ET Assigned Physician: Anson Mcmahan Reviewed and Electronically Signed By: Anson Mcmahan Signed Date: 08/21/2025 13:02 ET Workstation ID: [id number] Transcribed By: Self Edit Transcribed Date: 08/21/2025 12:55 ET Narrative 08/21/2025 1:02 PM EST PROCEDURE: CT angiogram of the neck and [place] and delayed postcontrast CT of the brain. HISTORY: dizziness double vision/neck pain (ongoing x 1 week so stroke protocol not ordered). COMPARISON: None. TECHNIQUE: CT angiogram of the neck and [place] with multiplanar reformats. 3-D reconstructions [...] dissection, or occlusion. The basilar artery and crystalizer tender are widely patent. Bilateral posterior communicating arteries, [...] PROCEDURE: CT angiogram of the neck and [place] and delayedpostcontrast CT of the brain. HISTORY: dizziness double vision/neck pain (ongoing x 1 week so stroke protocol notordered). COMPARISON: None. TECHNIQUE: CT angiogram of the neck and [place] with multiplanarreformats. 3-D reconstructions were [...] stenosis, dissection, orocclusion. The basilar artery and crystalizer tender are widely patent. Bilateral posteriorcommunicating arteries, larger [...] Normal CT angiogram of the neck and [place]. -------- FINAL REPORT -------- Dictated By: Anson Mcmahan Dictated Date: 08/21/2025 12:55 ET Assigned Physician: Anson Mcmahan Reviewed and Electronically Signed By: Anson Mcmahan Signed Date: 08/21/2025 13:02 ET Workstation ID: [id number] Transcribed By: Self Edit Transcribed Date: 08/21/2025 12:55 ET Brit GUADALUPE IMG CT PROCEDURES Final Result * HCG, quantitative (08/21/2025 11:14 AM EST) hCG Quant <3 mIU/mL 08/21/2025 12:43 PM EST [facility] Blood Venous blood specimen / Unknown Venipuncture / Unknown 08/21/2025 11:14 AM EST 08/21/2025 11:37 AM EST Narrative [facility] - 08/21/2025 12:43 PM EST Quantitative HCG Reference Ranges Time after Conception MIU/ML 0.2-1 Week 5-50 1-2 Weeks 50-500 2-3 Weeks 100-5,000 3-4 Weeks 500-10,000 4-5 Weeks 1,000-50,000 5-6 Weeks 10,000-100,000 6-8 Weeks 15,000-200,000 2-3 Months 10,000-100,000 2nd Trimester 1,000-94,000 3rd Trimester 2,500-90,000 Non- Females 1-3 Brit GUADALUPE LAB BLOOD ORDERABLES Fin al Result Performing Organization Address City/[facility]/ZIP Co de Phone Number [facility] [address] [place] [address], [place] [phone] * (ABNORMAL) Magnesium (08/21/2025 11:14 AM EST) Magnesium 1.5(L) 1.9 - 2.6 mg/dL 08/21/2025 12:08 PM EST [facility] Blood Venous blood specimen / Unknown Venipuncture / Unknown 08/21/2025 11:14 AM EST 08/21/2025 11:37 AM EST Brit GUADALU[facility] LAB BLOOD ORDERABLES Fin al Result Performing Organization Address [facility]/ZIP Co de Phone Number [facility] [address] [place] [address], [place] [phone] * Comprehensive metabolic panel (08/21/2025 11:14 AM EST) Sodium 138 133 - 145 mmol/L 08/21/2025 12:08 PM EST [facility] Potassium 3.8 3.5 - 5.5 mmol/L 08/21/2025 12:08 PM [facility] Chloride 104 96 - 110 mmol/L 08/21/2025 12:08 PM EST [facility] CO2 27 21 - 32 mmol/L 08/21/2025 12:08 [facility] Anion Gap 7 3 - 11 08/21/2025 12:08 PM [facility] Glucose 73 70 - 100 mg/dL 08/21/2025 12:08 PM [facility] BUN 13 5 - 25 mg/dL 08/21/2025 12:08 PM [facility] Creatinine 0.69 0.50 - 1.10 mg/dL 08/21/2025 12:08 [facility] eGFR 123 >=60 mL/min/1. 73m2 08/21/2025 12:08 PM [facility] Comment:Calculation based on the Chronic Kidney Disease Epidemiology Collaboration (CKD-EPI) equation refit without adjustment for race. BUN/Creatinine Ratio 18.8 08/21/2025 12:08 PM [facility] Calcium 8.6 8.5 - 10.5 mg/dL 08/21/2025 12:08 [facility] AST (SGOT) 26 10 - 42 unit/L 08/21/2025 12:08 [facility] ALT (SGPT) 26 10 - 60 unit/L 08/21/2025 12:08 PM [facility] Alkaline Phosphatase 89 42 - 121 unit/L 08/21/2025 12:08 PM [facility] Total Protein 7.1 6.0 - 8.0 g/dL 08/21/2025 12:08 [facility] Albumin 4.0 3.2 - 5.0 g/dL 08/21/2025 12:08 PM [facility] Total Bilirubin 0.3 0.0 - 1.4 mg/dL 08/21/2025 12:08 [facility] Blood Venous blood specimen / Unknown Venipuncture / Unknown 08/21/2025 11:14 AM EST 08/21/2025 11:37 AM EST Brit [facility]ADALU[facility] LAB BLOOD ORDERABLES Fin al Result [facility] [place] [facility] [address] [place] [address], [place] [phone] * ECG 12 lead (08/21/2025 11:04 AM EST) Ventricular Rate ECG 87 BPM GEMUSE Atrial Rate 87 BPM GEMUSE P-R Interval 146 ms GEMUSE QRS Duration 88 ms GEMUSE Q-T Interval 378 ms GEMUSE QTc 454 ms GEMUSE P Wave [place] 42 degrees GEMUSE R [place] 58 degrees GEMUSE T [place] 21 degrees GEMUSE ECG Interpretation Normal sinus [...] CARE TEST ENTER /EDIT ORDERABLES Final Result from Last 3 Months Insurance [facility] Advance Directives * Full Code - Default [...] currently active code status orders. Care Teams Oxidation Engineer Relationship Specialty Start Date End Date Dm Lakhani MD [address] [place] [id number] PCP - General Family Medicine 08/15/25
--- OUTSIDE RECORDS SUMMARY | 2025-09-21 10:48 | XMS_ITS | Patient Health Record ---
Author Organization [employer] [facility] Address [address] [address] Care Team Providers Care Construction Flagger Name Role Phone Maritza Dale Unavailable [phone] Reason For Referral No Information Encounters Encounter Location Date Provider Diagnosis [facility] [employer] [address] [address] 2024 Maritza Dale Plan Of Treatment No Information Insurance Providers Payer Name Payer Address Payer Phone Subscriber Number Group Number Insured Name Patient Relationship to Insured Coverage Start Date Coverage End Date /[employer] [address] [place] [id number] BRANDYN CHENEY Self - patient is the insured
--- OUTSIDE RECORDS SUMMARY | 2025-09-21 10:48 | XMS_ITS | Encounter Summary ---
Author Organization [facility] Address [address] [place] [address] Care Team Providers Care Administrative Hearing Officer Name Role Phone Dm Lakhani MD Primary Care Provider [phone] Encounter Details Date Type Department Care Team (Late st Contact Info) Description 06/18/2025 Lab Requisition [facility] - Main Lab [address] [place] [address] Obdulio Caceres MD [address] [place] [id number] Calculus of kidney Social History Tobacco Use [...] Food and Drug Administration. Test performed at [facility], [address], [place] [address] Alice Hernandez MD, PhD - Candy Catcher Calculus 06/18/2025 06/18/2025 12: 10 PM EDT us Obdulio Caceres MD LAB BODY FLUIDS AND STOOLS ORDER FLORINDA Final Result [facility] [address] [place] [address] documented in this encounter Visit Diagnoses Diagnosis Calculus of kidney documented in this encounter Care Teams Administrative Hearing Officer Relationship Specialty Start Date End Date mD Lakhani MD [address] [place] [phone] PCP - General Family Medicine 08/15/25 documented as of this encounter
[2025-09-21 10:59] VITALS: BP 100/61; PULSE 83; RESP 18; TEMP 36.9; O2SAT 97; BMI 37.5
== END 2025-09-21 11:40 | disposition home or self-care (01) ==
PROVIDERS: PCP Nurse Practitioner Family; Visit Provider Student in an Organized Health Care Education/Training Program
DX: N63.20 Unspecified lump in the left breast, unspecified quadrant (principal); N64.3 Galactorrhea not associated with childbirth; G43.909 Migraine, unspecified, not intractable, without status migrainosus; R41.3 Other amnesia; R41.89 Other symptoms and signs involving cognitive functions and awareness; F31.9 Bipolar disorder, unspecified; F41.9 Anxiety disorder, unspecified; F32.A Depression, unspecified; E66.812 Obesity, class 2

== ENCOUNTER 2025-09-24 15:15 | Outpatient (REF) | payer OTHER, SELFPAY ==
--- OUTSIDE RECORDS SUMMARY | 2024-09-28 05:20 | XMS_ITS ---
Author Organization [facility] [employer] [facility] Address [address] [address] Care Team Providers Care Tag Maker Name Role Phone Maritza Dale Unavailable [phone] REASON FOR VISIT ? MISSING IUD Encounters Encounter Location Date Provider Diagnosis [facility] [address] [address] 2024 Maritza Dale Plan Of Treatment No Information Progress Notes * BRANDYN HCENEYDOB: [birth year] (24 yo F)Acc No.[id number] Progress Note Patient: BRANDYN BAILEY Appointment Provider: Elizabet Dale M.D. :2000 A ge:24 Y S ex:Female Date:2024 Address:[address] [place], [place] [id number] Subjective: * Chief Complaints: * 1 . ? MISSING IUD. * Medical History: Objective: * Vitals: Assessment: Plan: * Treatment: * Images: Billing Information: * Visit Code: * Procedure Codes: * Electronic signature of Nicci Dale MD on 09/24/2025 at 05:24 PM EST Sign off status: Pending * Appointment Provider: Elizabet Dale M.D. Date: 0 2024 Generated for Jada ramey/Chris/Isabelaitting on: 05:24 PM EST
[2025-09-24 16:19] LABS: MANUAL DIFF FLAG NO
[2025-09-24 16:25] LABS: Appearance Urine Clear; Glucose Urine UA Negative (Negative); PH 5.0 (5.0-9.0); Specific Gravity - Urine 1.020 (1.005-1.025); UMIC TRIGGER UACC YES
[2025-09-24 16:42] LABS: Hematocrit 40.4 % (37.0-47.0); Hemoglobin 13.9 g/dl (12.0-16.0); Imm Gran Abs Auto 0.03 X10*3/uL (0.00-0.03); Imm Gran Pct Auto 0.3 % (0.0-0.4); Lymphocytes Absolute Auto 2.5 X10*3/uL (1.2-4.9); Mean Corpuscular HGB Conc 34.4 g/dl (31.0-35.0); Mean Corpuscular Hemoglobin 29.5 pg (27.0-33.0); Mean Corpuscular Volume 85.8 fL (80.0-98.0); NRBC Abs Auto 0.000 X10*3/uL (0.0-0.012); NRBC Pct Auto 0.0 /100WBC (0.0-0.2); Platelet Count 363 X10*3/uL (160-400); Red Blood Count 4.71 X10*6/uL (4.20-5.50); White Blood Count 10.4 X10*3/uL (4.8-10.8)
--- OUTSIDE RECORDS SUMMARY | 2025-09-24 17:24 | XMS_ITS | Clinical Summary ---
Author Organization [facility] Address [address] [place] [address] Phone Care Team Providers Care Sba Business Development Officer Name Role Phone Dm Lakhani MD Primary Care Provider [phone] Allergies Active Allergy Reactions Criticality Noted Date [...] 1:50 AM EST - 08/22/2025 5:07 PM [facility] Hospital Encounter [facility] Medical Surgical Unit [address] [place] [address] Leland Sahu MD Nasser, Nada S, MD Nonintractable headache, unspecified chronicity pattern, unspecified headache type (Primary Dx); Migraine with aura and without status migrainosus, not intractable Discharge Disposition: Home or Self Care 08/21/2025 10:22 AM EST - 08/21/2025 2:16 PM [facility] Emergency [facility] Emergency [address] [place] [address] Acute nonintractable headache, unspecified headache type (Primary Dx) Discharge Disposition: Home or Self Care 08/15/2025 9:26 AM EST - 08/15/2025 1:36 PM [facility] Emergency [facility] Emergency [address] [place] [address] Saul Ruiz MD Other migraine without status migrainosus, not intractable (Primary Dx); Acute nonintractable headache, unspecified headache type Discharge Disposition: Home or Self Care from Last 3 Months Surgical History Surgery Date Site/Laterality Comments SECTION WISDOM TOOTH EXTRACTION Medical History Medical History Date Comments Acute migraine Bipolar 1 disorder (CMS/[facility] V24, CMS/[facility] V28) Depression Anxiety Kidney stone Gestational [...] is included. WBC 12.1(H) 4.8 - 10.8 K/[facility] LAB HEMETOLOGY METHOD 08/22/2025 3:59 AM [facility] RBC 4.20 3.80 - 4.80 M/mcL LAB HEMETOLOGY METHOD 08/22/2025 3:59 AM [facility] Hemoglobin 12.4 11.5 - 16.0 g/dL LAB HEMETOLOGY METHOD 08/22/2025 3:59 AM [facility] Hematocrit 36.4 35.0 - 47.0 % LAB HEMETOLOGY METHOD 08/22/2025 3:59 AM [facility] MCV 87.7 79.0 - 98.0 FL LAB HEMETOLOGY METHOD 08/22/2025 3:59 AM [facility] MCH 29.9 27.0 - 32.0 pcg LAB HEMETOLOGY METHOD 08/22/2025 3:59 AM [facility] MCHC 34.1 32.0 - 37.0 g/dL LAB HEMETOLOGY METHOD 08/22/2025 3:59 AM [facility] RDW 12.2 11.0 - 15.0 % LAB HEMETOLOGY METHOD 08/22/2025 3:59 AM [facility] Platelets 357 130 - 400 K/mcL LAB HEMETOLOGY METHOD 08/22/2025 3:59 AM [facility] MPV 9.7 7.0 - 11.0 FL LAB HEMETOLOGY METHOD 08/22/2025 3:59 AM [facility] NRBC 0.0 <1.0 % LAB HEMETOLOGY METHOD 08/22/2025 3:59 AM [facility] NRBC Absolute 0.00 <0.10 K/mcL LAB HEMETOLOGY METHOD 08/22/2025 3:59 AM [facility] Neutrophils Relative 84.9 % LAB HEMETOLOGY METHOD 08/22/2025 3:59 AM [facility] Lymphocytes Relative 9.7 % LAB HEMETOLOGY METHOD 08/22/2025 3:59 AM [facility] Monocytes Relative 4.8 % LAB HEMETOLOGY METHOD 08/22/2025 3:59 AM [facility] Eosinophils Relative 0.0 % LAB HEMETOLOGY METHOD 08/22/2025 3:59 AM [facility] Basophils Relative 0.2 % LAB HEMETOLOGY METHOD 08/22/2025 3:59 AM [facility] Immature Granulocytes Relative 0.4 % LAB HEMETOLOGY METHOD 08/22/2025 3:59 AM [facility] Neutrophils Absolute 10.30(H) 1.50 - 7.00 K/mcL LAB HEMETOLOGY METHOD 08/22/2025 3:59 AM [facility] Lymphocytes Absolute 1.18 1.00 - 5.00 K/mcL LAB HEMETOLOGY METHOD 08/22/2025 3:59 AM [facility] Monocytes Absolute 0.58 0.20 - 1.00 K/mcL LAB HEMETOLOGY METHOD 08/22/2025 3:59 AM [facility] Eosinophils Absolute 0.00 0.00 - 0.50 K/mcL LAB HEMETOLOGY METHOD 08/22/2025 3:59 AM [facility] Basophils Absolute 0.02 0.00 - 0.20 K/mcL LAB HEMETOLOGY METHOD 08/22/2025 3:59 AM [facility] Immature Granulocytes Absolute 0.05(H) 0.00 - 0.03 K/mcL LAB HEMETOLOGY METHOD 08/22/2025 3:59 AM [facility] Blood Venous blood specimen / Unknown Venipuncture / Unknown 08/22/2025 3:19 AM EST 08/22/2025 3:54 AM EST us Dionisio [facility]ADALU[facility] LAB BLOOD ORDERABLES Final Result Performing Organization Address City/[facility]/ZIP Co de Phone Number [facility] [address] [place] [address], * hCG Qualitative (08/22/2025 3:19 AM EST) [facility] hCG Qual Negative Negative 08/22/2025 5:12 AM [facility] Blood Venous blood specimen / Unknown Venipuncture / Unknown 08/22/2025 3:19 AM EST 08/22/2025 3:54 AM EST Dionisio [facility]ADALU[facility] LAB BLOOD ORDERABLES Final Result Performing Organization Address [facility]/ZIP Co de Phone Number [facility] [address] [place] [address], [place] [phone] * (ABNORMAL) Basic Metabolic Panel (BMP) (08/22/2025 3:19 AM EST) [facility] Sodium 142 133 - 145 mmol/L 08/22/2025 4:29 AM [facility] Potassium 4.1 3.5 - 5.5 mmol/L 08/22/2025 4:29 AM [facility] Chloride 107 96 - 110 mmol/L 08/22/2025 4:29 AM [facility] CO2 23 21 - 32 mmol/L 08/22/2025 4:29 AM [facility] Anion Gap 12(H) 3 - 11 08/22/2025 4:29 AM [facility] Glucose 159(H) 70 - 100 mg/dL 08/22/2025 4:29 AM [facility] BUN 15 5 - 25 mg/dL 08/22/2025 4:29 AM [facility] Creatinine 0.72 0.50 - 1.10 mg/dL 08/22/2025 4:29 AM EST [facility] eGFR 118 >=60 mL/min/1. 73m2 08/22/2025 4:29 AM EST [facility] Comment:Calculation based on the Chronic Kidney Disease Epidemiology Collaboration (CKD-EPI) equation refit without adjustment for race. BUN/Creatinine Ratio 20.8 08/22/2025 4:29 AM EST [facility] Calcium 9.4 8.5 - 10.5 mg/dL 08/22/2025 4:29 AM EST [facility] Blood Venous blood specimen / Unknown Venipuncture / Unknown 08/22/2025 3:19 AM EST 08/22/2025 3:54 AM EST Dionisio [facility] LAB BLOOD ORDERABLES Final Result [facility] [address] [place] [address], * ECG-Annotated (08/22/2025) us Provider Onbase MD ECG ORDERABLES Final Result * CT Angio Head/Neck wo and/or w Contrast (08/21/2025 12:35 PM EST) Anatomical Region Laterality Modality Head and Neck Computed Tomogra phy 08/21/2025 12:5 5 PM EST Impressions 08/21/2025 1:02 PM EST 1. No acute intracranial findings. 2. Normal CT angiogram of the neck and [place]. -------- FINAL REPORT -------- Dictated By: Anson Mcmahan Dictated Date: 08/21/2025 12:55 ET Assigned Physician: Anson Mcmahan Reviewed and Electronically Signed By: Anson Mcmahan Signed Date: 08/21/2025 13:02 ET Workstation ID: [id number] Transcribed By: Self Edit Transcribed Date: 08/21/2025 12:55 ET Narrative 08/21/2025 1:02 PM EST PROCEDURE: CT angiogram of the neck and [place] and delayed postcontrast CT of the brain. HISTORY: dizziness double vision/neck pain (ongoing x 1 week so stroke protocol not ordered). COMPARISON: None. TECHNIQUE: CT angiogram of the neck and [place] with multiplanar reformats. 3-D reconstructions [...] dissection, or occlusion. The basilar artery and retail business manager are widely patent. Bilateral posterior communicating arteries, [...] PROCEDURE: CT angiogram of the neck and [place] and delayedpostcontrast CT of the brain. HISTORY: dizziness double vision/neck pain (ongoing x 1 week so stroke protocol notordered). COMPARISON: None. TECHNIQUE: CT angiogram of the neck and [place] with multiplanarreformats. 3-D reconstructions were [...] stenosis, dissection, orocclusion. The basilar artery and retail business manager are widely patent. Bilateral posteriorcommunicating arteries, larger [...] Normal CT angiogram of the neck and [place]. -------- FINAL REPORT -------- Dictated By: Anson Mcmahan Dictated Date: 08/21/2025 12:55 ET Assigned Physician: Anson Mcmahan Reviewed and Electronically Signed By: Anson Mcmahan Signed Date: 08/21/2025 13:02 ET Workstation ID: [id number] Transcribed By: Self Edit Transcribed Date: 08/21/2025 12:55 ET Brit GUADALUPE IMG CT PROCEDURES Final Result * HCG, quantitative (08/21/2025 11:14 AM EST) hCG Quant <3 mIU/mL 08/21/2025 12:43 PM EST [facility] Blood Venous blood specimen / Unknown Venipuncture / Unknown 08/21/2025 11:14 AM EST 08/21/2025 11:37 AM EST Narrative [facility] - 08/21/2025 12:43 PM EST Quantitative HCG Reference Ranges Time after Conception MIU/ML 0.2-1 Week 5-50 1-2 Weeks 50-500 2-3 Weeks 100-5,000 3-4 Weeks 500-10,000 4-5 Weeks 1,000-50,000 5-6 Weeks 10,000-100,000 6-8 Weeks 15,000-200,000 2-3 Months 10,000-100,000 2nd Trimester 1,000-94,000 3rd Trimester 2,500-90,000 Non- Females 1-3 Brit [facility] LAB BLOOD ORDERABLES Fin al Result Performing Organization Address City/[facility]/ZIP Co de Phone Number [facility] [address] [place] [address], [place] [phone] * (ABNORMAL) Magnesium (08/21/2025 11:14 AM EST) Magnesium 1.5(L) 1.9 - 2.6 mg/dL 08/21/2025 12:08 PM EST [facility] Blood Venous blood specimen / Unknown Venipuncture / Unknown 08/21/2025 11:14 AM EST 08/21/2025 11:37 AM EST Brit GUADALU[facility] LAB BLOOD ORDERABLES Fin al Result Performing Organization Address [facility]/ZIP Co de Phone Number [facility] [address] [place] [address], [place] [phone] * Comprehensive metabolic panel (08/21/2025 11:14 AM EST) Sodium 138 133 - 145 mmol/L 08/21/2025 12:08 PM EST [facility] Potassium 3.8 3.5 - 5.5 mmol/L 08/21/2025 12:08 PM [facility] Chloride 104 96 - 110 mmol/L 08/21/2025 12:08 PM EST [facility] CO2 27 21 - 32 mmol/L 08/21/2025 12:08 [facility] Anion Gap 7 3 - 11 08/21/2025 12:08 PM [facility] Glucose 73 70 - 100 mg/dL 08/21/2025 12:08 PM [facility] BUN 13 5 - 25 mg/dL 08/21/2025 12:08 PM [facility] Creatinine 0.69 0.50 - 1.10 mg/dL 08/21/2025 12:08 [facility] eGFR 123 >=60 mL/min/1. 73m2 08/21/2025 12:08 PM [facility] Comment:Calculation based on the Chronic Kidney Disease Epidemiology Collaboration (CKD-EPI) equation refit without adjustment for race. BUN/Creatinine Ratio 18.8 08/21/2025 12:08 PM [facility] Calcium 8.6 8.5 - 10.5 mg/dL 08/21/2025 12:08 [facility] AST (SGOT) 26 10 - 42 unit/L 08/21/2025 12:08 [facility] ALT (SGPT) 26 10 - 60 unit/L 08/21/2025 12:08 PM [facility] Alkaline Phosphatase 89 42 - 121 unit/L 08/21/2025 12:08 PM [facility] Total Protein 7.1 6.0 - 8.0 g/dL 08/21/2025 12:08 [facility] Albumin 4.0 3.2 - 5.0 g/dL 08/21/2025 12:08 PM [facility] Total Bilirubin 0.3 0.0 - 1.4 mg/dL 08/21/2025 12:08 [facility] Blood Venous blood specimen / Unknown Venipuncture / Unknown 08/21/2025 11:14 AM EST 08/21/2025 11:37 AM EST Brit [facility] LAB BLOOD ORDERABLES Fin al Result [facility] [place] ([facility]) [facility] LAB [address] [place] [address], [place] [phone] * ECG 12 lead (08/21/2025 11:04 AM EST) Ventricular Rate ECG 87 BPM GEMUSE Atrial Rate 87 BPM GEMUSE P-R Interval 146 ms GEMUSE QRS Duration 88 ms GEMUSE Q-T Interval 378 ms GEMUSE QTc 454 ms GEMUSE P Wave [place] 42 degrees GEMUSE R [place] 58 degrees GEMUSE T [place] 21 degrees GEMUSE ECG Interpretation Normal sinus [...] Final Result from Last 3 Months Insurance [facility] Advance Directives * Full Code - Default [...] currently active code status orders. Care Teams Sba Business Development Officer Relationship Specialty Start Date End Date Dm Lakhani MD [address] [place] [phone] PCP - General Family Medicine 08/15/25
--- OUTSIDE RECORDS SUMMARY | 2025-09-24 17:24 | XMS_ITS | Patient Health Record ---
Author Organization [facility] Address [address] [address] Care Team Providers Care Display Card Writer Name Role Phone Maritza Dale Unavailable [phone] Reason For Referral No Information Encounters Encounter Location Date Provider Diagnosis [facility] [address] [address] 2024 Maritza Dale Plan Of Treatment No Information Insurance Providers Payer Name Payer Address Payer Phone Subscriber Number Group Number Insured Name Patient Relationship to Insured Coverage Start Date Coverage End Date /[employer] [id number] [place] [id number] [phone] BRANDYN CHENEY Self - patient is the insured
--- OUTSIDE RECORDS SUMMARY | 2025-09-24 17:25 | XMS_ITS | Encounter Summary ---
Author Organization [facility] Address [address] [place] [address] Care Team Providers Care Hotel Front Desk Agent Name Role Phone Dm Lakhani MD Primary Care Provider [phone] Encounter Details Date Type Department Care Team (Late st Contact Info) Description 06/18/2025 Lab Requisition [facility] Main Lab [address] [place] [address] Obdulio Caceres MD [address] [facility] [address] [place] [id number] Calculus of kidney Social History Tobacco Use [...] [facility], [address], [place] [address] Alice Hernandez MD, PhD - Oil [employer] Calculus 06/18/2025 06/18/2025 12: 10 PM EDT us Obdulio Caceres MD LAB BODY FLUIDS AND STOOLS ORDER FLORINDA Final Result [facility] [address] [place] [address] documented in this encounter Visit Diagnoses Diagnosis Calculus of kidney documented in this encounter Care Teams Hotel Front Desk Agent Relationship Specialty Start Date End Date Dm Lakhani MD [address] [place] [phone] PCP - General Family Medicine 08/15/25 documented as of this encounter
[2025-09-24 18:10] LABS: Alanine Aminotransferase 48 U/L (0-31); Albumin Level 4.5 g/dL (3.5-5.0); Alkaline Phosphatase 91 U/L (39-117); Anion Gap 12 (12-20); Aspartate Amino Transferase 26 U/L (5-31); Blood Urea Nitrogen 11 mg/dL (9-16); Calcium 9.6 mg/dL (8.4-10.2); Carbon Dioxide 22 mmol/L (22-29); Chloride 110 mmol/L (96-108); Cholesterol 269 mg/dL (<200); Estimated Glomerular Filt Rate > 60; HDL Cholesterol 33 mg/dL (>40); Magnesium 1.6 mg/dL (1.6-2.6); Potassium 3.1 mmol/L (3.3-5.1); Sodium 141 mmol/L (135-145); Total Protein 7.6 g/dL (6.5-8.0); Triglycerides 383 mg/dL (<150)
[2025-09-24 18:27] LABS: Folate 8.3 ng/mL (> or = 4.0); Vitamin B12 209 pg/mL (200-900)
[2025-09-25 07:32] LABS: Syphilis Screen Nonreactive (Nonreactive)
[2025-09-25 07:56] LABS: HBS Num1 1.75 mIU/mL (0-7.99); HBsAGNum1 0.49 S/CO (0.00-0.99); HIV Num 1 0.08 S/CO (0.00-0.99); Hepatitis B Surface Antigen Negative (Negative); ~HepC Num1 0.15 S/CO (0.00-0.79); ~Hepatitis B Surface Antibody NONREACTIVE (Nonreactive); ~Hepatitis C Antibody Nonreactive (Nonreactive)
== END 2025-09-24 15:16 ==
LOC: HO.HMGCLDS 15:15
PROVIDERS: PCP Student in an Organized Health Care Education/Training Program; Visit Provider Student in an Organized Health Care Education/Training Program
DX: Z11.4 Encounter for screening for human immunodeficiency virus [HIV] (principal); Z13.89 Encounter for screening for other disorder; Z20.2 Contact with and (suspected) exposure to infections with a predominantly sexual mode of transmission; Z13.29 Encounter for screening for other suspected endocrine disorder; Z13.21 Encounter for screening for nutritional disorder; Z13.1 Encounter for screening for diabetes mellitus; Z13.6 Encounter for screening for cardiovascular disorders
CPT/HCPCS: 36415; 80053; 80061; 81001; 82306; 82607; 82746; 83036; 83735; 84146; 84443; 85025; 86706; 86780; 86803; 87340; 87389

== ENCOUNTER → 2025-09-24 19:30 | Outpatient (REF) | payer OTHER, SELFPAY ==
--- OUTSIDE RECORDS SUMMARY | 2025-09-24 22:45 | XMS_ITS | Continuity of Care Document ---
Author Name [facility] Organization [facility] Care Team Providers Care Peanut Blancher Name Role Phone [facility] Unavailable Unavailable Medications Combined list of outpatient medications from Department of Defense and Veterans Affairs facilities.Medications provided include 1) outpatient medications from the last 15 months, and 2) patient-reported medications. Medication Details Route Status Indication(s) Patie nt Instructions Prescription Expires Prescription Number Last Dispense Date Ordering Provider Order Date Order Qty Source DULoxetine DR 60 mg capsule See Rx Instruct ions, # 60 EA, 0 total refill(s ), Hard Stop Complet ed 07/23/2023 2 2022 60.0 Ambulat ory Pharmac y DULoxetine DR 60 mg capsule See Rx Instruct ions, # 120 EA, 0 total refill(s ), Hard Stop Complet ed 08/04/2023 2 2022 120.0 Ambulat ory Pharmac y DULoxetine DR 60 mg capsule See Rx Instruct ions, # 60 EA, 1 total refill(s ), Hard Stop Complet ed 10/29/2023 3 2023 60.0 Ambulat ory Pharmac y DULoxetine DR 60 mg capsule See Rx Instruct ions, # 120 EA, 1 total refill(s ), Hard Stop Complet ed 12/07/2023 3 2023 120.0 Ambulat ory Pharmac y hydrOXYzine pamoate 100 mg capsule See Rx Instruct ions, Oral, # 30 EA, 10 total refill(s ), Hard Stop Oral (given by mouth) Complet ed 04/13/2023 2 2022 30.0 Ambulat ory Pharmac y lamoTRIgine [AvKare] 100 mg tablet See Rx Instruct ions, # 60 EA, 1 total refill(s ), Hard Stop Complet ed 10/29/2023 3 2023 60.0 Ambulat ory Pharmac y lamoTRIgine [AvKare] 100 mg tablet See Rx Instruct ions, # 60 EA, 1 total refill(s ), Hard Stop Complet ed 08/04/2023 2 2022 60.0 Ambulat ory Pharmac y lamoTRIgine [AvKare] 25 mg tablet See Rx Instruct ions, # 70 EA, 0 total refill(s ), Hard Stop Complet ed 08/04/2023 2 2022 70.0 Ambulat ory Pharmac y QUEtiapine 50 mg tablet See Rx Instruct ions, # 30 EA, 0 total refill(s ), Hard Stop Complet ed 12/07/2023 3 2023 30.0 Ambulat ory Pharmac y Procedures Combined list of: 1) Procedures from Department of Veterans Affairs facilities going back up to thelast 18 months, not all [place] non-surgical procedures are included; 2) All procedures from the Department of Defense facilities. Procedure Procedure Type Code Date Perfomer Comments Sourc e No data available for this section Ambulatory P harmacy Social History Combined list of available smoking, tobacco, and other social history from Department of Defense and Veterans Affairs facilities. Social History Type Response Date Comment Sourc e Sexual Orientation Ambula tory Pharmacy Gender identity Ambulator y Pharmacy Sex Representation Unknow n Organization Assessment and Plan Combined list of future care activities from Department of Defense and Veterans Affairs facilities (e.g., assessment and plan notes, appointments, orders, and referrals). Additional future care activities may be listed in the Plan of Care section. Result Assessment and Plan Date Source Assessment and Plan No data available for this section 09/25/2025 Ambulatory Pharmacy Functional Status Combined list of recent functional and cognitive assessments recorded at [facility] and [facility] [place] Functional [place] Measurement (FIM) Scale: 1 = Total Assistance (Subject = 0% +), 2 = Maximal Assistance (Subject = 25% +), 3 = Moderate Assistance (Subject = 50% +), 4 = Minimal Assistance (Subject = 75% +), 5 = Supervision, 6 = Modified Shipman (Device), 7 = Complete Shipman (Timely, Safely). Assessment Date/Time Source Assessment Type Assessment Skill Assessment Score Assessment Details No data available for this section
== END ==
LOC: HO.SL 19:30
PROVIDERS: PCP Student in an Organized Health Care Education/Training Program; Visit Provider Nurse Practitioner Family
DX: G47.33 Obstructive sleep apnea (adult) (pediatric) (principal); G47.19 Other hypersomnia; G47.9 Sleep disorder, unspecified; G47.34 Idiopathic sleep related nonobstructive alveolar hypoventilation; R06.83 Snoring
CPT/HCPCS: 95810

== ENCOUNTER → 2025-09-24 22:10 | Outpatient (BNV) | payer OTHER, SELFPAY | PROVIDERS: PCP Student in an Organized Health Care Education/Training Program; Visit Provider Psychiatry & Neurology Neurology | DX: G47.33 Obstructive sleep apnea (adult) (pediatric) (principal); R06.83 Snoring | CPT/HCPCS: 95810 ==